=== PATIENT | male | born 1955 | race Caucasian/White ===

== ENCOUNTER → 2017-12-02 14:09 | Outpatient (CLI) | payer SELFPAY | PROVIDERS: Family Provider Family Medicine; PCP Family Medicine; Visit Provider Family Medicine | DX: H10.31 Unspecified acute conjunctivitis, right eye (principal) | CPT/HCPCS: 87070; 87075; 87077; 87186; 87205 ==

== ENCOUNTER → 2018-03-02 08:31 | Outpatient (CLI) | payer OTHER, SELFPAY ==
[2018-03-02 13:03] LABS: Hemoglobin A1c 7.6 % (4.2-6.3)
[2018-03-02 13:14] LABS: ALB/GLOB Ratio 0.9 RATIO (0.9-2.4); AST(SGOT) 28 U/L (15-37); Alanine Aminotransfer ALT/SGPT 57 U/L (16-61); Albumin, Serum 3.5 g/dL (3.2-5.0); Alkaline Phosphatase 54 U/L (45-117); Anion Gap 9 (5-15); BUN 15 mg/dL (7-18); BUN/Creat Ratio 19.5 RATIO (10-20); Calcium,Total 8.4 mg/dL (8.5-10.1); Chloride 105 mmol/L (98-107); Cholesterol 150 mg/dL (200); Creatinine, Serum 0.77 mg/dL (0.70-1.30); EST Glomerular Filtration Rate 109 mL/min (>60); Est Glom Filt Rate - Afr Amer 131 mL/min (>60); Globulin 3.9 g/dL (2.2-4.2); Glucose 115 mg/dL (74-106); High Density Lipoprotein 72 mg/dL; Potassium 3.6 mmol/L (3.5-5.1); Protein, Total 7.4 g/dL (6.4-8.2); Sodium Level 140 mmol/L (136-145); Thyroid Stim Hormone (TSH) 3.93 uIU/mL (0.358-3.74); Triglycerides 74 mg/dL; Very Low Density Lipoprotein 15 mg/dL (5-40)
== END ==
PROVIDERS: Family Provider Family Medicine; PCP Family Medicine; Visit Provider Family Medicine
DX: E11.9 Type 2 diabetes mellitus without complications (principal)
CPT/HCPCS: 36415; 80053; 80061; 83036; 84443

== ENCOUNTER 2018-09-21 21:45 | Observation (INO) | payer OTHER, SELFPAY ==
[2018-08-31 15:58] VITALS: BMI 32.8
[2018-09-21 21:46] VITALS: BP 177/93; PULSE 61; RESP 9; TEMP 36.4; O2SAT 95; BMI 34.0
--- NOTE | 2018-09-21 21:50 | ED.RN ---
RN CALLED FOR EKG, PULLED OLD EKGS FOR
--- NOTE | 2018-09-21 22:14 | EKG12_ITS ---
Test Reason : CP Blood Pressure : / mmHG Vent. Rate : 058 BPM Atrial Rate : 058 BPM P-R Int : 138 ms QRS Dur : 104 ms QT Int : 428 ms P-R-T Axes : 064 093 085 degrees QTc Int : 420 ms Sinus bradycardia Rightward axis Borderline ECG Confirmed by ANTHONY PERALTA, VIJAYA ([id number]), order editor BERE FALL ([id number] on 09/24/2018 1:47:01 PM Referred By: MARIBETH Confirmed By:VIJAYA CRUZ MD
--- NOTE | 2018-09-21 22:20 | RAD_ITS ---
STUDY: X-RAY CHEST REASON FOR EXAM: Male, 63 years old. Chest pain. TECHNIQUE: Portable chest. COMPARISON: 01/04/2017. FINDINGS: Sternotomy wires and surgical clips are compatible with prior CABG. The lungs are clear and expanded. There is no demonstrated pleural abnormality. Normal size heart. Normal mediastinum and sanam. Normal visualized pulmonary arteries. Normal visualized aortic arch and descending thoracic aorta. Normal visualized thoracic spine. Normal visualized ribs, clavicles, and shoulders. There is no demonstrated abnormality of the visualized soft tissue structures of the upper abdomen. RAD/Chest 1 View (Portable) IMPRESSION: No acute process. Electronically Signed: Aurelia Villatoro MD at 23:06 EST Tel , Service support ,
[2018-09-21 22:22] VITALS: O2SAT 98
[2018-09-21] MEDS: 0.9% Normal Saline 1,000 ML 150 ML IV (22:27)
[2018-09-21] MEDS: Aspirin 81 MG TAB.CHEW 324 MG PO (22:28)
[2018-09-21 22:56] LABS: Anion Gap 5 (5-15); BUN 17 mg/dL (7-18); BUN/Creat Ratio 15.5 RATIO (10-20); Calcium,Total 9.1 mg/dL (8.5-10.1); Chloride 104 mmol/L (98-107); EST Glomerular Filtration Rate 72 mL/min (>60); Est Glom Filt Rate - Afr Amer 87 mL/min (>60); Estimated Creatinine Clearance 68.74 ml/min; Glucose 144 mg/dL (74-106); Sodium Level 137 mmol/L (136-145)
[2018-09-21 23:03] LABS: Absolute Lymphocyte Count 4.69 X10^3/ul (0.83-4.51); Basophil# 0.05 X10^3/uL; Basophil% 0.4 % (0-1); Eosinophil# 0.32 X10^3/uL; Eosinophils% 2.8 % (0-5); Hematocrit 40.5 % (40-54); Hemoglobin 13.6 g/dl (13.0-16.5); Lymphocyte # 4.69 X10^3/ul (4.0); Lymphocyte % 40.9 % (19-41); Mean Corp Hgb Conc 33.6 g/gl (32-36); Mean Corpuscular Hgb 31.1 pg (27.0-32.0); Mean Corpuscular Volume 92.5 fL (80-94); Mean Platelet Vol. 9.4 fl (6.2-12.0); Monocyte# 1.42 X10^3/uL; Monocyte% 12.4 % (0-10); Neutrophil # 4.97 X10^3/uL (2.7-7.7); Neutrophil % 43.2 % (47-70); POSITIVE COUNT NO; POSITIVE DIFFERENTIAL NO; POSITIVE MORPHOLOGY NO; Platelet Count 318 K/mm3 (150-450); RBC Distribution Width CV 13.3 % (11.6-14.6); RBC Distribution Width SD 44.1 fl (35.1-43.9); Red Blood Count 4.38 M/mm3 (4.6-6.2); White Blood Count 11.5 K/mm3 (4.4-11.0)
[2018-09-21 23:11] VITALS: BP 139/78; PULSE 60; RESP 18; O2SAT 97
--- NOTE | 2018-09-21 23:37 | ED.DCSUM_ITS ---
- ER Visit Summary Date of Service: 09/21/18 Chief Complaint: Chest pain History of Present Illness: The patient is a 63 M who presents for chest pain. Patient states about an hour and a half ago he started developing some tightness and prickling sensation in his left chest. He did not noted any shortness of breath. He went to bed but pain seemed to worsen. Patient does have a history of coronary disease with prior HI. He had a four-way bypass in 2012. Physical Examination: Vital signs on arrival include a blood pressure of 177/93, temp 97.5, heart rate 61, respiratory rate 9, pulse ox 95% on room air. Patient sitting upright in bed in no acute distress. He is alert and talkative. Heart is regular rate and rhythm. Lungs sounds are clear. There is no reproducible chest tenderness. Abdomen is soft nontender. Extremity examination was no calf tenderness or edema. Test Results: Portable chest x-ray shows no acute process. EKG is sinus at 58 with no sign of acute ischemia. CBC was white count 11.5 with normal differential. Chemistry studies reveal glucose of 144. Troponin is negative. Emergency Department Course and Treatment: Patient received aspirin on arrival here. On repeat evaluation patient denies pain at present but has had a few twinges of pain intermittently. Blood pressure is 139/78. Patient will be admitted for further workup and evaluation. Treatment Plan: [] Disposition: Admit Impression: Chest pain This note was generated with [employer] dictation software. It may contain incorrect words, spelling, and punctuation that were not noted in review of the chart prior to signing ED Disposition - Plan for ED Patient: Chief Complaint: Chest Pain Referrals: Keshav Edwards MD [Primary Care Provider] -
--- NOTE | 2018-09-21 23:38 | PCM.HP.STD ---
History of Present Illness Date of Admission: 09/21/18 Chief Complaint: chest pain The patient is a 63 year old M with a PMH of CAD s/p CABG x 4, hypertension and diabetes. He was admitted to the ED on 09/21/2018 with complaint of chest pain which started around 9 PM on day of admission. Pain was retrosternal, pressure-like, rated it at about 5 out of 10. No aggravating or relieving factors. Pain had pretty much resolved at time of review. He denied any assisted lightheadedness or dizziness or palpitations and pain was not worsened by exertion and relieved by rest. He denied any fever or chills, any cough, any abdominal pain, any diarrhea vomiting. He did complain of episodic nose bleeds, the last of which occured this morning. In the ED, EKG showed right axis deviation with marked bradycardia with heart rate around 58 and initial troponin was negative. Labs were otherwise unremarkable. He is been admitted to manage for chest pain to rule out ACS. [] Past Medical History Past Medical History (Chronic Problems): Chronic Problems (Last Reviewed 08/31/18 @ 16:14 by Babak Garcia MD) Atherosclerotic heart disease of [place] coronary artery without angina pectoris (Chronic) Aortocoronary bypass status (Chronic) CABG X 3, 02/22/13, HUNT to LAD, SVG to RCA & SVG to 2nd marginal branch of CX (Dr. Marroquin [facility]) History of seasonal allergies (Chronic) HLD (hyperlipidemia) (Chronic) Type II diabetes mellitus (Chronic) History of depression (Chronic) CAD (coronary artery disease) (Chronic) CABG X 3, 02/22/13, HUNT to LAD, SVG to RCA & SVG to 2nd marginal branch of CX (Dr. Marroquin [facility]) Benign hypertension (Chronic) BPH (benign prostatic hyperplasia) (Chronic) Medical History: Medical History (Last Reviewed 08/31/18 @ 16:14 by Babak Garcia MD) Atherosclerotic heart disease of [place] coronary artery without angina pectoris (Chronic) I25.10 HLD (hyperlipidemia) (Chronic) E78.5 CAD (coronary artery disease) (Chronic) I25.10 CABG X 3, 02/22/13, HUNT to LAD, SVG to RCA & SVG to 2nd marginal branch of CX (Dr. Marroquin [facility]) Benign hypertension (Chronic) I10 Shortness of breath R06.02 Allergies No Known Allergies Allergy (Verified 09/21/18 21:48) Home Medications: Ambulatory Orders Medication Instructions Recorded Aspirin 1 tab PO DAILY 01/04/17 Escitalopram Oxalate [Lexapro] 1 tab PO DAILY 01/04/17 Finasteride 1 tab PO DAILY 01/04/17 Metformin HCl [Metformin HCl ER] 1 tab PO BID 01/04/17 Metoprolol Tartrate 1 tab PO BID 01/04/17 Pravastatin [Pravachol] 40 mg PO QHS 01/04/17 Tamsulosin HCl [Flomax] 1 tab PO DAILY 01/04/17 Surgical History: Surgical History (Last Reviewed 08/31/18 @ 16:14 by Babak Garcia MD) Aortocoronary bypass status (Chronic) Z95.1 CABG X 3, 02/22/13, HUNT to LAD, SVG to RCA & SVG to 2nd marginal branch of CX (Dr. Marroquin [facility]) Lives: Spouse/ Significant Other Smoking Status: Never smoker Alcohol: None Review of Systems Constitutional: Denies: Chills, Fever, Weight Change Eyes: Denies: Blurred vision HEENT: Denies: Head Aches, Sinus Congestion, Sinus Drainage Cardiovascular: Reports: Chest Pain. Denies: Chest Pressure, Chest Tightness, Palpitations, Syncope Respiratory: Denies: Cough, Shortness of breath at rest, Sputum production Gastrointestinal: Denies: Abdominal Pain, Nausea, Vomiting Genitourinary: Denies: Dysuria Musculoskeletal: Denies: Joint Pain, Joint Tenderness Skin: Denies: Rash, Wounds Neurological: Denies: Numbness, Tingling, Focal weakness Psychiatric: Denies: Anxiety, Depression, Homicidal Ideations, Suicidal Ideations Hematologic/ Lymphatic: Denies: Easy Bruising, Easy Bleeding VTE Information - Inpt Only VTE Present on Admission: No VTE Mechan Device Prophylaxis: SCD's - Physical Exam General: Alert, Oriented x3, Cooperative, No apparent distress HEENT: Atraumatic, PERRLA, EOMI, Normocephalic Oral: Moist Mucosa Neck: Supple, No JVD, Negative Carotid Bruits Lungs: Normal air movement, - - mild bibasal crackles Cardiovascular: Regular rate, Regular Rhythm, Normal S1, Normal S2, No murmurs Abdomen: Bowel Sounds Present, Soft, Non Tender, Non-Distended, No Hepato-splenomegaly Extremities: No clubbing, No cyanosis, No edema, Capillary Refill Less than 3 Seconds Skin: No rashes, No breakdown Musculoskeletal: No Tenderness to Palpation of Joints or Extremities Lymphatic: No Cervical, Supraclavicular, or Inguinal Adenopathy Neurological: Cranial nerves II-XII grossly intact, Neuro grossly intact, Motor Exam 5/5 strength throughout Psych/Mental Status: Normal Affect, Appropriate, Alert and oriented to time, place, person, mood and affect Vital Signs Temp Pulse Resp BP Pulse Ox 97.5 F L 60 18 139/78 H 97 09/21/18 21:46 09/21/18 23:11 09/21/18 23:11 09/21/18 23:11 09/21/18 23:11 Oxygen Flow Rate (L/min) 2 Oxygen Delivery Method Nasal Cannula Weight: 230 lb 9.656 oz Body Mass Index (BMI) 34.0 Laboratory Tests Past 24 Hrs 09/21/18 09/21/18 21:50 21:50 WBC 11.5 H RBC 4.38 L Hgb 13.6 Hct 40.5 MCV 92.5 MCH 31.1 MCHC 33.6 RDW 13.3 RDW Differential 44.1 H Plt Count 318 MPV 9.4 Immature Gran % (Auto) 0.300 Neut % (Auto) 43.2 L Lymph % (Auto) 40.9 [place] % (Auto) 12.4 H Eos % (Auto) 2.8 Baso % (Auto) 0.4 Absolute Neuts (auto) 5.0 Absolute Lymphs (auto) 4.69 H Total Counted Not Reportable Sodium 137 Potassium 4.0 Chloride 104 Carbon Dioxide 28.0 Anion Gap 5 BUN 17 Creatinine 1.10 Estim Creat Clear Calc 68.74 Est GFR (MDRD) Af Amer 87 Est GFR (MDRD) Non-Af 72 BUN/Creatinine Ratio 15.5 Glucose 144 H Calcium 9.1 Troponin I < 0.015 Diagnostic Data Chest X-Ray 09/21/18 22:20 IMPRESSION: No acute process. Electronically Signed: Aurelia Villatoro MD at 23:06 EST Tel , Service support , Assessment/Plan 61 y/o with a history of CAD s/p CABG x 4 presenting with a history of chest pain for a few hours prior to presentation 1. Chest pain, to rule out ACS initial troponin negative; EKG showed no acute ST changes and showed right axis deviation which is not new, and was present in previous EKGs admit to PCu with telemetry cycle troponins SL nitroglycerin prn; hold off on aspirin for now o/a of complaints about epistaxis continue atorvastatin for stress test tomorrow 2. CAD s/p CABG x 4: continue statin and beta eva 3. Epistaxis; complains of periodic nosebleeds; had one this morning. On aspirin; will hold. Says he hasnt seen an ENT surgeon yet. To consider ENT referral in [place] morning if symptoms persist; otherwise, to follow up with ENT on outpatient basis. 4. Diabetes mellitus type 2: hold metformin o/a of stress test tomorrow. ISS. accuchecks ACHS 5. Asymptomatic bradycardia: HR is ~ 58. Asymptomatic. Will continue to monitor 6. BPh: on finasteride 6. depression: on lexapro DVT prophylaxis; SCDs o/a of episodic nose bleed Code Visit OBSV E&M: [id number] Initial observation care L2
[2018-09-21 23:55] VITALS: BP 156/77; PULSE 59; RESP 18; O2SAT 97
[2018-09-22] VITALS (10 sets, daily range): BP systolic 132–148; BP diastolic 63–74; PULSE 59–72; RESP 16–18; TEMP 36.6–36.8; O2SAT 96–97; BMI 31.1; BMI 31.2
[2018-09-22 00:45] LABS: Bedside Glucose 135 mg/dL (70-110)
[2018-09-22 03:58] LABS: Absolute Lymphocyte Count 3.11 X10^3/ul (0.83-4.51); Absolute Neutrophil Count 3.7 X10^3/uL (2.0-7.7); Basophil# 0.05 X10^3/uL; Basophil% 0.6 % (0-1); Eosinophils% 3.9 % (0-5); Hematocrit 37.1 % (40-54); Hemoglobin 12.4 g/dl (13.0-16.5); Lymphocyte # 3.11 X10^3/ul (4.0); Lymphocyte % 39.9 % (19-41); Mean Corp Hgb Conc 33.4 g/gl (32-36); Mean Corpuscular Hgb 30.9 pg (27.0-32.0); Mean Corpuscular Volume 92.5 fL (80-94); Mean Platelet Vol. 8.9 fl (6.2-12.0); Monocyte# 0.66 X10^3/uL; Monocyte% 8.5 % (0-10); Neutrophil # 3.66 X10^3/uL (2.7-7.7); Platelet Count 280 K/mm3 (150-450); RBC Distribution Width CV 13.2 % (11.6-14.6); Red Blood Count 4.01 M/mm3 (4.6-6.2); White Blood Count 7.8 K/mm3 (4.4-11.0)
[2018-09-22 04:00] LABS: Prothrombin Time (Protime)PT. 13.2 SECONDS (11.7-14.9)
[2018-09-22 04:06] LABS: POSITIVE COUNT NO; POSITIVE DIFFERENTIAL NO; POSITIVE MORPHOLOGY NO
[2018-09-22] MEDS: 0.9% Normal Saline 1,000 ML 150 ML IV (05:02)
--- NOTE | 2018-09-22 05:55 | EKG12_ITS ---
Test Reason : Blood Pressure : / mmHG Vent. Rate : 055 BPM Atrial Rate : 055 BPM P-R Int : 138 ms QRS Dur : 098 ms QT Int : 458 ms P-R-T Axes : 052 091 097 degrees QTc Int : 438 ms Sinus bradycardia Rightward axis Borderline ECG When compared with ECG of 21-SEP-2018 21:48, MANUAL COMPARISON REQUIRED, DATA IS UNCONFIRMED Confirmed by ANTHONY PERALTA, VIJAYA ([id number]), development editor BERE FALL ([id number]) on 09/24/2018 2:10:54 PM Referred By: Confirmed By:VIJAYA CRUZ MD
[2018-09-22 07:01] LABS: Bedside Glucose 138 mg/dL (70-110)
[2018-09-22 07:19] LABS: Anion Gap 11 (5-15); BUN 14 mg/dL (7-18); BUN/Creat Ratio 16.1 RATIO (10-20); Calcium,Total 8.5 mg/dL (8.5-10.1); Chloride 106 mmol/L (98-107); Creatinine, Serum 0.87 mg/dL (0.70-1.30); EST Glomerular Filtration Rate 94 mL/min (>60); Est Glom Filt Rate - Afr Amer 114 mL/min (>60); Estimated Creatinine Clearance 86.91 ml/min; Glucose 142 mg/dL (74-106); Potassium 4.4 mmol/L (3.5-5.1); Sodium Level 141 mmol/L (136-145)
[2018-09-22] MEDS: Finasteride 5 MG Tablet PO (12:06)
[2018-09-22] MEDS: Metoprolol Tartrate 25 MG Tablet PO (12:06)
[2018-09-22] MEDS: Escitalopram Oxalate 10 MG Tablet PO (12:06)
[2018-09-22] MEDS: Tamsulosin HCl 0.4 MG Capsule PO (12:07)
[2018-09-22 12:21] LABS: Bedside Glucose 120 mg/dL (70-110)
--- NOTE | 2018-09-22 12:34 | STRESSREP ---
Stress Test Report Exercise myocardial perfusion stress test. 63-year-old man with a history of chest pain. Medications Lexapro Proscar metoprolol. Stress protocol: Resting EKG demonstrates normal sinus rhythm with a rate of 62 bpm normal intervals are noted resting blood pressure 144/86 mmHg. The patient exercised according to regular Triston protocol for total duration of 7 minutes patient completed 1 minute into stage III of the Triston protocol the maximum heart rate attained was 141 bpm which was 89% of maximum predicted heart rate the maximum workload was 8.5 metabolic equivalents. Patient maintained sinus rhythm throughout the recording. At rest there were no ST or T wave changes noted suggest ischemia at peak exercise upsloping ST changes only were noted with normally the criteria for ischemia. Patient was noted to have a right bundle branch block with occasional premature ventricular complexes. The resting blood pressure 144/86 with a peak blood pressure of 210/80. Myocardial perfusion protocol. 14.9 mCi of technetium 99m sestamibi was injected at rest. Patient exercised according to regular Triston protocol for 7 minutes and at peak exercise 44.6 mCi of technetium 99m sestamibi was injected stress images were obtained stress and rest images were reconstructed and compared in the short axis vertical long horizontal long axis. Gated images were also obtained Perfusion SPECT analysis: Review of the stress images demonstrate normal uptake of tracer noted in all areas of the myocardium. The resting images similarly demonstrate normal uptake of tracer noted in all areas of the myocardium. No areas of reversibility are noted suggest ischemia. Gated SPECT analysis: The gated ejection fraction is noted to be 69%. Conclusion: Normal exercise myocardial perfusion stress test at a moderate workload. Preserved ejection fraction.
--- NOTE | 2018-09-22 12:43 | PCM.DC.SUM ---
Discharge Date and Diagnosis Date of Admission: 09/21/18 Date of Discharge: 09/22/18 - Primary Discharge Diagnosis Acute chest pain - Secondary Discharge Diagnosis Chronic Problems (Last Reviewed 08/31/18 @ 16:14 by Babak Garcia MD) Atherosclerotic heart disease of [place] coronary artery without angina pectoris (Chronic) Aortocoronary bypass status (Chronic) CABG X 3, 02/22/13, HUNT to LAD, SVG to RCA & SVG to 2nd marginal branch of CX (Dr. Marroquin [facility]) History of seasonal allergies (Chronic) HLD (hyperlipidemia) (Chronic) Type II diabetes mellitus (Chronic) History of depression (Chronic) CAD (coronary artery disease) (Chronic) CABG X 3, 02/22/13, HUNT to LAD, SVG to RCA & SVG to 2nd marginal branch of CX (Dr. Marroquin [facility]) Benign hypertension (Chronic) BPH (benign prostatic hyperplasia) (Chronic) Hospital Course and Treatment Imaging Results: 09/22/18 08:00 Nuclear Stress Test - Treadmil [NM] Routine Summary of Care Provided: The patient is a 63 year old M with past medical history cigar for CAD with previous CABG who presented with chest pain 1. Chest pain patient was placed on a monitored bed NV was ruled out with serial cardiac enzymes subsequently underwent a nuclear stress test which was negative for stress-induced ischemia discharge home instructed to follow-up with PCP Dr. Gr for subsequent care 2. CAD with previous CABG 3. Hypertension 4. Diabetes mellitus type 2 - Physical Exam General: Alert HEENT: Atraumatic Neck: Supple Neurological: Neuro grossly intact Psych/Mental Status: Normal Affect Vital Signs Temp Pulse Resp BP Pulse Ox 98.2 F 72 18 143/74 H 97 09/22/18 08:00 09/22/18 12:06 09/22/18 08:00 09/22/18 12:06 09/22/18 08:00 Oxygen Flow Rate (L/min) 2 Oxygen Delivery Method Room Air Weight: 95.8 kg Body Mass Index (BMI) 31.1 Intake and Output for Last 24 Hours 09/20/18 09/21/18 09/22/18 23:59 23:59 23:59 Intake Total 808 / 808 Balance 808 / 808 Laboratory Tests Past 24 Hrs 09/21/18 09/21/18 09/22/18 21:50 21:50 00:55 WBC 11.5 H RBC 4.38 L Hgb 13.6 Hct 40.5 MCV 92.5 MCH 31.1 MCHC 33.6 RDW 13.3 RDW Differential 44.1 H Plt Count 318 MPV 9.4 Immature Gran % (Auto) 0.300 Neut % (Auto) 43.2 L Lymph % (Auto) 40.9 [place] % (Auto) 12.4 H Eos % (Auto) 2.8 Baso % (Auto) 0.4 Absolute Neuts (auto) 5.0 Absolute Lymphs (auto) 4.69 H Total Counted Not Reportable PT INR APTT Sodium 137 Potassium 4.0 Chloride 104 Carbon Dioxide 28.0 Anion Gap 5 BUN 17 Creatinine 1.10 Estim Creat Clear Calc 68.74 Est GFR (MDRD) Af Amer 87 Est GFR (MDRD) Non-Af 72 BUN/Creatinine Ratio 15.5 Glucose 144 H Calcium 9.1 Troponin I < 0.015 < 0.015 09/22/18 09/22/18 09/22/18 03:45 03:45 03:45 WBC 7.8 RBC 4.01 L Hgb 12.4 L Hct 37.1 L MCV 92.5 MCH 30.9 MCHC 33.4 RDW 13.2 RDW Differential 44.0 H Plt Count 280 MPV 8.9 Immature Gran % (Auto) 0.100 Neut % (Auto) 47.0 Lymph % (Auto) 39.9 [place] % (Auto) 8.5 Eos % (Auto) 3.9 Baso % (Auto) 0.6 Absolute Neuts (auto) 3.7 Absolute Lymphs (auto) 3.11 Total Counted Not Reportable PT 13.2 INR 1.0 APTT 28.0 Sodium Potassium Chloride Carbon Dioxide Anion Gap BUN Creatinine Estim Creat Clear Calc Est GFR (MDRD) Af Amer Est GFR (MDRD) Non-Af BUN/Creatinine Ratio Glucose Calcium Troponin I < 0.015 09/22/18 06:45 WBC RBC Hgb Hct MCV MCH MCHC RDW RDW Differential Plt Count MPV Immature Gran % (Auto) Neut % (Auto) Lymph % (Auto) [place] % (Auto) Eos % (Auto) Baso % (Auto) Absolute Neuts (auto) Absolute Lymphs (auto) Total Counted PT INR APTT Sodium 141 Potassium 4.4 Chloride 106 Carbon Dioxide 24.0 Anion Gap 11 BUN 14 Creatinine 0.87 Estim Creat Clear Calc 86.91 Est GFR (MDRD) Af Amer 114 Est GFR (MDRD) Non-Af 94 BUN/Creatinine Ratio 16.1 Glucose 142 H Calcium 8.5 Troponin I < 0.015 POC Glucose 09/22/18 09/22/18 09/22/18 12:02 06:04 00:24 POC Glucose 120 H 138 H 135 H Discharge Diet: Low fat/ Low Cholesterol Home Medications: Medications to take at Discharge Aspirin 1 tab PO DAILY 01/04/17 Escitalopram Oxalate [Lexapro] 1 tab PO DAILY 01/04/17 Finasteride 1 tab PO DAILY 01/04/17 Metformin HCl [Metformin HCl ER] 1 tab PO BID 01/04/17 Metoprolol Tartrate 1 tab PO BID 01/04/17 Pravastatin [Pravachol] 40 mg PO QHS 01/04/17 Tamsulosin HCl [Flomax] 1 tab PO DAILY 01/04/17 Primary Care Physician: Keshav Edwards MD [Primary Care Provider] - Disposition: Home Minutes spent on discharge:: 35 Medical Necessity - Tobacco Use Smoking Status: Never smoker Meaningful Use Info Meaningful Use Diagnoses (Choose all that apply): None applicable Code Visit OBSV E&M: 37198 Observation care discharge
--- NOTE | 2018-09-22 12:44 | DCINST_ITS ---
You will use the following diet at home:: Cardiac Allergies/Adverse Reactions: Allergies No Known Allergies Allergy (Verified 09/21/18 21:48) Medications to take at Discharge Aspirin 1 tab PO DAILY 01/04/17 Escitalopram Oxalate [Lexapro] 1 tab PO DAILY 01/04/17 Finasteride 1 tab PO DAILY 01/04/17 Metformin HCl [Metformin HCl ER] 1 tab PO BID 01/04/17 Metoprolol Tartrate 1 tab PO BID 01/04/17 Pravastatin [Pravachol] 40 mg PO QHS 01/04/17 Tamsulosin HCl [Flomax] 1 tab PO DAILY 01/04/17 Primary Care Physician: Keshav Edwards MD [Primary Care Provider] - Please follow up with your Primary Care Physician in: in 1-2 weeks Test Results: Test results from this visit will be discussed in further detail at your follow- up appointment, if applicable. Proposed Discharge Date: 09/22/18
--- OUTSIDE RECORDS SUMMARY | 2018-12-24 06:31 | XMS RPT_ITS ---
:1955 Author Organization OHIP Support Name Relationship Address Phone SARAY EDWARDS Unavailable [address] + [place] [address] + [place] [address] SARAY EDWARDS Unavailable [address] + [place] [address] + [place] [address] SARAY EDWARDS Unavailable [address] + [place] [address] [address] + [place] [address] SARAY EDWARDS Unavailable [address] + [place] [address] + [place] [address] SARAY EDWARDS Unavailable [address] + [place] [address] [address] + [place] [address] SARAY EDWARDS Unavailable [address] + [place] [address] + [place] [address] SARAY EDWARDS Unavailable [address] + [place] [address] [address] + [place] [address] SARAY EDWARDS Unavailable [address] + [place] [address] [address] + [place] [address] EDWARDSSARAY Unavailable [address] + [place] [address] Un[address] + [place] [address] STEWARTRYAN CARTER Unavailable [address] + [place] [address] SARAY EDWARDS Unavailable [address] + [place] [address] [address] Un[address] + [place] [address] STEWART, RYAN Unavailable [address] + [place] [address] SARAY EDWARDS Unavailable [address] + [place] [address] [address] + [place] [address] Care Team Providers Name Role Phone Edwards, Keshav Primary Care Unavailable Koram, Rachel Verna Admitting Unavailable Andrei Noguera Attending Unavailable Koram, Rachel Verna Admitting Unavailable Koram, Rachel Verna Attending Unavailable Edwards, Keshav Primary Care Unavailable Koram, Rachel Verna Consulting Unavailable Ana Julio Attending Unavailable Koram, Rachel Verna Admitting Unavailable Andrei Noguera Attending Unavailable Edwards, Keshav Primary Care Unavailable Andrei Noguera Consulting Unavailable Jose, Waianae Attending Unavailable Edwards, Keshav Referring Unavailable Edwards, Keshav Attending Unavailable Edwards, Keshav Primary Care Unavailable Levon Davalos Attending Unavailable Edwards, Keshav Referring Unavailable Edwards, Keshav Primary Care Unavailable Jose, Babak Attending Unavailable Edwards, Keshav Referring Unavailable Edwards, Keshav Attending Unavailable Edwards, Keshav Primary Care Unavailable Jose, Waianae Attending Unavailable Koram, Rachel Verna Referring Unavailable Edwards, Keshav Attending Unavailable Edwards, Keshav Primary Care Unavailable PROBLEMS PROBLEMS DATE TYPE CONDITION / CODE ATTENDING STATUS SOURCE 10/14/2018 Unknown R07.9 - Chest pain, Jose, [place] Active [place] unspecified / Community R07.9(ICD-10) Hospital Repository 08/31/2018 Unknown Z95.1 - Presence of Jose, [place] Active [place] aortocoronary Community bypass graft / Hospital Z95.1(ICD-10) Repository 08/31/2018 Unknown E78.00 - Pure Jose, [place] Active [place] hypercholesterolemi Community a, unspecified / Hospital E78.00(ICD-10) Repository 08/31/2018 Unknown I10 - Essential JoseBabak crowe Active [place] (primary) Community hypertension / Hospital I10(ICD-10) Repository 03/02/2018 Unknown E11.9 - Type 2 Keshav Edwards Active [place] diabetes mellitus Community without Hospital complications / Repository E11.9(ICD-10) PROCEDURES PROCEDURES No Procedure Records FoundRESULTS RESULTS BASIC METABOLIC Collected: 09/27/2018 Status: F Source: [place] PROFILE ([place]) 8:[place] [facility] [place] CODE TESTS RESULT OUT OF RANGE REFERENCE UNITS LAB L501.0100 74-106 mg/dL High GLU 139 Result Comment: Fasting Glucose result greater than or equal to 126 mg/dL suggests DIABETES MELLITUS per A.D.A. criteria. Please note revised GLUCOSE reference range effective 2017. LAB L501.1000 7-18 mg/dL Normal BUN 10 LAB L501.1100 0.70-1.30 mg/dL Normal CREAT,SERUM 0.80 Result Comment: The validity of the calculated GFR AND GFRAA in patients over 70 years has not been determined. Clinical correlation is essential. LAB L501.1110 >60 mL/min Normal EST GFR 104 Result Comment: Non- GFR Calc LAB L501.1115 >60 mL/min Normal EST GFR - AA 126 Result Comment: GFR Calc LAB L501.1300 10-20 RATIO Normal BUN/CRE 12.5 LAB L501.2200 8.5-10.1 mg/dL CA Normal 8.9 LAB L501.5300 136-145 mmol/L NA Normal 141 LAB L501.5600 3.5-5.1 mmol/L K Normal 4.4 LAB L501.5900 98-107 mmol/L CL Normal 103 LAB L501.6100 21.0-32.0 mmol/L Normal CO2 29.0 LAB L501.6200 5-15 Normal GAP 9 Performed By: #### L500.2500, L501.9985 #### [facility] [address] [place], [address] HEMOGLOBIN A1C Collected: 09/27/2018 Status: F Source: [place] 8:57 AM [facility] [place] TYPE CODE TESTS RESULT OUT OF RANGE REFERENCE UNITS LAB L501.9985 4.2-6.3 % High HGB A1C 7.6 Performed By: #### L500.2500, L501.9985 #### [facility] [address] [place], [address] 12 LEAD ELECTROCARDIOGRAM Observed: 09/24/2018 Status: F Source: [place] 2:11 PM [facility] [place] [facility] Cardiovascular Services [address] [place] [address] 12 Lead EKG 09/22/18 0029 MR#: [id number] Acct: [id number] Name: ORQUIDEA EDWARDS Jr. Rep #: [id number] : 1955 63 From: Babak Garcia MD Attending Dr: Andrei Noguera MD Status: DIS GLORIA Ordering Dr: Rachel Orozco MD Date: 09/22/18 Location: [facility] Sex: M C Admitted: 09/21/18 Test Reason : Blood Pressure : / mmHG Vent. Rate : 055 BPM Atrial Rate : 055 BPM P-R Int : 138 ms QRS Dur : 098 ms QT Int : 458 ms P-R-T Axes : 052 091 097 degrees QTc Int : 438 ms Sinus bradycardia Rightward axis Borderline ECG When compared with ECG of 21-SEP-2018 21:48, MANUAL COMPARISON REQUIRED, DATA IS UNCONFIRMED Confirmed by JOSE PERALTA, BABAK ([id number]), manuscript editor BERE FALL ([id number]) on 09/24/2018 2:10:54 PM Referred By: Confirmed By:BABAK GARCIA MD 09/24/18 1410 Date Babak Garcia MD CC: Andrei Noguera MD; Keshav Edwards MD; Rachel Orozco MD Signed 12 LEAD ELECTROCARDIOGRAM Observed: 09/24/2018 Status: F Source: [place] 1:47 PM [facility] [place] [facility] Cardiovascular Services [address] [facility] [place] [address] 12 Lead EKG 09/21/18 2148 MR#: [id number] Acct: [id number] Name: ORQUIDEA EDWARDS . Rep #: [id number] : 1955 63 From: Babak Garcia MD Attending Dr: Andrei Noguera MD Status: DIS GLORIA Ordering Dr: Mel Gilbert MD Date: 09/21/18 Location: [facility] Sex: M C Admitted: 09/21/18 Test Reason : CP Blood Pressure : / mmHG Vent. Rate : 058 BPM Atrial Rate : 058 BPM P-R Int : 138 ms QRS Dur : 104 ms QT Int : 428 ms P-R-T Axes : 064 093 085 degrees QTc Int : 420 ms Sinus bradycardia Rightward axis Borderline ECG Confirmed by JOSE PERALTA, BABAK ([id number]), manuscript editor BERE FALL ([id number]) on 09/24/2018 1:47:01 PM Referred By: MARIBETH Confirmed By:BABAK GARCIA MD 09/24/18 1347 Date Babak Garcia MD CC: Andrei Noguera MD; Keshav Edwards MD; Mel Gilbert MD Signed DISCHARGE SUMMARY Observed: 09/22/2018 Status: F Source: [place] 2:15 PM [facility] [place] 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 Marroquin [facility]) History of seasonal allergies (Chronic) HLD (hyperlipidemia) (Chronic) Type II diabetes mellitus (Chronic) History of depression (Chronic) CAD (coronary artery disease) (Chronic) CABG X 3, 02/22/13, HUNT to LAD, SVG to RCA AND SVG to 2nd marginal branch of CX (Dr. Marroquin [facility]) Benign hypertension (Chronic) BPH (benign prostatic hyperplasia) (Chronic) Hospital Course and Treatment Imaging Results: 09/22/18 08:00 Nuclear Stress Test - Treadmil [NM] Routine Summary of Care Provided: The patient is a 63 year old M with past medical history cigar for CAD with previous CABG who presented with chest pain 1. Chest pain patient was placed on a monitored bed RI was ruled out with serial cardiac enzymes subsequently underwent a nuclear stress test which was negative for stress-induced ischemia discharge home instructed to follow-up with PCP Dr. Gr for subsequent care 2. CAD with previous CABG 3. Hypertension 4. Diabetes mellitus type 2 - Physical Exam General: Alert HEENT: Atraumatic Neck: Supple Neurological: Neuro grossly intact Psych/Mental Status: Normal Affect Vital Signs Temp Pulse Resp BP Pulse Ox 98.2 F 72 18 143/74 H 97 09/22/18 08:00 09/22/18 12:06 09/22/18 08:00 09/22/18 12:06 09/22/18 08:00 Oxygen Flow Rate (L/min) 2 Oxygen Delivery Method Room Air Weight: 95.8 kg Body Mass Index (BMI) 31.1 Intake and Output for Last 24 Hours Intake Total 808 / 808 Balance 808 / 808 Laboratory Tests Past 24 Hrs WBC 7.8 RBC 4.01 L Hgb 12.4 L Hct 37.1 L MCV 92.5 MCH 30.9 MCHC 33.4 RDW 13.2 RDW Differential 44.0 H POC Glucose POC Glucose 120 H 138 H 135 H Discharge Diet: Low fat/ Low Cholesterol Home Medications: Medications to take at Discharge Aspirin 1 tab PO DAILY 01/04/17 Escitalopram Oxalate [Lexapro] 1 tab PO DAILY 01/04/17 Finasteride 1 tab PO DAILY 01/04/17 Metformin HCl [Metformin HCl ER] 1 tab PO BID 01/04/17 Metoprolol Tartrate 1 tab PO BID 01/04/17 Pravastatin [Pravachol] 40 mg PO QHS 01/04/17 Tamsulosin HCl [Flomax] 1 tab PO DAILY 01/04/17 Primary Care Physician: Keshav Edwards MD [Primary Care Provider] - Disposition: Home Minutes spent on discharge:: 35 Medical Necessity - Tobacco Use Smoking Status: Never smoker Meaningful Use Info Meaningful Use Diagnoses (Choose all that apply): None applicable Code Visit OBSV E AND M: 38996 Observation care discharge 09/22/18 1415 <Electronically signed by Andrei Noguera MD> Date Andrei Noguera MD Cosigner Signature (if applicable): Date CC: Andrei Noguera MD; Keshav Edwards MD Signed DISCHARGE INSTRUCTION Observed: 09/22/2018 Status: F Source: [place] 12:44 PM [facility] [place] [facility] Medical Records Department [address] [place] [address] Instructions for Home/Discharge Instructions 09/22/18 1244 MR#: [id number] Acct: [id number] Name: ORQUIDEA EDWARDS Rep #: [id number] : 1955 63 From: Andrei Noguera MD PCP: Keshav Edwards MD Status: ADM GLORIA You will use the following diet at home:: Cardiac Allergies/Adverse Reactions: Allergies No Known Allergies Allergy (Verified 09/21/18 21:48) Medications to take at Discharge Aspirin 1 tab PO DAILY 01/04/17 Escitalopram Oxalate [Lexapro] 1 tab PO DAILY 01/04/17 Finasteride 1 tab PO DAILY 01/04/17 Metformin HCl [Metformin HCl ER] 1 tab PO BID 01/04/17 Metoprolol Tartrate 1 tab PO BID 01/04/17 Pravastatin [Pravachol] 40 mg PO QHS 01/04/17 Tamsulosin HCl [Flomax] 1 tab PO DAILY 01/04/17 Primary Care Physician: Keshav Edwards MD [Primary Care Provider] - Please follow up with your Primary Care Physician in: in 1- 2 weeks Test Results: Test results from this visit will be discussed in further detail at your follow-up appointment, if applicable. Proposed Discharge Date: 09/22/18 09/22/18 1244 <Electronically signed by Andrei Noguera MD> Date Andrei Noguera MD CC: Keshav Edwards MD STRESS REPORT Observed: 09/22/2018 Status: F Source: [place] 12:37 PM [facility] [place] [facility] Cardiovascular Services [facility] [place] [address] MR#: [id number] Acct: [id number] Name: ORQUIDEA EDWARDS Rep #: [id number] : 1955 63 From: Babak Garcia MD Primary Care: Keshav Edwards MD Status: ADM GLORIA Ordering Dr: Sex: Christi C Stress Test Report Exercise myocardial perfusion stress test. 63-year-old man with a history of chest pain. Medications Lexapro Proscar metoprolol. Stress protocol: Resting EKG demonstrates normal sinus rhythm with a rate of 62 bpm normal intervals are noted resting blood pressure 144/86 mmHg. The patient exercised according to regular Triston protocol for total duration of 7 minutes patient completed 1 minute into stage III of the Triston protocol the maximum heart rate attained was 141 bpm which was 89% of maximum predicted heart rate the maximum workload was 8.5 metabolic equivalents. Patient maintained sinus rhythm throughout the recording. At rest there were no ST or T wave changes noted suggest ischemia at peak exercise upsloping ST changes only were noted with normally the criteria for ischemia. Patient was noted to have a right bundle branch block with occasional premature ventricular complexes. The resting blood pressure 144/86 with a peak blood pressure of 210/80. Myocardial perfusion protocol. 14.9 mCi of technetium 99m sestamibi was injected at rest. Patient exercised according to regular Triston protocol for 7 minutes and at peak exercise 44.6 mCi of technetium 99m sestamibi was injected stress images were obtained stress and rest images were reconstructed and compared in the short axis vertical long horizontal long axis. Gated images were also obtained Perfusion SPECT analysis: Review of the stress images demonstrate normal uptake of tracer noted in all areas of the myocardium. The resting images similarly demonstrate normal uptake of tracer noted in all areas of the myocardium. No areas of reversibility are noted suggest ischemia. Gated SPECT analysis: The gated ejection fraction is noted to be 69%. Conclusion: Normal exercise myocardial perfusion stress test at a moderate workload. Preserved ejection fraction. 09/22/18 1237 <Electronically signed by Babak Garcia MD> Date Babak Garcia MD CC: Andrei Noguera MD; Keshav Edwards MD Date Dictated: 09/22/18 1234 Date Transcribed: 09/22/181233 Direct Customer Service Representative: [place] Signed BEDSIDE GLUCOSE Collected: 09/22/2018 Status: F Source: [place] 12:02 PM [facility] [place] TYPE CODE TESTS RESULT OUT OF REFERENCE UNITS RANGE LAB L501.080 70-110 mg/dL High BEDSIDE GLU 120 Result Comment: MANAGEMENT OF PATIENT CARE PER NURSING PROTOCOL Performed By: #### L501.080 #### [facility] Point of Care [address] [place], [place] [address] BASIC METABOLIC Collected: 09/22/2018 Status: F Source: [place] PROFILE (BMP) 6:45 AM [facility] [place] Order Comment: 'TROP' Serial specimen #1, #2 or #3: 2 TYPE CODE TESTS RESULT OUT OF RANGE REFERENCE UNITS LAB L501.0100 74-106 mg/dL High GLU 142 Result Comment: Fasting Glucose result greater than or equal to 126 mg/dL suggests DIABETES MELLITUS per A.D.A. criteria. Please note revised GLUCOSE reference range effective 2017. LAB L501.1000 7-18 mg/dL Normal BUN 14 LAB L501.1100 0.70-1.30 mg/dL Normal CREAT,SERUM 0.87 Result Comment: The validity of the calculated GFR AND GFRAA in patients over 70 years has not been determined. Clinical correlation is essential. LAB L501.1110 >60 mL/min Normal EST GFR 94 Result Comment: Non- GFR Calc LAB L501.1115 >60 mL/min Normal EST GFR - AA 114 Result Comment: GFR Calc LAB L501.1255 ml/min Normal Estimated CRCL 86.91 LAB L501.1300 10-20 RATIO Normal BUN/CRE 16.1 LAB L501.2200 8.5-10 mg/dL Normal .1 CA 8.5 LAB L501.5300 136-14 mmol/L Normal 5 NA 141 LAB L501.5600 3.5-5. mmol/L Normal 1 K 4.4 LAB L501.5900 98-107 mmol/L Normal CL 106 LAB L501.6100 21.0-3 mmol/L Normal 2.0 CO2 24.0 LAB L501.6200 5-15 Normal GAP 11 Performed By: #### L500.2500, L501.4010 #### [facility] [address] [facility] [place], [place], [id number] TROPONIN-I Collected: 09/22/2018 Status: F Source: [place] 6:45 AM [facility] [place] Order Comment: 'TROP' Serial specimen #1, #2 or #3: 2 TYPE CODE TESTS RESULT OUT OF RANGE REFERENCE UNITS LAB L501.4010 <0.045 ng/mL Normal < 0.015 TROPONIN-I Result Comment: TROPONIN-I EXPECTED VALUES <0.045 Negative 0.045 - 0.590 Consistent with Cardiac Damage > OR = 0.600 Critical Value Not every elevated troponin is indicative of RI. These values should be used with clinical judgement in examining the patient's clinical picture for diagnosis. To establish a diagnosis of RI versus myocardial injury, there must be a demonstrated rise and/or fall in the troponin values, in addition to ischemic symptoms, EKG changes, new regional wall motion abnormality, and/or angiographical evidence. PLEASE NOTE: REFERENCE RANGES EDITED 18 Performed By: #### L500.2500, L501.4010 #### [facility] [address] [facility]. [place], [place], [id number] BEDSIDE GLUCOSE Collected: 09/22/2018 Status: F Source: [place] 6:04 AM [facility] [place] TYPE CODE TESTS RESULT OUT OF REFERENCE UNITS RANGE LAB L501.080 70-110 mg/dL High BEDSIDE GLU 138 Result Comment: MANAGEMENT OF PATIENT CARE PER NURSING PROTOCOL Performed By: #### L501.080 #### [facility] Point of Care [address] [place] [address] TROPONIN-I Collected: 09/22/2018 Status: F Source: [place] 3:45 AM [facility] [place] Order Comment: 'TROP' Serial specimen #1, #2 or #3: 3 'TROP' Serial specimen #1, #2, #3, or #4: 3 TYPE CODE TESTS RESULT OUT OF RANGE REFERENCE UNITS LAB L501.4010 <0.045 ng/mL Normal < 0.015 TROPONIN-I Result Comment: TROPONIN-I EXPECTED VALUES <0.045 Negative 0.045 - 0.590 Consistent with Cardiac Damage > OR = 0.600 Critical Value Not every elevated troponin is indicative of RI. These values should be used with clinical judgement in examining the patient's clinical picture for diagnosis. To establish a diagnosis of RI versus myocardial injury, there must be a demonstrated rise and/or fall in the troponin values, in addition to ischemic symptoms, EKG changes, new regional wall motion abnormality, and/or angiographical evidence. PLEASE NOTE: REFERENCE RANGES EDITED 18 Performed By: #### L501.4010 #### [facility] [address] [place], [address] CBC W/DIFF, AUTOMATED Collected: 09/22/2018 Status: F Source: [place] 3:45 AM [facility] [place] TYPE CODE TESTS RESULT OUT OF RANGE REFERENCE UNITS LAB L100.1000 4.4-11.0 K/mm3 Normal WBC 7.8 LAB L100.1200 4.6-6.2 M/mm3 Low RBC 4.01 LAB L100.1300 13.0-16.5 g/dl Low HGB 12.4 LAB L100.1400 40-54 % Low HCT 37.1 LAB L100.1500 80-94 fL Normal MCV 92.5 LAB L100.1600 27.0-32.0 pg Normal MCH 30.9 LAB L100.1700 32-36 g/gl Normal MCHC 33.4 LAB L100.1810 11.6-14.6 % Normal RDW CV 13.2 LAB L100.1820 35.1-43.9 fl High RDW SD 44.0 LAB L100.1900 150-450 K/mm3 Normal PLT 280 LAB L100.2000 6.2-12.0 fl Normal MPV 8.9 LAB L100.2100 47-70 % Normal NEUT% 47.0 LAB L100.2200 19-41 % Normal LY% 39.9 LAB L100.2300 0-10 % Normal MONO% 8.5 LAB L100.2400 0-5 % Normal EO% 3.9 LAB L100.2500 0-1 % Normal BASO% 0.6 LAB L100.2550 0.0-0.9 % Normal IM GRAN % 0.100 Result Comment: IG% - Immature Granulocytes (promyelocytes, myelocytes and metamyelocytes) > 1% indicates that a LEFT SHIFT is Present. LAB L100.2620 2.0-7.7 X10 3/uL Normal Absolute Neut 3.7 LAB L100.2720 0.83-4.51 X10 3/ul Normal Absolute Lymph 3.11 Performed By: #### L100.0100 #### [facility] [address] [place], [place], [id number] PROTHROMBIN TIME W/INR Collected: 09/22/2018 Status: F Source: [place] 3:45 AM [facility] [place] TYPE CODE TESTS RESULT OUT OF RANGE REFERENCE UNITS LAB L300.4150 11.7-14.9 SECONDS Normal PROTIME 13.2 LAB L300.4200 Normal INR 1.0 Performed By: #### L300.3900, L300.4310 #### [facility] [address] [place], [address] PARTIAL THROMBOPLAST Collected: 09/22/2018 Status: F Source: [place] TIME 3:45 AM [facility] [place] TYPE CODE TESTS RESULT OUT OF RANGE REFERENCE UNITS LAB L300.4310 24.1-36.2 Seconds Normal PTT 28.0 Performed By: #### L300.3900, L300.4310 #### [facility] [address] [place], [place], [id number] EMERGENCY DEPARTMENT Observed: 09/22/2018 Status: F Source: [place] SUMMARY 1:57 AM [facility] [place] [facility] Medical Records Department [address] [place] [address] Emergency Department Summary 09/21/18 2335 MR#: [id number] Acct: [id number] Name: ORQUIDEA EDWARDS Rep #: [id number] : 1955 63 From: Mel Gilbert MD PCP: Keshav Edwards MD Status: ADM GLORIA - ER Visit Summary Date of Service: 09/21/18 Chief Complaint: Chest pain History of Present Illness: The patient is a 63 M who presents for chest pain. Patient states about an hour and a half ago he started developing some tightness and prickling sensation in his left chest. He did not noted any shortness of breath. He went to bed but pain seemed to worsen. Patient does have a history of coronary disease with prior RI. He had a four-way bypass in 2012. Physical Examination: Vital signs on arrival include a blood pressure of 177/93, temp 97.5, heart rate 61, respiratory rate 9, pulse ox 95% on room air. Patient sitting upright in bed in no acute distress. He is alert and talkative. Heart is regular rate and rhythm. Lungs sounds are clear. There is no reproducible chest tenderness. Abdomen is soft nontender. Extremity examination was no calf tenderness or edema. Test Results: Portable chest x-ray shows no acute process. EKG is sinus at 58 with no sign of acute ischemia. CBC was white count 11.5 with normal differential. Chemistry studies reveal glucose of 144. Troponin is negative. Emergency Department Course and Treatment: Patient received aspirin on arrival here. On repeat evaluation patient denies pain at present but has had a few twinges of pain intermittently. Blood pressure is 139/78. Patient will be admitted for further workup and evaluation. Treatment Plan: [] Disposition: Admit Impression: Chest pain This note was generated with [employer] dictation software. It may contain incorrect words, spelling, and punctuation that were not noted in review of the chart prior to signing ED Disposition - Plan for ED Patient: Chief Complaint: Chest Pain Referrals: Keshav Edwards MD [Primary Care Provider] - What to do if you have Problems For any increased pain, shortness of breath, bleeding, nausea or vomiting, chest pain, or any unexpected problems, contact your Primary Care Provider. Call [facility] ([phone]) or report to the closest Emergency Room. Call 911 if necessary. 09/22/18 0157 <Electronically signed by Mel Gilbert MD> Date Mel Gilbert MD Cosigner Signature (If Indicated): Date CC: Keshav Edwards MD HISTORY AND PHYSICAL Observed: 09/22/2018 Status: F Source: [place] EXAM 1:50 AM [facility] [place] [facility] Medical Records Department [address] [place] [address] History and Physical 09/21/18 2338 MR#: [id number] Acct: [id number] Name: ORQUIDEA DEWARDS Rep #: [id number] : 1955 63 From: Rachel Orozco MD PCP: Keshav Edwards MD Status: ADM GLORIA Y Location: [place] [address] History of Present Illness Date of Admission: 09/21/18 Chief Complaint: chest pain The patient is a 63 year old M with a PMH of CAD s/p CABG x 4, hypertension and diabetes. He was admitted to the ED on 09/21/2018 with complaint of chest pain which started around 9 PM on day of admission. Pain was retrosternal, pressure-like, rated it at about 5 out of 10. No aggravating or relieving factors. Pain had pretty much resolved at time of review. He denied any assisted lightheadedness or dizziness or palpitations and pain was not worsened by exertion and relieved by rest. He denied any fever or chills, any cough, any abdominal pain, any diarrhea vomiting. He did complain of episodic nose bleeds, the last of which occured this morning. In the ED, EKG showed right axis deviation with marked bradycardia with heart rate around 58 and initial troponin was negative. Labs were otherwise unremarkable. He is been admitted to manage for chest pain to rule out ACS. 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 Marroquin [facility]) History of seasonal allergies (Chronic) HLD (hyperlipidemia) (Chronic) Type II diabetes mellitus (Chronic) History of depression (Chronic) CAD (coronary artery disease) (Chronic) CABG X 3, 02/22/13, HUNT to LAD, SVG to RCA AND SVG to 2nd marginal branch of CX (Dr. 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 Marroquin [facility]) Benign hypertension (Chronic) I10 Shortness of breath R06.02 Allergies No Known Allergies Allergy (Verified 09/21/18 21:48) Home Medications: Ambulatory Orders Medication Instructions Recorded Aspirin 1 tab PO DAILY 01/04/17 Escitalopram Oxalate [Lexapro] 1 tab PO DAILY 01/04/17 Finasteride 1 tab PO DAILY 01/04/17 Surgical History: Surgical History (Last Reviewed 08/31/18 @ 16:14 by Babak Garcia MD) Aortocoronary bypass status (Chronic) Z95.1 CABG X 3, 02/22/13, HUNT to LAD, SVG to RCA AND SVG to 2nd marginal branch of CX (Dr. Marroquin [facility]) Lives: Spouse/ Significant Other Smoking Status: Never smoker Alcohol: None Review of Systems Constitutional: Denies: Chills, Fever, Weight Change Eyes: Denies: Blurred vision HEENT: Denies: Head Aches, Sinus Congestion, Sinus Drainage Cardiovascular: Reports: Chest Pain. Denies: Chest Pressure, Chest Tightness, Palpitations, Syncope Respiratory: Denies: Cough, Shortness of breath at rest, Sputum production Gastrointestinal: Denies: Abdominal Pain, Nausea, Vomiting Genitourinary: Denies: Dysuria Musculoskeletal: Denies: Joint Pain, Joint Tenderness Skin: Denies: Rash, Wounds Neurological: Denies: Numbness, Tingling, Focal weakness Psychiatric: Denies: Anxiety, Depression, Homicidal Ideations, Suicidal Ideations Hematologic/ Lymphatic: Denies: Easy Bruising, Easy Bleeding VTE Information - Inpt Only VTE Present on Admission: No VTE Mechan Device Prophylaxis: SCD's - Physical Exam General: Alert, Oriented x3, Cooperative, No apparent distress HEENT: Atraumatic, PERRLA, EOMI, Normocephalic Oral: Moist Mucosa Neck: Supple, No JVD, Negative Carotid Bruits Lungs: Normal air movement, - - mild bibasal crackles Cardiovascular: Regular rate, Regular Rhythm, Normal S1, Normal S2, No murmurs Abdomen: Bowel Sounds Present, Soft, Non Tender, Non-Distended, No Hepato-splenomegaly Extremities: No clubbing, No cyanosis, No edema, Capillary Refill Less than 3 Seconds Skin: No rashes, No breakdown Musculoskeletal: No Tenderness to Palpation of Joints or Extremities Lymphatic: No Cervical, Supraclavicular, or Inguinal Adenopathy Neurological: Cranial nerves II-XII grossly intact, Neuro grossly intact, Motor Exam 5/5 strength throughout Psych/Mental Status: Normal Affect, Appropriate, Alert and oriented to time, place, person, mood and affect Vital Signs Temp Pulse Resp BP Pulse Ox 97.5 F L 60 18 139/78 H 97 09/21/18 21:46 09/21/18 23:11 09/21/18 23:11 09/21/18 23:11 09/21/18 23:11 Oxygen Flow Rate (L/min) 2 Oxygen Delivery Method Nasal Cannula Weight: 230 lb 9.656 oz Body Mass Index (BMI) 34.0 Laboratory Tests Past 24 Hrs WBC 11.5 H RBC 4.38 L Hgb 13.6 Hct 40.5 MCV 92.5 MCH 31.1 MCHC 33.6 RDW 13.3 RDW Differential 44.1 H Diagnostic Data Chest X-Ray 09/21/18 22:20 IMPRESSION: No acute process. Electronically Signed: Aurelia Villatoro MD at 23:06 EST Tel , Service support , Assessment/Plan 61 y/o with a history of CAD s/p CABG x 4 presenting with a history of chest pain for a few hours prior to presentation 1. Chest pain, to rule out ACS * initial troponin negative; EKG showed no acute ST changes and showed right axis deviation which is not new, and was present in previous EKGs * admit to PCu with telemetry * cycle troponins * SL nitroglycerin prn; hold off on aspirin for now o/a of complaints about epistaxis * continue atorvastatin * for stress test tomorrow * 2. CAD s/p CABG x 4: continue statin and beta eva 3. Epistaxis; complains of periodic nosebleeds; * had one this morning. On aspirin; will hold. * Says he hasnt seen an ENT surgeon yet. * To consider ENT referral in [place] morning if symptoms persist; otherwise, to follow up with ENT on outpatient basis. * 4. Diabetes mellitus type 2: hold metformin o/a of stress test tomorrow. ISS. accuchecks ACHS 5. Asymptomatic bradycardia: HR is 58. Asymptomatic. Will continue to monitor 6. BPh: on finasteride 6. depression: on lexapro DVT prophylaxis; SCDs o/a of episodic nose bleed Code Visit OBSV E AND M: [id number] Initial observation care L2 09/22/18 0150 <Electronically signed by Rachel Orozco MD> Date Rachel Orozco MD Cosigner Signature: Date (if applicable) CC: Keshav Edwards MD; Rachel Orozco MD Signed BEDSIDE GLUCOSE Collected: 09/22/2018 Status: F Source: [place] 12[place] [facility] [place] CODE TESTS RESULT OUT OF REFERENCE UNITS RANGE LAB L501.080 70-110 mg/dL High BEDSIDE GLU 135 Result Comment: MANAGEMENT OF PATIENT CARE PER NURSING PROTOCOL Performed By: #### L501.080 #### [facility] Point of Care [address] [place] [address] CHEST 1 VIEW Observed: 09/21/2018 Status: F Source: [place] (PORTABLE) 10:15 PM [facility] [place] [facility] Imaging Services [address] [place] [address] Chest 1 View (Portable) MR#: [id number] Acct: [id number] Name: ORQUIDEA EDWARDS Rep #: [id number] : 1955 63 From: Aurelia Villatoro MD PCP: Keshav Edwards MD Status: REG ER Study: Chest 1 View (Portable) Date of Exam: 09/21/18 Exam# [id number] Ordering Dr: Mel Gilbert MD STUDY: X-RAY CHEST REASON FOR EXAM: Male, 63 years old. Chest pain. TECHNIQUE: Portable chest. COMPARISON: 01/04/2017. FINDINGS: Sternotomy wires and surgical clips are compatible with prior CABG. The lungs are clear and expanded. There is no demonstrated pleural abnormality. Normal size heart. Normal mediastinum and sanam. Normal visualized pulmonary arteries. Normal visualized aortic arch and descending thoracic aorta. Normal visualized thoracic spine. Normal visualized ribs, clavicles, and shoulders. There is no demonstrated abnormality of the visualized soft tissue structures of the upper abdomen. RAD/Chest 1 View (Portable) IMPRESSION: No acute process. Electronically Signed: Aurelia Villatoro MD at 23:06 EST Tel , Service support , CC: Keshav Edwards MD; Mel Gilbert MD Direct Customer Service Representative: Signed BASIC METABOLIC Collected: 09/21/2018 Status: F Source: [place] PROFILE (BMP) 9:50 PM [facility] [place] TYPE CODE TESTS RESULT OUT OF RANGE REFERENCE UNITS LAB L501.0100 74-106 mg/dL High GLU 144 Result Comment: Fasting Glucose result greater than or equal to 126 mg/dL suggests DIABETES MELLITUS per A.D.A. criteria. Please note revised GLUCOSE reference range effective 2017. LAB L501.1000 7-18 mg/dL Normal BUN 17 LAB L501.1100 0.70-1.30 mg/dL Normal CREAT,SERUM 1.10 Result Comment: The validity of the calculated GFR AND GFRAA in patients over 70 years has not been determined. Clinical correlation is essential. LAB L501.1110 >60 mL/min Normal EST GFR 72 Result Comment: Non- GFR Calc LAB L501.1115 >60 mL/min Normal EST GFR - AA 87 Result Comment: GFR Calc LAB L501.1255 ml/min Normal Estimated CRCL 68.74 LAB L501.1300 10-20 RATIO Normal BUN/CRE 15.5 LAB L501.2200 8.5-10 mg/dL Normal .1 CA 9.1 LAB L501.5300 136-14 mmol/L Normal 5 NA 137 LAB L501.5600 3.5-5. mmol/L Normal 1 K 4.0 LAB L501.5900 98-107 mmol/L Normal CL 104 LAB L501.6100 21.0-3 mmol/L Normal 2.0 CO2 28.0 LAB L501.6200 5-15 Normal GAP 5 Performed By: #### L500.2500, L501.4010 #### [facility] [address] [place], [place], [address] TROPONIN-I Collected: 09/21/2018 Status: F Source: [place] 9:50 PM [facility] [place] TYPE CODE TESTS RESULT OUT OF RANGE REFERENCE UNITS LAB L501.4010 <0.045 ng/mL Normal < 0.015 TROPONIN-I Result Comment: TROPONIN-I EXPECTED VALUES <0.045 Negative 0.045 - 0.590 Consistent with Cardiac Damage > OR = 0.600 Critical Value Not every elevated troponin is indicative of RI. These values should be used with clinical judgement in examining the patient's clinical picture for diagnosis. To establish a diagnosis of RI versus myocardial injury, there must be a demonstrated rise and/or fall in the troponin values, in addition to ischemic symptoms, EKG changes, new regional wall motion abnormality, and/or angiographical evidence. PLEASE NOTE: REFERENCE RANGES EDITED 18 Performed By: #### L500.2500, L501.4010 #### [facility] [place], [address] CBC W/DIFF, AUTOMATED Collected: 09/21/2018 Status: F Source: [place] 9:50 PM [facility] [place] TYPE CODE TESTS RESULT OUT OF RANGE REFERENCE UNITS LAB L100.1000 4.4-11.0 K/mm3 High WBC 11.5 LAB L100.1200 4.6-6.2 M/mm3 Low RBC 4.38 LAB L100.1300 13.0-16.5 g/dl Normal HGB 13.6 LAB L100.1400 40-54 % Normal HCT 40.5 LAB L100.1500 80-94 fL Normal MCV 92.5 LAB L100.1600 27.0-32.0 pg Normal MCH 31.1 LAB L100.1700 32-36 g/gl Normal MCHC 33.6 LAB L100.1810 11.6-14.6 % Normal RDW CV 13.3 LAB L100.1820 35.1-43.9 fl High RDW SD 44.1 LAB L100.1900 150-450 K/mm3 Normal PLT 318 LAB L100.2000 6.2-12.0 fl Normal MPV 9.4 LAB L100.2100 47-70 % Low NEUT% 43.2 LAB L100.2200 19-41 % Normal LY% 40.9 LAB L100.2300 0-10 % High MONO% 12.4 LAB L100.2400 0-5 % Normal EO% 2.8 LAB L100.2500 0-1 % Normal BASO% 0.4 LAB L100.2550 0.0-0.9 % Normal IM GRAN % 0.300 Result Comment: IG% - Immature Granulocytes (promyelocytes, myelocytes and metamyelocytes) > 1% indicates that a LEFT SHIFT is Present. LAB L100.2620 2.0-7.7 X10 3/uL Normal Absolute Neut 5.0 LAB L100.2720 0.83-4.51 X10 3/ul High Absolute Lymph 4.69 Performed By: #### L100.0100 #### [facility] [address] [place], [address] CARDIOLOGY VISIT Observed: 08/31/2018 Status: F Source: [place] RE[place] 4:17 PM [facility] [place] [facility] [address] [place] [address] OFFICE VISIT Date of Service: 08/31/18 MR#: [id number] Acct: [id number] Name: ORQUIDEA EDWARDS Rep #: [id number] : 1955 Provider: Babak Garcia MD Age/Sex: 63/M Location[place] [facility] Status: Signed HPI HPI Chief Complaint: Follow-up visit Details: ORQUIDEA EDWARDS, is a 63 M who presents to the office today for a follow-up visit. He is a gentleman with a history of coronary artery disease status post coronary bypass surgery in 2012. He had a left internal mammary artery to the left anterior descending artery, saphenous vein graft to right coronary artery, saphenous vein graft to obtuse marginal branch of the circumflex artery system. He also has a history of hypertension hyperlipidemia and diabetes mellitus. He says that he has been free of any symptomatology. He denies any chest pain or shortness of breath or paroxysmal nocturnal dyspnea or pedal edema he has had no neck arm or jaw discomfort to suggest angina. His been compliant with all his medications. His physical exam here today demonstrates clear lung yeager regular rate and rhythm and no pedal edema his blood pressure is under excellent control. Intake Vital Signs08/31/18 Height 5 ft 9 in 08/31/18 Weight: 222 lb 08/31/18 Body Mass Index (BMI) 32.8 08/31/18 Blood Pressure 132/68 H 08/31/18 Blood Pressure Location Lt brachial Intake Visit Reasons: 6 M Visual And Stock Associate Required: No Accompanied by: none Is patient in pain?: No Allergies No Known Allergies Allergy (Verified 08/31/18 15:59) Medications Aspirin 1 tab PO DAILY 01/04/17 [History Confirmed 08/31/18] Escitalopram Oxalate [Lexapro] 1 tab PO DAILY 01/04/17 [History Confirmed 08/31/18] Finasteride 1 tab PO DAILY 01/04/17 [History Confirmed 08/31/18] Metformin HCl [Metformin HCl ER] 1 tab PO BID 01/04/17 [History Confirmed 08/31/18] Metoprolol Tartrate 1 tab PO BID 01/04/17 [History Confirmed 08/31/18] Pravastatin [Pravachol] 40 mg PO QHS 01/04/17 [History Confirmed 08/31/18] Tamsulosin HCl [Flomax] 1 tab PO DAILY 01/04/17 [History Confirmed 08/31/18] PFSH Medical History Atherosclerotic heart disease of sun'aq coronary artery without angina pectoris (Chronic) HLD (hyperlipidemia) (Chronic) CAD (coronary artery disease) (Chronic) Benign hypertension (Chronic) Shortness of breath (Acute) Surgical History Aortocoronary bypass status (Chronic) Family History Mother CAD (coronary artery disease) Hx CABG Myocardial infarction Diabetes Sister CAD (coronary artery disease) Hx PTCA Grandfather Cancer Prostate cancer Uncle Cancer Prostate cancer Social History Smoking Status: Never smoker alcohol intake: never substance use type: does not use caffeine: Yes Type: coffee Number of servings: 1 what type of physical activity do you participate in: none seatbelt use: always do you feel safe at home: Yes ROS Const Const: Negative for fatigue, weakness, night sweats, excessive sweating, frequent falls, headache(s) or daytime sleepiness Eyes Eyes: Negative for loss of peripheral vision, transient loss of vision, blind spots, double vision or blurry vision ENT ENT: Negative for headache(s), dizziness, balance problems, Nosebleed/epistaxis, tongue swelling or lip swelling Cardio Chest Pain: No Palpitations: No Edema: None Muscle aches with walking: None Resp Respiratory: Negative for SOB at rest, SOB orthopnea\SOB lying down, Cough, paroxysmal nocturnal dyspnea or SOB with activity GI GI: Negative nausea, vomiting, heartburn, black,tarry stools or bright, red blood in stools : Negative for hematuria Musc Musc: Negative for balance problems, muscle aches/ myalgia, muscle weakness or joint pain Skin Skin: Negative non-healing lesions, unusual bruising or rash Neuro Neuro: Negative for weakness, frequent falls, headache(s), double vision, dizziness, lightheadedness, orthostatic symptoms, blurry vision or lack of coordination Amadou Hematologic/Lymphatic: Negative for easy bruising or easy bleeding Endo Endo: Negative for fatigue, excessive sweating, cold intolerance, heat intolerance, increased thirst/drinking or hair loss Psych Psych: Negative for anxiety or depression Allergy Allergy/Immunology: Negative for throat swelling, Negative for tongue swelling, Negative for hives, Negative for rash, Negative for lip swelling Cardiology Exam Const Appearance: cooperative, healthy appearing, well developed, well groomed and no acute distress Nutritional Appearance: well nourished and average body habitus Orientation: alert, awake and oriented x3 Head Head: normal to inspection, normocephalic and atraumatic Ears: hearing grossly normal bilaterally and external ears normal Nose: external nose normal, nasal mucous membranes and turbinates normal, nares normal, septum normal, no nasal discharge Face and Sinus: face symmetric Mouth: oral mucosae normal, tongue normal, oropharynx normal and moist mucous membranes Teeth and gingiva: dentition normal Throat: posterior oropharynx normal, tonsils normal and uvula midline Eyes General: appearance normal, both eyes and all related structures Eyelids: eyelids normal Conjunctivae: conjunctivae normal Pupils: PERRL, normal by confrontation and accommodation normal EOM: EOM intact bilaterally Neck Neck: normal visual inspection, trachea midline and no JVD JVD: +5 Carotids: normal carotid upstroke and bounding pulses Chest Chest inspection: normal inspection of the chest, symmetric chest movement and normal respiratory effort Auscultation: Bilateral: Clear to Auscultation Cardio Palpation: normal PMI Rate: regular rate Rhythm: regular rhythm Heart sounds: S1 normal, S2 normal and normal, physiologic split S2; negative rub, gallop or murmur GI GI: normal to inspection, soft, no hepatosplenomegaly and bowel sounds present Neuro General: alert, awake, oriented x3, no focal sensory deficit, gait normal and moves all extremities Skin Skin: no rashes or lesions noted Extremities Pulses: Normal: Right Femoral Pulse, Left Femoral Pulse, Right Dorsalis Pedis Pulse, Left Dorsalis Pedis Pulse, Right Posterior Tibial Pulse, Left Posterior Tibial Pulse, Right Radial Pulse, Left Radial Pulse Lower Extremity Edema: None: Bilateral Musculoskel Musculoskeletal: No joint tenderness Psych Psychological: normal affect Assessment AND Plan 1. Aortocoronary bypass status Z95.1 CABG X 3, 02/22/13, HUNT to LAD, SVG to RCA AND SVG to 2nd marginal branch of CX (Dr. Marroquin [facility]) Plan He continues to do quite well status post bypass surgery his stress test in December 2015 was negative for ischemia at a high workload. We will continue to keep him on the same medications with no changes. 2. Pure hypercholesterolemia E78.00 Plan He does have a history of hyperlipidemia. He tells me that he will be seeing you shortly and a repeat lipid profile be performed. His last profile from February of this year demonstrated a total cholesterol 150, LDL of 63, HDL of 72. These numbers are excellent and no changes will be made. 3. HTN (hypertension), benign I10 Plan He does have a history of hypertension which is well controlled on the current medical therapy we will continue him on the same medications with no changes. His last echocardiogram also done in December 2015 demonstrated preserved ejection fraction. Thank you for allowing me to participate in the care of your patient. 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) Coding Level of Care Code Off vis,est,level 3 Diagnoses Aortocoronary bypass status Z95.1 Pure hypercholesterolemia E78.00 Hyperlipidemia type: pure hypercholesterolemia HTN (hypertension), benign I10 Coding Level of Care Code Off vis,est,level 3 Diagnoses Aortocoronary bypass status Z95.1 Pure hypercholesterolemia E78.00 Hyperlipidemia type: pure hypercholesterolemia HTN (hypertension), benign I10 08/31/18 1617 <Electronically signed by Babak Garcia MD> Date Babak Garcia MD Cosigner Signature: Date (if applicable) CC: Keshav Edwarsd MD HEMOGLOBIN A1C Collected: 03/02/2018 Status: F Source: [place] 8:34 [place] [facility] [place] Order Comment: Order Date: 09/02/17 Order Info: [id number] - A1C TYPE CODE TESTS RESULT OUT OF RANGE REFERENCE UNITS LAB L501.9985 4.2-6.3 % High HGB A1C 7.6 Performed By: #### L501.9985, L500.4050, L500.4100 #### [facility] [address] [place], [address] COMPREHENSIVE METABOLIC Collected: 03/02/2018 Status: F Source: [place] [facility] 8:34 AM [facility] [place] Order Comment: Order Date: 09/02/17 Order Info: [id number] - CMP Order Info: [id number] - LIPID Order Info: [id number] - TSH TYPE CODE TESTS RESULT OUT OF RANGE REFERENCE UNITS LAB L501.0100 74-106 mg/dL High GLU 115 Result Comment: Fasting Glucose result from 100 to 125 mg/dL suggests IMPAIRED HOMEOSTASIS per A.D.A. criteria. Please note revised GLUCOSE reference range effective 2017. LAB L501.1000 7-18 mg/dL Normal BUN 15 LAB L501.1100 0.70-1.30 mg/dL Normal CREAT,SERUM 0.77 Result Comment: The validity of the calculated GFR AND GFRAA in patients over 70 years has not been determined. Clinical correlation is essential. LAB L501.1110 >60 mL/min Normal EST GFR 109 Result Comment: Non- GFR Calc LAB L501.1115 >60 mL/min Normal EST GFR - AA 131 Result Comment: GFR Calc LAB L501.1300 10-20 RATIO Normal BUN/CRE 19.5 LAB L501.1500 6.4-8.2 g/dL T Normal PROT 7.4 LAB L501.1800 3.2-5.0 g/dL Normal ALB 3.5 LAB L501.1950 2.2-4.2 g/dL Normal GLOB 3.9 LAB L501.2000 0.9-2.4 RATIO Normal A/G 0.9 LAB L501.2200 8.5-10.1 mg/dL Low CA 8.4 LAB L501.4100 15-37 U/L Normal AST 28 LAB L501.4305 45-117 U/L Normal ALK P 54 LAB L501.4405 16-61 U/L Normal ALT 57 LAB L501.4600 0.20-1.00 mg/dL T Normal BILI 0.30 LAB L501.5300 136-145 mmol/L NA Normal 140 LAB L501.5600 3.5-5.1 mmol/L K Normal 3.6 LAB L501.5900 98-107 mmol/L CL Normal 105 LAB L501.6100 21.0-32.0 mmol/L Normal CO2 26.0 LAB L501.6200 5-15 Normal GAP 9 Performed By: #### L501.9985, L500.4050, L500.4100 #### [facility] [address] [facility] [place], [place], [id number] LIPID PROFILE Collected: 03/02/2018 Status: F Source: [place] 8:34 AM [facility] [place] Order Comment: Order Date: 09/02/17 Order Info: [id number] - CMP Order Info: [id number] - LIPID Order Info: [id number] - TSH TYPE CODE TESTS RESULT OUT OF RANGE REFERENCE UNITS LAB L501.4900 200 mg/dL Normal CHOL 150 Result Comment: <200 mg/dL Desirable 200-240 mg/dL Borderline >240 mg/dL High Risk LAB L501.5000 mg/dL Normal TRIG 74 Result Comment: The drugs N-Acetylcysteine and Metamizole may falsely depress this assay. Serum Triglycerides Reference Interval Normal <150 mg/dL Borderline high 150 - 199 mg/dL High 200 - 499 mg/dL Very High > or = 500 mg/dL LAB L501.6400 mg/dL Normal HDL 72 Result Comment: The drugs N-Acetylcysteine and Metamizole may falsely depress this assay. Reference Range HDL <40 mg/dL Low HDL Cholesterol HDL >or= 60 mg/dL High HDL Cholesterol LAB L501.6500 0-130 mg/dL Normal LDL 63 LAB L501.6600 5-40 mg/dL Normal VLDL 15 Performed By: #### L501.9985, L500.4050, L500.4100 #### [facility] [address] [place], [address] THYROID STIM HORMONE Collected: 03/02/2018 Status: F Source: [place] ([facility]) 8:34 AM [facility] [place] Order Comment: Order Date: 09/02/17 Order Info: [id number] - CMP Order Info: [id number] - LIPID Order Info: [id number] - TSH TYPE CODE TESTS RESULT OUT OF RANGE REFERENCE UNITS LAB L501.9520 0.358-3.74 uIU/mL High TSH 3.93 Performed By: #### L501.9520 #### [facility] [address] [place], [address] CARDIOLOGY VISIT Observed: 01/03/2018 Status: F Source: [place] RE[place] 10:45 AM [facility] [place] [facility] [address] [place] [address] OFFICE VISIT Date of Service: 01/01/18 MR#: [id number] Acct: [id number] Name: ORQUIDEA EDWARDS Rep #: [id number] : 1955 Provider: MICHELLE Davalos Age/Sex: 62/M Location: [facility] [place] Status: Signed HPI HPI Details: ORQUIDEA EDWARDS, is a 62 M who presents to the office today for a cardiovascular outpatient follow-up. He has a history of coronary artery disease status post bypass surgery in February 2013 with HUNT to LAD, SVG to RCA, SVG to obtuse marginal of the circumflex system, hypertension, hyperlipidemia, and diabetes mellitus. Pt. denies chest, arm, jaw, or neck discomfort. His exercise tolerance is stable via work. Pt. denies symptoms of CHF, palpitations, dizziness, near syncope, or syncopal episodes. Pt. denies edema or claudication issues. Pt. denies orthopnea, PND, fever, chills, blood in urine, blood in stool, myalgia, or unexplainable fatigue. 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) Visual And Stock Associate Required: No Accompanied by: None Is patient in pain?: No Allergies No Known Allergies Allergy (Verified 01/01/18 14:29) Medications Albuterol Sulfate [Proventil Hfa] 6.7 gm IH Q2H PRN PRN #1 [id number].[email or web address] 01/04/17 [Rx] Aspirin 1 tab PO DAILY 01/04/17 [History Confirmed 12/29/17] Escitalopram Oxalate [Lexapro] 1 tab PO DAILY 01/04/17 [History Confirmed 12/29/17] Finasteride [Finasteride] 1 tab PO DAILY 01/04/17 [History Confirmed 12/29/17] Metformin HCl [Metformin HCl ER] 1 tab PO BID 01/04/17 [History Confirmed 12/29/17] Metoprolol Tartrate [Metoprolol Tartrate] 1 tab PO BID 01/04/17 [History Confirmed 12/29/17] Pravastatin [Pravachol] 40 mg PO QHS 01/04/17 [History Confirmed 12/29/17] Tamsulosin HCl [Flomax] 1 tab PO DAILY 01/04/17 [History Confirmed 12/29/17] predniSONE tablet 40 mg PO DAILY@0800 7 Days tab 01/04/17 [Rx] Ejection fraction %: 65 to 70 PFSH Medical History Atherosclerotic heart disease of sun'aq coronary artery without angina pectoris (Chronic) HLD (hyperlipidemia) (Chronic) CAD (coronary artery disease) (Chronic) Benign hypertension (Chronic) Shortness of breath (Acute) Surgical History Aortocoronary bypass status (Chronic) Family History Mother CAD (coronary artery disease) Hx CABG Myocardial infarction Diabetes Sister CAD (coronary artery disease) Hx PTCA Grandfather Cancer Prostate cancer Uncle Cancer Prostate cancer Social History Smoking Status: Never smoker alcohol intake: never substance use type: does not use caffeine: Yes Type: coffee Number of servings: 1 what type of physical activity do you participate in: none seatbelt use: always do you feel safe at home: Yes ROS Const Const: Negative for fatigue, weakness, body ache, fever(s) or chills ENT ENT: Negative for dizziness Cardio Chest Pain: No Palpitations: No Edema: None Muscle aches with walking: None Resp Respiratory: Negative for SOB with activity, SOB at rest, SOB orthopnea\SOB lying down or paroxysmal nocturnal dyspnea GI GI: Negative nausea, black,tarry stools, bright, red blood in stools or vomiting blood/hematemesis : Negative for hematuria or frequent nighttime urination/ nocturia Musc Musc: Negative for muscle aches/ myalgia Neuro Neuro: Positive for lightheadedness (rarely with position changes); negative for weakness, dizziness, near syncope, syncope or orthostatic symptoms Endo Endo: Negative for fatigue Cardiology Exam Const Appearance: cooperative, healthy appearing, comfortable and no acute distress Orientation: alert, awake and oriented x3 Head Head: normal to inspection Mouth: oral mucosae normal Neck Neck: no JVD and normal visual inspection Carotids: normal carotid upstroke Chest Chest inspection: normal inspection of the chest and normal respiratory effort Auscultation: Bilateral: Clear to Auscultation Cardio Rate: regular rate Rhythm: regular rhythm Heart sounds: S1 normal and S2 normal; negative rub or gallop GI GI: normal to inspection Neuro General: alert, awake, oriented x3 and CN's II-XI intact bilaterally Skin Skin: no rashes or lesions noted Extremities Pulses: Normal: Right Posterior Tibial Pulse, Left Posterior Tibial Pulse, Right Radial Pulse, Left Radial Pulse Lower Extremity Edema: None: Bilateral Psych Psychological: normal affect Supplemental Info Stress test from December 2015 was negative for stress-induced myocardial ischemia at a high workload. Shortness of breath was present. Patient's ejection fraction was preserved. Echocardiogram from December 2015 showed an ejection fraction of 65% and mild tricuspid valve insufficiency. Assessment AND Plan 1. Atherosclerosis of sun'aq coronary artery of sun'aq heart without angina pectoris I25.10 ERMELINDA Vang Patient denies any chest pain, arm pain, jaw pain, neck pain, shortness of breath, or fatigue suggestive of angina at this time. We will continue to monitor this. We will not make any medication regimen changes and will continue risk factor modification. 2. Benign hypertension I10 ERMELINDA Vang Patient's blood pressure is well-controlled today in the office. We will continue to monitor this. We will not make any medication regimen changes. 3. Pure hypercholesterolemia E78.00; E78.0 ERMELINDA Vang Patient states this is being monitored by primary care physician. Patient continue with current cholesterol lowering medication. 4. Type 2 diabetes mellitus without complication, without long-term current use of insulin E11.9 ERMELINDA Vang Patient continue to follow-up with primary care physician for treatment/management of this. Plan Detail Additional Comments - ERMELINDA Kruse Discussed the above patient with Dr. Garcia, he agrees with the plan of care. Thank you for allowing us to participate in the patients plan of care, if you have any questions please do not hesitate to call. This note was generated using a voice recognition system and there may be incorrect words, spelling or punctuation that were not noted when reviewing the office note prior to saving. Follow Up 6 Months (CIVIL DRAFTER) Coding Level of Care Code Off vis,est,level 3 Diagnoses Atherosclerosis of sun'aq coronary artery of sun'aq heart without angina pectoris I25.10 [place] vs. 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 transplanted heart: sun'aq heart Benign hypertension I10 Pure hypercholesterolemia E78.00; E78.0 Hyperlipidemia type: pure hypercholesterolemia Type 2 diabetes mellitus without complication, without long- term current use of insulin E11.9 Diabetes mellitus intermediate insulin use: without poker dealer use Diabetes mellitus complication status: without complication 01/01/18 1620 <Electronically signed by Levon Davalos NP-C> Date Levon Davalos REAL ESTATE MANAGER-C 01/03/18 1045<Electronically signed by Babak Garcia MD> Cosigner Signature: Date (if applicable) Babak Garcia MD CC: Keshav Edwards MD Observed: 12/02/2017 Status: F Source: [place] 11:12 [place] [facility] [place] Gram Stain Gram Stain No White Blood Cells No organisms seen Eye Culture ORGANISM 1: Staphylococcus epidermidis Amount Growth Rare Staphylococcus epidermidis: REACTION Benzylpenicillin NF 0.12 R Cefoxitin *NF - Clindamycin $$ >=8 R Inducable Clindamycin [place] - Erythromycin $ >=8 R Gentamicin $ <=0.5 S Levofloxacin $ <=0.12 S Linezolid $$$$ 1 S Oxacillin NF <=0.25 S Tigecycline $$$$ <=0.12 S Rifampin $$ <=0.5 S Tetracycline NF >=16 R Vancomycin $ 1 S (NF) indicates non-formulary drug at [facility]. Approval by Infectious Disease Specialist required before non-formulary drugs may be ordered and/or dispensed. * CLSI guidelines does not recommend testing of cephalosporins. This interpretation is deduced from Beta-lactam/penicillin results. Cult, Anaerobic No anaerobic bacteria isolated. Performed By: #### M100.1200 #### [facility] [address] [place], [address] ALLERGIES ALLERGIES DATE TYPE / CODE NAME / CODE REACTION SEVERITY SOURCE 09/21/2018 Drug No Known Unknown [facility] Allergy/4160 Allergies/F00 Hospital 66412(SNOMED 3616849(RXNOR Repository CT) M) ENCOUNTERS ENCOUNTERS ADMIT/DISCHARGE ACCOUNT ADMITTING ENCOUNTER LOCATION SOURCE NUMBER CLASS 10/04/2018 [id number] Ambulatory BMSBuilding:B [place] 0 [place] Repository 09/27/2018 [id number] Ambulatory [place] Ever 9 [facility] ing:MFPLAB Repository 09/22/2018 [id number] Ambulatory BMSBuilding:W [place] 6 [facility] Repository 09/21/2018/ [id number] Rachel Orozco Ambulatory [place] Ever 8 5 [place] [facility] ing:PCURoom: Repository [id number]: 1 09/21/2018 [id number] Rachel Orozco Ambulatory BMSBuilding:B [place] 8 [place] [facility] Repository 09/21/2018 [id number] Rachel Orozco Ambulatory BMSBuilding:B [place] 1 [place] [facility] Repository 08/31/2018/ [id number] Ambulatory BMSBuilding:B [place] 8 7 [facility] Repository 03/02/2018 [id number] Ambulatory [place] 5 [facility] ing:MFPLAB Repository 01/01/2018/ [id number] Ambulatory BMSBuilding:B [place] 8 3 [facility] Repository 12/31/2017 [id number] Ambulatory BMSBuilding:B [place] 4 [facility] Repository 12/02/2017 [id number] Ambulatory [place] Ever 8 [facility] ing:LABSPEC Repository PAYERS PAYERS ENCOUNTER GUARANTOR PAYER SUBSCRIBER SOURCE 10/04/2018 ORQUIDEA EDWARDS Primary Insurance:UMR ORQUIDEA Curtis Jr.[address] [id number] Jr.: [place], [place] Number: [id number] Hospital [address]Dtp: 330 [id number] Repository [phone] () Date:[id number] [address]YZ: 10/04/2018 Secondary NOT GIVENUNK Ever Insurance:SELF PAY [facility] Number: Effective Repository Date:2018-10-04 09/27/2018 ORQUIDEA EDWARDS Primary Insurance:UMR ORQUIDEA EDWARDS Ever Jr.[address] [id number] Jr.: [place] Number: [id number] Hospital [address]Gtt: 330 [id number] Repository [phone] () Date:[id number] [address]EF: 09/27/2018 Secondary NOT GIVENUNK Ever Insurance:SELF PAY [facility] Number: Effective Repository Date:2018-09-27 09/22/2018 ORQUIDEA EDWARDS Primary Insurance:UMR ORQUIDEA EDWARDS [place] Jr.[address] [id number] Jr.: [place] Number: [id number] Hospital [address]Lcn: 330 [id number] Repository [phone] (HP) Date:[id number] [address] [address]AM: 09/22/2018 Secondary NOT GIVENUNK Ever Insurance:SELF PAY [facility] Number: Effective Repository Date:2018-09-22 09/21/2018 ORQUIDEA EDWARDS Primary Insurance:UMR ORQUIDEA Curtis Jr.[address] [id number] Jr.: [facility] [place] Number: [id number] Hospital [address]Dlw: (330 [id number] Repository [phone] (HP) Date:[id number] [address] [address]OP: 09/21/2018 Secondary NOT GIVENUNK Ever Insurance:SELF PAY [facility] Number: Effective Repository Date:2018-09-21 09/21/2018 ORQUIDEA Singh Primary Insurance:UMR ORQUIDEA EDWARDS[address] [id number] SMITHDOB: [facility] [place] Number: [id number] Hospital [address]Egg: (330) [id number] Repository [phone] () Date:[id number] [address] [address]TV: 09/21/2018 Secondary NOT GIVENUNK Ever Insurance:SELF PAY [facility] Number: Effective Repository Date:2018-09-21 09/21/2018 ORQUIDEA Singh Primary Insurance:UMR ORQUIDEA EDWARDS[address] [id number] AFTABDOB: [facility] [place] Number: [id number] Hospital [address]Qlr: (330) [id number] Repository [phone] (HP) Date:2378-35-52QT [address] [address]PD: 09/21/2018 Secondary NOT GIVENUNK Ever Insurance:SELF PAY [facility] Number: Effective Repository Date:2018-09-21 08/31/2018 ORQUIDEA Singh Primary Insurance:UMR ORQUIDEA EDWARDS[address] [id number] SMITHDOB: [facility] [place] Number: [id number] Hospital [address]Fvr: (330) [id number] Repository [phone] () Date:[id number] [address] [address]US: 08/31/2018 Secondary NOT GIVENUNK [place] Insurance:SELF PAY [facility] Number: Effective Repository Date:2018-08-31 03/02/2018 ORQUIDEA Singh Primary Insurance:UMR ORQUIDEA EDWARDS[address] [id number] SMITHDOB: [facility] [place] Number: [id number] Hospital [address]Hgv: (330) [id number] Repository [phone] () Date:1222-28-18BJ [address]WP: 03/02/2018 Secondary NOT GIVENUNK Ever Insurance:SELF PAY [facility] Number: Effective Repository Date:2018-03-02 01/01/2018 ORQUIDEA Singh Primary Insurance:UMR ORQUIDEA EDWARDS[address] [id number] AFTABDOB: [facility] [place] Number: [id number] Hospital [address]Ryb: (330) [id number] Repository [phone] () Date:[id number] [address] [address]YG: 01/01/2018 Secondary NOT GIVENUNK [place] Insurance:SELF PAY [facility] Number: Effective Repository Date:2018-01-01 12/31/2017 Orquidea Edwards Primary NOT GIVENUNK [place] [id number] [address] Insurance:SELF PAY [facility] [address]Tma: (330) Number: Effective Repository [phone] () Date:2017-09-13 12/02/2017 Orquidea Edwards Primary NOT GIVENUNK [place] [id number] [address] Insurance:SELF PAY [facility] chrystal Rae [facility] [address]Ggq: (065) Number: [facility] [phone] () Date:2017-12-02
== END 2018-09-22 12:44 | disposition home or self-care (01) ==
LOC: ED 22:26 → PCU 23:48
PROVIDERS: Admitting Provider Student in an Organized Health Care Education/Training Program; Emergency Provider Emergency Medicine; Family Provider Family Medicine; PCP Family Medicine; Visit Provider Internal Medicine
DX: R07.89 Other chest pain (principal); I25.2 Old myocardial infarction; I25.10 Atherosclerotic heart disease of native coronary artery without angina pectoris; Z95.1 Presence of aortocoronary bypass graft; I10 Essential (primary) hypertension; E11.9 Type 2 diabetes mellitus without complications; R00.1 Bradycardia, unspecified; E78.5 Hyperlipidemia, unspecified; N40.0 Benign prostatic hyperplasia without lower urinary tract symptoms; Z79.899 Other long term (current) drug therapy; Z79.82 Long term (current) use of aspirin; R04.0 Epistaxis; F32.9 Major depressive disorder, single episode, unspecified
CPT/HCPCS: 36415; 71045; 78452; 80048; 82962; 84484; 85025; 85610; 85730; 93005; 93017; 96360; 96361; 99218; 99285; A9500; J7030; A4216; G0378

== ENCOUNTER → 2018-09-27 08:56 | Outpatient (CLI) | payer OTHER, SELFPAY ==
[2018-09-22 00:29] VITALS: BMI 31.1
[2018-09-27 11:09] LABS: Anion Gap 9 (5-15); BUN 10 mg/dL (7-18); BUN/Creat Ratio 12.5 RATIO (10-20); Calcium,Total 8.9 mg/dL (8.5-10.1); Chloride 103 mmol/L (98-107); EST Glomerular Filtration Rate 104 mL/min (>60); Est Glom Filt Rate - Afr Amer 126 mL/min (>60); Glucose 139 mg/dL (74-106); Potassium 4.4 mmol/L (3.5-5.1); Sodium Level 141 mmol/L (136-145)
[2018-09-27 11:12] LABS: Hemoglobin A1c 7.6 % (4.2-6.3)
== END ==
PROVIDERS: Family Provider Family Medicine; PCP Family Medicine; Visit Provider Family Medicine
DX: E11.9 Type 2 diabetes mellitus without complications (principal)
CPT/HCPCS: 36415; 80048; 83036

== ENCOUNTER → 2018-12-04 | Outpatient (CLI) | payer OTHER, SELFPAY ==
[2018-11-03 15:57] VITALS: BMI 32.5
[2018-12-04 09:02] LABS: Hemoglobin A1c 7.7 % (4.2-6.3)
[2018-12-04 09:05] LABS: AST(SGOT) 26 U/L (15-37); Alanine Aminotransfer ALT/SGPT 35 U/L (16-61); Albumin, Serum 3.8 g/dL (3.2-5.0); Alkaline Phosphatase 56 U/L (45-117); Anion Gap 9 (5-15); BUN 14 mg/dL (7-18); BUN/Creat Ratio 17.9 RATIO (10-20); Calcium,Total 8.7 mg/dL (8.5-10.1); Chloride 105 mmol/L (98-107); Cholesterol 179 mg/dL (200); Creatinine, Serum 0.78 mg/dL (0.70-1.30); EST Glomerular Filtration Rate 106 mL/min (>60); Est Glom Filt Rate - Afr Amer 129 mL/min (>60); Glucose 126 mg/dL (74-106); High Density Lipoprotein 66 mg/dL; Potassium 4.6 mmol/L (3.5-5.1); Protein, Total 7.8 g/dL (6.4-8.2); Sodium Level 141 mmol/L (136-145); Triglycerides 125 mg/dL; Very Low Density Lipoprotein 25 mg/dL (5-40)
[2018-12-04 09:35] LABS: Microalbumin,Random Urine 23.3 mg/L (NO RANGE EST.); Microalbumin:Creatinine Ratio 28.7 mg/g CRE (<30 mg/g CRE)
== END | disposition home or self-care (01) ==
LOC: LAB.FUTURE 07:37
PROVIDERS: Family Provider Family Medicine; PCP Family Medicine; Referring Provider Family Medicine; Visit Provider Family Medicine
DX: Z00.00 Encounter for general adult medical examination without abnormal findings (principal); E11.9 Type 2 diabetes mellitus without complications; I25.10 Atherosclerotic heart disease of native coronary artery without angina pectoris
CPT/HCPCS: 36415; 80053; 80061; 82043; 82570; 83036; 84153; G0103

== ENCOUNTER → 2019-02-15 | Outpatient (CLI) | payer OTHER, SELFPAY ==
[2018-11-03 15:57] VITALS: BMI 32.5
--- NOTE | 2019-02-15 11:09 | RAD_ITS ---
STUDY: X-RAY CHEST REASON FOR EXAM: Male, 63 years old. Decreased breath sounds TECHNIQUE: Frontal and lateral views of the chest COMPARISON: 09/21/2018 FINDINGS: The lungs are clear. There are no pleural effusions. There is no pneumothorax. The heart is stable in size. Again noted are sternotomy wires. The visualized osseous structures are within normal limits. RAD/Chest PA and Lateral IMPRESSION: No acute thoracic pathology. Electronically Signed: Bryon Perez, at 17:22 EDT Tel , Service support ,
== END | disposition home or self-care (01) ==
LOC: MTRAD 11:09
PROVIDERS: Family Provider Family Medicine; PCP Family Medicine; Referring Provider Family Medicine; Visit Provider Family Medicine
DX: R06.89 Other abnormalities of breathing (principal)
CPT/HCPCS: 71046

== ENCOUNTER → 2020-03-14 | Outpatient (CLI) | payer OTHER, SELFPAY ==
[2018-11-03 15:57] VITALS: BMI 32.5
[2020-03-14 18:46] LABS: AST(SGOT) 43 U/L (15-37); Alanine Aminotransfer ALT/SGPT 70 U/L (16-61); Albumin, Serum 4.2 g/dL (3.2-5.0); Alkaline Phosphatase 67 U/L (45-117); Anion Gap 10 (5-15); BUN 17 mg/dL (7-18); BUN/Creat Ratio 21.2 RATIO (10-20); Calcium,Total 9.6 mg/dL (8.5-10.1); Chloride 100 mmol/L (98-107); Cholesterol 215 mg/dL (200); EST Glomerular Filtration Rate 103 mL/min (>60); Est Glom Filt Rate - Afr Amer 124 mL/min (>60); Globulin 4.1 g/dL (2.2-4.2); Glucose 127 mg/dL (74-106); High Density Lipoprotein 63 mg/dL; Potassium 4.4 mmol/L (3.5-5.1); Protein, Total 8.3 g/dL (6.4-8.2); Sodium Level 136 mmol/L (136-145)
[2020-03-14 19:45] LABS: Microalbumin,Random Urine 59.9 mg/L (NO RANGE EST.); Microalbumin:Creatinine Ratio 40.2 mg/g CRE (<30 mg/g CRE)
== END | disposition home or self-care (01) ==
PROVIDERS: PCP Family Medicine; Referring Provider Family Medicine; Visit Provider Family Medicine
DX: E11.65 Type 2 diabetes mellitus with hyperglycemia (principal)
CPT/HCPCS: 36415; 80053; 82043; 82465; 82570; 83718

== ENCOUNTER → 2020-06-23 08:33 | Outpatient (CLI) | payer MEDICARE, OTHER, SELFPAY ==
[2018-11-03 15:57] VITALS: BMI 32.5
[2020-06-23 09:29] LABS: Absolute Neutrophil Count 3.6 X10^3/uL (2.0-7.7); Basophil# 0.05 X10^3/uL; Basophil% 0.7 % (0-1); Eosinophil# 0.43 X10^3/uL; Eosinophils% 5.9 % (0-5); Hematocrit 43.4 % (40-54); Hemoglobin 13.9 g/dL (13.0-16.5); Lymphocyte % 34.3 % (19-41); Mean Corpuscular Hgb 30.2 pg (27.0-32.0); Mean Corpuscular Volume 94.3 fL (80-94); Mean Platelet Vol. 9.2 fl (6.2-12.0); Monocyte# 0.72 X10^3/uL; Monocyte% 9.9 % (0-10); NRBC Flagged by Analyzer 0 % (0-5); Neutrophil # 3.57 X10^3/uL (2.7-7.7); Neutrophil % 49.1 % (47-70); Platelet Count 271 K/mm3 (150-450); RBC Distribution Width CV 12.8 % (11.6-14.6); RBC Distribution Width SD 44.6 fl (35.1-43.9); White Blood Count 7.3 K/mm3 (4.4-11.0)
[2020-06-23 09:44] LABS: Hemoglobin A1c 7.3 % (3.8-5.6)
[2020-06-23 09:59] LABS: AST(SGOT) 23 U/L (15-37); Alanine Aminotransfer ALT/SGPT 39 U/L (16-61); Albumin, Serum 3.9 g/dL (3.2-5.0); Alkaline Phosphatase 63 U/L (45-117); Anion Gap 6 (5-15); BUN 14 mg/dL (7-18); BUN/Creat Ratio 17.5 RATIO (10-20); Calcium,Total 9.1 mg/dL (8.5-10.1); Chloride 106 mmol/L (98-107); EST Glomerular Filtration Rate 103 mL/min (>60); Est Glom Filt Rate - Afr Amer 125 mL/min (>60); Globulin 4.1 g/dL (2.2-4.2); Glucose 142 mg/dL (74-106); Potassium 4.2 mmol/L (3.5-5.1); Sodium Level 139 mmol/L (136-145)
== END ==
PROVIDERS: PCP Family Medicine; Referring Provider Family Medicine; Visit Provider Family Medicine
DX: E11.65 Type 2 diabetes mellitus with hyperglycemia (principal)
CPT/HCPCS: 36415; 80053; 83036; 85025

== ENCOUNTER → 2020-08-31 09:47 | Outpatient (CLI) | payer MEDICARE, OTHER, SELFPAY ==
[2018-11-03 15:57] VITALS: BMI 32.5
--- NOTE | 2020-08-31 10:40 | RAD_ITS ---
STUDY: X-RAY - UNILATERAL RIBS ( LEFT ) REASON FOR EXAM: Male, 65 years old. Rib contusion. Pain. TECHNIQUE: 4 view(s) of the ribs. COMPARISON: Chest x-ray dated 2018 FINDINGS: Generalized osteopenia of all of the osseous structures visualized. No displaced rib fracture present. Stable hyperexpansion with cardiomegaly and changes of coronary artery bypass grafting. RAD/Ribs Unil 2V No CXR IMPRESSION: Osteopenia with no displaced rib fracture identified. Electronically Signed: Marcos Baker MD at 13:15 EST , Service support ,
== END ==
PROVIDERS: PCP Family Medicine; Referring Provider Family Medicine; Visit Provider Family Medicine
DX: S20.212A Contusion of left front wall of thorax, initial encounter (principal); X58.XXXA Exposure to other specified factors, initial encounter; Y93.9 Activity, unspecified; Y92.9 Unspecified place or not applicable; Y99.9 Unspecified external cause status
CPT/HCPCS: 71100

== ENCOUNTER → 2020-10-03 10:39 | Outpatient (CLI) | payer MEDICARE, OTHER, SELFPAY ==
[2020-09-13 08:30] VITALS: BMI 30.5
== END ==
PROVIDERS: PCP Family Medicine; Visit Provider Family Medicine
DX: B34.9 Viral infection, unspecified (principal)
CPT/HCPCS: 87635; U0003

== ENCOUNTER 2020-12-11 16:10 | Outpatient (RCR) | payer MEDICARE, OTHER, SELFPAY ==
[2020-09-13 08:30] VITALS: BMI 30.5
[2020-12-11] MEDS: COVID-19 VACC, MRNA(PFIZER)/PF 30 MCG/0.3 ML SYRINGE IM (15:33)
[2021-01-01] MEDS: COVID-19 VACC, MRNA(PFIZER)/PF 30 MCG/0.3 ML SYRINGE IM (15:12)
== END 2021-03-12 23:59 ==
LOC: IMMUN 16:10
PROVIDERS: PCP Family Medicine; Visit Provider Family Medicine
DX: Z23 Encounter for immunization (principal)
CPT/HCPCS: 0001A; 0002A; 91300

== ENCOUNTER → 2021-03-25 08:06 | Outpatient (CLI) | payer MEDICARE, OTHER, SELFPAY ==
[2020-09-13 08:30] VITALS: BMI 30.5
[2021-03-25 12:28] LABS: Absolute Lymphocyte Count 2.39 X10^3/uL (0.83-4.51); Absolute Neutrophil Count 3.6 X10^3/uL (2.0-7.7); Basophil# 0.03 X10^3/uL; Basophil% 0.4 % (0-1); Eosinophil# 0.42 X10^3/uL; Eosinophils% 5.9 % (0-5); Hematocrit 42.2 % (40-54); Hemoglobin 13.8 g/dL (13.0-16.5); Lymphocyte # 2.39 X10^3/ul (0.83-4.51); Lymphocyte % 33.8 % (19-41); Mean Corp Hgb Conc 32.7 g/dL (32-36); Mean Corpuscular Hgb 30.6 pg (27.0-32.0); Mean Corpuscular Volume 93.6 fL (80-94); Mean Platelet Vol. 9.6 fl (6.2-12.0); Monocyte# 0.64 X10^3/uL; Monocyte% 9.1 % (0-10); NRBC Flagged by Analyzer 0 % (0-5); Neutrophil # 3.57 X10^3/uL (2.7-7.7); Neutrophil % 50.5 % (47-70); Platelet Count 295 K/mm3 (150-450); RBC Distribution Width CV 13.3 % (11.6-14.6); RBC Distribution Width SD 45.3 fl (35.1-43.9); Red Blood Count 4.51 M/mm3 (4.6-6.2); White Blood Count 7.1 K/mm3 (4.4-11.0)
[2021-03-25 13:04] LABS: Hemoglobin A1c 7.4 % (3.8-5.6)
[2021-03-25 13:08] LABS: AST(SGOT) 22 U/L (15-37); Alanine Aminotransfer ALT/SGPT 33 U/L (16-61); Albumin, Serum 3.8 g/dL (3.2-5.0); Alkaline Phosphatase 59 U/L (45-117); Anion Gap 9 (5-15); BUN 10 mg/dL (7-18); BUN/Creat Ratio 11.5 RATIO (10-20); Chloride 102 mmol/L (98-107); Cholesterol 209 mg/dL (200); Creatinine, Serum 0.87 mg/dL (0.70-1.30); EST Glomerular Filtration Rate 93 mL/min (>60); Est Glom Filt Rate - Afr Amer 113 mL/min (>60); Globulin 3.8 g/dL (2.2-4.2); Glucose 147 mg/dL (74-106); High Density Lipoprotein 71 mg/dL; Potassium 4.3 mmol/L (3.5-5.1); Protein, Total 7.6 g/dL (6.4-8.2); Sodium Level 138 mmol/L (136-145); Triglycerides 191 mg/dL; Very Low Density Lipoprotein 38 mg/dL (5-40)
== END ==
PROVIDERS: PCP Family Medicine; Visit Provider Family Medicine
DX: E11.9 Type 2 diabetes mellitus without complications (principal); I25.10 Atherosclerotic heart disease of native coronary artery without angina pectoris
CPT/HCPCS: 36415; 80053; 80061; 83036; 85025

== ENCOUNTER → 2021-03-28 15:41 | Outpatient (CLI) | payer MEDICARE, OTHER, SELFPAY ==
[2020-09-13 08:30] VITALS: BMI 30.5
[2021-03-28 18:10] LABS: PSA,Total - Annual Screen 0.58 ng/mL (0.00-4.00)
== END ==
PROVIDERS: PCP Family Medicine; Referring Provider Family Medicine; Visit Provider Nurse Practitioner Family
DX: Z12.5 Encounter for screening for malignant neoplasm of prostate (principal)
CPT/HCPCS: 36415; 84153; G0103

== ENCOUNTER → 2021-06-11 15:27 | Outpatient (CLI) | payer MEDICARE, OTHER, SELFPAY ==
[2021-06-11 18:10] LABS: Hemoglobin A1c 7.4 % (3.8-5.6)
[2021-06-11 18:20] LABS: ALB/GLOB Ratio 0.9 RATIO (0.9-2.4); AST(SGOT) 24 U/L (15-37); Alanine Aminotransfer ALT/SGPT 39 U/L (16-61); Albumin, Serum 3.9 g/dL (3.2-5.0); Alkaline Phosphatase 57 U/L (45-117); Anion Gap 12 (5-15); BUN 16 mg/dL (7-18); Calcium,Total 9.3 mg/dL (8.5-10.1); Chloride 102 mmol/L (98-107); Cholesterol 231 mg/dL (200); Creatinine, Serum 1.14 mg/dL (0.70-1.30); EST Glomerular Filtration Rate 68 mL/min (>60); Est Glom Filt Rate - Afr Amer 83 mL/min (>60); Globulin 4.2 g/dL (2.2-4.2); Glucose 198 mg/dL (74-106); High Density Lipoprotein 64 mg/dL; Potassium 4.3 mmol/L (3.5-5.1); Protein, Total 8.1 g/dL (6.4-8.2); Sodium Level 137 mmol/L (136-145)
[2021-06-11 18:25] LABS: Microalbumin,Random Urine 21.7 mg/L (NO RANGE EST.); Microalbumin:Creatinine Ratio 24.9 mg/g CRE (<30 mg/g CRE)
== END ==
PROVIDERS: PCP Family Medicine; Visit Provider Family Medicine
DX: I10 Essential (primary) hypertension (principal); E11.9 Type 2 diabetes mellitus without complications
CPT/HCPCS: 36415; 80053; 82043; 82465; 82570; 83036; 83718

== ENCOUNTER → 2022-03-22 | Outpatient (CLI) | payer MEDICARE, OTHER, SELFPAY ==
[2022-03-22 09:17] LABS: Absolute Lymphocyte Count 2.87 X10^3/uL (0.83-4.51); Absolute Neutrophil Count 3.3 X10^3/uL (2.0-7.7); Basophil# 0.06 X10^3/uL; Basophil% 0.8 % (0-1); Eosinophils% 6.7 % (0-5); Hematocrit 42.6 % (40-54); Hemoglobin 13.9 g/dL (13.0-16.5); Lymphocyte # 2.87 X10^3/ul (0.83-4.51); Lymphocyte % 38.7 % (19-41); Mean Corp Hgb Conc 32.6 g/dL (32-36); Mean Corpuscular Hgb 30.6 pg (27.0-32.0); Mean Corpuscular Volume 93.8 fL (80-94); Mean Platelet Vol. 9.3 fl (6.2-12.0); Monocyte# 0.73 X10^3/uL; Monocyte% 9.8 % (0-10); NRBC Flagged by Analyzer 0 % (0-5); Neutrophil # 3.25 X10^3/uL (2.7-7.7); Neutrophil % 43.9 % (47-70); Platelet Count 293 K/mm3 (150-450); RBC Distribution Width CV 13.2 % (11.6-14.6); RBC Distribution Width SD 45.7 fl (35.1-43.9); Red Blood Count 4.54 M/mm3 (4.6-6.2); White Blood Count 7.4 K/mm3 (4.4-11.0)
[2022-03-22 09:56] LABS: Hemoglobin A1c 7.5 % (3.8-5.6)
[2022-03-22 10:07] LABS: Cholesterol 192 mg/dL (200); High Density Lipoprotein 71 mg/dL; Triglycerides 222 mg/dL; Very Low Density Lipoprotein 44 mg/dL (5-40)
== END | disposition home or self-care (01) ==
LOC: LAB 07:51
PROVIDERS: PCP Family Medicine; Referring Provider Family Medicine; Visit Provider Family Medicine
DX: I25.10 Atherosclerotic heart disease of native coronary artery without angina pectoris (principal); E11.9 Type 2 diabetes mellitus without complications; I10 Essential (primary) hypertension; D64.9 Anemia, unspecified
CPT/HCPCS: 36415; 80061; 83036; 85025

== ENCOUNTER → 2022-04-03 | Outpatient (CLI) | payer MEDICARE, OTHER, SELFPAY ==
[2022-04-03 18:16] LABS: Microalbumin,Random Urine 10.7 mg/L (NO RANGE EST.); Microalbumin:Creatinine Ratio 22.3 mg/g CRE (<30 mg/g CRE)
== END | disposition home or self-care (01) ==
LOC: MFPLAB 15:21
PROVIDERS: PCP Family Medicine; Visit Provider Family Medicine
DX: E11.9 Type 2 diabetes mellitus without complications (principal)
CPT/HCPCS: 82043; 82570

== ENCOUNTER → 2022-06-24 | Outpatient (CLI) | payer MEDICARE, OTHER, SELFPAY ==
[2022-06-24 10:40] LABS: AST(SGOT) 19 U/L (15-37); Alanine Aminotransfer ALT/SGPT 36 U/L (16-61); Albumin, Serum 3.8 g/dL (3.2-5.0); Alkaline Phosphatase 60 U/L (45-117); Anion Gap 9 (5-15); BUN 17 mg/dL (7-18); Calcium,Total 9.5 mg/dL (8.5-10.1); Chloride 101 mmol/L (98-107); EST Glomerular Filtration Rate 90 mL/min (>60); Est Glom Filt Rate - Afr Amer 109 mL/min (>60); Globulin 3.9 g/dL (2.2-4.2); Glucose 153 mg/dL (74-106); Potassium 4.5 mmol/L (3.5-5.1); Protein, Total 7.7 g/dL (6.4-8.2); Sodium Level 137 mmol/L (136-145)
== END | disposition home or self-care (01) ==
LOC: MFPLAB 08:18
PROVIDERS: PCP Family Medicine; Referring Provider Family Medicine; Visit Provider Family Medicine
DX: E11.9 Type 2 diabetes mellitus without complications (principal)
CPT/HCPCS: 36415; 80053

== ENCOUNTER → 2022-07-25 | Outpatient (CLI) | payer MEDICARE, OTHER, SELFPAY ==
[2022-07-25 12:18] LABS: Absolute Lymphocyte Count 2.56 X10^3/uL (0.83-4.51); Absolute Neutrophil Count 3.6 X10^3/uL (2.0-7.7); Basophil# 0.06 X10^3/uL; Basophil% 0.8 % (0-1); Eosinophil# 0.44 X10^3/uL; Hemoglobin 14.1 g/dL (13.0-16.5); Lymphocyte # 2.56 X10^3/ul (0.83-4.51); Lymphocyte % 35.2 % (19-41); Mean Corpuscular Hgb 30.5 pg (27.0-32.0); Mean Platelet Vol. 9.6 fl (6.2-12.0); Monocyte# 0.65 X10^3/uL; Monocyte% 8.9 % (0-10); NRBC Flagged by Analyzer 0 % (0-5); Neutrophil # 3.55 X10^3/uL (2.7-7.7); Neutrophil % 48.8 % (47-70); Platelet Count 281 K/mm3 (150-450); Red Blood Count 4.63 M/mm3 (4.6-6.2); White Blood Count 7.3 K/mm3 (4.4-11.0)
[2022-07-25 12:58] LABS: AST(SGOT) 20 U/L (15-37); Alanine Aminotransfer ALT/SGPT 34 U/L (16-61); Albumin, Serum 4.1 g/dL (3.2-5.0); Alkaline Phosphatase 64 U/L (45-117); Anion Gap 9 (5-15); BUN 15 mg/dL (7-18); BUN/Creat Ratio 17.5 RATIO (10-20); Calcium,Total 9.6 mg/dL (8.5-10.1); Chloride 103 mmol/L (98-107); Creatinine, Serum 0.86 mg/dL (0.70-1.30); EST Glomerular Filtration Rate 95 mL/min (>60); Est Glom Filt Rate - Afr Amer 115 mL/min (>60); Glucose 149 mg/dL (74-106); Potassium 4.4 mmol/L (3.5-5.1); Protein, Total 8.1 g/dL (6.4-8.2); Sodium Level 137 mmol/L (136-145); T4 Free Direct 0.92 ng/dL (0.76-1.46); Thyroid Stim Hormone (TSH) 2.22 uIU/mL (0.358-3.74)
== END | disposition home or self-care (01) ==
LOC: MFPLAB 09:59
PROVIDERS: PCP Family Medicine; Referring Provider Family Medicine; Visit Provider Nurse Practitioner Family
DX: R42 Dizziness and giddiness (principal)
CPT/HCPCS: 36415; 80053; 84439; 84443; 85025

== ENCOUNTER → 2022-08-05 | Outpatient (CLI) | payer MEDICARE, OTHER, SELFPAY ==
--- NOTE | 2022-08-05 17:53 | STRESSREP ---
Stress Test Report Exercise cardial perfusion stress test. 67-year-old gentleman with a history of coronary disease status post coronary bypass surgery. Stress protocol: Resting EKG demonstrates normal sinus rhythm with a rate of 65 bpm normal intervals are noted resting blood pressure is 132/80 mmHg. The patient exercised according to regular Triston protocol for total duration of 6 minutes. The maximum heart rate attained was 144 bpm which was 94% of max impacted heart rate the maximum workload was 7 metabolic equivalents. At rest there were no ST or T wave changes noted to suggest ischemia and at peak exercise upsloping ST changes were noted with did not meet the criteria for ischemia. No clinical angina was noted. The peak blood pressure was 190/80 mmHg with a rate-pressure product of 24,140. Myocardial perfusion protocol. 14.3 mCi of technetium 99m sestamibi was injected at rest. The patient exercised according to regular Triston protocol for 6 minutes and at peak exercise 44.4 mCi of technetium 99m sestamibi was injected stress images were obtained stress and rest images were reconstructed and compared in the short axis vertical long horizontal long axis. Gated images were also obtained to Perfusion SPECT analysis. Review of the stress images demonstrate normal uptake of tracer noted in all areas of the myocardium. The resting images similarly demonstrate normal uptake of tracer noted in all areas of the myocardium. No reversibility is noted to suggest ischemia and no previous infarct is noted. Gated SPECT analysis: The gated ejection fraction is 61%. Conclusion: Normal exercise myocardial perfusion stress test at a moderate workload. Preserved ejection fraction.
== END | disposition home or self-care (01) ==
LOC: CVS 06:25
PROVIDERS: PCP Family Medicine; Referring Provider Nurse Practitioner Family; Visit Provider Nurse Practitioner Family
DX: I25.10 Atherosclerotic heart disease of native coronary artery without angina pectoris (principal); Z95.1 Presence of aortocoronary bypass graft
CPT/HCPCS: 78452; 93017; A9500; A4216

== ENCOUNTER → 2022-10-22 | Outpatient (CLI) | payer MEDICARE, OTHER, SELFPAY ==
--- NOTE | 2022-10-22 14:50 | CDU_ITS ---
Reason For Study: Dizziness Rt. Velocities/BP Lt. Velocities/BP Prox CCA 90.0/15.4 cm/sec. Prox CCA 87.9/21.6 cm/sec. Mid CCA 104.7/20.1 cm/sec. Mid CCA 79.3/14.2 cm/sec. Dist CCA 61.1/12.7 cm/sec. Dist CCA 86.7/20.4 cm/sec. Prox ICA 86.9/12.1 cm/sec. Prox ICA 80.6/14.2 cm/sec. Mid ICA 73.3/23.2 cm/sec. Mid ICA 74.4/24.1 cm/sec. Dist ICA 82.8/26.1 cm/sec. Dist ICA 72.0/24.1 cm/sec. Lt. ICA/CCA = 0.8. Lt. ICA/CCA = 1.0. Prox ECA 121.6/4.7 cm/sec. Prox ECA 101.4/9.3 cm/sec. Lt. Vert. 21.5/7.4 cm/sec. Lt. Vert. 96.3/12.7 cm/sec. Right Extracranial There is intimal thickening but no significant atherosclerotic plaque noted in the right common carotid artery. There is heterogeneous, irregular atherosclerotic plaque noted in the right internal carotid artery. There is intimal thickening but no significant atherosclerotic plaque noted in the right external carotid artery. Antegrade flow is noted in the right vertebral artery. Left Extracranial There is heterogeneous, smooth atherosclerotic plaque noted in the left common carotid artery. There is heterogeneous, irregular atherosclerotic plaque noted in the left internal carotid artery. There is heterogeneous, irregular atherosclerotic plaque noted in the left external carotid artery. Antegrade flow is noted in the left vertebral artery. Procedure Carotid Duplex 49510. This is a Carotid Duplex examination using B-mode, color flow and specral Doppler. The exam was diagnostic. Exam performed in department. VL/Carotid Duplex Ultrasound Interpretation Summary Mild (<50%) stenosis right extracranial internal carotid. Mild (<50%) stenosis left extracranial internal carotid. Patent and antegrade vertebrals bilaterally. Ordering Physician: Levon Davalos Referring Physician: Keshav Edwards MD Performed By: Peter Arreaga RVT
== END | disposition home or self-care (01) ==
PROVIDERS: PCP Family Medicine; Referring Provider Nurse Practitioner Family; Visit Provider Nurse Practitioner Family
DX: I65.22 Occlusion and stenosis of left carotid artery (principal); R42 Dizziness and giddiness; I25.10 Atherosclerotic heart disease of native coronary artery without angina pectoris; I10 Essential (primary) hypertension; E78.5 Hyperlipidemia, unspecified
CPT/HCPCS: 93880

== ENCOUNTER → 2023-04-03 | Outpatient (CLI) | payer MEDICARE, OTHER, SELFPAY ==
[2023-04-03 11:03] LABS: AST(SGOT) 24 U/L (15-37); Alanine Aminotransfer ALT/SGPT 43 U/L (16-61); Albumin, Serum 3.8 g/dL (3.2-5.0); Alkaline Phosphatase 55 U/L (45-117); Anion Gap 7 (5-15); BUN 18 mg/dL (7-18); Calcium,Total 9.1 mg/dL (8.5-10.1); Chloride 104 mmol/L (98-107); Creatinine, Serum 0.82 mg/dL (0.70-1.30); EST Glomerular Filtration Rate 100 mL/min (>60); Est Glom Filt Rate - Afr Amer 121 mL/min (>60); Globulin 3.7 g/dL (2.2-4.2); Glucose 144 mg/dL (74-106); PSA,Total - Annual Screen 0.48 ng/mL (0.00-4.00); Potassium 4.4 mmol/L (3.5-5.1); Protein, Total 7.5 g/dL (6.4-8.2); Sodium Level 137 mmol/L (136-145)
[2023-04-03 11:19] LABS: Absolute Lymphocyte Count 2.59 X10^3/uL (0.83-4.51); Absolute Neutrophil Count 3.3 X10^3/uL (2.0-7.7); Basophil# 0.05 X10^3/uL; Basophil% 0.7 % (0-1); Eosinophil# 0.42 X10^3/uL; Hematocrit 43.2 % (40-54); Hemoglobin 14.2 g/dL (13.0-16.5); Lymphocyte # 2.59 X10^3/ul (0.83-4.51); Lymphocyte % 36.8 % (19-41); Mean Corp Hgb Conc 32.9 g/dL (32-36); Mean Corpuscular Hgb 30.5 pg (27.0-32.0); Mean Corpuscular Volume 92.7 fL (80-94); Mean Platelet Vol. 9.2 fl (6.2-12.0); Monocyte# 0.64 X10^3/uL; Monocyte% 9.1 % (0-10); NRBC Flagged by Analyzer 0 % (0-5); Neutrophil # 3.33 X10^3/uL (2.7-7.7); Neutrophil % 47.3 % (47-70); Platelet Count 270 K/mm3 (150-450); RBC Distribution Width CV 13.5 % (11.6-14.6); RBC Distribution Width SD 46.3 fl (35.1-43.9); Red Blood Count 4.66 M/mm3 (4.6-6.2)
== END | disposition home or self-care (01) ==
LOC: MFPLAB 08:40
PROVIDERS: PCP Family Medicine; Visit Provider Family Medicine
DX: E11.9 Type 2 diabetes mellitus without complications (principal); Z12.5 Encounter for screening for malignant neoplasm of prostate; I25.10 Atherosclerotic heart disease of native coronary artery without angina pectoris
CPT/HCPCS: 36415; 80053; 84153; 85025; G0103

== ENCOUNTER 2023-04-24 17:04 | Inpatient (IN) | payer MEDICARE, OTHER, SELFPAY ==
[2023-04-24] VITALS (8 sets, daily range): BP systolic 125–150; BP diastolic 71–97; PULSE 65–70; RESP 14–17; TEMP 36.4–36.8; O2SAT 97–98; BMI 29.7; BMI 29.5
--- NOTE | 2023-04-24 17:24 | CT_ITS ---
STUDY: CTA Chest WO/W Contrast Injection 04/24/2023 6:01 PM REASON FOR EXAM: Male, 67 years old. concern for PE TECHNIQUE: The examination was performed with the intravenous administration of IV 100mL Isovue-370 contrast material. Post-processing of the angiographic images was performed, with axial imaging and 3D reconstruction. MIPS images were obtained. Individualized dose optimization techniques were used for this CT. COMPARISON: None. FINDINGS: There are degenerative changes of the shoulders. There is no pneumothorax. There is no demonstrated pleural abnormality. Right lower lobe atelectasis. There are calcifications of the coronary arteries. Normal mediastinum. Normal hilar regions. Normal pulmonary arteries. There is atherosclerotic calcification of the aortic arch with tortuosity and elongation of the aortic arch and descending thoracic aorta. There are multi-level degenerative changes of the thoracic spine. There are no acute findings of the upper abdomen. CT/CTA Chest W/WO Contrast IMPRESSION: There are no acute findings. Electronically Signed: Kendrick Parra MD at 18:02 EDT ,
--- NOTE | 2023-04-24 17:41 | EDS_ITS ---
HPI History of Present Illness Chief Complaint: Chest Pain Narrative Narrative: Patient is a 67-year-old male with history of CAD, NH, CABG who presents to the emergency department for 2 to 3 weeks of worsening chest pain, shortness of breath on exertion. Patient has seen his PCP as well as cardiology twice. They did order some labs. Patient was given inhalers, steroids x2. Patient states that he is still coughing however the chest pain is upper worse with exertion and when he rests it goes away. Patient did have blood work completed today, he had an elevated D-dimer and he is here to rule out possible pulmonary embolus. Patient when at rest is in no distress. [facility] Medical History (Updated 04/24/23 @ 20:47 by ERMELINDA Rizzo) Atherosclerotic heart disease of [place] coronary artery without angina pectoris BPH (benign prostatic hyperplasia) Depression Essential (primary) hypertension HLD (hyperlipidemia) Obesity Shortness of breath Type 2 diabetes mellitus Home Medications aspirin 81 mg chewable tablet 1 tab PO DAILY Heart Health 01/04/17 [History Last Taken 09/21/18 08:00] escitalopram oxalate 10 mg tablet 1 tab PO DAILY Depression/ anxiety 01/04/17 [History Last Taken 09/21/18 18:00] finasteride 5 mg tablet 1 tab PO DAILY Prostate 01/04/17 [History Last Taken 09/21/18 08:00] metformin 500 mg tablet,extended release 24 hr 1 tab PO BID Diabetes 01/04/17 [History Last Taken 09/21/18 18:00] pravastatin 40 mg tablet 40 mg PO QHS Cholesterol 01/04/17 [History Last Taken 09/21/18 18:00] tamsulosin 0.4 mg capsule 1 tab PO DAILY Prostate 01/04/17 [History Last Taken 09/21/18 08:00] empagliflozin 25 mg tablet 25 mg PO DAILY 09/13/20 [History Last Taken Unknown] fexofenadine 180 mg tablet 180 mg PO DAILY 09/12/21 [History Last Taken Unknown] montelukast 10 mg tablet 10 mg PO DAILY 09/12/21 [History Last Taken Unknown] metoprolol tartrate 25 mg tablet 25 mg PO BID BP 10/10/22 [History Last Taken Unknown] nitroglycerin 0.4 mg sublingual tablet 0.4 mg sublingual Q5-15M PRN chest pain #25 tabs 04/14/23 [Rx Last Taken Unknown] Allergy/AdvReac Type Severity Reaction Status Date / Time No Known Allergies Allergy Verified 04/24/23 17:10 Family History Mother CAD (coronary artery disease) Hx CABG Myocardial infarction Diabetes Sister CAD (coronary artery disease) Hx PTCA Grandfather Cancer Prostate cancer Uncle Cancer Prostate cancer Surgical History H/O coronary artery bypass surgery (02/24/13) Social History Smoking Status: Never smoker alcohol intake: never substance use type: does not use caffeine: Yes Type: coffee Number of servings: 1 what type of physical activity do you participate in: none seatbelt use: always do you feel safe at home: Yes ROS ROS ED ROS Narrative Constitutional: Negative for fever, chills, weight loss, weakness Eyes: Negative for vision loss, vision change, double vision ENT: Negative for any sore throat, ear pain, congestion Cardiovascular: Negative for any tightness, palpitations. Positive for chest pain Respiratory: Negative for any sputum production, hemoptysis.positive for dyspnea, dyspnea on exertion, orthopnea, positive for cough Gastrointestinal: Negative for any abdominal pain, nausea, vomiting, diarrhea, constipation, blood in stool, blood in vomit : Negative for any urinary frequency, dysuria, retention, blood in urine Muscle skeletal: Negative for any muscle joint pain, stiffness, myalgias, arthralgias, neck pain, back pain Neurological: Negative for any headache, syncope, numbness or tingling, dizziness Skin: Negative for any rashes, lumps, itching, abrasions, lacerations Psychiatric: Negative for any depression, anxiety, stress, suicidal ideation, homicidal ideation Hematologic: Negative for any easy bruising, excessive bruising, easy bleeding Allergies: Negative for any eczema, hives, rash EXAM Physical Exam Narrative Exam Narrative: Vital signs reviewed. HEET: Head normocephalic atraumatic, TMs clear bilaterally. Posterior pharynx is clear, moist mucous membranes. Nares clear bilaterally. Neck: Supple with no lymphadenopathy or tenderness. No signs of meningismus, negative jolt sign. Cardiac: Regular rate and rhythm no murmurs gallops or rubs, equal peripheral pulses bilaterally. Respiratory: Lungs clear to auscultation bilaterally. No chest tenderness. Abdomen: Soft, nontender, nondistended. No abdominal bruit or pulsatile masses. No hepatosplenomegaly Extremities: No peripheral edema, no signs of gross trauma or deformity. Active full range of motion of all extremities. Neuro: Cranial nerves II through XII intact, no focal neurological deficits. Skin: Clean dry and intact with no rash, purpura, petechiae, vesicles or pustules. Backs/flank: No CVA tenderness, no midline spinal tenderness, no deformity. Psych: Normal mood and affect. No SI, HI or acute psychosis. Const Vital Signs: 04/24/23 17:05 04/24/23 17:08 04/24/23 17:24 Temperature 98.1 F Temperature Source Oral Pulse Rate 69 Respiratory Rate 16 Respiratory Effort Normal Non-Labored Blood Pressure 150/97 H Blood Pressure Mean 114 Pulse Ox 98 97 Oxygen Delivery Method Room Air Room Air 04/24/23 18:04 04/24/23 19:04 Temperature Temperature Source Pulse Rate 70 66 Respiratory Rate 14 14 Respiratory Effort Blood Pressure 125/71 H 129/73 H Blood Pressure Mean 89 91 Pulse Ox 97 98 Oxygen Delivery Method Room Air Room Air Positive well nourished and obese Nutritional Appearance: obese MDM MDM Lab Data Labs: Laboratory Results - last 24 hr 04/24/23 04/24/23 17:05 19:56 WBC 10.6 RBC 4.17 L Hgb 12.6 L Hct 39.7 L MCV 95.2 H MCH 30.2 MCHC 31.7 L RDW Std Deviation 47.7 H RDW Coeff of Hannah 13.6 Plt Count 318 MPV 9.6 Immature Gran % (Auto) 0.400 Neut % (Auto) 51.4 Lymph % (Auto) 30.8 [place] % (Auto) 11.1 H Eos % (Auto) 5.8 H Baso % (Auto) 0.5 Absolute Neuts (auto) 5.5 Absolute Lymphs (auto) 3.28 Nucleated RBC % 0 PT 12.2 INR 0.9 APTT 29.0 Sodium 138 Potassium 4.1 Chloride 104 Carbon Dioxide 26.0 Anion Gap 8 BUN 19 H Creatinine 0.93 Estim Creat Clear Calc 77.08 Est GFR (MDRD) Af Amer 105 Est GFR (MDRD) Non-Af 86 BUN/Creatinine Ratio 20.5 H Glucose 113 H Calcium 9.7 Phosphorus 4.6 Magnesium 2.3 Troponin I High Sens 1511 H* 1597 H* B-Natriuretic Peptide 491.4 H Radiography Diagnostic Testing: Clinical Impression(s) from Imaging Studies Chest CTA 04/24/23 17:24 IMPRESSION: There are no acute findings. Electronically Signed: Kendrick Parra MD at 18:02 EDT Reading Location ID and State: [facility] / [place] , Service support , Treatment and Re-Evaluation :: Patient appears generally well at rest, patient is in no distress. Patient presents to the emergency department with complaints of chest pain, shortness of breath on exertion for last 2 to 3 weeks. Did have an elevated D-dimer today. Patient will receive a CTA of the chest to rule out a blood clot, inflammatory, infectious changes. Patient at rest is in no distress. All radiologic examinations were read, reviewed by the emergency department attending. From these reads, a plan of care will be put in place. Patient will also have a cardiac work-up. Patient CT scan of the chest to rule out a pulmonary embolus showed no pneumothorax, no pleural abnormality. No evidence of pulmonary embolus.. Ray maddox's laboratory values. Show a normal CBC which is baseline for the patient.. Patient's chemistries. Was unremarkable, patient's troponin was greatly elevated at 1511, this is likely related to a cardiac injury. Patient is asymptomatic when sitting still. Patient likely had some cardiac injury during his periods of exertion. Patient will need to be admitted to the hospital. Patient be given 3 baby aspirin, admitted to the hospital. Patient was started on heparin drip. Patient's Repeat troponin was 1597 slightly elevated. Patient still asymptomatic while resting. I spoke with Dr. Moreno, he recommended heparin. Patient is already on Plavix. Patient stable for admission Discharge Plan Triage Chief Complaint: Chest Pain ED Midlevel Provider: Blanco Moore ED Provider: Mel Gilbert Dx/Rx/DC Orders Clinical Impression: Elevated troponin, Acute non-ST elevation myocardial infarction (NSTEMI), Chest pain Prescriptions: No Action empagliflozin 25 mg tablet 25 mg PO DAILY montelukast 10 mg tablet 10 mg PO DAILY fexofenadine 180 mg tablet 180 mg PO DAILY metoprolol tartrate 25 mg tablet 25 mg PO BID Patient Comments: nitroglycerin 0.4 mg tablet, sublingual 0.4 mg sublingual Q5-15M PRN (Reason: chest pain) Qty: 25 3RF Rx Instructions: do not exceed 3 doses per episode pravastatin 40 MG tablet 40 mg PO QHS tamsulosin 0.4 MG capsule 1 tab PO DAILY Patient Comments: metformin 500 MG tablet extended release 24 hr 1 tab PO BID Patient Comments: finasteride 5 MG tablet 1 tab PO DAILY Patient Comments: take 1 tablet by mouth once daily escitalopram oxalate 10 MG tablet 1 tab PO DAILY aspirin 81 MG tablet,chewable 1 tab PO DAILY Primary Care Provider: Keshav Edwards Referrals: Keshav Edwards MD [Primary Care Provider] - Disposition Disposition: Acute Care Hospital [facility]
[2023-04-24 17:56] LABS: Absolute Lymphocyte Count 3.28 X10^3/uL (0.83-4.51); Absolute Neutrophil Count 5.5 X10^3/uL (2.0-7.7); Basophil# 0.05 X10^3/uL; Basophil% 0.5 % (0-1); Eosinophil# 0.62 X10^3/uL; Eosinophils% 5.8 % (0-5); Hematocrit 39.7 % (40-54); Hemoglobin 12.6 g/dL (13.0-16.5); Lymphocyte # 3.28 X10^3/ul (0.83-4.51); Lymphocyte % 30.8 % (19-41); Mean Corp Hgb Conc 31.7 g/dL (32-36); Mean Corpuscular Hgb 30.2 pg (27.0-32.0); Mean Corpuscular Volume 95.2 fL (80-94); Mean Platelet Vol. 9.6 fl (6.2-12.0); Monocyte# 1.18 X10^3/uL; Monocyte% 11.1 % (0-10); NRBC Flagged by Analyzer 0 % (0-5); Neutrophil # 5.47 X10^3/uL (2.7-7.7); Neutrophil % 51.4 % (47-70); Platelet Count 318 K/mm3 (150-450); RBC Distribution Width CV 13.6 % (11.6-14.6); RBC Distribution Width SD 47.7 fl (35.1-43.9); Red Blood Count 4.17 M/mm3 (4.6-6.2); White Blood Count 10.6 K/mm3 (4.4-11.0)
[2023-04-24 18:14] LABS: BNP,B-Type NATRIURETIC PEPTIDE 491.4 pg/mL (0-100)
[2023-04-24 18:22] LABS: Anion Gap 8 (5-15); BUN 19 mg/dL (7-18); BUN/Creat Ratio 20.5 RATIO (10-20); Calcium,Total 9.7 mg/dL (8.5-10.1); Chloride 104 mmol/L (98-107); Creatinine, Serum 0.93 mg/dL (0.70-1.30); EST Glomerular Filtration Rate 86 mL/min (>60); Est Glom Filt Rate - Afr Amer 105 mL/min (>60); Estimated Creatinine Clearance 77.08 ml/min; Glucose 113 mg/dL (74-106); Potassium 4.1 mmol/L (3.5-5.1); Sodium Level 138 mmol/L (136-145); Troponin-I HS (w/2H Reflex) 1511 pg/mL (3.0-78.0)
[2023-04-24] MEDS: Aspirin 81 MG TAB.CHEW 243 MG PO (19:18)
--- NOTE | 2023-04-24 19:32 | PCM.HP.STD ---
[facility] - General General Date of Admission: 04/24/23 Date of Service: 04/24/23 Chief Complaint: Intermittent chest pain anginal quality for 3 weeks. HPI Narrative ORQUIDEA UGALDE, is a 67 M with history of coronary artery status post CABG about [address] Garcia/Samantha Kulkarni was sent to ED by PCP. He went to see PCP for chest pain and shortness of breath on exertion. He had elevated D-dimer ordered by PCP therefore sent to ED. In ED patient had chest CTA which did not show acute PE. Prior to that patient has anginal quality chest pain feels like tightness on left-sided anterior chest without radiation to neck arm or back as very mild shortness of breath for 3 weeks. Mild exertion brings the chest pain and it goes away on resting. Patient recently was walking in afternoon and he had chest pain about 2 to 3 weeks ago. He also saw Levon bran NP on 04/14/2023 and was thought noncardiac chest pain. In ER, patient had twelve-lead EKG shows normal sinus rhythm, RAD, QRS 100 ms QTc 450 ms.Previous EKG on 04/14/2023 was also showed similar incomplete right bundle branch block with nonspecific ST-T changes. [facility] Medical History Atherosclerotic heart disease of [place] coronary artery without angina pectoris BPH (benign prostatic hyperplasia) Depression Essential (primary) hypertension HLD (hyperlipidemia) Obesity Shortness of breath Type 2 diabetes mellitus Home Medications aspirin 81 mg chewable tablet 1 tab PO DAILY Heart Health 01/04/17 [History Last Taken 09/21/18 08:00] escitalopram oxalate 10 mg tablet 1 tab PO DAILY Depression/ anxiety 01/04/17 [History Last Taken 09/21/18 18:00] finasteride 5 mg tablet 1 tab PO DAILY Prostate 01/04/17 [History Last Taken 09/21/18 08:00] metformin 500 mg tablet,extended release 24 hr 1 tab PO BID Diabetes 01/04/17 [History Last Taken 09/21/18 18:00] pravastatin 40 mg tablet 40 mg PO QHS Cholesterol 01/04/17 [History Last Taken 09/21/18 18:00] tamsulosin 0.4 mg capsule 1 tab PO DAILY Prostate 01/04/17 [History Last Taken 12/18/18 08:00] empagliflozin 25 mg tablet 25 mg PO DAILY 09/13/20 [History Last Taken Unknown] fexofenadine 180 mg tablet 180 mg PO DAILY 09/12/21 [History Last Taken Unknown] montelukast 10 mg tablet 10 mg PO DAILY 09/12/21 [History Last Taken Unknown] metoprolol tartrate 25 mg tablet 25 mg PO BID BP 10/10/22 [History Last Taken Unknown] nitroglycerin 0.4 mg sublingual tablet 0.4 mg sublingual Q5-15M PRN chest pain #25 tabs 04/14/23 [Rx Last Taken Unknown] Allergy/AdvReac Type Severity Reaction Status Date / Time No Known Allergies Allergy Verified 04/24/23 17:10 Family History Mother CAD (coronary artery disease) Hx CABG Myocardial infarction Diabetes Sister CAD (coronary artery disease) Hx PTCA Grandfather Cancer Prostate cancer Uncle Cancer Prostate cancer Surgical History H/O coronary artery bypass surgery (02/24/13) Social History Smoking Status: Never smoker alcohol intake: never substance use type: does not use caffeine: Yes Type: coffee Number of servings: 1 what type of physical activity do you participate in: none seatbelt use: always do you feel safe at home: Yes ROS ROS Narrative Constitutional: Reports fatigue and weakness. No fever. HEENT: Reports systems reviewed and no addt'l complaints, except as documented Respiratory/Chest: As described in HPI. No respiratory distress or wheezing or shortness of breath at rest. CVS: As described in HPI. Gastrointestinal: Denies coffee ground emesis, hematemesis or vomiting Genitourinary: Denies burning urination or new urinary tract symptoms Musculoskeletal: Denies acute joint pain or limited range of motion. No acute injury Neurologic: Denies seizure-like symptoms. skin: No ulcer. No rash Endocrinology: Reports systems reviewed and no addt'l complaints, except as documented Hematologic/Lymphatic: Reports systems reviewed and no addt'l complaints, except as documented Rest 14 ROS are negative except as mentioned in HPI Vital Signs Vital Signs Vital Signs: 04/24/23 17:05 04/24/23 17:08 04/24/23 17:24 Temperature 98.1 F Temperature Source Oral Pulse Rate 69 Respiratory Rate 16 Respiratory Effort Normal Non-Labored Blood Pressure 150/97 H Blood Pressure Mean 114 Pulse Ox 98 97 Oxygen Delivery Method Room Air Room Air 04/24/23 18:04 04/24/23 19:04 Temperature Temperature Source Pulse Rate 70 66 Respiratory Rate 14 14 Respiratory Effort Blood Pressure 125/71 H 129/73 H Blood Pressure Mean 89 91 Pulse Ox 97 98 Oxygen Delivery Method Room Air Room Air Weight Weight: 201 lb 4.513 oz Body Mass Index (BMI) 29.7 Physical Exam Narrative General: Alert, Oriented x3, Cooperative HEENT: Atraumatic, PERRLA, EOMI, Normocephalic Oral: Oral mucosa moist. No Gingival or Mucosal Lesions/ Ulcerations Neck: Supple, No JVD, Negative Carotid Bruits Lungs: Air entry diminished in bilateral lung bases. No crepitation/rhonchi Cardiovascular: Regular rate, Regular Rhythm, Normal S1, Normal S2, soft systolic murmur over LLSB. Abdomen: Bowel Sounds Present, Soft, Non Tender, Non-Distended : No renal angle tenderness. No suprapubic tenderness. Extremities: No edema, Capillary Refill Less than 3 Seconds Skin: No rashes, No breakdown Musculoskeletal: No Tenderness to Palpation of Joints or Extremities. ROM full and intact. Neurological: Cranial nerves II-XII grossly intact, DTR 2+/4 and Symmetrical, Neuro grossly intact Psych/Mental Status: Normal Affect, Appropriate. Results Lab / Micro Data 04/24/23 17:05 04/24/23 17:05 Labs: Laboratory Results - last 24 hr 04/24/23 17:05: WBC 10.6, RBC 4.17 L, Hgb 12.6 L, Hct 39.7 L, MCV 95.2 H, MCH 30.2, MCHC 31.7 L, RDW Std Deviation 47.7 H, RDW Coeff of Hannah 13.6, Plt Count 318, MPV 9.6, Immature Gran % (Auto) 0.400, Neut % (Auto) 51.4, Lymph % (Auto) 30.8, [place] % (Auto) 11.1 H, Eos % (Auto) 5.8 H, Baso % (Auto) 0.5, Absolute Neuts (auto) 5.5, Absolute Lymphs (auto) 3.28, Nucleated RBC % 0, Sodium 138, Potassium 4.1, Chloride 104, Carbon Dioxide 26.0, Anion Gap 8, BUN 19 H, Creatinine 0.93, Estim Creat Clear Calc 77.08, Est GFR (MDRD) Af Amer 105, Est GFR (MDRD) Non-Af 86, BUN/Creatinine Ratio 20.5 H, Glucose 113 H, Calcium 9.7, Troponin I High Sens 1511 H*, B-Natriuretic Peptide 491.4 H Radiology Impression Chest CTA 04/24/23 17:24 IMPRESSION: There are no acute findings. Electronically Signed: Kendrick Parra MD at 18:02 EDT , Assessment & Plan Assessment/Plan (1) Acute non-ST elevation myocardial infarction (NSTEMI): PLAN: Plan 1. Acute non-STEMI: Patient has anginal quality chest pain for last 3 weeks and high troponin therefore non-STEMI. First troponin 1511, second troponin 1597. Electrolytes in normal range. Serum magnesium and phosphorus normal range. Patient is being admitted in PCU. Repeat EKG on admission. [employer] Dr. Moreno is consulted. Patient got aspirin in ED. Patient is not on Plavix or Brilinta therefore started on Brilinta loading dose and then 90 mg twice daily. Patient on IV heparin drip. Cycle cardiac enzymes. Patient on metoprolol 25 mg twice daily and empagliflozin 25 mg daily continued. Patient on pravastatin which is held and started on atorvastatin 80 mg daily. TSH and fasting profile tomorrow AM. 2D echo ordered for tomorrow AM. 2. Coronary artery status post three-vessel CABG in 2012: Patient had normal exercise myocardial perfusion stress test at moderate workload with preserved EF in August 2022. His last echo was in December 2015 reported EF 65% with mild TR. Patient also history of hypertension and dyslipidemia. Home medication reconciliation done. 3. BPH on finasteride. 4. Diabetes mellitus type 2: On metformin. Empagliflozin continued. Accu-Chek insulin is covered with Humalog sliding scale. 5. Mild anxiety: Patient on escitalopram continued. 6. VTE prophylaxis: On IV heparin drip. Living will/advanced directive/end of life care: Patient does not have living will or advanced directive. His is next of kin. After discussion of benefits/risks procedures involved with full code, DNR CC arrest and DNR CC, the patient opted for full code. Patient does want artificial life support including intubation, tube feed, ventilator and/chest compression, central venous catheter, vasopressor and DC shock if needed Total time spent in [id number] encounter in discussion of advanced directive 17 minutes. Laboratory Results 04/24/23 17:05: WBC 10.6, RBC 4.17 L, Hgb 12.6 L, Hct 39.7 L, MCV 95.2 H, MCH 30.2, MCHC 31.7 L, RDW Std Deviation 47.7 H, RDW Coeff of Hannah 13.6, Plt Count 318, MPV 9.6, Immature Gran % (Auto) 0.400, Neut % (Auto) 51.4, Lymph % (Auto) 30.8, [place] % (Auto) 11.1 H, Eos % (Auto) 5.8 H, Baso % (Auto) 0.5, Absolute Neuts (auto) 5.5, Absolute Lymphs (auto) 3.28, Nucleated RBC % 0, PT 12.2, INR 0.9, APTT 29.0, Sodium 138, Potassium 4.1, Chloride 104, Carbon Dioxide 26.0, Anion Gap 8, BUN 19 H, Creatinine 0.93, Estim Creat Clear Calc 77.08, Est GFR (MDRD) Af Amer 105, Est GFR (MDRD) Non-Af 86, BUN/Creatinine Ratio 20.5 H, Glucose 113 H, Calcium 9.7, Phosphorus 4.6, Magnesium 2.3, Troponin I High Sens 1511 H*, B-Natriuretic Peptide 491.4 H 04/24/23 19:56: Troponin I High Sens 1597 H* Charges/Coding Visit Charges Inpatient E&M: 56666 Init Hosp L3 Procedures Hospitalists Procedures: 55609 Advncd Care Plan 30 Min
[2023-04-24 19:48] LABS: Reflex Troponin-HS? (from REC) Y
[2023-04-24 20:03] LABS: Magnesium 2.3 mg/dL (1.6-2.6); Phosphorus 4.6 mg/dL (2.5-4.9)
[2023-04-24 20:05] LABS: International Normalized Ratio 0.9; Prothrombin Time (Protime)PT. 12.2 SECONDS (11.7-14.9)
[2023-04-24 20:26] LABS: Troponin-I HS 1597 pg/mL (3.0-78.0)
--- NOTE | 2023-04-24 21:55 | EKG12_ITS ---
Test Reason : AM EKG Blood Pressure : / mmHG Vent. Rate : 064 BPM Atrial Rate : 064 BPM P-R Int : 144 ms QRS Dur : 098 ms QT Int : 448 ms P-R-T Axes : 053 108 137 degrees QTc Int : 462 ms Normal sinus rhythm Incomplete right bundle branch block Possible Right ventricular hypertrophy Inferior infarct , possibly acute Confirmed by ANTHONY PERALTA, VIJAYA ([id number]), map editor CHARLES CARTER ([id number]) on 04/28/2023 7:16:36 AM Referred By: Confirmed By:VIJAYA CRUZ MD
[2023-04-24] MEDS: Heparin Injection (Vial) 5,000 UNIT/ML VIAL 4000 UNIT IV (22:25)
[2023-04-24] MEDS: 0.9% Normal Saline 1,000 ML 75 ML IV (22:25)
[2023-04-24] MEDS: Atorvastatin Calcium 80 MG Tablet PO (22:27)
[2023-04-24] MEDS: TICAGRELOR 90 MG TABLET 180 MG PO (22:27)
[2023-04-24] MEDS: HEPARIN/D5w 25,000 UNITS 25,000 UNITS/250 ML IV.SOLN. 10 UNITS CONT INF (22:28)
[2023-04-25 01:20] LABS: Bedside Glucose 113 mg/dL (74-106)
[2023-04-25 03:07] VITALS: BP 114/56; PULSE 64; RESP 15; TEMP 36.8; O2SAT 97
[2023-04-25 04:06] VITALS: BMI 28.5
[2023-04-25 06:28] LABS: Hematocrit 37.8 % (40-54); Hemoglobin 12.8 g/dL (13.0-16.5); Mean Corp Hgb Conc 33.9 g/dL (32-36); Mean Corpuscular Hgb 31.4 pg (27.0-32.0); Mean Corpuscular Volume 92.9 fL (80-94); Mean Platelet Vol. 9.2 fl (6.2-12.0); Platelet Count 294 K/mm3 (150-450); RBC Distribution Width CV 13.6 % (11.6-14.6); RBC Distribution Width SD 46.3 fl (35.1-43.9); Red Blood Count 4.07 M/mm3 (4.6-6.2); White Blood Count 9.9 K/mm3 (4.4-11.0)
[2023-04-25 06:41] LABS: Partial Thromboplast Time 46.9 Seconds (24.1-36.2)
[2023-04-25 07:00] LABS: Bedside Glucose 130 mg/dL (74-106)
[2023-04-25 07:15] LABS: ALB/GLOB Ratio 0.8 RATIO (0.9-2.4); AST(SGOT) 18 U/L (15-37); Alanine Aminotransfer ALT/SGPT 33 U/L (16-61); Albumin, Serum 3.3 g/dL (3.2-5.0); Alkaline Phosphatase 72 U/L (45-117); Anion Gap 7 (5-15); BUN 14 mg/dL (7-18); BUN/Creat Ratio 18.9 RATIO (10-20); Calcium,Total 9.2 mg/dL (8.5-10.1); Chloride 104 mmol/L (98-107); Cholesterol 177 mg/dL (200); Creatinine, Serum 0.74 mg/dL (0.70-1.30); EST Glomerular Filtration Rate 112 mL/min (>60); Est Glom Filt Rate - Afr Amer 136 mL/min (>60); Estimated Creatinine Clearance 71.68 ml/min; Glucose 123 mg/dL (74-106); High Density Lipoprotein 72 mg/dL; Potassium 4.2 mmol/L (3.5-5.1); Protein, Total 7.3 g/dL (6.4-8.2); Sodium Level 136 mmol/L (136-145); Thyroid Stim Hormone (TSH) 2.66 uIU/mL (0.358-3.74); Triglycerides 139 mg/dL; Very Low Density Lipoprotein 28 mg/dL (5-40)
[2023-04-25 08:11] LABS: Hemoglobin A1c 7.4 % (3.8-5.6)
--- NOTE | 2023-04-25 08:26 | PN.HOSP_ITS ---
Reason for Visit Reason for Visit: Chest pain Subjective Subjective Mr. Edwards is a 67-year-old male with a history of coronary artery bypass surgery about 10 years ago who presented to the emergency department [facility] with intermittent chest pain that was anginal in quality for approximately 3 weeks. He had associated shortness of breath with exertion as well. He had followed with PCP and cardiology and they ordered lab work and he was given inhalers and steroids x2. The patient reports that he has had some coughing but his chest pain is upper chest and worse with exertion and when he rests symptoms resolved. The blood work that was given to him by his primary care physician included a D-dimer and he finally had his lab work completed today. D-dimer was noted to be elevated he was sent to the emergency department to rule out possible pulmonary embolus. CTA performed and negative for PE or any other acute findings. Vital signs on presentation were unremarkable other than hypertension with a blood pressure of 150/97. His CBC showed mild anemia with a hemoglobin of 12.6, he had a monocytosis and eosinophilia which is not new. Coags were normal. Chemistry panel was overall unremarkable other than a elevated glucose at 113. Troponin was obtained as initial troponin was found to be 1511 with a repeat at 1597. EKG did not show any acute ST-T wave changes concerning for acute ischemia. His BNP was elevated at 491.4. He has a known history of hypertension, diabetes, hyperlipidemia. Patient is currently chest pain-free and states he is feeling okay. I discussed the probability of performing a catheterization on Thursday as high and he voiced understanding. I did discuss with him the importance of telling us if he develops any new chest pain while hospitalized. Objective Data Objective Data Vital Signs: Vital Signs Temp Pulse Resp BP Pulse Ox O2 Del Method 98.2 F 64 15 114/56 L 97 Room Air 04/25/23 03:07 04/25/23 03:07 04/25/23 03:07 04/25/23 03:07 04/25/23 03:07 04/25/23 03:29 Oxygen Delivery Method Room Air Weight: 87.7 kg Body Mass Index (BMI) 28.5 Intake & Output: Intake and Output for Last 24 Hours 04/23/23 04/24/23 04/25/23 23:59 23:59 23:59 Intake Total 84.33 / 84.33 Balance 84.33 / 84.33 Lab / Micro Data 04/25/23 05:54 04/25/23 05:54 Labs: Laboratory Results - last 24 hr 04/24/23 17:05: WBC 10.6, RBC 4.17 L, Hgb 12.6 L, Hct 39.7 L, MCV 95.2 H, MCH 30.2, MCHC 31.7 L, RDW Std Deviation 47.7 H, RDW Coeff of Hannah 13.6, Plt Count 318, MPV 9.6, Immature Gran % (Auto) 0.400, Neut % (Auto) 51.4, Lymph % (Auto) 30.8, [place] % (Auto) 11.1 H, Eos % (Auto) 5.8 H, Baso % (Auto) 0.5, Absolute Neuts (auto) 5.5, Absolute Lymphs (auto) 3.28, Nucleated RBC % 0, PT 12.2, INR 0.9, APTT 29.0, Sodium 138, Potassium 4.1, Chloride 104, Carbon Dioxide 26.0, Anion Gap 8, BUN 19 H, Creatinine 0.93, Estim Creat Clear Calc 77.08, Est GFR (MDRD) Af Amer 105, Est GFR (MDRD) Non-Af 86, BUN/Creatinine Ratio 20.5 H, Glucose 113 H, Calcium 9.7, Phosphorus 4.6, Magnesium 2.3, Troponin I High Sens 1511 H*, B-Natriuretic Peptide 491.4 H 04/24/23 19:56: Troponin I High Sens 1597 H* 04/24/23 22:00: POC Glucose 113 H 04/25/23 05:54: WBC 9.9, RBC 4.07 L, Hgb 12.8 L, Hct 37.8 L, MCV 92.9, MCH 31.4, MCHC 33.9 D, RDW Std Deviation 46.3 H, RDW Coeff of Hannah 13.6, Plt Count 294, MPV 9.2, APTT 46.9 H, Sodium 136, Potassium 4.2, Chloride 104, Carbon Dioxide 25.0, Anion Gap 7, BUN 14, Creatinine 0.74, Estim Creat Clear Calc 71.68, Est GFR (MDRD) Af Amer 136, Est GFR (MDRD) Non-Af 112, BUN/Creatinine Ratio 18.9, Glucose 123 H, Hemoglobin A1c 7.4 H, Calcium 9.2, Total Bilirubin 0.50, AST 18, ALT 33, Alkaline Phosphatase 72, Total Protein 7.3, Albumin 3.3, Globulin 4.0, Albumin/Globulin Ratio 0.8 L, Triglycerides 139, Cholesterol 177, LDL Cholesterol 77, VLDL Cholesterol 28, HDL Cholesterol 72, TSH 2.66 04/25/23 06:11: POC Glucose 130 H Radiography Diagnostic Testing: Radiology Impression Chest CTA 04/24/23 17:24 IMPRESSION: There are no acute findings. Electronically Signed: Kendrick Parra MD at 18:02 EDT , Physical Exam Const alert, oriented x3, no apparent distress, average body habitus and well nourished Constitutional Narrative: Very pleasant, upper middle-aged, white male, sitting up in bed watching television, appears comfortable and nontoxic HEENT head/scalp atraumatic and moist oral mucous membranes HEENT Narrative: Mallampati 2-3, no thrush Head and Scalp: normocephalic Resp normal respiratory effort, no retractions, no use of accessory muscles and clear to auscultation bilaterally Auscultation: Negative for rales, rhonchi or wheezes Cardio regular rate, regular rhythm, S1 normal heart sound, S2 normal heart sound, no murmurs, no rub, no gallops and no clicks GI normal to inspection, nondistended, normoactive bowel sounds, soft to palpation and non-tender Extremity no clubbing, cyanosis or edema Extremity Narrative: Pedal pulses are 2+ Neuro oriented x3, moves all extremities and no focal motor deficits Speech: speech normal Psych affect normal Psych Narrative: Eye contact is good, patient is pleasant, interacts normally Assessment & Plan Assessment/Plan (1) Acute non-ST elevation myocardial infarction (NSTEMI): (2) Elevated brain natriuretic peptide (BNP) level: PLAN: Plan NSTEMI -Continue heparin drip -Continue high intensity statin -Continue home beta-eva -Continue aspirin -Patient did receive Brilinta load and Brilinta 90 mg p.o. twice daily-we will continue -Check echocardiogram -Cardiology consultation pending--> anticipate patient will need cardiac catheterization--> timing per cardiology BNP elevation -Likely related to the above -We will give Lasix x1 dose -Echocardiogram is pending -Patient does not show any signs of decompensated heart failure at this time however CAD/HTN/HPL -H/O coronary artery bypass surgery (02/24/13) -Continue aspirin -Continue metoprolol -Continue statin -Cholesterol was obtained and total cholesterol is 177/LDL 77/HDL 72/triglycerides are 139 DM-2 -Hemoglobin A1c is 7.4 showing fairly decent control -Continue home Jardiance -Hold home metformin -SSI -Accu-Cheks -Cardiac/carb controlled diet Allergies -Continue fexofenadine -Continue Singulair BPH -Continue Flomax DVT prophylaxis -Continue heparin drip CODE STATUS -Full code as per documentation on admission Charges/Coding Visit Charges Inpatient E&M: 97336 Subs Hosp L2
--- NOTE | 2023-04-25 08:30 | ECHOCS_ITS ---
Reason For Study: CAD/ASHD Procedure This was a 2D Doppler, Color Flow transthoracic echocardiogram. The study was technically difficult. Contrast injection was performed. Exam performed portable in patient room. Left Ventricle Normal size and thickness. The left ventricular ejection fraction is 50 %. Severe inferior and posterior hypokinesis. Right Ventricle Normal right ventricle. Atria The left and right atria are normal. Mitral Valve Moderately severe (3+) mitral valve insufficiency. Tricuspid Valve The tricuspid valve is not well visualized. Aortic Valve Trisinus/trileaflet aortic valve. There is no aortic stenosis. No aortic valve insufficiency. Pulmonic Valve The pulmonic valve is not well visualized. Great Vessels Normal sized aortic root. Pericardium/Pleural No pericardial effusion. Medication Diluted definity 3ml given slow IV push to enhance endocardial definition. MMode/2D Measurements & Calculations LVIDd: 5.6 cm IVSd: 0.85 cm LVOT diam: 2.2 cm LVIDs: 4.7 cm LVPWd: 0.91 cm FS: 17.1 % LVOT area: 3.8 cm2 Ao root diam: 3.4 cm LAV(MOD-bp): 48.8 ml LVAd ap4: 30.0 cm2 LAV(MOD-bp) Indexed: 24.0 ml/m2 LVLd ap4: 7.8 cm LAV(MOD-sp2): 55.0 ml EDV(MOD-sp4): 99.8 ml LAV(MOD-sp4): 41.3 ml EDV(sp4-el): 98.0 ml LVAs ap4: 20.3 cm2 LVLs ap4: 7.5 cm ESV(MOD-sp4): 46.9 ml ESV(sp4-el): 46.8 ml EF(MOD-sp4): 53.0 % EF(sp4-el): 52.2 % SV(MOD-sp4): 52.8 ml SV(sp4-el): 51.1 ml LA A4 area: 16.5 cm2 LA dimension(2D): 3.4 cm RA A4 area: 10.0 cm2 Time Measurements MV dec time: 0.32 sec Doppler Measurements & Calculations MV E max luke: 35.0 cm/sec Lat Peak E' Luke: 8.4 cm/sec Med Peak E' Luke: 5.0 cm/sec MV A max luke: 83.0 cm/sec E/E' lat: 4.2 E/E' med: 7.1 MV E/A: 0.42 MV V2 max: 85.1 cm/sec MV dec slope: 109.9 cm/sec2 Ao V2 max: 88.1 cm/sec MV max P.9 mmHg Ao max P.1 mmHg MV V2 mean: 34.6 cm/sec Ao V2 mean: 64.7 cm/sec MV mean P.61 mmHg Ao mean P.9 mmHg MV V2 VTI: 23.7 cm Ao V2 VTI: 21.2 cm MVA(VTI): 2.8 cm2 AV (velocity ratio): 0.82 RAMON(I,D): 3.1 cm2 RAMON(V,D): 3.1 cm2 LV V1 max: 73.3 cm/sec MR max luke: 569.3 cm/sec SV(LVOT): 65.6 ml LV V1 max P.1 mmHg MR max P.6 mmHg LV V1 mean P.1 mmHg MR mean luke: 438.3 cm/sec LV V1 mean: 48.6 cm/sec MR mean P.5 mmHg LV V1 VTI: 17.3 cm MR VTI: 196.8 cm PA V2 max: 57.8 cm/sec PA V2 mean: 40.2 cm/sec ECHO/Echo Complete W/ Contrast Interpretation Summary The left ventricular ejection fraction is 50 %. Severe inferior and posterior hypokinesis. Moderately severe (3+) mitral valve insufficiency. The study was technically difficult. Ordering Physician: Kim Lewis Referring Physician: Keshav Edwards MD Performed By: Casi Butler RCS
[2023-04-25 09:07] VITALS: BP 126/78; PULSE 80; RESP 16; TEMP 37; O2SAT 97
[2023-04-25 09:16] VITALS: PULSE 80
[2023-04-25] MEDS: Metoprolol Tartrate 25 MG Tablet PO ×2 (09:16→21:25)
[2023-04-25] MEDS: Pantoprazole Sodium 40 MG Tablet PO (09:16)
[2023-04-25] MEDS: Tamsulosin HCl 0.4 MG Capsule PO (09:16)
[2023-04-25] MEDS: TICAGRELOR 90 MG TABLET PO ×2 (09:16→21:26)
[2023-04-25] MEDS: Aspirin E.C. 81 MG Tablet PO (09:17)
[2023-04-25] MEDS: Escitalopram Oxalate 10 MG Tablet PO (09:17)
[2023-04-25] MEDS: Furosemide 40 MG/4 ML Vial IV (09:17)
[2023-04-25] MEDS: Empagliflozin 25 MG Tablet PO (09:18)
[2023-04-25] MEDS: Finasteride 5 MG Tablet PO (09:20)
[2023-04-25] MEDS: Montelukast 10 MG Tablet PO (09:20)
--- NOTE | 2023-04-25 11:22 | PCM.CONS.C ---
Assessment & Plan Assessment/Plan (1) Acute non-ST elevation myocardial infarction (NSTEMI): PLAN: Presently asymptomatic. Continue aspirin. Started on Brilinta. Continue beta-blockers. Nitrates. DC heparin. Recommend cardiac catheterization with coronary angiography and possible revascularization. Risks benefits and alternatives explained. He understand these and wishes to proceed. We will schedule him for the procedure for Thursday. (2) H/O coronary artery bypass surgery: PLAN: See #1 above. (3) Essential (primary) hypertension: PLAN: Controlled. (4) HLD (hyperlipidemia): QUALIFIERS: Hyperlipidemia type: pure hypercholesterolemia Qualified Code(s): E78.00 - Pure hypercholesterolemia, unspecified; E78.0 - Pure hypercholesterolemia PLAN: On atorvastatin. (5) Type 2 diabetes mellitus: PLAN: As per internal medicine. HPI Consult Data Date of Consult: 04/25/23 HPI Narrative Reason for Consultation: NSTEMI HPI Narrative: PresentedPast medical history significant for quadruple CABG 10 years ago. To the emergency room with complaints of intermittent chest discomfort over the last 1 week. According to the patient, the discomfort was worse few days ago and now has been getting better. Denies any radiation to the arm neck or jaw. No shortness of breath. No diaphoresis. No orthopnea. No PND. [facility] Medical History (Updated 04/25/23 @ 11:[address] Michael Moreno MD) Atherosclerotic heart disease of [place] coronary artery without angina pectoris BPH (benign prostatic hyperplasia) Depression Essential (primary) hypertension HLD (hyperlipidemia) Obesity Shortness of breath Type 2 diabetes mellitus Home Medications aspirin 81 mg chewable tablet 1 tab PO DAILY Heart Health 01/04/17 [History Last Taken 09/21/18 08:00] escitalopram oxalate 10 mg tablet 1 tab PO DAILY Depression/ anxiety 01/04/17 [History Last Taken 09/21/18 18:00] finasteride 5 mg tablet 1 tab PO DAILY Prostate 01/04/17 [History Last Taken 09/21/18 08:00] metformin 500 mg tablet,extended release 24 hr 1 tab PO BID Diabetes 01/04/17 [History Last Taken 09/21/18 18:00] pravastatin 40 mg tablet 40 mg PO QHS Cholesterol 01/04/17 [History Last Taken 09/21/18 18:00] tamsulosin 0.4 mg capsule 1 tab PO DAILY Prostate 01/04/17 [History Last Taken 09/21/18 08:00] empagliflozin 25 mg tablet 25 mg PO DAILY 09/13/20 [History Last Taken Unknown] fexofenadine 180 mg tablet 180 mg PO DAILY 09/12/21 [History Last Taken Unknown] montelukast 10 mg tablet 10 mg PO DAILY 09/12/21 [History Last Taken Unknown] metoprolol tartrate 25 mg tablet 25 mg PO BID BP 10/10/22 [History Last Taken Unknown] nitroglycerin 0.4 mg sublingual tablet 0.4 mg sublingual Q5-15M PRN chest pain #25 tabs 04/14/23 [Rx Last Taken Unknown] Allergy/AdvReac Type Severity Reaction Status Date / Time No Known Allergies Allergy Verified 04/24/23 17:10 Family History Mother CAD (coronary artery disease) Hx CABG Myocardial infarction Diabetes Sister CAD (coronary artery disease) Hx PTCA Grandfather Cancer Prostate cancer Uncle Cancer Prostate cancer Surgical History H/O coronary artery bypass surgery (02/24/13) Social History Smoking Status: Never smoker alcohol intake: never substance use type: does not use caffeine: Yes Type: coffee Number of servings: 1 what type of physical activity do you participate in: none seatbelt use: always do you feel safe at home: Yes Physical Exam Narrative Comfortable. No distress. Heart sounds 1 and 2 are normal. Chest clear to auscultation bilaterally. Abdomen soft. Alert oriented x3. No ankle edema. Risk Stratification Risk Stratification Applicable: No Objective Data Vital Signs: Vital Signs Temp Pulse Resp BP Pulse Ox O2 Del Method 98.6 F 80 16 126/78 H 97 Room Air 04/25/23 09:07 04/25/23 09:16 04/25/23 09:07 04/25/23 09:07 04/25/23 09:07 04/25/23 09:07 Oxygen Delivery Method Room Air Weight: 193 lb 5.526 oz Body Mass Index (BMI) 28.5 Intake & Output: Intake and Output for Last 24 Hours 04/23/23 04/24/2323 23:59 23:59 23:59 Intake Total 84.33 / 84.33 Balance 84.33 / 84.33 Lab / Micro Data Attestation: I reviewed the patient's lab results. 04/25/23 05:54 04/25/23 05:54 Labs: Laboratory Results - last 24 hr 04/24/23 17:05: WBC 10.6, RBC 4.17 L, Hgb 12.6 L, Hct 39.7 L, MCV 95.2 H, MCH 30.2, MCHC 31.7 L, RDW Std Deviation 47.7 H, RDW Coeff of Hannah 13.6, Plt Count 318, MPV 9.6, Immature Gran % (Auto) 0.400, Neut % (Auto) 51.4, Lymph % (Auto) 30.8, [place] % (Auto) 11.1 H, Eos % (Auto) 5.8 H, Baso % (Auto) 0.5, Absolute Neuts (auto) 5.5, Absolute Lymphs (auto) 3.28, Nucleated RBC % 0, PT 12.2, INR 0.9, APTT 29.0, Sodium 138, Potassium 4.1, Chloride 104, Carbon Dioxide 26.0, Anion Gap 8, BUN 19 H, Creatinine 0.93, Estim Creat Clear Calc 77.08, Est GFR (MDRD) Af Amer 105, Est GFR (MDRD) Non-Af 86, BUN/Creatinine Ratio 20.5 H, Glucose 113 H, Calcium 9.7, Phosphorus 4.6, Magnesium 2.3, Troponin I High Sens 1511 H*, B-Natriuretic Peptide 491.4 H 04/24/23 19:56: Troponin I High Sens 1597 H* 04/24/23 22:00: POC Glucose 113 H 04/25/23 05:54: WBC 9.9, RBC 4.07 L, Hgb 12.8 L, Hct 37.8 L, MCV 92.9, MCH 31.4, MCHC 33.9 D, RDW Std Deviation 46.3 H, RDW Coeff of Hannah 13.6, Plt Count 294, MPV 9.2, APTT 46.9 H, Sodium 136, Potassium 4.2, Chloride 104, Carbon Dioxide 25.0, Anion Gap 7, BUN 14, Creatinine 0.74, Estim Creat Clear Calc 71.68, Est GFR (MDRD) Af Amer 136, Est GFR (MDRD) Non-Af 112, BUN/Creatinine Ratio 18.9, Glucose 123 H, Hemoglobin A1c 7.4 H, Calcium 9.2, Total Bilirubin 0.50, AST 18, ALT 33, Alkaline Phosphatase 72, Total Protein 7.3, Albumin 3.3, Globulin 4.0, Albumin/Globulin Ratio 0.8 L, Triglycerides 139, Cholesterol 177, LDL Cholesterol 77, VLDL Cholesterol 28, HDL Cholesterol 72, TSH 2.66 04/25/23 06:11: POC Glucose 130 H Rhythm Strip Rhythm Strip: Sinus Rhythm Cardiology Labs/Tests 04/24/23 17:05: WBC 10.6, RBC 4.17 L, Hgb 12.6 L, Hct 39.7 L, MCV 95.2 H, MCH 30.2, MCHC 31.7 L, Plt Count 318, MPV 9.6, Immature Gran % (Auto) 0.400, Neut % (Auto) 51.4, Lymph % (Auto) 30.8, [place] % (Auto) 11.1 H, Eos % (Auto) 5.8 H, Baso % (Auto) 0.5, Absolute Neuts (auto) 5.5, Nucleated RBC % 0, PT 12.2, INR 0.9, APTT 29.0, Sodium 138, Potassium 4.1, Chloride 104, Carbon Dioxide 26.0, Anion Gap 8, BUN 19 H, Creatinine 0.93, Est GFR (MDRD) Af Amer 105, Est GFR (MDRD) Non-Af 86, BUN/Creatinine Ratio 20.5 H, Glucose 113 H, Calcium 9.7, Phosphorus 4.6, Magnesium 2.3, B-Natriuretic Peptide 491.4 H 04/25/23 05:54: WBC 9.9, RBC 4.07 L, Hgb 12.8 L, Hct 37.8 L, MCV 92.9, MCH 31.4, MCHC 33.9 D, Plt Count 294, MPV 9.2, APTT 46.9 H, Sodium 136, Potassium 4.2, Chloride 104, Carbon Dioxide 25.0, Anion Gap 7, BUN 14, Creatinine 0.74, Est GFR (MDRD) Af Amer 136, Est GFR (MDRD) Non-Af 112, BUN/Creatinine Ratio 18.9, Glucose 123 H, Hemoglobin A1c 7.4 H, Calcium 9.2, Total Bilirubin 0.50, Triglycerides 139, Cholesterol 177, LDL Cholesterol 77, VLDL Cholesterol 28, HDL Cholesterol 72 Rhythm: Sinus EKG: Nonspecific T wave changes ECHO: Stress Test: Cardiac Cath: PCI: CT Surgery: Holter monitor: EPS: PPM: CXR: Chest CT Scan: Radiography Diagnostic Testing: Radiology Impression Chest CTA 04/24/23 17:24 IMPRESSION: There are no acute findings. Electronically Signed: Kendrick Parra MD at 18:02 EDT ,
[2023-04-25] MEDS: Insulin Lispro 100 UNIT/ML INSULN.PEN SC (12:33)
--- NOTE | 2023-04-25 12:55 | CASEMGMT ---
ANDREA MORA Assessment: Face to Face with pt for initial transition planning/care coordination assessment. RN ABBY introduced self and role at [facility], pt voices understanding and consents to assessment. Pt is A/O x4 and answers all questions appropriately at this time. Pt sitting up in bed in no distress. Care providers, pharmacy, and demographics verified/updated. Admitting Dx: unstable angina/NSTEMI PCP:Jerry Specialists:Jose, cardio; becky Ayala Pharmacy: [facility] Insurance: [facility], [employer] Prescription Benefit: yes LNOK: Keysha Darden, fransico Living Arrangements: Pt lives alone, states passed 2 mos ago. Pt reports he is I in ADL's and denies concerns at home. Transportation: Pt drives self and denies concerns with transportation. DME/HHC/SNF: Pt has shower stool, canes, crutches, grab bars in the home, w/c, walkers, BSC and BGM with sufficient supplies. Pt does not use AD at home. Pt denies hx of HHC or SNF stays. Pt states no concerns with going home at time of dc. Pt became tearful when speaking about . Pt denies need to speak to SW. States hospice has reached out to him regarding grief counseling. Pt aware to notify nurse should he change his mind. Pt to have heart cath on Thursday. Pt states no further concerns/needs. CM to follow. Advised pt to ask CM if any further question/concerns/needs arise, voices understanding. Pt Goal: Home Plan: Home
[2023-04-25 13:06] LABS: Partial Thromboplast Time 39.7 Seconds (24.1-36.2)
[2023-04-25 15:00] VITALS: BP 122/81; PULSE 75; RESP 16; TEMP 36.5; O2SAT 98
[2023-04-25 16:56] LABS: Bedside Glucose 149 mg/dL (74-106)
[2023-04-25 17:12] LABS: Bedside Glucose 156 mg/dL (74-106)
[2023-04-25 21:25] VITALS: BP 112/61; PULSE 79
[2023-04-25] MEDS: Atorvastatin Calcium 80 MG Tablet PO (21:25)
[2023-04-25 21:27] VITALS: BP 112/61; PULSE 75; RESP 16; TEMP 37; O2SAT 98
[2023-04-25 22:21] LABS: Bedside Glucose 140 mg/dL (74-106)
[2023-04-26 03:31] VITALS: BP 114/77; PULSE 59; RESP 16; TEMP 36.6; O2SAT 98
[2023-04-26 06:00] VITALS: BMI 28.1
[2023-04-26 06:01] LABS: Absolute Lymphocyte Count 2.85 X10^3/uL (0.83-4.51); Absolute Neutrophil Count 5.2 X10^3/uL (2.0-7.7); Basophil# 0.04 X10^3/uL; Basophil% 0.4 % (0-1); Eosinophil# 0.46 X10^3/uL; Eosinophils% 4.8 % (0-5); Hematocrit 40.4 % (40-54); Hemoglobin 13.6 g/dL (13.0-16.5); Lymphocyte # 2.85 X10^3/ul (0.83-4.51); Lymphocyte % 29.9 % (19-41); Mean Corp Hgb Conc 33.7 g/dL (32-36); Mean Corpuscular Hgb 31.3 pg (27.0-32.0); Mean Corpuscular Volume 93.1 fL (80-94); Mean Platelet Vol. 8.9 fl (6.2-12.0); Monocyte# 0.97 X10^3/uL; Monocyte% 10.2 % (0-10); NRBC Flagged by Analyzer 0 % (0-5); Neutrophil # 5.15 X10^3/uL (2.7-7.7); Neutrophil % 54.1 % (47-70); Platelet Count 331 K/mm3 (150-450); RBC Distribution Width CV 13.4 % (11.6-14.6); Red Blood Count 4.34 M/mm3 (4.6-6.2); White Blood Count 9.5 K/mm3 (4.4-11.0)
[2023-04-26 06:56] LABS: Anion Gap 5 (5-15); BUN 21 mg/dL (7-18); BUN/Creat Ratio 23.1 RATIO (10-20); Calcium,Total 9.4 mg/dL (8.5-10.1); Chloride 104 mmol/L (98-107); Creatinine, Serum 0.91 mg/dL (0.70-1.30); EST Glomerular Filtration Rate 88 mL/min (>60); Est Glom Filt Rate - Afr Amer 107 mL/min (>60); Estimated Creatinine Clearance 78.77 ml/min; Glucose 137 mg/dL (74-106); Potassium 4.5 mmol/L (3.5-5.1); Sodium Level 138 mmol/L (136-145)
[2023-04-26 07:06] LABS: Bedside Glucose 140 mg/dL (74-106)
[2023-04-26 09:00] VITALS: BP 119/68; PULSE 80; RESP 16; TEMP 36.9; O2SAT 97
[2023-04-26 09:14] VITALS: PULSE 80
[2023-04-26] MEDS: Empagliflozin 25 MG Tablet PO (09:14)
[2023-04-26] MEDS: Finasteride 5 MG Tablet PO (09:14)
[2023-04-26] MEDS: Metoprolol Tartrate 25 MG Tablet PO ×2 (09:14→21:08)
[2023-04-26] MEDS: Montelukast 10 MG Tablet PO (09:15)
[2023-04-26] MEDS: Aspirin E.C. 81 MG Tablet PO (09:15)
[2023-04-26] MEDS: TICAGRELOR 90 MG TABLET PO ×2 (09:15→21:08)
[2023-04-26] MEDS: Pantoprazole Sodium 40 MG Tablet PO (09:16)
[2023-04-26] MEDS: Escitalopram Oxalate 10 MG Tablet PO (09:17)
[2023-04-26] MEDS: Tamsulosin HCl 0.4 MG Capsule PO (09:17)
[2023-04-26 12:30] LABS: Bedside Glucose 135 mg/dL (74-106)
--- NOTE | 2023-04-26 12:36 | PN.HOSP_ITS ---
Reason for Visit Reason for Visit: Diagnoses Type 2 diabetes mellitus without complications (04/24/23) Pure hypercholesterolemia (04/24/23) Pure hypercholesterolemia, unspecified (04/24/23) Essential (primary) hypertension (04/24/23) Non-ST elevation (NSTEMI) myocardial infarction (04/24/23) Other specified abnormal findings of blood chemistry (04/24/23) Presence of aortocoronary bypass graft (04/24/23) Objective Data Objective Data Vital Signs: Vital Signs Temp Pulse Resp BP Pulse Ox O2 Del Method 98.5 F 80 16 119/68 97 Room Air 04/26/23 09:00 04/26/23 09:14 04/26/23 09:00 04/26/23 09:00 04/26/23 09:00 04/26/23 09:00 Oxygen Delivery Method Room Air Weight: 190 lb 11.198 oz Body Mass Index (BMI) 28.1 Intake & Output: Intake and Output for Last 24 Hours 04/24/23 04/25/23 04/26/23 23:59 23:59 23:59 Intake Total 1142.26 / 1142.26 Balance 1142.26 / 1142.26 Lab / Micro Data 04/26/23 05:36 04/26/23 05:36 Labs: Laboratory Results - last 24 hr 04/25/23 12:25: APTT 39.7 H 04/25/23 12:28: POC Glucose 156 H 04/25/23 16:28: POC Glucose 149 H 04/25/23 21:23: POC Glucose 140 H 04/26/23 05:36: WBC 9.5, RBC 4.34 L, Hgb 13.6, Hct 40.4, MCV 93.1, MCH 31.3, MCHC 33.7, RDW Std Deviation 46.0 H, RDW Coeff of [place] 13.4, Plt Count 331, MPV 8.9, Immature Gran % (Auto) 0.600, Neut % (Auto) 54.1, Lymph % (Auto) 29.9, [place] % (Auto) 10.2 H, Eos % (Auto) 4.8, Baso % (Auto) 0.4, Absolute Neuts (auto) 5.2, Absolute Lymphs (auto) 2.85, Nucleated RBC % 0, Sodium 138, Potassium 4.5, Chloride 104, Carbon Dioxide 29.0, Anion Gap 5, BUN 21 H, Creatinine 0.91, Estim Creat Clear Calc 78.77, Est GFR (MDRD) Af Amer 107, Est GFR (MDRD) Non-Af 88, BUN/Creatinine Ratio 23.1 H, Glucose 137 H, Calcium 9.4 04/26/23 06:44: POC Glucose 140 H 04/26/23 12:12: POC Glucose 135 H Radiography Diagnostic Testing: Radiology Impression Echocardiogram 04/25/23 08:30 Interpretation Summary The left ventricular ejection fraction is 50 %. Severe inferior and posterior hypokinesis. Moderately severe (3+) mitral valve insufficiency. The study was technically difficult. Ordering Physician: Kim Lewis Referring Physician: Keshav Edwards MD Performed By: Casi Butler RCS Rhythm Strip Rhythm Strip: Sinus Rhythm Physical Exam Narrative General: Alert, Oriented x3, Cooperative HEENT: Atraumatic, PERRLA, EOMI, Normocephalic Oral: Oral mucosa moist. No Gingival or Mucosal Lesions/ Ulcerations Neck: Supple, No JVD, Negative Carotid Bruits Lungs: Air entry diminished in bilateral lung bases. No crepitation/rhonchi Cardiovascular: Regular rate, Regular Rhythm, Normal S1, Normal S2, soft systolic murmur over LLSB and cardiac apex. Abdomen: Bowel Sounds Present, Soft, Non Tender, Non-Distended : No renal angle tenderness. No suprapubic tenderness. Extremities: No edema, Capillary Refill Less than 3 Seconds Skin: No rashes, No breakdown Musculoskeletal: No Tenderness to Palpation of Joints or Extremities. ROM full and intact. Neurological: Cranial nerves II-XII grossly intact, DTR 2+/4 and Symmetrical, Neuro grossly intact Psych/Mental Status: Normal Affect, Appropriate. Assessment & Plan Assessment/Plan (1) Acute non-ST elevation myocardial infarction (NSTEMI): (2) Elevated brain natriuretic peptide (BNP) level: PLAN: Plan 1. NSTEMI: Patient is admitted to PCU. Patient was treated with IV heparin drip but currently discontinued. On aspirin, Brilinta after loading dose 180 mg, nitrates high intensity statin beta-eva. Check echo shows 3+ MR, EF 50% and severe posterior and inferior hypokinesis. Plan for cardiac cath tomorrow a.m. 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 2. CAD/HTN/HPL -H/O coronary artery bypass surgery (02/24/13) -Continue aspirin -Continue metoprolol -Continue statin -Cholesterol was obtained and total cholesterol is 177/LDL 77/HDL 72/triglycerides are 139 3. DM-2 -Hemoglobin A1c is 7.4 showing fairly decent control -Continue home Jardiance -Hold home metformin -SSI -Accu-Cheks before meals and at bedtime and cover with Humalog sliding scale. -Cardiac/carb controlled diet Allergies -Continue fexofenadine -Continue Singulair BPH -Continue Flomax DVT prophylaxis -Continue heparin drip CODE STATUS -Full code as per documentation on admission Charges/Coding Visit Charges Inpatient E&M: 74596 Subs Hosp L2
--- NOTE | 2023-04-26 13:01 | PN.CARD_ITS ---
Subjective Subjective Denies any complaints. Objective Data Vital Signs: Vital Signs Temp Pulse Resp BP Pulse Ox O2 Del Method 98.5 F 80 16 119/68 97 Room Air 04/26/23 09:00 04/26/23 09:14 04/26/23 09:00 04/26/23 09:00 04/26/23 09:00 04/26/23 09:00 Oxygen Delivery Method Room Air Weight: 190 lb 11.198 oz Body Mass Index (BMI) 28.1 Intake & Output: Intake and Output for Last 24 Hours 04/24/23 04/25/23 04/26/23 23:59 23:59 23:59 Intake Total 1142.26 / 1142.26 Balance 1142.26 / 1142.26 Lab / Micro Data 04/26/23 05:36 04/26/23 05:36 Labs: Laboratory Results - last 24 hr 04/25/23 12:25: APTT 39.7 H 04/25/23 12:28: POC Glucose 156 H 04/25/23 16:28: POC Glucose 149 H 04/25/23 21:23: POC Glucose 140 H 04/26/23 05:36: WBC 9.5, RBC 4.34 L, Hgb 13.6, Hct 40.4, MCV 93.1, MCH 31.3, MC HC 33.7, RDW Std Deviation 46.0 H, RDW Coeff of Hannah 13.4, Plt Count 331, MPV 8.9, Immature Gran % (Auto) 0.600, Neut % (Auto) 54.1, Lymph % (Auto) 29.9, [place] % (Auto) 10.2 H, Eos % (Auto) 4.8, Baso % (Auto) 0.4, Absolute Neuts (auto) 5.2, Absolute Lymphs (auto) 2.85, Nucleated RBC % 0, Sodium 138, Potassium 4.5, Chloride 104, Carbon Dioxide 29.0, Anion Gap 5, BUN 21 H, Creatinine 0.91, Estim Creat Clear Calc 78.77, Est GFR (MDRD) Af Amer 107, Est GFR (MDRD) Non-Af 88, BUN/Creatinine Ratio 23.1 H, Glucose 137 H, Calcium 9.4 04/26/23 06:44: POC Glucose 140 H 04/26/23 12:12: POC Glucose 135 H Rhythm Strip Rhythm Strip: Sinus Rhythm Cardiology Labs/Tests 04/25/23 12:25: APTT 39.7 H 04/26/23 05:36: WBC 9.5, RBC 4.34 L, Hgb 13.6, Hct 40.4, MCV 93.1, MCH 31.3, MCHC 33.7, Plt Count 331, MPV 8.9, Immature Gran % (Auto) 0.600, Neut % (Auto) 54.1, Lymph % (Auto) 29.9, [place] % (Auto) 10.2 H, Eos % (Auto) 4.8, Baso % (Auto) 0.4, Absolute Neuts (auto) 5.2, Nucleated RBC % 0, Sodium 138, Potassium 4.5, Chloride 104, Carbon Dioxide 29.0, Anion Gap 5, BUN 21 H, Creatinine 0.91, Est GFR (MDRD) Af Amer 107, Est GFR (MDRD) Non-Af 88, BUN/Creatinine Ratio 23.1 H, Glucose 137 H, Calcium 9.4 Rhythm: EKG: ECHO: Stress Test: Cardiac Cath: PCI: CT Surgery: Holter monitor: EPS: PPM: CXR: Chest CT Scan: Radiography Diagnostic Testing: Radiology Impression Echocardiogram 04/25/23 08:30 Interpretation Summary The left ventricular ejection fraction is 50 %. Severe inferior and posterior hypokinesis. Moderately severe (3+) mitral valve insufficiency. The study was technically difficult. Ordering Physician: Kim Lewis Referring Physician: Keshav Edwards MD Performed By: Casi Butler RCS Physical Exam Narrative Comfortable. No distress. Heart sounds 1 and 2 are normal. Chest clear to auscultation bilaterally. Abdomen soft. Alert oriented x3. No ankle edema. Assessment & Plan Assessment/Plan (1) Acute non-ST elevation myocardial infarction (NSTEMI): PLAN: For coronary angiography and possible revascularization in the morning. (2) H/O coronary artery bypass surgery: PLAN: See #1 above. (3) Essential (primary) hypertension: PLAN: Controlled. (4) HLD (hyperlipidemia): QUALIFIERS: Hyperlipidemia type: pure hypercholesterolemia Qualified Code(s): E78.00 - Pure hypercholesterolemia, unspecified; E78.0 - Pure hypercholesterolemia PLAN: On atorvastatin. (5) Type 2 diabetes mellitus: PLAN: As per internal medicine.
[2023-04-26] MEDS: Isosorbide Mononitrate 30 MG Tablet PO (14:10)
[2023-04-26 14:12] VITALS: BP 123/74; PULSE 78; RESP 18; TEMP 36.9; O2SAT 98
[2023-04-26 17:51] LABS: Bedside Glucose 135 mg/dL (74-106)
[2023-04-26 21:00] VITALS: BP 128/75; PULSE 87; RESP 18; TEMP 36.2; O2SAT 97
[2023-04-26 21:08] VITALS: PULSE 88
[2023-04-26] MEDS: 0.9% Saline Lock 10 ML Syringe IV (21:08)
[2023-04-26] MEDS: Atorvastatin Calcium 80 MG Tablet PO (21:08)
[2023-04-26 22:01] LABS: Bedside Glucose 165 mg/dL (74-106)
[2023-04-27] VITALS (10 sets, daily range): BP systolic 105–139; BP diastolic 55–74; PULSE 63–80; RESP 16–18; TEMP 36.3–36.6; O2SAT 95–98; BMI 28.2
--- NOTE | 2023-04-27 05:00 | EKG12_ITS ---
Test Reason : AM EKG Blood Pressure : / mmHG Vent. Rate : 069 BPM Atrial Rate : 069 BPM P-R Int : 124 ms QRS Dur : 104 ms QT Int : 430 ms P-R-T Axes : 042 111 115 degrees QTc Int : 460 ms Normal sinus rhythm Possible Right ventricular hypertrophy ST elevation consider inferior injury or acute infarct ACUTE [place] / STEMI Consider right ventricular involvement in acute inferior infarct Abnormal ECG Confirmed by ANTHONY PERALTA, VIJAYA ([id number]), senior technical editor CHARLES CARTER ([id number]) on 04/28/2023 7:17:55 AM Referred By: Confirmed By:VIJAYA CRUZ MD
[2023-04-27] MEDS: Metoprolol Tartrate 25 MG Tablet PO (05:03)
[2023-04-27] MEDS: TICAGRELOR 90 MG TABLET PO (05:03)
[2023-04-27] MEDS: 0.9% Normal Saline 1,000 ML 15 ML IV (05:03)
[2023-04-27] MEDS: Isosorbide Mononitrate 30 MG Tablet PO (05:03)
[2023-04-27] MEDS: Aspirin E.C. 81 MG Tablet PO (05:03)
[2023-04-27 05:40] LABS: Bedside Glucose 139 mg/dL (74-106)
--- NOTE | 2023-04-27 09:06 | CASEMGMT ---
Tertiary Facilities in-network: Pt with traditional MCR so can go to any tertiary facility. Deni Osuna RN CM
[2023-04-27] MEDS: 0.9% Saline Lock 10 ML Syringe IV (11:08)
--- NOTE | 2023-04-27 12:56 | PCM.PN.CARD ---
Subjective Subjective Patient seen and evaluated. Appears to be doing better at this time. No chest pain. Objective Data Vital Signs: Vital Signs Temp Pulse Resp BP Pulse Ox O2 Del Method 97.4 F L 75 16 119/74 97 Room Air 04/27/23 11:00 04/27/23 11:00 04/27/23 11:00 04/27/23 11:00 04/27/23 11:00 04/27/23 11:00 Oxygen Delivery Method Room Air Weight: 190 lb 14.725 oz Body Mass Index (BMI) 28.2 Intake & Output: Intake and Output for Last 24 Hours 04/25/23 04/26/23 04/27/23 23:59 23:59 23:59 Intake Total 1142.26 / 1142.26 480 / 480 0.25 / 0.25 Balance 1142.26 / 1142.26 480 / 480 0.25 / 0.25 Lab / Micro Data 04/26/23 05:36 04/26/23 05:36 Labs: Laboratory Results - last 24 hr 04/26/23 17:13: POC Glucose 135 H 04/26/23 21:01: POC Glucose 165 H 04/27/23 05:07: POC Glucose 139 H Rhythm Strip Rhythm Strip: Sinus Rhythm Cardiology Labs/Tests Rhythm: EKG: ECHO: Stress Test: Cardiac Cath: PCI: CT Surgery: Holter monitor: EPS: PPM: CXR: Chest CT Scan: Physical Exam Const alert, oriented x3 and no apparent distress General Appearance: cooperative HEENT hearing grossly normal bilaterally Head and Scalp: atraumatic Eyes EOMs intact bilaterally Neck General: normal visual inspection Chest inspection of chest normal and palpation of chest normal Resp normal respiratory effort Auscultation: clear to auscultation bilaterally Cardio regular rate, regular rhythm, S1 normal heart sound and S2 normal heart sound Jugular Venous Distention: JVD GI normal to inspection, nondistended, normoactive bowel sounds Extremity normal capillary refill and no pedal edema Peripheral Pulses: Yes pulses 2+ throughout and femoral pulses present Skin no rashes or lesions noted Neuro oriented x3 and CN's II-XII intact bilaterally Psych Appearance: grossly normal and appropriate Assessment & Plan Assessment/Plan (1) Acute non-ST elevation myocardial infarction (NSTEMI): PLAN: He is status post non-ST elevation myocardial infarction. He underwent a cardiac catheterization today which demonstrated the following: Occluded left main coronary artery. Left anterior descending artery which is totally occluded. HUNT to the LAD which is patent and retrogradely fills the diagonal vessel. Right coronary artery which is totally occluded. Saphenous vein graft to the right coronary artery which is noted to be patent and fills collateral at the distal circumflex artery and obtuse marginal vessel. Saphenous vein graft to the obtuse marginal branch which is occluded. Left ventriculogram demonstrated ejection fraction of 50% with akinesis of the mid inferior segment and 2-3+ mitral regurgitation. Based on the above angiographic findings I would recommend optimization of medical therapy at this time. (2) H/O coronary artery bypass surgery: PLAN: Patient is status post coronary bypass surgery as noted above and underwent a cardiac catheterization in his graft anatomy as noted above. (3) Essential (primary) hypertension: PLAN: His blood pressure is under good control at this time I would not recommend any changes (4) HLD (hyperlipidemia): QUALIFIERS: Hyperlipidemia type: pure hypercholesterolemia Qualified Code(s): E78.00 - Pure hypercholesterolemia, unspecified; E78.0 - Pure hypercholesterolemia PLAN: Continue with aggressive risk factor modification. Thank you for allowing me to participate in the care of your patient. Please don't hesitate to call if any issues arise.
--- NOTE | 2023-04-27 13:52 | DCINST_ITS ---
Discharge Instructions Diet Discharge Diet: Low fat / Low cholesterol and 2000 mg Sodium Diet Activity Discharge Activity: Return to Normal Activity Weight Bearing Status: Weight bearing as tolerated Dressing / Incision Call your doctor if you observe: Fever of 101 or Higher, Coldness, Increased Pain, Numbness or Tingling, Change in Color, Inability to urinate, Inability to have a bowel movement, Shortness of breath, Dizziness, Fainting spells, Swelling in the ankles, Chest pain, Prolonged hiccupping, Increased palpitations (irregular heartbeat) and Calf discomfort Follow Up Care When: IN 2 WEEKS Test Results: Test results from this visit will be discussed in further detail at your follow- up appointment, if applicable. Discharge Plan Admission Admit Date/Time: 04/24/23 19:23 Attending Provider: Braydon Alonso Primary Care Provider: Keshav Edwards Consulting Providers: Michael Moreno; Braydon Alonso; Kim Lewis Discharge Orders/Prescriptions Prescriptions: New isosorbide mononitrate 30 mg Tablet Extended Release 24 Hr 30 mg PO DAILY Qty: 30 2RF sennosides-docusate sodium [Stool Softener-Stimulant Laxat] 8.6-50 mg Tablet 2 tab PO BID PRN PRN (Reason: Constipation) Qty: 0 0RF atorvastatin 80 mg Tablet 40 mg PO QHS 30 Days Qty: 30 2RF Continued empagliflozin 25 mg tablet 25 mg PO DAILY montelukast 10 mg tablet 10 mg PO DAILY fexofenadine 180 mg tablet 180 mg PO DAILY metoprolol tartrate 25 mg tablet 25 mg PO BID Patient Comments: nitroglycerin 0.4 mg tablet, sublingual 0.4 mg sublingual Q5-15M PRN (Reason: chest pain) Qty: 25 3RF Rx Instructions: do not exceed 3 doses per episode tamsulosin 0.4 MG capsule 1 tab PO DAILY Patient Comments: finasteride 5 MG tablet 1 tab PO DAILY Patient Comments: take 1 tablet by mouth once daily escitalopram oxalate 10 MG tablet 1 tab PO DAILY aspirin 81 MG tablet,chewable 1 tab PO DAILY Held metformin 500 MG tablet extended release 24 hr 1 tab PO BID Hold Instructions: Hold for 5 days. Patient Comments: Discontinued pravastatin 40 MG tablet 40 mg PO QHS Referrals / Follow Up: Babak Garcia MD [Med Staff - Active Staff] - Within 1 Month Keshav Edwards MD [Primary Care Provider] - Within 2 Weeks Levon Davalos NP, [employer] [Med Staff - Adv Practice Prof] - Within 2 Weeks Disposition Disposition (needs filled in before D/C Order can be placed): Home, Self Care
--- NOTE | 2023-04-27 14:04 | PCM.DC.SUM ---
Providers Date of Admission: 04/24/23 Date of Discharge: 04/27/23 Primary Care Physician: Dr. Keshav Edwards MD Consultations 04/24/23 21:55 Consult: Cardiology Routine Consulting Provider: Michael Moreno Reason for Consult: Chest Pain/NSTEMI EMERGENT Consult: No MD Notified: Yes Date Notified: 04/24/23 Time Notified: 19:25 Method of Notification: ED Physician Initiated Reason For Visit: UNSTABLE ANGINA/NSTEMI Diagnosis Discharge Diagnosis (1) Acute non-ST elevation myocardial infarction (NSTEMI): Status: Acute Code(s): I21.4 - Non-ST elevation (NSTEMI) myocardial infarction (2) H/O coronary artery bypass surgery: Status: Resolved Code(s): Z95.1 - Presence of aortocoronary bypass graft (3) Essential (primary) hypertension: Status: Chronic Code(s): I10 - Essential (primary) hypertension (4) HLD (hyperlipidemia): Status: Chronic Code(s): E78.5 - Hyperlipidemia, unspecified Qualifiers: Hyperlipidemia type: pure hypercholesterolemia Qualified Code(s): E78.00 - Pure hypercholesterolemia, unspecified; E78.0 - Pure hypercholesterolemia Plan 1. NSTEMI: Patient is admitted to PCU. Patient was treated with IV heparin drip but currently discontinued. On aspirin, Brilinta after loading dose 180 mg, nitrates high intensity statin beta-ruba. Check echo shows 3+ MR, EF 50% and severe posterior and inferior hypokinesis. Plan for cardiac cath tomorrow a.m. 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 04/27: Patient had cardiac cath. EF 50%. 2-3+ MR. Cardiac cath shows SVG to obtuse marginal occluded. Rest to HUNT to LAD and SVG to RCA are patent which fills collateral at distal circumflex artery and obtuse marginal. Discussed with Dr. Garcia. Cardiac medical treatment was recommended. Discussed with Dr. Garcia. Does not need dual antiplatelet agent as patient did not had a stent. The patient on baby aspirin, metoprolol, atorvastatin. Pravastatin discontinued. Imdur and Brilinta added. Prescriptions for new medications given. 2. CAD/HTN/HPL -H/O coronary artery bypass surgery (02/24/13) -Continue aspirin -Continue metoprolol -Continue statin -Cholesterol was obtained and total cholesterol is 177/LDL 77/HDL 72/triglycerides are 139 04/27: As mentioned above. Blood pressure is in good control. 3. DM-2 -Hemoglobin A1c is 7.4 showing fairly decent control -Continue home Jardiance -Hold home metformin -SSI -Accu-Cheks before meals and at bedtime and cover with Humalog sliding scale. -Cardiac/carb controlled diet 04/27 glucose is well controlled. Patient on metformin hold it for 5 days. Continue empagliflozin. Allergies -Continue fexofenadine -Continue Singulair BPH -Continue Flomax DVT prophylaxis -Continue heparin drip CODE STATUS -Full code as per documentation on admission Medications at Discharge Home Medications aspirin 81 mg chewable tablet 1 tab PO DAILY Heart Health 01/04/17 escitalopram oxalate 10 mg tablet 1 tab PO DAILY Depression/ anxiety 01/04/17 finasteride 5 mg tablet 1 tab PO DAILY Prostate 01/04/17 metformin 500 mg tablet,extended release 24 hr 1 tab PO BID Diabetes 01/04/17 tamsulosin 0.4 mg capsule 1 tab PO DAILY Prostate 01/04/17 empagliflozin 25 mg tablet 25 mg PO DAILY 09/13/20 fexofenadine 180 mg tablet 180 mg PO DAILY 09/12/21 montelukast 10 mg tablet 10 mg PO DAILY 09/12/21 metoprolol tartrate 25 mg tablet 25 mg PO BID BP 10/10/22 nitroglycerin 0.4 mg sublingual tablet 0.4 mg sublingual Q5-15M PRN chest pain #25 tabs 04/14/23 atorvastatin 80 mg tablet 40 mg (1/2 x 80 mg) PO QHS 30 days #30 tabs 04/27/23 isosorbide mononitrate 30 mg tablet,extended release 24 hr 30 mg PO DAILY #30 tabs 04/27/23 sennosides 8.6 mg-docusate sodium 50 mg tablet (Stool Softener-Stimulant Laxative) 2 tab PO BID PRN PRN Constipation #0 tabs 04/27/23 Physical Exam Narrative Seen and examined on the day of discharge. Patient had cardiac cath. No acute symptoms. Medical management recommended. General: Alert, Oriented x3, Cooperative HEENT: Atraumatic, PERRLA, EOMI, Normocephalic Oral: Oral mucosa moist. No Gingival or Mucosal Lesions/ Ulcerations Neck: Supple, No JVD, Negative Carotid Bruits Lungs: Air entry diminished in bilateral lung bases. No crepitation/rhonchi Cardiovascular: Regular rate, Regular Rhythm, Normal S1, Normal S2, soft systolic murmur over LLSB and cardiac apex. Abdomen: Bowel Sounds Present, Soft, Non Tender, Non-Distended : No renal angle tenderness. No suprapubic tenderness. Extremities: No edema, Capillary Refill Less than 3 Seconds Skin: No rashes, No breakdown Musculoskeletal: No Tenderness to Palpation of Joints or Extremities. ROM full and intact. Neurological: Cranial nerves II-XII grossly intact, DTR 2+/4 and Symmetrical, Neuro grossly intact Psych/Mental Status: Normal Affect, Appropriate. Weight / BMI Weight Weight: 190 lb 14.725 oz Body Mass Index (BMI) 28.2 ABG / Lab / Microbiology Data 04/26/23 05:36 04/26/23 05:36 Laboratory: Laboratory Results - last 24 hr 04/26/23 17:13: POC Glucose 135 H 04/26/23 21:01: POC Glucose 165 H 04/27/23 05:07: POC Glucose 139 H D/C Instructions Discharge Diet: Low fat / Low cholesterol and 2000 mg Sodium Diet Weight Bearing Status: Weight bearing as tolerated Call your doctor if you observe: Fever of 101 or Higher, Coldness, Increased Pain, Numbness or Tingling, Change in Color, Inability to urinate, Inability to have a bowel movement, Shortness of breath, Dizziness, Fainting spells, Swelling in the ankles, Chest pain, Prolonged hiccupping, Increased palpitations (irregular heartbeat) and Calf discomfort When: IN 2 WEEKS Meaningful Use Info Meaningful Use Diagnoses (Choose all that apply): AMI AMI/Post PCI/Angioplasty Aspirin given w/in 24hrs of arrival?: Yes ASA at discharge?: Yes Statins at discharge?: Yes Aly/ARB at discharge?: No Reason Aly/ARB not ordered:: Hypotension and Not indicated Beta Ruba at discharge?: Yes Done w/ Acute [place] measure.: Yes Discharge Plan Admission Admit Date/Time: 04/24/23 19:23 Attending Provider: Braydon Alonso Primary Care Provider: Keshav Edwards Consulting Providers: Michael Moreno; Braydon Alonso; Kim Lewis Discharge Orders/Prescriptions Prescriptions: New isosorbide mononitrate 30 mg Tablet Extended Release 24 Hr 30 mg PO DAILY Qty: 30 2RF sennosides-docusate sodium [Stool Softener-Stimulant Laxat] 8.6-50 mg Tablet 2 tab PO BID PRN PRN (Reason: Constipation) Qty: 0 0RF atorvastatin 80 mg Tablet 40 mg PO QHS 30 Days Qty: 30 2RF Continued empagliflozin 25 mg tablet 25 mg PO DAILY montelukast 10 mg tablet 10 mg PO DAILY fexofenadine 180 mg tablet 180 mg PO DAILY metoprolol tartrate 25 mg tablet 25 mg PO BID Patient Comments: nitroglycerin 0.4 mg tablet, sublingual 0.4 mg sublingual Q5-15M PRN (Reason: chest pain) Qty: 25 3RF Rx Instructions: do not exceed 3 doses per episode tamsulosin 0.4 MG capsule 1 tab PO DAILY Patient Comments: finasteride 5 MG tablet 1 tab PO DAILY Patient Comments: take 1 tablet by mouth once daily escitalopram oxalate 10 MG tablet 1 tab PO DAILY aspirin 81 MG tablet,chewable 1 tab PO DAILY Held metformin 500 MG tablet extended release 24 hr 1 tab PO BID Hold Instructions: Hold for 5 days. Patient Comments: Discontinued pravastatin 40 MG tablet 40 mg PO QHS Referrals / Follow Up: Babak Garcia MD [Med Staff - Active Staff] - Within 1 Month Keshav Edwards MD [Primary Care Provider] - Within 2 Weeks Levon Davalos NP, [employer] [Med Staff - Adv Practice Prof] - Within 2 Weeks Disposition Disposition (needs filled in before D/C Order can be placed): Home, Self Care Charges/Coding Visit Charges Inpatient E&M: 86208 Disch Hosp >30min
[2023-04-27 14:13] LABS: Bedside Glucose 120 mg/dL (74-106)
--- NOTE | 2023-04-27 14:20 | CASEMGMT ---
ANDREA MORA Follow-up: This RN CM met with pt face to face at bedside. Discussed discharge planning needs. Pt states he plans to return home and denies any needs at this time. Reviewed pt's discharge medication list and no new anticoagulant noted to be ordered. DC Plan: Return home Deni Osuna RN CM
--- NOTE | 2023-04-27 14:34 | PHA.DC_ITS ---
Pharmacy [facility] has performed discharge medication reconciliation and counseling for this patient. 1. ATORVASTATIN 80MG PO QHS 2. ISOSORBIDE MONONITRATE 30MG PO DAILY 3. SENNA/DOCUSATE 2T PO BID PRN CONSTIPATION The patient's discharge medication list was reviewed for discrepancies and discrepancies were resolved. The patient was counseled on the following discharge medications and changes in medications for homegoing were reviewed. The Reason for Use, instructions for use, and potential side effects were reviewed for all new medications. The patient's questions regarding all of their medications were answered. The patient was able to verbally demonstrate an understanding of their discharge medications. Patient counseled by corporate director of [employer]Ph[employer]. Medications at Discharge Home Medications aspirin 81 mg chewable tablet 1 tab PO DAILY Heart Health 01/04/17 escitalopram oxalate 10 mg tablet 1 tab PO DAILY Depression/ anxiety 01/04/17 finasteride 5 mg tablet 1 tab PO DAILY Prostate 01/04/17 metformin 500 mg tablet,extended release 24 hr 1 tab PO BID Diabetes 01/04/17 tamsulosin 0.4 mg capsule 1 tab PO DAILY Prostate 01/04/17 empagliflozin 25 mg tablet 25 mg PO DAILY 09/13/20 fexofenadine 180 mg tablet 180 mg PO DAILY 09/12/21 montelukast 10 mg tablet 10 mg PO DAILY 09/12/21 metoprolol tartrate 25 mg tablet 25 mg PO BID BP 10/10/22 nitroglycerin 0.4 mg sublingual tablet 0.4 mg sublingual Q5-15M PRN chest pain #25 tabs 04/14/23 atorvastatin 80 mg tablet 40 mg (1/2 x 80 mg) PO QHS 30 days #30 tabs 04/27/23 isosorbide mononitrate 30 mg tablet,extended release 24 hr 30 mg PO DAILY #30 tabs 04/27/23 sennosides 8.6 mg-docusate sodium 50 mg tablet (Stool Softener-Stimulant Laxative) 2 tab PO BID PRN PRN Constipation #0 tabs 04/27/23
[2023-04-27] MEDS: Finasteride 5 MG Tablet PO (14:56)
[2023-04-27] MEDS: Pantoprazole Sodium 40 MG Tablet PO (14:56)
[2023-04-27] MEDS: Empagliflozin 25 MG Tablet PO (14:57)
[2023-04-27] MEDS: Montelukast 10 MG Tablet PO (14:57)
[2023-04-27] MEDS: Tamsulosin HCl 0.4 MG Capsule PO (14:57)
[2023-04-27] MEDS: Escitalopram Oxalate 10 MG Tablet PO (14:57)
--- NOTE | 2023-04-27 15:49 | CASEMGMT ---
Patient has a Healthcare Power of Marketing Operations Assistant and a Healthcare Living Will. Patient is aware they are not on file at [facility]. Fina TANNER
--- NOTE | 2023-05-04 14:18 | CL.D_ITS ---
Patient Name: ORQUIDEA UGALDE Study Date: 04/27/2023 Performing: Babak Garcia MD Ht: 69 inches 175.26 cm : 1955 Wt: 191.2 lbs 86.6 kg Age: 67 Gender: male BSA: 2.03 PROCEDURE(S) PERFORMED [id number])LHC/COR/LV/CABG CLINICAL PROFILE AND INDICATIONS Indications: Suspected CAD Heart Failure: None Stress/Imaging Stress/Image Study Performed: No CAD Presentations: Non-STEMI. 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 RECOMMENDATIONS Medical therapy DESCRIPTION OF PROCEDURE The patient arrived to the procedure lab. The risks and benefits of the procedure as well as a full description of our services here and current unavailability of surgical backup were fully explained to the patient and/or their significant other prior to the catheterization. The Timeout was completed, verifying the correct patient and procedure. The patient's procedural site was prepped and draped in the usual fashion. Local anesthetic was given subcutaneously to right groin region with Lidocaine 2%. Local anesthetic was given subcutaneously to left radial region with Lidocaine 2%. Using a modified Seldinger technique, arterial access was obtained via the left radial artery, a 6Fr sheath was inserted. Left internal mammary artery graft to the LAD selective angiography was performed in multiple views using a 5 Fr. IM catheter. Left Coronary Artery selective angiography was performed in multiple views using a 5 Fr. JL4 catheter. Right Coronary Artery selective angiography was then performed in multiple views using a 5 Fr. 3DRC (Scott) catheter. Saphenous Vein graft to the RCA selective angiography was performed in multiple views using a 5 Fr. AR MOD catheter. Saphenous Vein graft to the OM 1 selective angiography was performed in multiple views using a 5 Fr. AR MOD catheter. Left Ventriculography was performed in CAMPUZANO projection using a 5 Fr. Pigtail catheter. LV to AO pullback pressures were then recorded.The arterial sheath was pulled and a TR Band was applied for hemostasis CORONARY ANGIOGRAPHY DOMINANCE: Right Dominant LEFT HEART ASSESSMENT Left Ventricular Ejection Fraction: by LV Gram 50 % Inferior Mid Akinesis Depressed Left Ventricular systolic function LEFT MAIN: Totally occluded LEFT ANTERIOR DESCENDING ARTERY: OSTIAL LAD: Totally occluded CIRCUMFLEX ARTERY: Totally occluded RIGHT CORONARY ARTERY: PROX RCA: Totally occluded after the conus branch GRAFTS: Saphenous Vein graft to the RPDA This vessel is noted to be patent mildly diffusely diseased and supplies collaterals to the distal circumflex artery and distal obtuse marginal vessel. Saphenous Vein graft to the CIRC is totally occluded HUNT graft to the Mid LAD This vessel is patent and retrogradely fills the diagonal vessel and a septal public safety director and also part of the obtuse marginal vessel VALVE FINDINGS: Mitral Valve Insufficiency - Grade 2 COMPLICATIONS No Complications PROCEDURE MEDICATIONS Versed 1 mg IV Fentanyl 50 mcg IV Oxygen: 2 L/min via nasal cannula Heparin diluted in 23cc Heparinized saline. Patient given 10cc IA of this solution. 04/27/2023 12:27:20 Verapamil 2.5mg, Ntg 100mcgs, 2000 units of Heparin diluted in 23cc Heparinized saline. Patient given 10cc IA of this solution. 04/27/2023 12:27:20 SUMMARY OF HEMODYNAMIC DATA Time AIR REST AO 89/43 (58) SA 12:29:18 AO 89/52 (69) 12:30:44 AO 104/57 (77) 12:35:04 LV 103/2, 8 12:52:01 LV 105/3, 9 12:52:08 LV 111/3, 14 12:53:06 LVp 104/46, 51 12:53:12 AOp 94/-11 (26) 12:53:17 Signed By Babak Garcia MD On 05/04/2023 14:17:59 Babak Garcia MD
== END 2023-04-27 17:00 | disposition home or self-care (01) | DRG 282 ==
LOC: ED 20:47 → PCU 21:16
PROVIDERS: Internal Medicine; Nurse Practitioner; Admitting Provider Internal Medicine; Emergency Provider Emergency Medicine; PCP Family Medicine; Visit Provider Internal Medicine
DX: I21.4 Non-ST elevation (NSTEMI) myocardial infarction (principal); E11.65 Type 2 diabetes mellitus with hyperglycemia; D64.9 Anemia, unspecified; E78.00 Pure hypercholesterolemia, unspecified; F41.9 Anxiety disorder, unspecified; Z95.1 Presence of aortocoronary bypass graft; I25.119 Atherosclerotic heart disease of native coronary artery with unspecified angina pectoris; I10 Essential (primary) hypertension; I34.0 Nonrheumatic mitral (valve) insufficiency; I25.2 Old myocardial infarction; N40.0 Benign prostatic hyperplasia without lower urinary tract symptoms; Z79.84 Long term (current) use of oral hypoglycemic drugs; Z79.82 Long term (current) use of aspirin; Z79.899 Other long term (current) drug therapy
CPT/HCPCS: 36415; 71046; 71275; 80048; 80053; 80061; 82962; 83036; 83735; 83880; 84100; 84443; 84484; 85025; 85027; 85379; 85610; 85730; 93005; 93306; 93459; 99152; 99153; 99285; C1894; J7030; Q9957; Q9967; A4216; C1769; C8929; J1940

== ENCOUNTER → 2023-04-24 | Outpatient (CLI) | payer MEDICARE, OTHER, SELFPAY ==
--- NOTE | 2023-04-24 10:27 | RAD_ITS ---
STUDY: X-RAY CHEST REASON FOR EXAM: Male, 67 years old. Shortness of breath. TECHNIQUE: Frontal and lateral views of the chest on 3 images. COMPARISON: Chest dated February 2019. FINDINGS: Mild hyperinflation unchanged. There is no demonstrated pleural abnormality. Stable cardiomegaly with sternotomy wires and changes of coronary artery bypass graft. Normal mediastinum and sanam. Normal visualized pulmonary arteries. Normal visualized aortic arch and descending thoracic aorta. Diffuse thoracic spondylosis. Normal visualized ribs, clavicles, and shoulders. No abnormality of the visualized soft tissue structures of the upper abdomen. RAD/Chest PA and Lateral IMPRESSION: Stable chest with no acute superimposed finding. Electronically Signed: Marcos Baker MD at 12:49 EDT ,
[2023-04-24 15:11] LABS: Absolute Lymphocyte Count 2.65 X10^3/uL (0.83-4.51); Absolute Neutrophil Count 4.6 X10^3/uL (2.0-7.7); Basophil# 0.04 X10^3/uL; Basophil% 0.5 % (0-1); Eosinophil# 0.52 X10^3/uL; Hematocrit 39.1 % (40-54); Hemoglobin 12.5 g/dL (13.0-16.5); Lymphocyte # 2.65 X10^3/ul (0.83-4.51); Lymphocyte % 30.4 % (19-41); Mean Corpuscular Volume 93.8 fL (80-94); Mean Platelet Vol. 9.8 fl (6.2-12.0); Monocyte# 0.92 X10^3/uL; Monocyte% 10.5 % (0-10); NRBC Flagged by Analyzer 0 % (0-5); Neutrophil # 4.58 X10^3/uL (2.7-7.7); Neutrophil % 52.4 % (47-70); Platelet Count 325 K/mm3 (150-450); RBC Distribution Width CV 13.5 % (11.6-14.6); RBC Distribution Width SD 46.4 fl (35.1-43.9); Red Blood Count 4.17 M/mm3 (4.6-6.2); White Blood Count 8.7 K/mm3 (4.4-11.0)
[2023-04-24 15:33] LABS: D-Dimer Quantitative (DVT/PE) 0.51 FEU/ug/m (0.27-0.49)
[2023-04-24 15:39] LABS: ALB/GLOB Ratio 0.9 RATIO (0.9-2.4); AST(SGOT) 20 U/L (15-37); Alanine Aminotransfer ALT/SGPT 38 U/L (16-61); Albumin, Serum 3.7 g/dL (3.2-5.0); Alkaline Phosphatase 82 U/L (45-117); Anion Gap 6 (5-15); BNP,B-Type NATRIURETIC PEPTIDE 513.1 pg/mL (0-100); BUN 16 mg/dL (7-18); BUN/Creat Ratio 19.5 RATIO (10-20); Calcium,Total 9.9 mg/dL (8.5-10.1); Chloride 106 mmol/L (98-107); Creatinine, Serum 0.82 mg/dL (0.70-1.30); EST Glomerular Filtration Rate 99 mL/min (>60); Est Glom Filt Rate - Afr Amer 120 mL/min (>60); Globulin 4.3 g/dL (2.2-4.2); Glucose 159 mg/dL (74-106); Potassium 4.4 mmol/L (3.5-5.1); Sodium Level 140 mmol/L (136-145)
== END | disposition home or self-care (01) ==
PROVIDERS: PCP Family Medicine; Referring Provider Family Medicine; Visit Provider Family Medicine
DX: R06.02 Shortness of breath (principal); R05.9 Cough, unspecified
CPT/HCPCS: 36415; 71046; 80053; 83880; 85025; 85379

== ENCOUNTER → 2023-05-04 | Outpatient (CLI) | payer MEDICARE, OTHER, SELFPAY ==
--- NOTE | 2023-05-04 12:54 | CR.HP_ITS ---
CR - History & Physical General Arrival date:: 05/04/23 Arrival time:: 12:54 Date of Referral:: 04/26/23 Date of CR Evaluation:: 05/04/23 Referring Physician: Dr. Babak Garcia Primary Diagnosis: NSTEMI History of Present Cardiac Event Onset Date Acute Myocardial Infarction within 12 months:: Yes Medications Ambulatory Orders Medication Instructions Recorded aspirin 81 mg chewable tablet 1 tab PO DAILY Heart Health 01/04/17 escitalopram oxalate 10 mg tablet 1 tab PO DAILY Depression/ anxiety 01/04/17 finasteride 5 mg tablet 1 tab PO DAILY Prostate 01/04/17 metformin 500 mg tablet,extended 1 tab PO BID Diabetes 01/04/17 release 24 hr tamsulosin 0.4 mg capsule 1 tab PO DAILY Prostate 01/04/17 empagliflozin 25 mg tablet 25 mg PO DAILY 09/13/20 fexofenadine 180 mg tablet 180 mg PO DAILY 09/12/21 montelukast 10 mg tablet 10 mg PO DAILY 09/12/21 metoprolol tartrate 25 mg tablet 25 mg PO BID BP 10/10/22 nitroglycerin 0.4 mg sublingual 0.4 mg sublingual Q5-15M PRN chest 04/14/23 tablet pain #25 tabs atorvastatin 80 mg tablet 40 mg (1/2 x 80 mg) PO QHS 30 days 04/27/23 #30 tabs isosorbide mononitrate 30 mg 30 mg PO DAILY #30 tabs 04/27/23 tablet,extended release 24 hr sennosides 8.6 mg-docusate sodium 2 tab PO BID PRN PRN Constipation 04/27/23 50 mg tablet (Stool #0 tabs Softener-Stimulant Laxative) Allergies Allergies No Known Allergies Allergy (Verified 04/24/23 17:10) Sleep Disorder Evaluation Hx of Sleep Apnea: No Do you snore loudly (louder than talking or can be heard through closed doors)?: No Do you often feel tired/ fatigued/ sleepy during daytime?: No Has anyone observed you stop breathing during sleep?: No History of Hypertension (for STOP score): Yes STOP Results: Negative Advanced Directives Advanced Directives Power of Web Content & Social Media Manager: Yes Living Will: Yes Advance Directives Information Provided: Yes Advance Directives on File: No DNR Order?:: No Past Medical History Covid-19 Screening Physicial Symptoms Other Clinical Concerns Exposure Risk Pertinent Comorbidities Has a serious heart condition:: Yes Diabetic:: Yes Past Medical Illness Past Medical History (Updated 05/02/23 @ 00:04 by Background Daemon) Acute non-ST elevation myocardial infarction (NSTEMI) I21.4 Atherosclerotic heart disease of [place] coronary artery without angina pectoris I25.10 BPH (benign prostatic hyperplasia) N40.0 Depression F32.9 Essential (primary) hypertension I10 HLD (hyperlipidemia) E78.5 Obesity E66.9 Shortness of breath R06.02 Type 2 diabetes mellitus E11.9 Past Surgical History Past Surgical History (Updated 05/02/23 @ 00:04 by Background Daemon) H/O coronary artery bypass surgery (02/24/13) Z95.1 CABG X 3 HUNT to LAD, SVG to RCA & SVG-OM 2 02/22/13 Family History Summary Family History Mother CAD (coronary artery disease) Hx CABG Myocardial infarction Diabetes Sister CAD (coronary artery disease) Hx PTCA Grandfather Cancer Prostate cancer Uncle Cancer Prostate cancer Social History Smoking History Smoking Status: Never smoker Alcohol Use Alcohol Usage: No Substance Abuse Hx Substance Use: No Occupation Occupation (List type of work in comments):: Retired Hobbies, Recreation, Social Activities Hobbies: None Social Environment Status Marital Status: Current Living Arrangements Living Environment:: Alone Children How many children do you have?: 2 Do any of your children live nearby?: Yes Safety Do you feel safe in your surroundings?: Yes Assistance Do you need any assistance at home?: none Review of Systems Review of Systems Hints Review of Present Symptoms: Reports Shortness of Breath with Exertion, Dizziness/Lightheadedness, Appetite - Normal, Appetite - Special Diet and Sleep - Normal; Denies Shortness of Breath at Rest, PVD, Operative Discomfort, Angina, Wound Healing, Fatigue, Heart Arrhythmia/Irregularities or Sexual Changes Pain Is Patient Pain Free?: Yes Risk Factor Assessment Chief Complaint Chief Complaint: NSTEMI Vital Signs Pulse Ox: 97 Blood Pressure: 119/74 Pulse Pulse Rate: 75 Hypertension How long have you been treated?: 10 years Stress Stress: Home/Family (recent deaths in the family) Diabetes Diabetic History: Type II Obesity Height: 5 ft 9 in Weight:: 190 lb Weight in Pounds: 190.0 lbs Body Mass Index (BMI): 28.0 Nutritional Referral for Obesity: No Physical Inactivity Physical Inactivity: Recreational activity Risk Stratification Risk Guidelines: Lowest Risk: Risk Factor for Smoking, Moderate Risk: Risk Factor for Obesity, Risk Factor for Sedentary Lifestyle and Risk Factor for Depression and Highest Risk: Risk Factor for Dyslipidemia, Risk Factor for Diabetes and Risk Factor for Hypertension For Smoking Smoking Risk Guidelines For Dyslipidemia Dyslipidemia Risk Guidelines For Diabetes Mellitus Diabetes Risk Guidelines For Obesity/Overweight Obesity/Overweight Risk Guidelines For Hypertension Hypertension Risk Guidelines For Sedentary Lifestyle Sedentary Lifestyle Risk Guidelines For Depression Depression Risk Guidelines Family History Family History Mother CAD (coronary artery disease) Myocardial infarction Diabetes Sister CAD (coronary artery disease) Grandfather Cancer Uncle Cancer Motivation Motivation to Participate On a scale of 1 to 10, how prepared are you to commit to attending program?: 8 What do you see as barriers to successfully being able to complete the program?: nothing What do you see as the benefits of succesfully completing the program? In other words, what do you hope to get out of participating in the program?: more energy Are there issues you are dealing with that will interfere with completing the program?: no Do you have a spouse or signficant other, family or friends who will help support you to complete the program?: yes
[2023-05-04 13:01] VITALS: BP 119/74; PULSE 75; O2SAT 97
--- NOTE | 2023-05-04 13:01 | CR.ITP_ITS ---
Diagnosis General Information Admitting Diagnosis: NSTEMI Personal Learning Style:: Audio/Visual Barriers to Learning: No Barriers Stage of change r/t lifestyle modifications:: Contemplation Gave educational material for:: Treating Heart Disease, How The Heart Works, What it means to have Heart Disease, How Coronary Artery Disease is Diagnosed, Heart Procedures, What Heart Medications Do, Risk Factors & Modifications, Living an Active Life, Nutrition, Emotions & Heart Disease, Stress Management & Relaxation and Sleep Disorders & Heart Disease Education/Goals Cardiac Rehabilitation Goals Personal Goals: Initial Assessment: Improve management of stress and emotions, Improve muscle strength and endurance and Control risk factors (learn risk factor modification) Scale for measuring improvement of personal goals Diagnosis & Disease Process Outcomes/Goals: Pt IDs own risk factors & lifestyle modifications by Session 10, Verbalizes symptoms of angina & response by session 3., Pt independently manages and Other Additional Outcomes/Goals: Plan/Interventions: Assist Pt to ID & engage in lifestyle modification to reduce CVD risk, Instruct on individual risk factors, Review symptoms of angina & emergency actions, Review secondary diagnosis & identify educational needs. and Other see comment 30 day Reassessments:: Not Met 30 day Reassessments:: Not Met 30 day Reassessments:: Not Met 30 day Reassessments:: Not Met Final Reassessments:: Not Met Safety Referral to Physical Therapy: No Referral to [facility] Case Management: No Fall Risk Assessed:: Yes Assistive Devices:: None Exercise - Initial Assessment Visit Date of Eval: 05/04/23 (initial eval ) Mets: Pre-: >3 METS for 30 minutes by discharge, >5 METS for 30 minutes by discharge, >7 METS for 30 minutes by discharge and Unable to meet goal due to: (see comment below) Physician Prescribed Exercise Modalities: Treadmill, Rower, Airdyne, NuStep, SciFit and Lateral [place] Frequency: 2x/week for 18 weeks [36 sessions] and 3x/week for 12 weeks [36 sessions] Intensity: 60-80% of age predicted maximum heart rate reserve Duration: 30 - 45 minutes Current METSs:: 3 Target Heart Rate:: 100-115 Resting Blood Pressure: 119/74 EKG Type: NSR Outcomes & Goals Goals:: Verbalizes understanding of THR, RPE & goal METS by session 6, Documents in home exercise log/reports 30 min aerobic 5 day/wk by DC, Demonstrates accurate pulse taking by DC and Other additional outcome/goals: see below Intervention & Plan Exercise Program Goals: Instruct on personal THR & RPE, Instruct on MET level & personal MET goal, Show patient to take own pulse /validate performance until accurate, Instruct on home exercise and Other additional plan/int Physical Activity Home Exercise Physical Activity - Home Exercise: Safe Exercise, Warm-up, Self-monitoring, Cool-Down, Home Exercise > 30 min Daily and Sitting Time <3 hours/daily Outcomes & Goals Outcomes/Goals: Demonstrates correct Warm-up/exercise Cool-Down (S3) if = 2.5 METs, Verbalizes symptoms of exercise intolerance by Session 3 (S3), Demonstrate safe equipment use (S3) & follows exercise prescrition (6) and Other: See below Intervention & Plan Plan/Intervention: Instruct warm-up & cool-down if exercising at > 2 METs, Instruct on symptoms of exercise intolerance & actions to take, Instruct & monitor on saf, Assess intial functional capacity & safety risk and Other See below Nutrition - Initial Assessment Program Goals Nutrition Program Goals Patient has diagnosis of Hyperlipidemia (ICD E78)?: Yes Visit Date of Eval: 05/04/23 (initial eval) Cholesterol/Lipids (Other Core Measures) Determine presence & major risk factors that modify LDL goal: Hypertension or hypertensive medication, Low HDL cholesterol <40 mg/dL*, Family history of premature CHD in Male < 55 years: female <65 yearsFa and Age men > 45 years; women >/= 55 years Outcomes/Goals: Pt IDs own risk factors & lifestyle modifications by Session 10, Verbalizes symptoms of angina & response by session 3., Pt independently manages and Other Additional Outcomes/Goals: Intervention/Plan: Advocate for lipid panel cholesterol medication if applicable, Instruct on personal lipid levels & lipid goals/NCEP guidelines, Instruct on cholesterol and Other additional plan/int Referral to dietitian:: Yes Diabetes (Other Core Measures) Diabetes Type: Diagnosis Type II ICD-10 E11 Insulin dependent injection/pump?: No Non-Insulin Dependent?: Yes Do you monitor your blood sugar at home?: Yes Referral to Diabetic Clinic:: Yes Outcomes/Goals:: Able to state symptoms of, Able to state, Able to state and Other additional Intervention/Plan:: Instruct on, Refer to, Instruct on and Other Weight Mgt (Other Care) Height: 5 ft 9 in Weight:: 190 lb BMI: 28.0 Diagnosis High BMI/Morbid Obesity BMI> 35% ICD-10 Z68: No Outcomes/Goals: Pt sets, maintains & shows weight loss goal & trend during rehab and Other additional outcomes/goals Intervention/Plan: Instruct on ideal BMI & set weight loss goal w/patient, Assist pt to ID & incorporate diet changes for weight loss by S9, Refer to Structured Weight Loss program as appropriate, Encourage goal of using 250- 300dcal per session for weight loss and Other additional plan/interventions Healthy Eating Habits Will attend diet classes:: Yes Outcomes/Goals:: Consume diet rich in vegs,fruits,whole grain/high fiber,fish,lean meat, Limit sat/trans fats,cholesterol & added salts & sugars and Other additional outcome/goals: Intervention/Plan:: Assess current eating habits and Other Additional plan/interventions Education Gave educational materials for:: Signs & symptoms of hypoglycemia, Signs & symptoms of hyperglycemia, Relate diabetes to coronary artery disease and Healthy eating Core - Initial Assessment Visit Date of Eval: 05/04/23 (initial eval) Medication Compliance Preventative Medication(s):: Aspirin, Statin/lipid and Beta eva Doesn?t believe in the benefits of treatment?: No Believes medications are unnecessary or harmful?: No Has a concern about medication side effects?: No Expresses concern over the cost of medications?: No Outcomes/Goals: Verbalizes medications,desired effect & common side effects @ DC, Pt self-reports following medication regimen, Keeps card in wallet w/medications listed by DC and Other additional outcome/goals: Interventions/plans: Instruct on medication effects & side effects, Review medication list w/patient every two weeks, Instruct importance of taking meds as ordered & assist problem solving and Other additional Tobacco Use Tobacco Use: Non-smoker Hypertension Hypertension Diagnosis:: Hypertension ICD-10 I10 Resting Blood Pressure:: 119/74 [place] [employer] Hypertension Guidelines Outcomes/Goals: Able to verbalize/achieve optimal blood pressure <130/80, Incorporates diet changes & exercise for blood pressure control by DC and Other additional outcomes/goals Interventions/plan: Instruct on optimal blood pressure, hypertension & medications, Instruct on effects of sodium, alcohol, stress, exercise &hypertension and Other additional plan/interventions Tobacco Cessation Referral Smoking Cessation Referral:: No Individual Education/Counseling:: No Education Schedule Given:: Yes Psychosocial - Initial Assess VIsit Date of Eval: 05/04/23 (initial eval) History of previous Mental disease:: No Target Goals Target Goals Patient Health Questionnaire PHQ-9 Screening Initial Assessment: 1. Little interest or pleasure in doing things: Not at all 2. Feeling down, depressed, or hopeless: Not at all 3. Trouble falling or staying asleep, or sleeping too much: Several days 4. Feeling tired or having little energy: Not at all 5. Poor appetite or overeating: Not at all 6. Feeling bad about yourself -- or that you are a failure or have let yourself or your family down: Not at all 7. Trouble concentrating on things, such as reading the newspaper or watching television: Not at all 8. Moving or speaking so slowly that other people could have noticed. Or the opposite - being so fidgety or restless that you have been moving around a lot more than usual: Not at all 9. Thoughts that you would be better off , or of hurting yourself in some way: Not at all How difficult have these problems made it for you to do your work, take care of things at home, or get along with other people?: Not difficult at all Total Score: 1 MARILYN-Q SV Test Statements CAD is a disease of the arteries in the heart: False Examples of risk factors for heart disease: True Angina is chest pain or discomfort: True The benefits of resistance training include: True Eating more meat and dairy products: False Anti-platelet medications such as aspirin are important: True The only effective way to manage stress: False An exercise warm-up slowly increases heart rate: True Prepared, processed foods usually have high sodium: True Depression is common after a heart attack: False The statin medications lower cholesterol: True To control blood pressure, lower the amount of sodium: True If someone gets chest discomfort during walking: False Transfats are partially hydrogenated vegetable oils: True Sleep apnea that is not treated increases the risk: I Don't Know To control cholesterol, one should become a vegetarian: False Someone knows if he/she is exercising at the right level: True Diabetes cannot be prevented with exercise & health eating: False Stress is a large risk for heart attack: True A diet that can help lower blood pressure is rich in: True Total Score Total Correct Responses: 18 Self-Efficacy 6-Item Scale Initial Assessment: We would like to know how confident you are in doing certain activities. Please select your confidence level for: Fatigue Select Number: 10 Physical Discomfort or Pain Select Number: 8 Emotional Distress Select Number: 10 Other Symptoms or Health Problems Select Number: 9 Different Tasks and Activities Select Number: 8 Medication Select Number: 9 Total Score:: 9 Nutrition Survey Nutrition Survey Instructions Scoring Instructions Nutrition Survey Initial: Have you lost >10 lbs over the past 2 months without trying?: No Are you interested in meeting with a dietitian for help understanding your diet?: No Do you eat less than 3 meals a day?: No Do you eat fatty meats (hercules, sausage, ribs, etc), fried foods, desserts, large amounts of salad dressings, margarine, butter, or cheese most days?: No Do you have food allergies? [Enter types in comment field]: No Do you eat in restaurants more than 3 times a week?: No Do you season food with salt, seasoning salt, or garlic salt?: No Do you used canned, boxed, frozen meals, or soups, seasoning packets?: Yes Exercise - Final/Discharge Physician Prescribed Exercise Modalities: Treadmill, Rower, Airdyne, NuStep, SciFit and Lateral [place] Frequency: 2x/week for 18 weeks [36 sessions] and 3x/week for 12 weeks [36 sessions] Intensity: 60-80% of age predicted maximum heart rate reserve Current METSs:: 3 Target Heart Rate:: 100-115 Nutrition - 30-Day Assessment Weight Mgt (Other Care) Height: 5 ft 9 in Weight:: 190 lb BMI: 28.0 Nutrition - 60-Day Assessment Weight Mgt (Other Care) Height: 5 ft 9 in Weight:: 190 lb BMI: 28.0 Core - Final Assessment Hypertension Resting Blood Pressure:: 119/74 [place] [employer] Hypertension Guidelines Core - 60-Day Assessment Hypertension Resting Blood Pressure:: 119/74 [place] [employer] Hypertension Guidelines Psychosocial - 30-Day Assess Target Goals Target Goals Psychosocial - 60-Day Assess Target Goals Target Goals Psychosocial - 90-Day Assess Target Goals Target Goals Psychosocial - Final Assessmen Target Goals Target Goals Nutrition - 90-Day Assessment Weight Mgt (Other Care) Height: 5 ft 9 in Weight:: 190 lb BMI: 28.0 Nutrition - Final Assessment Program Goals Patient has diagnosis of Hyperlipidemia (ICD E78)?: Yes Weight Mgt (Other Care) Height: 5 ft 9 in Weight:: 190 lb BMI: 28.0
[2023-05-04 13:10] VITALS: BP 119/74
[2023-05-04 13:15] VITALS: BP 119/74
[2023-05-04 13:30] VITALS: BMI 28.0
[2023-05-04 13:58] VITALS: BMI 28.0
== END | disposition home or self-care (01) ==
LOC: CR 12:46
PROVIDERS: PCP Family Medicine; Referring Provider Internal Medicine Cardiovascular Disease; Visit Provider Internal Medicine Cardiovascular Disease
DX: I25.2 Old myocardial infarction (principal)

== ENCOUNTER 2023-06-03 08:00 | Outpatient (RCR) | payer MEDICARE, OTHER, SELFPAY ==
[2023-05-04 13:58] VITALS: BMI 28.0
== END 2023-06-04 23:59 ==
LOC: CR 08:00
PROVIDERS: PCP Family Medicine; Referring Provider Internal Medicine Cardiovascular Disease; Visit Provider Internal Medicine Cardiovascular Disease
DX: I21.4 Non-ST elevation (NSTEMI) myocardial infarction (principal); R07.9 Chest pain, unspecified; R77.8 Other specified abnormalities of plasma proteins
CPT/HCPCS: 93798

== ENCOUNTER 2023-06-26 15:03 | Emergency (ER) | payer MEDICARE, OTHER, SELFPAY ==
[2023-05-04 13:58] VITALS: BMI 28.0
[2023-06-26 15:06] VITALS: BP 152/86; PULSE 91; RESP 18; TEMP 36.3; O2SAT 95; BMI 28.8
--- NOTE | 2023-06-26 16:10 | EDS_ITS ---
HPI HPI - URI History of Present Illness Chief Complaint: Cough Informant: patient and family Onset/Context/Timing Onset: Weeks Context: Gradual Onset Timing: Continuous Current Severity: Mild Maximum Severity: Mild Associated Symptoms Associated Symptoms: Positive for Productive Cough (Green sputum.) Narrative Narrative: 68-year-old male history of prior GA with CAD and hypertension and diabetes. He had a 3-week history of a cough. He has been seen in the physicians office by Dr. Fernando Briggs. He has been on recent antibiotics for a week. He states just cannot shake the cough. Productive of green sputum. Denies chest pain. Denies hemoptysis. Denies shortness of breath. Prior similar symptoms: Yes Recent Illness/Hospitalization: No ROS ROS ED ROS Narrative Cough. No chest pain. No shortness of breath. No hemoptysis. Review of Systems ROS Unobtainable: Denies due to encephalopathy Constitutional Constitutional ED: Denies chills or fever(s) Eyes Eyes: Denies blurry vision ENT ENT ED: Denies ear pain, rhinorrhea or sore throat Cardiovascular Cardiovascular: Denies chest pain, palpitations or racing heartbeat Respiratory/Chest Respiratory/Chest: Reports cough; Denies dyspnea or dyspnea on exertion Gastrointestinal Gastrointestinal: Denies abdominal pain, constipation, diarrhea, melena, nausea or vomiting Genitourinary Genitourinary ED: Denies dysuria or hematuria Musculoskeletal Musculoskeletal: Denies arthralgias Integumentary Denies abscess Neurologic Neurologic: Denies headache(s) Psychiatric Psychiatric: Denies anxiety Endocrine Endocrinology: Denies cold intolerance Hematologic/Lymphatic Hematologic/Lymphatic: Denies easy bleeding or easy bruising Allergic/Immunologic Allergic/Immunologic ED: Denies mouth swelling or tongue swelling PFSH PFS Medical History Acute non-ST elevation myocardial infarction (NSTEMI) Atherosclerotic heart disease of [place] coronary artery without angina pectoris BPH (benign prostatic hyperplasia) Depression Essential (primary) hypertension HLD (hyperlipidemia) Nonrheumatic mitral (valve) insufficiency Obesity Shortness of breath Type 2 diabetes mellitus Home Medications aspirin 81 mg chewable tablet 1 tab PO DAILY Heart Health 01/04/17 [History Last Taken 09/21/18 08:00] escitalopram oxalate 10 mg tablet 1 tab PO DAILY Depression/ anxiety 01/04/17 [History Last Taken 09/21/18 18:00] finasteride 5 mg tablet 1 tab PO DAILY Prostate 01/04/17 [History Last Taken 09/21/18 08:00] metformin 500 mg tablet,extended release 24 hr 1 tab PO BID Diabetes 01/04/17 [History Last Taken 09/21/18 18:00] tamsulosin 0.4 mg capsule 1 tab PO DAILY Prostate 01/04/17 [History Last Taken 09/21/18 08:00] empagliflozin 25 mg tablet 25 mg PO DAILY 09/13/20 [History Last Taken Unknown] fexofenadine 180 mg tablet 180 mg PO DAILY 09/12/21 [History Last Taken Unknown] montelukast 10 mg tablet 10 mg PO DAILY 09/12/21 [History Last Taken Unknown] metoprolol tartrate 25 mg tablet 25 mg PO BID BP 10/10/22 [History Last Taken Unknown] nitroglycerin 0.4 mg sublingual tablet 0.4 mg sublingual Q5-15M PRN chest pain #25 tabs 04/14/23 [Rx Last Taken Unknown] atorvastatin 80 mg tablet 40 mg (1/2 x 80 mg) PO QHS 30 days #30 tabs 04/27/23 [Rx Last Taken Unknown] sennosides 8.6 mg-docusate sodium 50 mg tablet (Stool Softener-Stimulant Laxative) 2 tab PO BID PRN PRN Constipation #0 tabs 04/27/23 [Rx Last Taken Unknown] isosorbide mononitrate 30 mg tablet,extended release 24 hr 30 mg PO DAILY #90 tabs 06/16/23 [Rx Last Taken Unknown] fluticasone propionate 50 mcg/actuation nasal spray,suspension 2 spray intranasal 06/26/23 [History Last Taken Unknown] prednisone 20 mg tablet 40 mg (2 x 20 mg) PO DAILY 7 days #14 tabs 06/26/23 [Rx Last Taken Unknown] Allergy/AdvReac Type Severity Reaction Status Date / Time No Known Allergies Allergy Verified 06/26/23 15:06 Family History Mother CAD (coronary artery disease) Hx CABG Myocardial infarction Diabetes Sister CAD (coronary artery disease) Hx PTCA Grandfather Cancer Prostate cancer Uncle Cancer Prostate cancer Surgical History H/O coronary artery bypass surgery (02/24/13) Social History Smoking Status: Never smoker alcohol intake: never substance use type: does not use caffeine: Yes Type: coffee Number of servings: 1 what type of physical activity do you participate in: none seatbelt use: always do you feel safe at home: Yes EXAM Physical Exam Narrative Exam Narrative: 68-year-old male no acute distress. Vital signs stable afebrile. Pulse ox 95% on room air no signs of hypoxia. HEENT exam unremarkable. Neck nontender no JVD. Lungs clear to auscultation bilaterally. Heart regular rhythm no murmur. Abdomen soft nontender normal bowel sounds no peritoneal signs. Moving all 4 extremities. Calves are nontender without edema or cords. Neurologically is awake and alert with no focal motor deficits. Const Vital Signs: 06/26/23 15:06 06/26/23 16:18 Temperature 97.3 F L Temperature Source Temporal Pulse Rate 91 Respiratory Rate 18 Respiratory Effort Normal Respiratory Depth Normal Respiratory Pattern Normal Blood Pressure 152/86 H Blood Pressure Mean 108 Pulse Ox 95 Oxygen Delivery Method Room Air Room Air Positive well nourished and well developed; Negative for obese, cachectic or contractures General Appearance ED: well developed and NAD; Negative for cachectic, contractures, cyanotic, diaphoretic or pallor Nutritional Appearance: Negative for cachectic or obese HEENT Reports moist mucous membranes; Denies dry mucous membranes atraumatic; Negative for scalp tenderness Face and Sinus: Negative for sinus tenderness or maxillary instability Mouth ED: No dry mucous membranes Mouth: No dry mucous membranes Teeth and Gingiva: Negative for caries Throat: posterior oropharynx normal Eyes PERRL and EOMs intact bilaterally General Eye ED: Negative for pale conjunctiva or scleral icterus Neck no lymphadenopathy, supple, no meningeal signs and no JVD General: Negative for anterior neck swelling, lymphadenopathy or other Resp normal respiratory effort and clear to auscultation bilaterally Effort and Inspection: Negative for retractions or pain with movement Auscultation: Negative for rales, rhonchi, wheezes or diminished lung sounds Cardio S1 normal heart sound, S2 normal heart sound and no murmurs Rate: regular rate Rhythm: regular rhythm GI non-tender, non-distended and no masses Inspection: Negative for abdominal distention Auscultation: normoactive bowel sounds Palpation: soft; Negative for tender or guarding Back/Spine no CVA tenderness and normal ROM General Back: Negative for CVA tenderness Cervical Spine: Negative for cervical spine tenderness Thoracic Spine / Upper Back: Negative for thoracic spinal tenderness Lumbar Spine / Lower Back: Negative for lumbar spinal tenderness Sacrum: Negative for tenderness Extremity normal to inspection and full ROM General Extremety ED: Negative for cyanosis, tenderness or other findings General Extremity: Negative for cyanosis or other findings Neuro oriented x3 and CN's II-XII intact bilaterally Sensorium / Orientation: alert, oriented to person, oriented to place and oriented to time; Negative for orientation impaired, lethargic or stuporous Motor Exam: strength 5/5 throughout Psych mental status grossly normal Appearance: Negative for other Attitude: No agitated Mood & Affect: Negative for depressed, anxious or tearful Skin General Skin Exam: Negative for jaundice or pallor Lesions: no lesions Rashes: no rashes Trauma: Negative for abrasion MDM MDM MDM Narrative Medical decision making narrative: 60-year-old male with a chronic cough for 3 weeks. He is already been on a week antibiotics. Denies any nausea vomiting diarrhea. No fever. He is having no chest pain or dyspnea. This is not a cardiac event. Sounds like either URI or seasonal allergies. Chest x-ray being obtained. Clinically I do not think he is can have a pneumonia. Repeat exam patient doing well at 4:40 PM. I went over his chest x-ray results with him. Chest x-ray is unremarkable. We placed on prednisone 40 mg a day. Given first dose here. Follow-up with primary care physician is not improving. He is already on been on antibiotics I do not think he needs any more antibiotics. History & Record Review Discussion w/independent historian: Patient and Family Additional record(s) reviewed:: Prior inpatient record, Prior outpatient record, Prior ED visit and Prior labs Radiography Chest X-Ray - ED: 1 View, Read by ED Physician, Heart, Lungs, Bony Structures, No Acute Disease and Chronic Changes Diagnostic Testing: Chest x-ray, portable, single view shows no acute abnormality. Interpreted by myself. Normal cardiac silhouette. No infiltrate. Prior sternotomy. Discharge Plan Triage Chief Complaint: Cough ED Provider: Frederic Jaiem Dx/Rx/DC Orders Clinical Impression: Cough Instructions: ED Cough Chronic Uncertain Cause Adult Prescriptions: New prednisone 20 mg tablet 40 mg PO DAILY 7 Days Qty: 14 0RF No Action empagliflozin 25 mg tablet 25 mg PO DAILY montelukast 10 mg tablet 10 mg PO DAILY fexofenadine 180 mg tablet 180 mg PO DAILY metoprolol tartrate 25 mg tablet 25 mg PO BID Patient Comments: nitroglycerin 0.4 mg tablet, sublingual 0.4 mg sublingual Q5-15M PRN (Reason: chest pain) Qty: 25 3RF Rx Instructions: do not exceed 3 doses per episode isosorbide mononitrate 30 mg tablet extended release 24 hr 30 mg PO DAILY Qty: 90 3RF tamsulosin 0.4 MG capsule 1 tab PO DAILY Patient Comments: metformin 500 MG tablet extended release 24 hr 1 tab PO BID Hold Instructions: Hold for 5 days. Patient Comments: finasteride 5 MG tablet 1 tab PO DAILY Patient Comments: take 1 tablet by mouth once daily escitalopram oxalate 10 MG tablet 1 tab PO DAILY aspirin 81 MG tablet,chewable 1 tab PO DAILY sennosides-docusate sodium [Stool Softener-Stimulant Laxat] 8.6-50 mg Tablet 2 tab PO BID PRN PRN (Reason: Constipation) Qty: 0 0RF atorvastatin 80 mg Tablet 40 mg PO QHS 30 Days Qty: 30 2RF fluticasone propionate 50 mcg/actuation spray,suspension 2 spray INTRANASAL Patient Comments: USE 2 SPRAYS IN EACH NOSTRIL ONCE DAILY TO PREVENT SWELLING & REDUCE DRAINAGE. Primary Care Provider: Keshav Edwards Referrals: Keshav Edwards MD [Primary Care Provider] - 1 Week if not improving Activity Restrictions/Additional Instructions: Prednisone 40 mg a day for the next 7 days starting tomorrow. Follow-up with your doctor if not improving. The prednisone should help with any inflammation in your lungs or if you are having symptoms from seasonal allergies. The prednisone which is a steroid will most likely increase your blood sugars watch sugars closely. Disposition Disposition: Home, Self Care
--- NOTE | 2023-06-26 16:13 | RAD_ITS ---
INDICATION: cough EXAMINATION/TECHNIQUE: X-RAY - XR Chest 1 View COMPARISON: 04/24/2023. FINDINGS: The lungs are clear. Sternal cerclage wires and vascular clips are present from a prior sternotomy and coronary artery bypass graft procedure (CABG). Tortuous and calcified thoracic aorta. The heart is mildly enlarged. No pleural effusion or pneumothorax. Degenerative changes of the thoracic spine. RAD/Chest 1 View (Portable) IMPRESSION: No acute radiographic abnormalities. Electronically Signed: Fernando Fitch MD at 16:53 EDT ,
[2023-06-26] MEDS: predniSONE 20 MG Tablet 40 MG PO (16:49)
[2023-06-26 16:52] VITALS: RESP 20
== END 2023-06-26 16:53 | disposition home or self-care (01) ==
PROVIDERS: Emergency Provider Emergency Medicine; PCP Family Medicine; Visit Provider Emergency Medicine
DX: R05.3 Chronic cough (principal); E11.9 Type 2 diabetes mellitus without complications; I25.10 Atherosclerotic heart disease of native coronary artery without angina pectoris; I10 Essential (primary) hypertension; E78.5 Hyperlipidemia, unspecified; I25.2 Old myocardial infarction; N40.0 Benign prostatic hyperplasia without lower urinary tract symptoms; Z79.82 Long term (current) use of aspirin; Z79.899 Other long term (current) drug therapy
CPT/HCPCS: 71045; 99283

== ENCOUNTER 2023-07-03 08:00 | Outpatient (RCR) | payer MEDICARE, OTHER, SELFPAY ==
[2023-05-04 13:58] VITALS: BMI 28.0
--- NOTE | 2023-07-03 11:45 | PCM.CR.ITP ---
Nutrition - Initial Assessment Weight Mgt (Other Care) Height: 5 ft 9 in Weight:: 194 lb 8 oz BMI: 28.7 Psychosocial - Initial Assess Target Goals Target Goals Referral to Behavioral Health PS - Interventions: Yes: Attend Stress Management Classes and No: Referral to Behavioral Health if PHQ-9 score >9:, No: Referral to [facility] and No: Referral to Physician if PHQ-9 if score is 5-9: Patient Health Questionnaire PHQ-9 Screening 60-Day Re-eval Assessment: 1. Little interest or pleasure in doing things: Not at all 2. Feeling down, depressed, or hopeless: Not at all 3. Trouble falling or staying asleep, or sleeping too much: Not at all 4. Feeling tired or having little energy: Not at all 5. Poor appetite or overeating: Not at all 6. Feeling bad about yourself -- or that you are a failure or have let yourself or your family down: Not at all 7. Trouble concentrating on things, such as reading the newspaper or watching television: Not at all 8. Moving or speaking so slowly that other people could have noticed. Or the opposite - being so fidgety or restless that you have been moving around a lot more than usual: Not at all 9. Thoughts that you would be better off , or of hurting yourself in some way: Not at all How difficult have these problems made it for you to do your work, take care of things at home, or get along with other people?: Not difficult at all Total Score: 0 Self-Efficacy 6-Item Scale 60-Day Re-eval Assessment: We would like to know how confident you are in doing certain activities. Please select your confidence level for: Fatigue Select Number: 10 Physical Discomfort or Pain Select Number: 9 Emotional Distress Select Number: 10 Other Symptoms or Health Problems Select Number: 10 Different Tasks and Activities Select Number: 9 Medication Select Number: 10 Total Score:: 9 Nutrition Survey Nutrition Survey Instructions Scoring Instructions Exercise - 60-day Assessment Visit Date of Eval: 07/03/23 Session #:: 20 Physician Prescribed Exercise Modalities: Treadmill and NuStep Frequency: 3x/week for 12 weeks [36 sessions] Intensity: 60-80% of age predicted maximum heart rate reserve Duration: 30 - 45 minutes Current METSs:: 5.5 Target Heart Rate:: 100-115 Current RPE:: 12-13 Maximum Excercise HR:: 107 Resting Blood Pressure: 118/56 Maximum Exercise Blood Pressure: 132/70 EKG Type: NSR with inverted T wave occasional PAC rare PVC Current Physical Activity or Exercising minutes: 43 Outcomes & Goals Goals:: Verbalizes understanding of THR, RPE & goal METS by session 6 and Demonstrates accurate pulse taking by DC Intervention & Plan Exercise Program Goals: Instruct on personal THR & RPE, Instruct on MET level & personal MET goal, Show patient to take own pulse /validate performance until accurate and Instruct on home exercise 30-day Reassessments 30 day Reassessments:: Met Physical Activity Home Exercise Physical Activity - Home Exercise: Safe Exercise, Warm-up, Self-monitoring, Cool-Down, Home Exercise > 30 min Daily and Sitting Time <3 hours/daily Outcomes & Goals Outcomes/Goals: Demonstrates correct Warm-up/exercise Cool-Down (S3) if = 2.5 METs, Verbalizes symptoms of exercise intolerance by Session 3 (S3) and Demonstrate safe equipment use (S3) & follows exercise prescrition (6) Intervention & Plan Plan/Intervention: Instruct warm-up & cool-down if exercising at > 2 METs, Instruct on symptoms of exercise intolerance & actions to take, Instruct & monitor on saf and Assess intial functional capacity & safety risk 30-day Reassessments 30 day Reassessments:: Met Nutrition - 30-Day Assessment Weight Mgt (Other Care) Height: 5 ft 9 in Weight:: 194 lb 8 oz BMI: 28.7 Nutrition - 60-Day Assessment Program Goals Nutrition Program Goals Patient has diagnosis of Hyperlipidemia (ICD E78)?: Yes Visit Date of Eval: 07/03/23 Session #:: 20 Cholesterol/Lipids (Other Core Measures) Determine presence & major risk factors that modify LDL goal: Hypertension or hypertensive medication Outcomes/Goals: Pt IDs own risk factors & lifestyle modifications by Session 10, Verbalizes symptoms of angina & response by session 3. and Pt independently manages Intervention/Plan: Instruct on personal lipid levels & lipid goals/NCEP guidelines and Instruct on cholesterol Referral to dietitian:: Yes 30-day Reassessments:: Progressing Diabetes (Other Core Measures) Diabetes Type: Diagnosis Type II ICD-10 E11 Non-Insulin Dependent?: Yes Do you monitor your blood sugar at home?: No Outcomes/Goals:: Able to state symptoms of, Able to state and Able to state Intervention/Plan:: Instruct on and Refer to 30-day Reassessments:: Progressing Weight Mgt (Other Care) Height: 5 ft 9 in Weight:: 194 lb 8 oz BMI: 28.7 Diagnosis Overweight/Obesity BMI> 30% ICD-10 E66: No Diagnosis High BMI/Morbid Obesity BMI> 35% ICD-10 Z68: No Outcomes/Goals: Pt sets, maintains & shows weight loss goal & trend during rehab Intervention/Plan: Instruct on ideal BMI & set weight loss goal w/patient 30 day Reassessments:: Met Healthy Eating Habits Will attend diet classes:: Yes Outcomes/Goals:: Consume diet rich in vegs,fruits,whole grain/high fiber,fish,lean meat and Limit sat/trans fats,cholesterol & added salts & sugars Intervention/Plan:: Assess current eating habits 30-day Reassessments:: Progressing Education Gave educational materials for:: Signs & symptoms of hypoglycemia, Signs & symptoms of hyperglycemia, Relate diabetes to coronary artery disease and Healthy eating Core - 60-Day Assessment Visit Date of Eval: 07/03/23 Session #:: 20 Medication Compliance Preventative Medication(s):: Aspirin, Statin/lipid and Beta eva H/O mental health issues: depression, anxiety, or addiction?: No Doesn?t believe in the benefits of treatment?: No Believes medications are unnecessary or harmful?: No Has a concern about medication side effects?: No Expresses concern over the cost of medications?: No Outcomes/Goals: Verbalizes medications,desired effect & common side effects @ DC, Pt self-reports following medication regimen and Keeps card in wallet w/medications listed by DC Interventions/plans: Instruct on medication effects & side effects, Review medication list w/patient every two weeks and Instruct importance of taking meds as ordered & assist problem solving 30-day Reassessments:: Met Tobacco Use Tobacco Use: Non-smoker Hypertension Hypertension Diagnosis:: Hypertension ICD-10 I10 Resting Blood Pressure:: 118/56 [place] [employer] Hypertension Guidelines Peak Exercise Blood Pressure:: 132/70 Outcomes/Goals: Able to verbalize/achieve optimal blood pressure <130/80 and Incorporates diet changes & exercise for blood pressure control by DC Interventions/plan: Instruct on optimal blood pressure, hypertension & medications and Instruct on effects of sodium, alcohol, stress, exercise &hypertension 30 day Reassessments:: Met Tobacco Cessation Referral Smoking Cessation Referral:: No Individual Education/Counseling:: No Education Schedule Given:: Yes Psychosocial - 30-Day Assess Target Goals Target Goals Referral to Behavioral Health PS - Interventions: Yes: Attend Stress Management Classes and No: Referral to Behavioral Health if PHQ-9 score >9:, No: Referral to [facility] and No: Referral to Physician if PHQ-9 if score is 5-9: Outcomes/Goals: See list Psychosocial Outcomes/Goals:: ID's personal stressors & 2 strategies to manage stress by discharge Psychosocial - 60-Day Assess VIsit Date of Eval: 07/03/23 Session #:: 20 Not Applicable: Yes History of previous Mental disease:: No Target Goals Target Goals Psychosocial Test Tool Used:: PHQ-9 Questionnaire phq-9 Severity Referral to Behavioral Health PS - Interventions: Yes: Attend Stress Management Classes and No: Referral to Behavioral Health if PHQ-9 score >9:, No: Referral to [facility] and No: Referral to Physician if PHQ-9 if score is 5-9: Outcomes/Goals: See list Psychosocial Outcomes/Goals:: ID's personal stressors & 2 strategies to manage stress by discharge Intervention/Plan: See List Interventions/Plan:: Assess stressors,coping strategies & signs of derpression on admission, Instruct/assist pt to develop coping & personal stress Mgt strategies, Instruct patient to recognize signs & symptoms of depression and Instruct patient to recog 30-day Reassessments: 30 day Reassessments:: Met Psychosocial - 90-Day Assess Target Goals Target Goals Referral to Behavioral Health PS - Interventions: Yes: Attend Stress Management Classes and No: Referral to Behavioral Health if PHQ-9 score >9:, No: Referral to [facility] and No: Referral to Physician if PHQ-9 if score is 5-9: Psychosocial - Final Assessmen Target Goals Target Goals Referral to Behavioral Health PS - Interventions: Yes: Attend Stress Management Classes and No: Referral to Behavioral Health if PHQ-9 score >9:, No: Referral to [facility] and No: Referral to Physician if PHQ-9 if score is 5-9: Nutrition - 90-Day Assessment Weight Mgt (Other Care) Height: 5 ft 9 in Weight:: 194 lb 8 oz BMI: 28.7 Nutrition - Final Assessment Weight Mgt (Other Care) Height: 5 ft 9 in Weight:: 194 lb 8 oz BMI: 28.7
[2023-07-03 11:54] VITALS: BP 118/56; BMI 28.7
== END 2023-07-04 23:59 ==
LOC: CR 08:00
PROVIDERS: PCP Family Medicine; Referring Provider Internal Medicine Cardiovascular Disease; Visit Provider Internal Medicine Cardiovascular Disease
DX: I21.4 Non-ST elevation (NSTEMI) myocardial infarction (principal); R07.9 Chest pain, unspecified; R77.8 Other specified abnormalities of plasma proteins
CPT/HCPCS: 93798

== ENCOUNTER → 2023-07-14 | Outpatient (CLI) | payer MEDICARE, OTHER, SELFPAY ==
[2023-07-03 11:54] VITALS: BMI 28.7
--- NOTE | 2023-07-14 09:52 | RAD_ITS ---
INDICATION: L posterior rales EXAMINATION/TECHNIQUE: X-RAY - XR Chest 2 Views FINDINGS: LINES/DEVICES: None. LUNGS: No consolidation, edema or effusion. No pneumothorax. MEDIASTINUM AND CARDIOVASCULAR STRUCTURES: Cardiac silhouette not enlarged. Central airways and mediastinal contour are unremarkable. BONES AND SOFT TISSUES: Unremarkable. RAD/Chest PA and Lateral IMPRESSION: No radiographic evidence of acute cardiopulmonary disease. Electronically Signed: Byron Holt MD at 10:45 EDT ,
[2023-07-14 12:18] LABS: Absolute Lymphocyte Count 2.43 X10^3/uL (0.83-4.51); Absolute Neutrophil Count 3.8 X10^3/uL (2.0-7.7); Basophil# 0.05 X10^3/uL; Basophil% 0.6 % (0-1); Eosinophil# 0.87 X10^3/uL; Hematocrit 42.9 % (40-54); Hemoglobin 13.9 g/dL (13.0-16.5); Lymphocyte # 2.43 X10^3/ul (0.83-4.51); Lymphocyte % 30.7 % (19-41); Mean Corp Hgb Conc 32.4 g/dL (32-36); Mean Corpuscular Hgb 30.1 pg (27.0-32.0); Mean Corpuscular Volume 92.9 fL (80-94); Mean Platelet Vol. 9.3 fl (6.2-12.0); Monocyte# 0.71 X10^3/uL; NRBC Flagged by Analyzer 0 % (0-5); Neutrophil # 3.83 X10^3/uL (2.7-7.7); Neutrophil % 48.3 % (47-70); Platelet Count 243 K/mm3 (150-450); RBC Distribution Width CV 13.8 % (11.6-14.6); RBC Distribution Width SD 46.7 fl (35.1-43.9); Red Blood Count 4.62 M/mm3 (4.6-6.2); White Blood Count 7.9 K/mm3 (4.4-11.0)
[2023-07-14 12:50] LABS: BNP,B-Type NATRIURETIC PEPTIDE 85.1 pg/mL (0-100)
[2023-07-14 12:53] LABS: AST(SGOT) 17 U/L (15-37); Alanine Aminotransfer ALT/SGPT 35 U/L (16-61); Albumin, Serum 3.8 g/dL (3.2-5.0); Alkaline Phosphatase 68 U/L (45-117); Anion Gap 6 (5-15); BUN 14 mg/dL (7-18); BUN/Creat Ratio 16.1 RATIO (10-20); CRP, High Sensitivity Cardiac 1.89 mg/L; Calcium,Total 9.5 mg/dL (8.5-10.1); Chloride 104 mmol/L (98-107); Creatinine, Serum 0.87 mg/dL (0.70-1.30); EST Glomerular Filtration Rate 93 mL/min (>60); Est Glom Filt Rate - Afr Amer 112 mL/min (>60); Globulin 3.7 g/dL (2.2-4.2); Glucose 156 mg/dL (74-106); Potassium 4.4 mmol/L (3.5-5.1); Protein, Total 7.5 g/dL (6.4-8.2); Sodium Level 138 mmol/L (136-145)
[2023-07-14 13:01] LABS: Procalcitonin < 0.04 ng/mL (0.00-0.09)
== END | disposition home or self-care (01) ==
LOC: MTLAB 09:50
PROVIDERS: PCP Family Medicine; Referring Provider Family Medicine; Visit Provider Family Medicine
DX: R09.89 Other specified symptoms and signs involving the circulatory and respiratory systems (principal)
CPT/HCPCS: 36415; 71046; 80053; 83880; 84145; 85025; 86141

== ENCOUNTER 2023-07-16 20:59 | Emergency (ER) | payer MEDICARE, OTHER, SELFPAY ==
[2023-07-16 21:00] VITALS: BP 137/81; PULSE 92; RESP 18; TEMP 36.5; O2SAT 93; BMI 29.1
--- NOTE | 2023-07-16 21:24 | EKG12_ITS ---
Test Reason : SOB Blood Pressure : / mmHG Vent. Rate : 081 BPM Atrial Rate : 081 BPM P-R Int : 138 ms QRS Dur : 100 ms QT Int : 402 ms P-R-T Axes : 060 083 082 degrees QTc Int : 466 ms Normal sinus rhythm Incomplete right bundle branch block Possible Inferior infarct (cited on or before 25-APR-2023) Abnormal ECG Confirmed by ANTHONY PERALTA, VIJAYA ([id number]), photographic editor NAHED MIRANDA ([id number]) on 07/21/2023 7:59:02 AM Referred By: Confirmed By:VIJAYA CRUZ MD
--- NOTE | 2023-07-16 21:30 | ED.VIS.DYS ---
HPI History of Present Illness Chief Complaint: Shortness of Breath Informant: patient and family Narrative Narrative: Patient presents with dyspnea. Patient has been having episodes of dyspnea for the last couple months. He states he saw his private physician was put on antibiotics and seemed to clear up but then came back after a week. He was then seen here a few weeks ago. He was placed on steroids which helped and it cleared up. He states now the last 4 to 5 days he has been getting a little bit of coughing throughout the day but has not been a big deal. This evening he had a coughing episode that made it hard to catch his breath. This morning he had a mild coughing episode but it went away with albuterol. He tried albuterol this evening but it really just did not work right away. He got a nebulizer by the squad and his symptoms are resolved. Patient denies a history of COPD or asthma. But he has been treated for suspected asthma for the last month. He is on meds for blood pressure. I looked over his med list that he brought in and he is not on any RIC inhibitors though. He has never had chest pain with this. He is coughed up some mucus but it is clear. No blood. Reviewing the past history I find out the patient has never been a smoker. 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 No known asbestos exposure [facility] Medical History Acute non-ST elevation myocardial infarction (NSTEMI) Atherosclerotic heart disease of [place] coronary artery without angina pectoris BPH (benign prostatic hyperplasia) Depression Essential (primary) hypertension HLD (hyperlipidemia) Nonrheumatic mitral (valve) insufficiency Obesity Shortness of breath Type 2 diabetes mellitus Home Medications aspirin 81 mg chewable tablet 1 tab PO DAILY Heart Health 01/04/17 [History Last Taken 09/21/18 08:00] escitalopram oxalate 10 mg tablet 1 tab PO DAILY Depression/ anxiety 01/04/17 [History Last Taken 09/21/18 18:00] finasteride 5 mg tablet 1 tab PO DAILY Prostate 01/04/17 [History Last Taken 09/21/18 08:00] metformin 500 mg tablet,extended release 24 hr 1 tab PO BID Diabetes 01/04/17 [History Last Taken 09/21/18 18:00] tamsulosin 0.4 mg capsule 1 tab PO DAILY Prostate 01/04/17 [History Last Taken 09/21/18 08:00] empagliflozin 25 mg tablet 25 mg PO DAILY 09/13/20 [History Last Taken Unknown] fexofenadine 180 mg tablet 180 mg PO DAILY 09/12/21 [History Last Taken Unknown] montelukast 10 mg tablet 10 mg PO DAILY 09/12/21 [History Last Taken Unknown] metoprolol tartrate 25 mg tablet 25 mg PO BID BP 10/10/22 [History Last Taken Unknown] nitroglycerin 0.4 mg sublingual tablet 0.4 mg sublingual Q5-15M PRN chest pain #25 tabs 04/14/23 [Rx Last Taken Unknown] atorvastatin 80 mg tablet 40 mg (1/2 x 80 mg) PO QHS 30 days #30 tabs 04/27/23 [Rx Last Taken Unknown] sennosides 8.6 mg-docusate sodium 50 mg tablet (Stool Softener-Stimulant Laxative) 2 tab PO BID PRN PRN Constipation #0 tabs 04/27/23 [Rx Last Taken Unknown] isosorbide mononitrate 30 mg tablet,extended release 24 hr 30 mg PO DAILY #90 tabs 06/16/23 [Rx Last Taken Unknown] fluticasone propionate 50 mcg/actuation nasal spray,suspension 2 spray intranasal 06/26/23 [History Last Taken Unknown] prednisone 20 mg tablet 40 mg (2 x 20 mg) PO DAILY 7 days #14 tabs 06/26/23 [Rx Last Taken Unknown] prednisone 20 mg tablet 60 mg (3 x 20 mg) PO DAILY #15 TABLETS 07/16/23 [Rx Last Taken Unknown] Allergy/AdvReac Type Severity Reaction Status Date / Time No Known Allergies Allergy Verified 06/26/23 15:06 Family History Mother CAD (coronary artery disease) Hx CABG Myocardial infarction Diabetes Sister CAD (coronary artery disease) Hx PTCA Grandfather Cancer Prostate cancer Uncle Cancer Prostate cancer Surgical History H/O coronary artery bypass surgery (02/24/13) Social History Smoking Status: Never smoker alcohol intake: never substance use type: does not use caffeine: Yes Type: coffee Number of servings: 1 what type of physical activity do you participate in: none seatbelt use: always do you feel safe at home: Yes ROS ROS ED ROS Narrative A complete review of systems was performed and is negative except as documented in the history of present illness. Some specific details below. Constitutional: No recent fevers or chills. EYE: No discharge, visual complaints, or pain. ENT: No difficulty swallowing. No swelling. No pain. No reflux symptoms. CV: No chest pain or palpitations. Respiratory: See history of present illness. GI: No abdominal pain. No nausea vomiting diarrhea. No blood in stool. : No frequency dysuria or hematuria. Musculoskeletal: No recent trauma. No pains. No swelling. No history of DVT or PE. No recent travel or immobilization. Skin: No rash. Nondiaphoretic. Neuro: No weakness or numbness. Endocrine: No polyuria or polydipsia. EXAM Physical Exam Narrative Exam Narrative: CONSTITUTIONAL: Patient is nontoxic in appearance. The patient looks comfortable. Work of breathing looks normal. He carries on a normal conversation at this time. HEENT: No notable trauma. Mucous membranes moist. No sinus tenderness. No indication of pain with swallowing. EYES: No conjunctival injection. No proptosis. NECK:No JVD. No stridor. CARDIOVASCULAR: Regular rate. Regular rhythm. No notable murmur. No JVD. RESPIRATORY: No respiratory distress. Breathing is unlabored. His saturations are normal at 93% on room air. However, he does have some diffuse wheezes. Slightly decreased air motion. No pain with a deep breath. No chest wall tenderness. No subcu air. GASTROINTESTINAL: Not distended. Bowel sounds are normal. No tenderness. No guarding. No rebound. No palpable mass. No bruit is heard. GENITOURINARY: No tenderness over the bladder. No CVA tenderness. MUSCULOSKELETAL: Atraumatic. No peripheral edema. No cord. No tenderness along the deep venous system. No asymmetry. No distended veins. NEUROLOGICAL: Patient is alert and appropriate. No focal deficit noted. SKIN: No noted rashes. No diaphoresis. PSYCHIATRIC: Patient is calm. Mood is appropriate. Const Vital Signs: 07/16/23 21:00 07/16/23 21:03 07/16/23 21:33 Temperature 97.7 F L Temperature Source Temporal Pulse Rate 92 98 Respiratory Rate 18 18 Respiratory Effort Short of Breath Blood Pressure 137/81 H Blood Pressure Mean 99 Pulse Ox 93 Oxygen Delivery Method Room Air Room Air 07/16/23 21:44 Temperature Temperature Source Pulse Rate Respiratory Rate Respiratory Effort Blood Pressure Blood Pressure Mean Pulse Ox 92 Oxygen Delivery Method Room Air MDM MDM MDM Narrative Medical decision making narrative: My independent interpretation of the patient's two-view chest x-ray shows no acute process. It is similar to a prior that I compared from 07/14/2023. Patient's CBC is normal. Patient's electrolytes are overall normal. Patient was rechecked. He states he feels fine. Saturations are about 94% on room air on the monitor. When I listen to his lungs he does have a slight wheeze. I do not hear rales. There is no JVD. No peripheral edema. We walked the patient. He actually walked all the way to the end of the emergency department on the opposite side. He walked back. He had no difficulties. He momentarily had a 91% saturation but he then rebounded to 93% or more. He felt well. I think this patient likely has bronchospastic disease. We will get him started on steroids. He would like to go home. I do want a walk-in to make sure he does not have problems or desaturations. He has not had any chest pain syncope hemoptysis history of DVT or PE or known risk factors. I think a lot of his symptoms come from a combination of exposure to the chicken farm and a lot of chemicals and dust. He tries to use a mask when he can. 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 I think follow-up with [facility]low machine operator would be appropriate. Lab Data Attestation: I reviewed the patient's lab results. Labs: Laboratory Results - last 24 hr 07/16/23 21:25 WBC 9.9 RBC 4.50 L Hgb 13.4 Hct 40.8 MCV 90.7 MCH 29.8 MCHC 32.8 RDW Std Deviation 45.3 H RDW Coeff of Hannah 13.7 Plt Count 228 MPV 9.3 Immature Gran % (Auto) 0.300 Neut % (Auto) 59.3 Lymph % (Auto) 22.9 [place] % (Auto) 9.1 Eos % (Auto) 8.0 H Baso % (Auto) 0.4 Absolute Neuts (auto) 5.8 Absolute Lymphs (auto) 2.26 Nucleated RBC % 0 Sodium 140 Potassium 3.6 Chloride 107 Carbon Dioxide 26.0 Anion Gap 7 BUN 18 Creatinine 0.98 Estim Creat Clear Calc 72.14 Est GFR (MDRD) Af Amer 98 Est GFR (MDRD) Non-Af 81 BUN/Creatinine Ratio 18.4 Glucose 159 H Calcium 9.3 Radiography Diagnostic Testing: Clinical Impression(s) from Imaging Studies Chest X-Ray 07/16/23 21:50 IMPRESSION: Previous CABG. No significant interval change. No radiographic evidence of acute cardiopulmonary disease. Electronically Signed: Dk Breaux MD at 22:36 EDT , EKG Initial EKG: Comments: My independent interpretation of the patient's EKG done for dyspnea shows normal sinus rhythm with overall rate of 81. No ectopy. He does have a right bundle branch block. Nonspecific ST and T wave change but no sign of acute infarct or ischemia. PA interval, QRS duration and QTc are all normal. Discharge Plan Triage Chief Complaint: Shortness of Breath ED Provider: Skinny Villavicencio Dx/Rx/DC Orders Clinical Impression: Acute bronchospasm Instructions: ED Bronchospasm (Adult) Prescriptions: New prednisone 20 mg tablet 60 mg PO DAILY Qty: 15 0RF No Action empagliflozin 25 mg tablet 25 mg PO DAILY montelukast 10 mg tablet 10 mg PO DAILY fexofenadine 180 mg tablet 180 mg PO DAILY metoprolol tartrate 25 mg tablet 25 mg PO BID Patient Comments: nitroglycerin 0.4 mg tablet, sublingual 0.4 mg sublingual Q5-15M PRN (Reason: chest pain) Qty: 25 3RF Rx Instructions: do not exceed 3 doses per episode isosorbide mononitrate 30 mg tablet extended release 24 hr 30 mg PO DAILY Qty: 90 3RF tamsulosin 0.4 MG capsule 1 tab PO DAILY Patient Comments: metformin 500 MG tablet extended release 24 hr 1 tab PO BID Hold Instructions: Hold for 5 days. Patient Comments: finasteride 5 MG tablet 1 tab PO DAILY Patient Comments: take 1 tablet by mouth once daily escitalopram oxalate 10 MG tablet 1 tab PO DAILY aspirin 81 MG tablet,chewable 1 tab PO DAILY sennosides-docusate sodium [Stool Softener-Stimulant Laxat] 8.6-50 mg Tablet 2 tab PO BID PRN PRN (Reason: Constipation) Qty: 0 0RF atorvastatin 80 mg Tablet 40 mg PO QHS 30 Days Qty: 30 2RF fluticasone propionate 50 mcg/actuation spray,suspension 2 spray INTRANASAL Patient Comments: USE 2 SPRAYS IN EACH NOSTRIL ONCE DAILY TO PREVENT SWELLING & REDUCE DRAINAGE. prednisone 20 mg tablet 40 mg PO DAILY 7 Days Qty: 14 0RF Primary Care Provider: Keshav Edwards Referrals: Triston Lopez MD [Med Staff - Active Staff] - As soon as possible Keshav Edwards MD [Primary Care Provider] - Disposition Disposition: Home, Self Care Discharge Date/Time: 07/16/23 23:11
[2023-07-16] MEDS: Ipratropium/Albuterol Sulfate 3 ML AMPUL.NEB INHALATION (21:31)
[2023-07-16 21:33] VITALS: PULSE 98; RESP 18
[2023-07-16] MEDS: MethylPREDNISolone 125 MG/2 ML Vial IV (21:41)
[2023-07-16 21:44] VITALS: O2SAT 92
--- NOTE | 2023-07-16 21:50 | RAD_ITS ---
EXAM: XR CHEST, 2 VIEWS CLINICAL INDICATION: cough TECHNIQUE: Frontal and lateral views of the chest. COMPARISON: Previous chest radiographs of 07/14/2023 and 04/24/2023. FINDINGS: LUNGS AND PLEURAL SPACES: Unremarkable. No consolidation or edema. No pneumothorax. No effusion. HEART: Heart size is upper normal with normal pulmonary vasculature. Previous CABG. MEDIASTINUM: Stable mediastinal contour. Thoracic aorta remains minimally elongated. No mediastinal widening. BONES/JOINTS: Previous sternotomy. Lower cervical degenerative changes. Syndesmophytes fusing the visualized thoracic and upper lumbar disc spaces, suggestive of ankylosing spondylitis. SOFT TISSUES: Unremarkable. RAD/Chest PA and Lateral IMPRESSION: Previous CABG. No significant interval change. No radiographic evidence of acute cardiopulmonary disease. Electronically Signed: Dk Breaux MD at 22:36 EDT ,
[2023-07-16 22:03] LABS: Absolute Lymphocyte Count 2.26 X10^3/uL (0.83-4.51); Absolute Neutrophil Count 5.8 X10^3/uL (2.0-7.7); Basophil# 0.04 X10^3/uL; Basophil% 0.4 % (0-1); Eosinophil# 0.79 X10^3/uL; Hematocrit 40.8 % (40-54); Hemoglobin 13.4 g/dL (13.0-16.5); Lymphocyte # 2.26 X10^3/ul (0.83-4.51); Lymphocyte % 22.9 % (19-41); Mean Corp Hgb Conc 32.8 g/dL (32-36); Mean Corpuscular Hgb 29.8 pg (27.0-32.0); Mean Corpuscular Volume 90.7 fL (80-94); Mean Platelet Vol. 9.3 fl (6.2-12.0); Monocyte% 9.1 % (0-10); NRBC Flagged by Analyzer 0 % (0-5); Neutrophil # 5.84 X10^3/uL (2.7-7.7); Neutrophil % 59.3 % (47-70); Platelet Count 228 K/mm3 (150-450); RBC Distribution Width CV 13.7 % (11.6-14.6); RBC Distribution Width SD 45.3 fl (35.1-43.9); White Blood Count 9.9 K/mm3 (4.4-11.0)
[2023-07-16 22:17] LABS: Anion Gap 7 (5-15); BUN 18 mg/dL (7-18); BUN/Creat Ratio 18.4 RATIO (10-20); Calcium,Total 9.3 mg/dL (8.5-10.1); Chloride 107 mmol/L (98-107); Creatinine, Serum 0.98 mg/dL (0.70-1.30); EST Glomerular Filtration Rate 81 mL/min (>60); Est Glom Filt Rate - Afr Amer 98 mL/min (>60); Estimated Creatinine Clearance 72.14 ml/min; Glucose 159 mg/dL (74-106); Potassium 3.6 mmol/L (3.5-5.1); Sodium Level 140 mmol/L (136-145)
[2023-07-16 22:57] VITALS: BP 118/66; PULSE 72; RESP 18; O2SAT 93
[2023-07-16] MEDS: predniSONE 20 MG Tablet 60 MG PO (23:03)
== END 2023-07-16 23:11 | disposition home or self-care (01) ==
PROVIDERS: Emergency Provider Emergency Medicine; PCP Family Medicine; Visit Provider Emergency Medicine
DX: J98.01 Acute bronchospasm (principal); E11.9 Type 2 diabetes mellitus without complications; I10 Essential (primary) hypertension; E78.5 Hyperlipidemia, unspecified; I25.10 Atherosclerotic heart disease of native coronary artery without angina pectoris; I25.2 Old myocardial infarction; Z79.82 Long term (current) use of aspirin; Z79.84 Long term (current) use of oral hypoglycemic drugs; Z79.52 Long term (current) use of systemic steroids; Z79.899 Other long term (current) drug therapy
CPT/HCPCS: 71046; 80048; 85025; 93005; 94640; 96374; 99285; A4216

== ENCOUNTER → 2023-07-30 | Outpatient (CLI) | payer MEDICARE, OTHER, SELFPAY ==
[2023-07-03 11:54] VITALS: BMI 28.7
--- NOTE | 2023-07-31 05:54 | PFTCOMP ---
COMPLETE PULMONARY FUNCTION TEST INTERPRETATION Brief HPI: Patient is a 68-year-old male, currently under the care of Dr. Verma, who presents to [facility] for complete pulmonary function tests secondary to diagnosis of dyspnea. Respiratory therapist reports good effort and reproducible results. Interpretation: Forced expiration spirometry shows moderately severe large airways obstructive ventilatory defect with an FEV1 of 52% predicted. There is no significant bronchodilator response by strict ATS criteria. Spirograms are of good quality and plateau slowly, indicating slowly emptying areas of the lungs. The respiratory flow volume loop shows decreased expiratory flow rates at all lung volumes consistent with airway obstruction. Lung volumes by body plethysmography show a decreased total lung capacity at 5.52 L, 80% predicted. FRC and RV are elevated out of proportion. Lung volume measurements are consistent with air-trapping. Diffusion capacity by carbon monoxide is normal at 76% predicted. The airway resistance is slightly elevated. Compared to previous pulmonary function tests from 2014, there has been significant worsening in spirometric values. Impression: Irreversible moderately severe mixed ventilatory defect with relatively preserved diffusion capacity
== END | disposition home or self-care (01) ==
LOC: PSN 10:38
PROVIDERS: PCP Family Medicine; Referring Provider Internal Medicine Critical Care Medicine; Visit Provider Internal Medicine Critical Care Medicine
DX: J45.909 Unspecified asthma, uncomplicated (principal)
CPT/HCPCS: 94060; 94726; 94729

== ENCOUNTER 2023-08-03 08:00 | Outpatient (RCR) | payer MEDICARE, OTHER, SELFPAY ==
[2023-07-05 00:19] VITALS: BP 118/56
--- NOTE | 2023-08-03 10:16 | PCM.CR.ITP ---
Nutrition - Initial Assessment Weight Mgt (Other Care) Height: 5 ft 9 in Weight:: 192 lb BMI: 28.3 Psychosocial - Initial Assess Target Goals Target Goals Patient Health Questionnaire PHQ-9 Screening 90-Day Re-eval Assessment: 1. Little interest or pleasure in doing things: Not at all 2. Feeling down, depressed, or hopeless: Not at all 3. Trouble falling or staying asleep, or sleeping too much: Not at all 4. Feeling tired or having little energy: Not at all 5. Poor appetite or overeating: Not at all 6. Feeling bad about yourself -- or that you are a failure or have let yourself or your family down: Not at all 7. Trouble concentrating on things, such as reading the newspaper or watching television: Not at all 8. Moving or speaking so slowly that other people could have noticed. Or the opposite - being so fidgety or restless that you have been moving around a lot more than usual: Not at all 9. Thoughts that you would be better off , or of hurting yourself in some way: Not at all How difficult have these problems made it for you to do your work, take care of things at home, or get along with other people?: Not difficult at all Total Score: 0 Self-Efficacy 6-Item Scale 90-Day Re-eval Assessment: We would like to know how confident you are in doing certain activities. Please select your confidence level for: Fatigue Select Number: 10 Physical Discomfort or Pain Select Number: 9 Emotional Distress Select Number: 10 Other Symptoms or Health Problems Select Number: 10 Different Tasks and Activities Select Number: 9 Medication Select Number: 10 Total Score:: 9 Nutrition Survey Nutrition Survey Instructions Scoring Instructions Exercise - 90-day Assessment Visit Date of Eval: 08/03/23 Session #:: 32 Physician Prescribed Exercise Modalities: Treadmill and NuStep Frequency: 3x/week for 12 weeks [36 sessions] Intensity: 60-80% of age predicted maximum heart rate reserve Duration: 30 - 45 minutes Current METSs:: 7 Target Heart Rate:: 100-115 Current RPE:: 11.5-12 Maximum Excercise HR:: 116 Resting Blood Pressure: 140/60 Maximum Exercise Blood Pressure: 142/60 EKG Type: NSR inverted t wave with rare PAC and PVC Outcomes & Goals Goals:: Verbalizes understanding of THR, RPE & goal METS by session 6, Documents in home exercise log/reports 30 min aerobic 5 day/wk by DC, Demonstrates accurate pulse taking by DC and Other additional outcome/goals: see below Intervention & Plan Exercise Program Goals: Instruct on personal THR & RPE, Instruct on MET level & personal MET goal, Show patient to take own pulse /validate performance until accurate, Instruct on home exercise and Other additional plan/int 30-day Reassessments 30 day Reassessments:: Met Physical Activity Home Exercise Physical Activity - Home Exercise: Safe Exercise, Warm-up, Self-monitoring, Cool-Down, Home Exercise > 30 min Daily and Sitting Time <3 hours/daily Outcomes & Goals Outcomes/Goals: Demonstrates correct Warm-up/exercise Cool-Down (S3) if = 2.5 METs, Verbalizes symptoms of exercise intolerance by Session 3 (S3), Demonstrate safe equipment use (S3) & follows exercise prescrition (6) and Other: See below Intervention & Plan Plan/Intervention: Instruct warm-up & cool-down if exercising at > 2 METs, Instruct on symptoms of exercise intolerance & actions to take, Instruct & monitor on saf, Assess intial functional capacity & safety risk and Other See below 30-day Reassessments 30 day Reassessments:: Met Nutrition - 30-Day Assessment Weight Mgt (Other Care) Height: 5 ft 9 in Weight:: 192 lb BMI: 28.3 Nutrition - 60-Day Assessment Weight Mgt (Other Care) Height: 5 ft 9 in Weight:: 192 lb BMI: 28.3 Core - 90 Day Assessment Visit Date of Eval: 08/03/23 Session #:: 32 Medication Compliance Preventative Medication(s):: Aspirin, Statin/lipid and Beta eva H/O mental health issues: depression, anxiety, or addiction?: No Doesn?t believe in the benefits of treatment?: No Believes medications are unnecessary or harmful?: No Has a concern about medication side effects?: No Expresses concern over the cost of medications?: No Outcomes/Goals: Verbalizes medications,desired effect & common side effects @ DC, Pt self-reports following medication regimen, Keeps card in wallet w/medications listed by DC and Other additional outcome/goals: Interventions/plans: Instruct on medication effects & side effects, Review medication list w/patient every two weeks, Instruct importance of taking meds as ordered & assist problem solving and Other additional 30-day Reassessments:: Met Tobacco Use Tobacco Use: Non-smoker Hypertension Hypertension Diagnosis:: Hypertension ICD-10 I10 Resting Blood Pressure:: 140/60 [place] [employer] Hypertension Guidelines Peak Exercise Blood Pressure:: 142/60 Outcomes/Goals: Able to verbalize/achieve optimal blood pressure <130/80, Incorporates diet changes & exercise for blood pressure control by DC and Other additional outcomes/goals Interventions/plan: Instruct on optimal blood pressure, hypertension & medications, Instruct on effects of sodium, alcohol, stress, exercise &hypertension and Other additional plan/interventions 30 day Reassessments:: Met Tobacco Cessation Referral Smoking Cessation Referral:: No Individual Education/Counseling:: No Education Schedule Given:: Yes Psychosocial - 30-Day Assess Target Goals Target Goals Psychosocial - 60-Day Assess Target Goals Target Goals Psychosocial - 90-Day Assess VIsit Date of Eval: 08/03/23 Session #:: 32 History of previous Mental disease:: No Target Goals Target Goals Psychosocial - Final Assessmen Target Goals Target Goals Nutrition - 90-Day Assessment Program Goals Nutrition Program Goals Patient has diagnosis of Hyperlipidemia (ICD E78)?: Yes Visit Date of Eval: 08/03/23 Session #:: 32 Cholesterol/Lipids (Other Core Measures) Determine presence & major risk factors that modify LDL goal: Hypertension or hypertensive medication, Low HDL cholesterol <40 mg/dL*, Family history of premature CHD in Male < 55 years: female <65 yearsFa and Age men > 45 years; women >/= 55 years Outcomes/Goals: Pt IDs own risk factors & lifestyle modifications by Session 10, Verbalizes symptoms of angina & response by session 3., Pt independently manages and Other Additional Outcomes/Goals: Intervention/Plan: Advocate for lipid panel cholesterol medication if applicable, Instruct on personal lipid levels & lipid goals/NCEP guidelines, Instruct on cholesterol and Other additional plan/int 30-day Reassessments:: Met Diabetes (Other Core Measures) Diabetes Type: Diagnosis Type II ICD-10 E11 Non-Insulin Dependent?: Yes Do you monitor your blood sugar at home?: No Outcomes/Goals:: Able to state symptoms of, Able to state, Able to state and Other additional Intervention/Plan:: Instruct on, Refer to, Instruct on and Other 30-day Reassessments:: Met Weight Mgt (Other Care) Height: 5 ft 9 in Weight:: 192 lb BMI: 28.3 Diagnosis Overweight/Obesity BMI> 30% ICD-10 E66: No Diagnosis High BMI/Morbid Obesity BMI> 35% ICD-10 Z68: No Outcomes/Goals: Pt sets, maintains & shows weight loss goal & trend during rehab and Other additional outcomes/goals 30 day Reassessments:: Met Healthy Eating Habits Will attend diet classes:: Yes Outcomes/Goals:: Consume diet rich in vegs,fruits,whole grain/high fiber,fish,lean meat, Limit sat/trans fats,cholesterol & added salts & sugars and Other additional outcome/goals: Intervention/Plan:: Assess current eating habits and Other Additional plan/interventions 30-day Reassessments:: Met Education Gave educational materials for:: Signs & symptoms of hypoglycemia, Signs & symptoms of hyperglycemia, Relate diabetes to coronary artery disease and Healthy eating Nutrition - Final Assessment Weight Mgt (Other Care) Height: 5 ft 9 in Weight:: 192 lb BMI: 28.3
[2023-08-03 10:22] VITALS: BP 140/60; BMI 28.3
[2023-08-03 10:26] VITALS: BP 140/60
== END 2023-08-04 23:59 ==
LOC: CR 08:00
PROVIDERS: PCP Family Medicine; Referring Provider Internal Medicine Cardiovascular Disease; Visit Provider Internal Medicine Cardiovascular Disease
DX: I21.4 Non-ST elevation (NSTEMI) myocardial infarction (principal); R07.9 Chest pain, unspecified; R77.8 Other specified abnormalities of plasma proteins
CPT/HCPCS: 93798

== ENCOUNTER → 2023-08-04 | Outpatient (CLI) | payer MEDICARE, OTHER, SELFPAY ==
[2023-08-03 10:22] VITALS: BMI 28.3
[2023-08-04 11:00] VITALS: PULSE 66; PULSE 68; PULSE 90; PULSE 91; PULSE 94; PULSE 96; PULSE 97; PULSE 99; O2SAT 90; O2SAT 91; O2SAT 93; O2SAT 95; O2SAT 97; O2SAT 98
--- NOTE | 2023-08-05 08:05 | WT_ITS ---
PSN 6 Minute Walk Test 6 Minute Walk Test 6 Minute Walk Test: 6 Minute Walk Test PSN:6-Minute Walk Test Start: 08/04/23 11:20 Freq: Status: Active Protocol: [id number] Document 08/04/23 11:00 [facility] (Rec: 08/04/23 11:23 [facility] Desktop) 6 Minute Walk Test Date Performed 08/04/23 Time Performed 11:00 Height 5 ft 9 in Weight: 192 lb Weight in Pounds 192.[address]: Dr Verma Assistive device used: None Pre-test Oxygen Delivery Method Room Air Pulse Ox 98 Pulse Rate (60-100) 66 Dyspnea Elana Scale (0-10) 0 Exertion Elana Scale (6-20) 6 1st minute Oxygen Delivery Method Room Air Pulse Ox 93 Pulse Rate (60-100) 90 2nd minute Oxygen Delivery Method Room Air Pulse Ox 90 Pulse Rate (60-100) 99 3rd minute Oxygen Delivery Method Room Air Pulse Ox 91 Pulse Rate (60-100) 91 4th minute Oxygen Delivery Method Room Air Pulse Ox 90 Pulse Rate (60-100) 97 5th minute Oxygen Delivery Method Room Air Pulse Ox 91 Pulse Rate (60-100) 94 6th minute Oxygen Delivery Method Room Air Pulse Ox 95 Pulse Rate (60-100) 96 Dyspnea Elana Scale (0-10) 0 Exertion Elana Scale (6-20) 11 Post-test Oxygen Delivery Method Room Air Pulse Ox 97 Pulse Rate (60-100) 68 Full Laps Walked 19 Partial Lap, Number of Tiles Walked 5 Total Distance Walked (ft) 1126 Interpretation Interpretation: The patient ambulated 1126 feet over the course of 6 minutes beginning on room air without assistive devices. Pretesting oxygen saturation was noted to be 98% on room air. With ambulation, the alber oxygen saturation was 90%. This repre sents a significant exertional oxygen desaturation, consistent with a pulmonary limitation to exercise tolerance. Recommendations Recommendations: There is no indication for the use of supplemental oxygen at this time. However, close interval follow-up was recommended, given the degree of oxygen desaturation noted during this study.
== END | disposition home or self-care (01) ==
LOC: PSN 11:03
PROVIDERS: PCP Family Medicine; Visit Provider Internal Medicine Critical Care Medicine
DX: J45.909 Unspecified asthma, uncomplicated (principal)
CPT/HCPCS: 94618

== ENCOUNTER → 2023-08-05 | Outpatient (CLI) | payer MEDICARE, OTHER, SELFPAY ==
[2023-08-03 10:22] VITALS: BMI 28.3
[2023-08-05 10:01] LABS: Absolute Lymphocyte Count 2.21 X10^3/uL (0.83-4.51); Absolute Neutrophil Count 5.4 X10^3/uL (2.0-7.7); Basophil# 0.03 X10^3/uL; Basophil% 0.3 % (0-1); Eosinophil# 0.51 X10^3/uL; Eosinophils% 5.6 % (0-5); Hemoglobin 13.7 g/dL (13.0-16.5); Lymphocyte # 2.21 X10^3/ul (0.83-4.51); Lymphocyte % 24.4 % (19-41); Mean Corp Hgb Conc 32.6 g/dL (32-36); Mean Corpuscular Hgb 30.3 pg (27.0-32.0); Mean Corpuscular Volume 92.9 fL (80-94); Mean Platelet Vol. 9.5 fl (6.2-12.0); Monocyte# 0.88 X10^3/uL; Monocyte% 9.7 % (0-10); NRBC Flagged by Analyzer 0 % (0-5); Neutrophil # 5.39 X10^3/uL (2.7-7.7); Neutrophil % 59.8 % (47-70); Platelet Count 256 K/mm3 (150-450); RBC Distribution Width CV 14.6 % (11.6-14.6); Red Blood Count 4.52 M/mm3 (4.6-6.2)
[2023-08-08 22:06] LABS: Alternaria tenuis <0.10 kU/L (Class 0); Ash, White <0.10 kU/L (Class 0); Aspergillus fumigatus <0.10 kU/L (Class 0); Bermuda Grass <0.10 kU/L (Class 0); Birch <0.10 kU/L (Class 0); Black Walnut <0.10 kU/L (Class 0); Cat Hair / Dander,Stand <0.10 kU/L (Class 0); Cladosporium herbarum <0.10 kU/L (Class 0); Cockroach, American <0.10 kU/L (Class 0); Cottonwood 0.12 kU/L (Class 0/I); D farinae Mite <0.10 kU/L (Class 0); D pteronyssinus <0.10 kU/L (Class 0); Dog Epithelia <0.10 kU/L (Class 0); Elm, American White <0.10 kU/L (Class 0); Immunoglobulin E 51 IU/mL (6-495); Maple/Box Elder <0.10 kU/L (Class 0); Mouse Urine <0.10 kU/L (Class 0); Mulberry, White <0.10 kU/L (Class 0); Oak, White <0.10 kU/L (Class 0); Pecan <0.10 kU/L (Class 0); Penicillium Notatum <0.10 kU/L (Class 0); Pigweed, Rough <0.10 kU/L (Class 0); Ragweed, Short/Common <0.10 kU/L (Class 0); Russian Thistle <0.10 kU/L (Class 0); Sheep Sorrel <0.10 kU/L (Class 0); Sycamore, American 0.15 kU/L (Class 0/I); Timothy Grass <0.10 kU/L (Class 0)
[2023-08-09 15:07] LABS: Aspirgillus flavus Negative (Neg:<1:1); Aspirgillus fumigatus Negative (Neg:<1:1); Aspirgillus niger Negative (Neg:<1:1); Cytoplasmic Ab (C-ANCA) <1:20 titer (Neg:<1:20); Immunoglobulin E 50 IU/mL (6-495); Perinuclear Ab (P-ANCA) <1:20 titer (Neg:<1:20)
== END | disposition home or self-care (01) ==
LOC: LAB 09:10
PROVIDERS: PCP Family Medicine; Referring Provider Internal Medicine Critical Care Medicine; Visit Provider Internal Medicine Critical Care Medicine
DX: J45.909 Unspecified asthma, uncomplicated (principal); I25.10 Atherosclerotic heart disease of native coronary artery without angina pectoris
CPT/HCPCS: 36415; 82785; 85025; 86003; 86256; 86606

== ENCOUNTER 2023-08-12 08:00 | Outpatient (RCR) | payer MEDICARE, OTHER, SELFPAY ==
[2023-08-05 00:39] VITALS: BP 118/56; BP 140/60
== END 2023-09-03 23:59 ==
LOC: CR 08:00
PROVIDERS: PCP Family Medicine; Referring Provider Internal Medicine Cardiovascular Disease; Visit Provider Internal Medicine Cardiovascular Disease
DX: I21.4 Non-ST elevation (NSTEMI) myocardial infarction (principal); R07.9 Chest pain, unspecified; R77.8 Other specified abnormalities of plasma proteins
CPT/HCPCS: 93798

== ENCOUNTER → 2023-12-16 | Outpatient (CLI) | payer MEDICARE, OTHER, SELFPAY ==
[2023-12-16 09:49] LABS: Absolute Lymphocyte Count 2.65 X10^3/uL (0.83-4.51); Absolute Neutrophil Count 3.3 X10^3/uL (2.0-7.7); Basophil# 0.05 X10^3/uL; Basophil% 0.7 % (0-1); Eosinophil# 0.29 X10^3/uL; Eosinophils% 4.2 % (0-5); Hematocrit 42.4 % (40-54); Hemoglobin 13.8 g/dL (13.0-16.5); Lymphocyte # 2.65 X10^3/ul (0.83-4.51); Lymphocyte % 38.2 % (19-41); Mean Corp Hgb Conc 32.5 g/dL (32-36); Mean Corpuscular Hgb 29.9 pg (27.0-32.0); Mean Platelet Vol. 9.2 fl (6.2-12.0); Monocyte# 0.65 X10^3/uL; Monocyte% 9.4 % (0-10); NRBC Flagged by Analyzer 0 % (0-5); Neutrophil # 3.27 X10^3/uL (2.7-7.7); Neutrophil % 47.2 % (47-70); Platelet Count 263 K/mm3 (150-450); RBC Distribution Width CV 13.3 % (11.6-14.6); RBC Distribution Width SD 45.1 fl (35.1-43.9); Red Blood Count 4.61 M/mm3 (4.6-6.2); White Blood Count 6.9 K/mm3 (4.4-11.0)
--- OUTSIDE RECORDS SUMMARY | 2023-12-16 10:26 | XMS RPT_ITS | CCD ---
Author Name Unknown Address [address] [place] [address] Organization [facility] Care Team Providers Care Bumper Straightener Name Role Phone Yue Dickinson Unavailable Unavailable Angel Dorman Unavailable Unavailable Alok Yue Unavailable Unavailable Medications Completed/Discontinued Medications Medication Drug Class(es) Dates Sig (Normalized) Sig (Original) aspirin 81 mg oral tablet (9 sources) Nonsteroidal Anti-inflammatory Drug Start: 06-17-2013 take 1 tablet by mouth once daily ASPIRIN 81 MG TABS One tablet by mouth daily ASPIRIN [id number] Samantha Kulkarni PA-C Problems Active Problems Problem Classification Problem Date Documented Da te Episodic/Chronic Coronary atherosclerosis and other heart disease (6 sources) Coronary arteriosclerosis; Translations: [Atherosclerotic heart disease of [place] coronary artery without angina pectoris] Onset: 02-23-2013 02-23-2013 Chronic Diabetes mellitus without complication (3 sources) Diabetes mellitus; Translations: [Type 2 diabetes mellitus without complications] Onset: 05-30-2014 05-30-2014 Chronic Disorders of lipid metabolism (3 sources) Hyperlipidemia; Translations: [Hyperlipidemia, unspecified] Onset: 02-23-2013 02-23-2013 Chronic Essential hypertension (3 sources) Hypertensive disorder; Translations: [Essential (primary) hypertension] Onset: 02-23-2013 02-23-2013 Chronic Mood disorders (6 sources) Depressive disorder; Translations: [Major depressive disorder, single episode, unspecified] Onset: 11-22-2013 Resolved: 12-20-2015 12-20-2015 Chronic Other nutritional; endocrine; and metabolic disorders (5 sources) Body mass index (BMI) 33.0-33.9, adult; Translations: [Body mass index (BMI) 30.0-30.9, adult] Onset: 11-22-2013 12-20-2015 Chronic Other nutritional; endocrine; and metabolic disorders (1 source) Body mass index (BMI) 30.0-30.9, adult; Translations: [Body mass index (BMI) 30.0-30.9, adult] Onset: 11-22-2013 11-22-2013 Chronic Past or Other Problems Problem Classification Problem Date Documented Da te Episodic/Chronic Coronary atherosclerosis and other heart disease (3 sources) Presence of aortocoronary bypass graft; Translations: [Presence of aortocoronary bypass graft] Onset: 02-23-2013 02-23-2013 Episodic Other lower respiratory disease (3 sources) Dyspnea; Translations: [Shortness of breath] Onset: 12-20-2015 12-20-2015 Episodic Results Test Name Value Interpretation Reference Range Facil ity Vital Signs Date Time Vital Sign Value Performing Clinician [place] [facility] 06-23-2017 13:48-0400 BMI (Body Mass Index) 31.89 kg/m2 Yue Curtis [facility] Work Phone: 06-23-2017 13:48-0400 BP Diastolic 70 mm[Hg] Yue Dickinson [facility] Work Phone: 06-23-2017 13:48-0400 BP Systolic 110 mm[Hg] Yue Curtis [facility] Work Phone: 06-23-2017 13:48-0400 Pulse (Heart Rate) 72 /min Yue Dickinson [facility] Work Phone: 06-23-2017 13:48-0400 Weight 97.98 kg Yue Dickinson [facility] Work Phone: 12-25-2016 10:20-0400 BMI (Body Mass Index) 31.94 kg/m2 [facility] Work Phone: 12-25-2016 10:20-0400 BP Diastolic 70 mm[Hg] [facility] Work Phone: 12-25-2016 10:20-0400 BP Systolic 110 mm[Hg] [facility] Work Phone: 12-25-2016 10:20-0400 Height 175.26 cm Angel [facility] Work Phone: [phone] 10:20-0400 Pulse (Heart Rate) 72 /min Harumi DeFinis [facility] Work Phone: 12-25-2016 10:20-0400 Respiratory Rate 20 /min Harumi DeFinis [facility] Work Phone: 12-25-2016 10:20-0400 Weight 98.11 kg Harumi DeFinis [facility] Work Phone: 06-26-2016 10:08-0400 BSA (Body Surface Area) 2.15 m2 Harumi DeFinis [facility] Work Phone: 12-20-2015 14:37-0400 Heart rate 71 /min Yue Dickinson [facility] Work Phone: 05-05-2013 09:41-0400 BP Diastolic 64 mm[Hg] Harumi DeFinis [facility] Work Phone: 05-05-2013 09:41-0400 BP Diastolic 78 mm[Hg] Harumi DeFinis [facility] Work Phone: 05-05-2013 09:41-0400 BP Systolic 102 mm[Hg] Harumi DeFinis [facility] Work Phone: 05-05-2013 09:41-0400 BP Systolic 126 mm[Hg] Harumi DeFinis [facility] Work Phone: 03-16-2013 15:53-0400 Body Temperature 98 [degF] Harumi DeFinis [facility] Work Phone: 03-16-2013 15:53-0400 Pulse Oximetry 95 % Harumi DeFinis [facility] Work Phone: Procedures Date Procedure Procedure Detail Performing Clinician Start: 06-23-2017 End: 06-23-2017 FRETTED STRING INSTRUMENT REPAIRER Samantha Kulkarni PA-C Work Phone: Start: 06-23-2017 End: 06-23-2017 Follow Up Appt 6 months Samantha zapata PA-C Work Phone: Start: 06-23-2017 End: 06-23-2017 Dietary management education, guidance, and counseling Yue Dickinson Start: 06-23-2017 End: 06-23-2017 FRETTED STRING INSTRUMENT REPAIRER Samantha Kulkarni PA-C Work Phone: Start: 06-23-2017 End: 06-23-2017 Follow Up Appt 6 months Samantha zapata PA-C Work Phone: Start: 12-25-2016 End: 12-25-2016 Follow Up Appt 6 months Christi Sevilla Start: 12-25-2016 End: 12-25-2016 NATALIIA Garcia MD Start: 12-25-2016 End: 12-25-2016 Follow Up Appt 6 months Christi Sevilla Start: 12-25-2016 End: 12-25-2016 NATALIIA Garcia MD Start: 06-26-2016 End: 06-26-2016 FRETTED STRING INSTRUMENT REPAIRER [employer]-C Start: 06-26-2016 End: 06-26-2016 Follow Up Appt 6 months [facility] [employer] [employer] -C Start: 06-26-2016 End: 06-26-2016 FRETTED STRING INSTRUMENT REPAIRER [facility] [employer] [facility]-C Start: 06-26-2016 End: 06-26-2016 Follow Up Appt 6 months [facility] [employer] [employer] -C Start: 12-20-2015 End: 12-24-2015 Chest x-ray Babak Garcia MD Start: 12-20-2015 End: 12-20-2015 Ecg routine ecg w/least 12 lds w/i&r Babak Garcia MD Start: 12-20-2015 End: 12-24-2015 Echocardiography Babak Garcia MD Start: 12-20-2015 End: 12-20-2015 Follow Up Appt 6 months Christi Sevilla Start: 12-20-2015 End: 12-20-2015 MMM Babak Garcia MD Start: 12-20-2015 End: 12-24-2015 Nuclear stress test -exercise Babak Huynh MD Start: 12-20-2015 End: 12-24-2015 Chest x-ray Babak Garcia MD Start: 12-20-2015 End: 12-24-2015 Echocardiography Babak Garcia MD Start: 12-20-2015 End: 12-20-2015 Electrocardiogram, complete Baabk Villarreal i, MD Start: 12-20-2015 End: 12-20-2015 Follow Up Appt 6 months Christi Sevilla Start: 12-20-2015 End: 12-20-2015 MMM Babak Garcia MD Start: 12-20-2015 End: 12-24-2015 Nuclear stress test -exercise Babak Huynh MD Start: 12-21-2014 End: 12-20-2015 DELMER Garcia MD Start: 12-21-2014 End: 12-22-2014 Documentation of current medications Babak Garcia MD Start: 12-21-2014 End: 12-20-2015 Follow Up Appt 1 year Babak Garcia MD Start: 12-21-2014 End: 12-20-2015 DELMER Garcia MD Start: 12-21-2014 End: 12-22-2014 Documentation of current medications Babak Garcia MD Start: 12-21-2014 End: 12-20-2015 Follow Up Appt 1 year Babak Garcia MD Start: 05-30-2014 End: 05-30-2014 DELMER Kulkarni PA-C Work Phone: Start: 05-30-2014 End: 05-30-2014 Follow Up Appt 6 months Samantha zapata PA-C Work Phone: Start: 05-30-2014 End: 05-30-2014 DELMER Kulkarni PA-C Work Phone: Start: 05-30-2014 End: 05-30-2014 Follow Up Appt 6 months Samantha zapata PA-C Work Phone: Start: 11-22-2013 End: 11-22-2013 Follow Up Appt 6 months Christi Sevilla Start: 11-22-2013 End: 11-22-2013 NATALIIA Garcia MD Start: 11-22-2013 End: 11-22-2013 Follow Up Appt 6 months Christi Sevilla Start: 11-22-2013 End: 11-22-2013 NATALIIA Garcia MD Start: 06-17-2013 End: 06-17-2013 DELMER Kulkarni PA-C Work Phone: Start: 06-17-2013 End: 06-17-2013 Follow Up Appt 4 months Samantha zapata PA-C Work Phone: Start: 06-17-2013 End: 06-17-2013 Follow Up Appt Other Samantha garsia PA-C Work Phone: Start: 06-17-2013 End: 06-17-2013 DELMER Kulkarni PA-C Work Phone: Start: 06-17-2013 End: 06-17-2013 Follow Up Appt 4 months Samantha zapata PA-C Work Phone: Start: 06-17-2013 End: 06-17-2013 Follow Up Appt Other Samantha garsia PA-C Work Phone: Start: 05-05-2013 End: 05-05-2013 *RABIA Kulkarni PA-C Work Phone: Start: 05-05-2013 End: 05-05-2013 CBC W Auto Differential panel - Blood Samantha Kulkarni PA-C Work Phone: Start: 05-05-2013 End: 05-05-2013 Ecg routine ecg w/least 12 lds w/i&r Samantha Kulkarni PA-C Work Phone: Start: 05-05-2013 End: 05-05-2013 Follow Up Appt Other Samantha garsia PA-C Work Phone: Start: 05-05-2013 End: 05-05-2013 *RABIA Kulkarni PA-C Work Phone: Start: 05-05-2013 End: 05-05-2013 CBC W Auto Differential panel - Blood Samantha Kulkarni PA-C Work Phone: Start: 05-05-2013 End: 05-05-2013 Electrocardiogram, complete Samantha Hernandes PA-C Work Phone: Start: 05-05-2013 End: 05-05-2013 Follow Up Appt Other Samantha garsia PA-C Work Phone: Start: 03-16-2013 End: 06-07-2013 *Hepatic Function Panel Christi Sevilla Start: 03-16-2013 End: 06-08-2013 Cardiac Rehab Babak Garcia MD Start: 03-16-2013 End: 06-07-2013 Chest x-ray Babak Garcia MD Start: 03-16-2013 End: 06-07-2013 Ecg routine ecg w/least 12 lds w/i&r Babak Garcia MD Start: 03-16-2013 End: 03-16-2013 Follow Up Appt 3 months Christi Sevilla Start: 03-16-2013 End: 06-07-2013 Lipid 1996 panel - Serum or Plasma Babak Garcai MD Start: 03-16-2013 End: 03-16-2013 MMM Babak Garcia MD Start: 03-16-2013 End: 06-07-2013 *Hepatic Function Panel Christi Sevilla Start: 03-16-2013 End: 06-08-2013 Cardiac Rehab Babak Garcia MD Start: 03-16-2013 End: 06-07-2013 Chest x-ray Babak Garcia MD Start: 03-16-2013 End: 06-07-2013 Electrocardiogram, complete Babak Villarreal i, MD Start: 03-16-2013 End: 03-16-2013 Follow Up Appt 3 months Christi Sevilla Start: 03-16-2013 End: 06-07-2013 Lipid panel [AGGREGATE] Christi Sevilla Start: 03-16-2013 End: 03-16-2013 MMM Babak Garcia MD Plan of Treatment Date Care Activity Detail Author Start: 12-31-2017 End: 12-31-2017 Appointment Appointment [facility] Work Phone: Start: 06-23-2017 End: 06-23-2017 Appointment Appointment [facility] Work Phone: Start: 06-23-2017 End: 06-23-2017 FRETTED STRING INSTRUMENT REPAIRER FRETTED STRING INSTRUMENT REPAIRER [facility] Work Phone: Start: 06-23-2017 End: 06-23-2017 Follow Up Appt 6 months Follow Up Appt 6 months [facility] Work Phone: Start: 06-23-2017 End: 06-23-2017 FRETTED STRING INSTRUMENT REPAIRER FRETTED STRING INSTRUMENT REPAIRER [facility] Work Phone: Start: 06-23-2017 End: 06-23-2017 Follow Up Appt 6 months Follow Up Appt 6 months [facility] Work Phone: Start: 12-25-2016 End: 12-25-2016 Follow Up Appt 6 months Follow Up Appt 6 months [facility] Work Phone: Start: 12-25-2016 End: 12-25-2016 MMM MMM [facility] Work Phone: Start: 12-25-2016 End: 12-25-2016 Follow Up Appt 6 months Follow Up Appt 6 months [facility] Work Phone: Start: 12-25-2016 End: 12-25-2016 MMM MMM [facility] Work Phone: Start: 06-26-2016 End: 06-26-2016 FRETTED STRING INSTRUMENT REPAIRERBg DOWELL [facility] Work Phone: Start: 06-26-2016 End: 06-26-2016 Follow Up Appt 6 months Follow Up Appt 6 months [facility] Work Phone: Start: 06-26-2016 End: 06-26-2016 FRETTED STRING INSTRUMENT REPAIRER FRETTED STRING INSTRUMENT REPAIRER [facility] Work Phone: Start: 06-26-2016 End: 06-26-2016 Follow Up Appt 6 months Follow Up Appt 6 months [facility] Work Phone: Start: 12-20-2015 End: 12-24-2015 Chest x-ray X-Ray, Chest, PA & Lateral [facility] Work Phone: Start: 12-20-2015 End: 12-20-2015 Ecg routine ecg w/least 12 lds w/i&r EKG (In office) [facility] Work Phone: Start: 12-20-2015 End: 12-20-2015 Echocardiography Echocardiogram (complete) [facility] Work Phone: Start: 12-20-2015 End: 12-20-2015 Follow Up Appt 6 months Follow Up Appt 6 months [facility] Work Phone: Start: 12-20-2015 End: 12-20-2015 MMM MMM [facility] Work Phone: Start: 12-20-2015 End: 12-20-2015 Nuclear stress test -exercise Nuclear stress test -exercise [facility] Work Phone: Start: 12-20-2015 End: 12-24-2015 Chest x-ray X-Ray, Chest, PA & Lateral [facility] Work Phone: Start: 12-20-2015 End: 12-20-2015 Echocardiography Echocardiogram (complete) [facility] Work Phone: Start: 12-20-2015 End: 12-20-2015 Electrocardiogram, complete EKG (In office) [facility] Work Phone: Start: 12-20-2015 End: 12-20-2015 Follow Up Appt 6 months Follow Up Appt 6 months [facility] Work Phone: Start: 12-20-2015 End: 12-20-2015 MMM MMM [facility] Work Phone: Start: 12-20-2015 End: 12-20-2015 Nuclear stress test -exercise Nuclear stress test -exercise [facility] Work Phone: Start: 12-21-2014 End: 12-20-2015 FRETTED STRING INSTRUMENT REPAIRER FRETTED STRING INSTRUMENT REPAIRER [facility] Work Phone: Start: 12-21-2014 End: 12-20-2015 Follow Up Appt 1 year Follow Up Appt 1 year [facility] Work Phone: Start: 12-21-2014 End: 12-20-2015 FRETTED STRING INSTRUMENT REPAIRER FRETTED STRING INSTRUMENT REPAIRER [facility] Work Phone: Start: 12-21-2014 End: 12-20-2015 Follow Up Appt 1 year Follow Up Appt 1 year [facility] Work Phone: Start: 05-30-2014 End: 05-30-2014 FRETTED STRING INSTRUMENT REPAIRER FRETTED STRING INSTRUMENT REPAIRER [facility] Work Phone: Start: 05-30-2014 End: 05-30-2014 Follow Up Appt 6 months Follow Up Appt 6 months [facility] Work Phone: Start: 05-30-2014 End: 05-30-2014 FRETTED STRING INSTRUMENT REPAIRER FRETTED STRING INSTRUMENT REPAIRER [facility] Work Phone: Start: 05-30-2014 End: 05-30-2014 Follow Up Appt 6 months Follow Up Appt 6 months [facility] Work Phone: Start: 11-22-2013 End: 11-22-2013 Follow Up Appt 6 months Follow Up Appt 6 months [facility] Work Phone: Start: 11-22-2013 End: 11-22-2013 MMM MMM [facility] Work Phone: Start: 11-22-2013 End: 11-22-2013 Follow Up Appt 6 months Follow Up Appt 6 months [facility] Work Phone: Start: 11-22-2013 End: 11-22-2013 MMM MMM [facility] Work Phone: Start: 06-17-2013 End: 06-17-2013 FRETTED STRING INSTRUMENT REPAIRER FRETTED STRING INSTRUMENT REPAIRER [facility] Work Phone: Start: 06-17-2013 End: 06-17-2013 Follow Up Appt 4 months Follow Up Appt 4 months [facility] Work Phone: Start: 06-17-2013 End: 06-17-2013 Follow Up Appt Other Follow Up Appt Other [facility] Work Phone: Start: 06-17-2013 End: 06-17-2013 FRETTED STRING INSTRUMENT REPAIRER FRETTED STRING INSTRUMENT REPAIRER [facility] Work Phone: Start: 06-17-2013 End: 06-17-2013 Follow Up Appt 4 months Follow Up Appt 4 months [facility] Work Phone: Start: 06-17-2013 End: 06-17-2013 Follow Up Appt Other Follow Up Appt Other [facility] Work Phone: Start: 05-05-2013 End: 05-05-2013 *BMP *BMP [facility] Work Phone: Start: 05-05-2013 End: 05-05-2013 CBC W Auto Differential panel - Blood *CBC without Diff [facility] Work Phone: Start: 05-05-2013 End: 05-05-2013 Ecg routine ecg w/least 12 lds w/i&r EKG (In office) [facility] Work Phone: Start: 05-05-2013 End: 05-05-2013 Follow Up Appt Other Follow Up Appt Other [facility] Work Phone: Start: 05-05-2013 End: 05-05-2013 *BMP *BMP [facility] Work Phone: Start: 05-05-2013 End: 05-05-2013 CBC W Auto Differential panel - Blood *CBC without Diff [facility] Work Phone: Start: 05-05-2013 End: 05-05-2013 Electrocardiogram, complete EKG (In office) [facility] Work Phone: Start: 05-05-2013 End: 05-05-2013 Follow Up Appt Other Follow Up Appt Other [facility] Work Phone: Start: 03-16-2013 End: 06-07-2013 *Hepatic Function Panel *Hepatic Function Panel [facility] Work Phone: Start: 03-16-2013 End: 06-07-2013 Cardiac Rehab Cardiac Rehab [facility] Work Phone: Start: 03-16-2013 End: 06-07-2013 Chest x-ray X-Ray, Chest, PA & Lateral [facility] Work Phone: Start: 03-16-2013 End: 06-07-2013 Ecg routine ecg w/least 12 lds w/i&r EKG (In office) [facility] Phone: Start: 03-16-2013 End: 03-16-2013 Follow Up Appt 3 months Follow Up Appt 3 months [facility] Phone: Start: 03-16-2013 End: 06-07-2013 Lipid 1996 panel *Lipid Profile CC PCP [facility] Work Phone: Start: 03-16-2013 End: 03-16-2013 MMM MM [facility] Phone: Start: 03-16-2013 End: 06-07-2013 *Hepatic Function Panel *Hepatic Function Panel [facility] Phone: Start: 03-16-2013 End: 06-07-2013 Cardiac Rehab Cardiac Rehab [facility] Phone: Start: 03-16-2013 End: 06-07-2013 Chest x-ray X-Ray, Chest, PA & Lateral [facility] Phone: Start: 03-16-2013 End: 06-07-2013 Electrocardiogram, complete EKG (In office) [facility] Phone: Start: 03-16-2013 End: 03-16-2013 Follow Up Appt 3 months Follow Up Appt 3 months [facility] Phone: Start: 03-16-2013 End: 06-07-2013 Lipid panel [AGGREGATE] *Lipid Profile CC PCP [facility] Work Phone: Start: 03-16-2013 End: 03-16-2013 MMM MMM [facility] Work Phone: Additional Source Comments FOR RECORDS PERTAINING TO PATIENTS WHO ARE OR HAVE BEEN ENROLLED IN A CHEMICAL DEPENDENCY/SUBSTANCEABUSE PROGRAM, SOME INFORMATION MAY BE OMITTED. This clinical summary was aggregated from multiple sources. Caution should be exercised in using it in the provision of clinical care. This summary normalizes information from multiple sources, and as a consequence, information in this document may materially change the coding, format and clinical context of patient data. In addition, data may be omitted in some cases. CLINICAL DECISIONS SHOULD BE BASED ON THE PRIMARY CLINICAL RECORDS. [facility] [employer] [facility]. provides no warranty or guarantee of the accuracy or completeness of information in this document.
[2023-12-16 10:44] LABS: ALB/GLOB Ratio 1.1 RATIO (0.9-2.4); AST(SGOT) 21 U/L (15-37); Alanine Aminotransfer ALT/SGPT 39 U/L (16-61); Albumin, Serum 3.8 g/dL (3.2-5.0); Alkaline Phosphatase 58 U/L (45-117); Anion Gap 7 (5-15); BUN 18 mg/dL (7-18); BUN/Creat Ratio 22.4 RATIO (10-20); Calcium,Total 9.3 mg/dL (8.5-10.1); Chloride 103 mmol/L (98-107); Cholesterol 169 mg/dL (200); EST Glomerular Filtration Rate 101 mL/min (>60); Est Glom Filt Rate - Afr Amer 123 mL/min (>60); Globulin 3.5 g/dL (2.2-4.2); Glucose 124 mg/dL (74-106); High Density Lipoprotein 68 mg/dL; Potassium 4.4 mmol/L (3.5-5.1); Protein, Total 7.3 g/dL (6.4-8.2); Sodium Level 138 mmol/L (136-145); Triglycerides 119 mg/dL; Very Low Density Lipoprotein 24 mg/dL (5-40)
== END | disposition home or self-care (01) ==
LOC: MFPLAB 09:18
PROVIDERS: PCP Family Medicine; Visit Provider Family Medicine
DX: J45.909 Unspecified asthma, uncomplicated (principal); I25.10 Atherosclerotic heart disease of native coronary artery without angina pectoris
CPT/HCPCS: 36415; 80053; 80061; 85025

== ENCOUNTER 2024-02-07 22:23 | Inpatient (IN) | payer MEDICARE, OTHER, SELFPAY ==
[2024-02-07 22:23] VITALS: BP 128/76; PULSE 73; RESP 18; TEMP 36.5; O2SAT 97; BMI 30.7
--- NOTE | 2024-02-07 22:30 | EDS_ITS ---
HPI History of Present Illness Chief Complaint: Chest Pain Narrative Narrative: 68-year-old male past medical history of quadruple bypass/coronary artery disease presents with chest pain that began 2 hours ago. He states he was getting ready for bed and started feeling pain and pressure on the right side of his chest. He denies any nausea or vomiting, no shortness of breath or diaphoresis. He denies any leg swelling. No exacerbating or alleviating factors. He took 3 nitroglycerin and 4 baby aspirin at home without relief of his symptoms. Additionally, he states that back in April of last year he had cardiac catheterization, and one of his arteries was scarred shut, but the other 2 were patent, and he states that he was told that his body was making his own bypass. [facility] Medical History Acute non-ST elevation myocardial infarction (NSTEMI) Atherosclerotic heart disease of [place] coronary artery without angina pectoris BPH (benign prostatic hyperplasia) Depression Essential (primary) hypertension HLD (hyperlipidemia) Nonrheumatic mitral (valve) insufficiency Obesity Shortness of breath Type 2 diabetes mellitus Home Medications aspirin 81 mg chewable tablet 1 tab PO DAILY Heart Health 01/04/17 [History Last Taken 09/21/18 08:00] escitalopram oxalate 10 mg tablet 1 tab PO DAILY Depression/ anxiety 01/04/17 [History Last Taken 09/21/18 18:00] finasteride 5 mg tablet 1 tab PO DAILY Prostate 01/04/17 [History Last Taken 09/21/18 08:00] metformin 500 mg tablet,extended release 24 hr 1 tab PO BID Diabetes 01/04/17 [History Last Taken 09/21/18 18:00] tamsulosin 0.4 mg capsule 1 tab PO DAILY Prostate 01/04/17 [History Last Taken 09/21/18 08:00] empagliflozin 25 mg tablet 25 mg PO DAILY 09/13/20 [History Last Taken Unknown] fexofenadine 180 mg tablet 180 mg PO DAILY 09/12/21 [History Last Taken Unknown] montelukast 10 mg tablet 10 mg PO DAILY 09/12/21 [History Last Taken Unknown] metoprolol tartrate 25 mg tablet 25 mg PO BID BP 10/10/22 [History Last Taken Unknown] isosorbide mononitrate 30 mg tablet,extended release 24 hr 30 mg PO DAILY #90 tabs 06/16/23 [Rx Last Taken Unknown] fluticasone propionate 50 mcg/actuation nasal spray,suspension 2 spray intranasal Q12H 06/26/23 [History Last Taken Unknown] albuterol sulfate 90 mcg/actuation aerosol inhaler (Ventolin HFA) 2 inh inhalation PRN PRN sob 09/08/23 [History Last Taken Unknown] [id number]-dj-pruab 300 mcg-K 60 mcg-lycop 600 mcg-lutein 300 mcg tablet (Centrum Silver Men) 1 tab PO DAILY 09/08/23 [History Last Taken Unknown] nitroglycerin 0.4 mg sublingual tablet 0.4 mg sublingual ONCE 09/08/23 [History Last Taken Unknown] atorvastatin 40 mg tablet 40 mg PO QHS #90 tabs 10/26/23 [Rx Last Taken Unknown] fluticasone 232 mcg-salmeterol 14 mcg/actuation breath activated powdr (AirDuo RespiClick) 1 inh inhalation BID #1 ea 11/30/23 [Rx Last Taken Unknown] Allergy/AdvReac Type Severity Reaction Status Date / Time No Known Allergies Allergy Verified 12/26/23 08:43 Family History (Updated 02/08/24 @ 02:24 by Hawa Rodriguez) Mother Diabetes CAD (coronary artery disease) Hx CABG Myocardial infarction Sister CAD (coronary artery disease) Hx PTCA Grandfather Cancer Prostate cancer Uncle Cancer Prostate cancer Father Diabetes Surgical History H/O coronary artery bypass surgery (02/24/13) History of umbilical hernia repair Hx of inguinal hernia repair Social History Smoking Status: Never smoker alcohol intake: never substance use type: does not use caffeine: Yes Type: coffee Number of servings: 1 what type of physical activity do you participate in: none seatbelt use: always do you feel safe at home: Yes ROS ROS ED ROS Narrative Constitutional: No fever, no chills. HEENT: No sore throat. No neck pain. No loss of vision. No rhinorrhea. Cardiovascular: Right-sided chest pain and pressure. No palpitations. No pedal edema. Respiratory: No cough, no shortness of breath. Abdominal: No abdominal pain. No nausea. No vomiting. Genitourinary: No dysuria. No hematuria. Musculoskeletal: No myalgias. No arthralgias. Neurologic: No headaches. No dizziness. No lightheadedness. Skin: No rash. No change in color. Psychiatric: No depression. No anxiety. EXAM Physical Exam Narrative Exam Narrative: Afebrile. Vital signs noted. HEENT: Normocephalic. Atraumatic. PERRL, EOMI. Neck soft and supple. No point tenderness or step off. Cardiovascular: Regular rate and rhythm. No murmurs, rubs, or gallops appreciated. Respiratory: No tachypnea. Lungs clear to auscultation bilaterally. Gastrointestinal: Abdomen soft, nontender, with normoactive bowel sounds. No rebound or guarding. Neurological: Awake. Alert. Nonfocal, nonlateralizing. Skin: No rash. Normal color. No pallor. Musculoskeletal: No pedal edema. Full range of motion extremities. Const Vital Signs: 02/07/24 22:23 02/07/24 22:31 02/07/24 23:33 Temperature 97.7 F L Temperature Source Temporal Pulse Rate 73 89 Respiratory Rate 18 15 Blood Pressure 128/76 H 135/70 H Blood Pressure Mean 93 91 Pulse Ox 97 97 Oxygen Delivery Method Room Air Room Air Room Air 02/07/24 23:43 02/08/24 01:00 Temperature Temperature Source Pulse Rate 65 74 Respiratory Rate 25 H 16 Blood Pressure 135/70 H 124/66 H Blood Pressure Mean 91 85 Pulse Ox 94 96 Oxygen Delivery Method Room Air Room Air MDM MDM MDM Narrative Medical decision making narrative: In the differential diagnosis is acute coronary syndrome versus pneumothorax versus pulmonary embolism. I have low suspicion for the latter 2 because the history and physical does not support this. Additionally, he is not tachycardic, and his pulse ox is 97% on room air without hypoxia. Hence I doubt pulmonary embolism. His history and physical does not support aortic dissection either as he has no back pain or tearing pain. EKG was obtained and interpreted by myself independently as normal sinus rhythm at 69 bpm without ectopy or acute ST changes. No STEMI. He does have Q waves inferiorly indicating previous inferior infarct. I reviewed his laboratory work and he has normal white count of 9.7, hemoglobin 14.3, hematocrit normal at 42.7, platelet count normal at 290. Review of his electrolyte panel is consistent with acute kidney injury with a BUN of 26 and creatinine elevated at 1.57 above baseline. He was bolused normal saline 1 L intravenously. Glucose slightly elevated at 201 but anion gap normal at 7 so have low concern for diabetic ketoacidosis. Chest x-ray in 1 view obtained and interpreted by myself independently which shows no evidence of CHF, pneumothorax, or pneumonia. I reviewed the radiology report which confirms my independent interpretation. Patient has already taken aspirin and nitroglycerin. Of significance is his troponin which is elevated at 80. While this may be elevated secondary to an acute coronary syndrome/NSTEMI, he may also have an elevation secondary to his acute kidney injury. However, when his repeat troponin returned at 351, I feel that he has ruled in for NSTEMI. I reviewed his prior catheterization report and he had one of his grafts totally occluded and another which had mild disease. Medical management was suggested by Dr. Ankur Gonzalez with cardiology at that time. Given that he is having elevation of his enzymes again, I discussed the patient with Dr. Garcia who suggested Lovenox as an anticoagulant cognizant that he has acute kidney injury of 1.57. I then discussed patient with Dr. Shantel Wilson for admission. Patient is in stable condition. History & Record Review Discussion w/independent historian: Patient Lab Data Attestation: I reviewed the patient's lab results. Labs: Laboratory Results - last 24 hr 02/07/24 02/08/24 22:32 00:33 WBC 9.7 RBC 4.64 Hgb 14.3 Hct 42.7 MCV 92.0 MCH 30.8 MCHC 33.5 RDW Std Deviation 46.9 H RDW Coeff of Hannah 13.8 Plt Count 290 MPV 9.4 Immature Gran % (Auto) 0.300 Neut % (Auto) 47.5 Lymph % (Auto) 37.6 Love % (Auto) 11.1 H Eos % (Auto) 3.1 Baso % (Auto) 0.4 Absolute Neuts (auto) 4.6 Absolute Lymphs (auto) 3.65 Nucleated RBC % 0 Sodium 137 Potassium 4.2 Chloride 103 Carbon Dioxide 27.0 Anion Gap 7 BUN 26 H Creatinine 1.57 H Estim Creat Clear Calc 51.04 Est GFR (MDRD) Af Amer 57 L Est GFR (MDRD) Non-Af 47 L BUN/Creatinine Ratio 16.6 Glucose 201 H Calcium 9.4 Troponin I High Sens 80 H 351 H* Radiography Diagnostic Testing: Clinical Impression(s) from Imaging Studies Chest X-Ray 02/07/24 22:48 IMPRESSION: No active disease. Electronically Signed: Vitaliy August MD at 23:31 EDT , Management Discussion w/another healthcare provider: Hospitalist and [employer] Discharge Plan Dx/Rx/DC Orders Clinical Impression: Acute kidney injury, Non-ST elevation MS (NSTEMI), Chest pain Disposition Disposition: Acute Care Hospital [facility] Discharge Date/Time: 02/08/24 02:08
--- NOTE | 2024-02-07 22:30 | EKG12_ITS ---
Test Reason : CP Blood Pressure : / mmHG Vent. Rate : 069 BPM Atrial Rate : 069 BPM P-R Int : 132 ms QRS Dur : 102 ms QT Int : 408 ms P-R-T Axes : 040 072 115 degrees QTc Int : 437 ms Normal sinus rhythm Inferior infarct (cited on or before 27-APR-2023) Abnormal ECG Confirmed by Hakeem Ulrich ([id number]), news editor ALEJANDRO CATALAN ([id number]) on 02/08/2024 10:03:00 AM Referred By: AR Confirmed By:Hakeem Ulrich
[2024-02-07 22:38] LABS: Absolute Lymphocyte Count 3.65 X10^3/uL (0.83-4.51); Absolute Neutrophil Count 4.6 X10^3/uL (2.0-7.7); Basophil# 0.04 X10^3/uL; Basophil% 0.4 % (0-1); Eosinophils% 3.1 % (0-5); Hematocrit 42.7 % (40-54); Hemoglobin 14.3 g/dL (13.0-16.5); Lymphocyte # 3.65 X10^3/ul (0.83-4.51); Lymphocyte % 37.6 % (19-41); Mean Corp Hgb Conc 33.5 g/dL (32-36); Mean Corpuscular Hgb 30.8 pg (27.0-32.0); Mean Platelet Vol. 9.4 fl (6.2-12.0); Monocyte# 1.08 X10^3/uL; Monocyte% 11.1 % (0-10); NRBC Flagged by Analyzer 0 % (0-5); Neutrophil # 4.61 X10^3/uL (2.7-7.7); Neutrophil % 47.5 % (47-70); Platelet Count 290 K/mm3 (150-450); RBC Distribution Width CV 13.8 % (11.6-14.6); RBC Distribution Width SD 46.9 fl (35.1-43.9); Red Blood Count 4.64 M/mm3 (4.6-6.2); White Blood Count 9.7 K/mm3 (4.4-11.0)
--- NOTE | 2024-02-07 22:48 | RAD_ITS ---
STUDY: X-RAY CHEST REASON FOR EXAM: Male, 68 years old. chest pain TECHNIQUE: Single AP portable view of the chest. COMPARISON: 07/16/2023 FINDINGS: Status post median sternotomy. The lungs are clear and expanded. There is no demonstrated pleural abnormality. Normal size heart. Normal mediastinum and sanam. Normal visualized pulmonary arteries. Normal visualized aortic arch and descending thoracic aorta. Normal visualized thoracic spine. Normal visualized ribs, clavicles, and shoulders. There is no demonstrated abnormality of the visualized soft tissue structures of the upper abdomen. RAD/Chest 1 View (Portable) IMPRESSION: No active disease. Electronically Signed: Vitaliy August MD at 23:31 EDT ,
[2024-02-07 22:56] LABS: Anion Gap 7 (5-15); BUN 26 mg/dL (7-18); BUN/Creat Ratio 16.6 RATIO (10-20); Calcium,Total 9.4 mg/dL (8.5-10.1); Chloride 103 mmol/L (98-107); Creatinine, Serum 1.57 mg/dL (0.70-1.30); EST Glomerular Filtration Rate 47 mL/min (>60); Est Glom Filt Rate - Afr Amer 57 mL/min (>60); Estimated Creatinine Clearance 51.04 ml/min; Glucose 201 mg/dL (74-106); Potassium 4.2 mmol/L (3.5-5.1); Sodium Level 137 mmol/L (136-145); Troponin-I HS (w/2H Reflex) 80 pg/mL (3.0-78.0)
[2024-02-07 23:33] VITALS: BP 135/70; PULSE 89; RESP 15; O2SAT 97
[2024-02-07 23:43] VITALS: BP 135/70; PULSE 65; RESP 25; O2SAT 94
[2024-02-08] VITALS (12 sets, daily range): BP systolic 109–152; BP diastolic 59–77; PULSE 57–74; RESP 14–18; TEMP 36.2–36.9; O2SAT 95–99; BMI 29.9
[2024-02-08] MEDS: 0.9% Normal Saline (1000mL) 1,000 ML 999 ML IV (00:17)
[2024-02-08 00:36] LABS: Reflex Troponin-HS? (from REC) Y
--- NOTE | 2024-02-08 00:41 | HP.PCM.HOS_ITS ---
HPI - General General Date of Admission: 02/08/24 Date of Service: 02/08/24 Chief Complaint: Chest pain. HPI Narrative The patient is a 68 y/o M w/ PMHx: Obesity, CAD s/p CABG, HTN, HLD, Depression and Anxiety, BPH, Asthma with Allergic rhinitis, Diabetes melllitus type II who presents to the [facility] ED on 02/07/24 with history of chest discomfort starting approximately 2 hours prior to ED arrival starting we will try to get ready for bed with right-sided chest discomfort described as sharp pain and pressure-like in sensation with eventual radiation across the chest in the lower portion with no nausea, emesis, diaphoresis or dyspnea associated with self administration of 4 baby aspirin and 3 nitroglycerin total without any symptom relief prompting eventual ED evaluation. He eventually had the pain across the chest receded but he still had mild discomfort on the right side however this eventually resolved at 2230 while in the ED. He notes when he was having the discomfort at its worst it was 2-3 in severity, currently 0. He reports that in April 2023 he did have a cardiac catheterization and one of his arteries was scarred shut however there reportedly were collaterals but the other 2 were patent with decision for ongoing medical therapy. Did discuss patient's acute kidney injury and he notes that unfortunately probably over the last day or 2 he is only drinking coffee and black tea and had no appropriate water oral intake but does also report that he did have some mild dyspepsia earlier in the day and did take Pepto for this and had 3 bouts of more soft stools which is abnormal for him as he usually only has 1 daily but has had none since. Workup in the ED included T97.7, heart rate 73, BP 120/76, respiratory rate 18, 97% on room air, CBC with WBC 9.7, hemoglobin 14.3, platelet 290 without marked shift, BMP with BUN/creatinine 26/1.57, GFR 47, glucose 201, troponin initial ED, chest x-ray no acute cardiopulmonary findings, EKG with sinus rhythm with no acute evidence of ischemia with Q waves inferiorly consistent with previous infarct. In the ED patient administered IVF 1L bolus. Pending delta troponin upon evaluation and ED physician notes intent to contact patient [employer]k Att[employer] Dr. Garcia once this resul ts to review case. [facility] Medical History Acute non-ST elevation myocardial infarction (NSTEMI) Atherosclerotic heart disease of [place] coronary artery without angina pectoris BPH (benign prostatic hyperplasia) Depression Essential (primary) hypertension HLD (hyperlipidemia) Nonrheumatic mitral (valve) insufficiency Obesity Shortness of breath Type 2 diabetes mellitus Home Medications aspirin 81 mg chewable tablet 1 tab PO DAILY Heart Health 01/04/17 [History Last Taken 09/21/18 08:00] escitalopram oxalate 10 mg tablet 1 tab PO DAILY Depression/ anxiety 01/04/17 [History Last Taken 09/21/18 18:00] finasteride 5 mg tablet 1 tab PO DAILY Prostate 01/04/17 [History Last Taken 09/21/18 08:00] metformin 500 mg tablet,extended release 24 hr 1 tab PO BID Diabetes 01/04/17 [History Last Taken 09/21/18 18:00] tamsulosin 0.4 mg capsule 1 tab PO DAILY Prostate 01/04/17 [History Last Taken 09/21/18 08:00] empagliflozin 25 mg tablet 25 mg PO DAILY 09/13/20 [History Last Taken Unknown] fexofenadine 180 mg tablet 180 mg PO DAILY 09/12/21 [History Last Taken Unknown] montelukast 10 mg tablet 10 mg PO DAILY 09/12/21 [History Last Taken Unknown] metoprolol tartrate 25 mg tablet 25 mg PO BID BP 10/10/22 [History Last Taken Unknown] isosorbide mononitrate 30 mg tablet,extended release 24 hr 30 mg PO DAILY #90 tabs 06/16/23 [Rx Last Taken Unknown] fluticasone propionate 50 mcg/actuation nasal spray,suspension 2 spray intranasal Q12H 06/26/23 [History Last Taken Unknown] albuterol sulfate 90 mcg/actuation aerosol inhaler (Ventolin HFA) 2 inh inhalation PRN PRN sob 09/08/23 [History Last Taken Unknown] gmtqsnbz-br-bewlj 300 mcg-K 60 mcg-lycop 600 mcg-lutein 300 mcg tablet (Centrum Silver Men) 1 tab PO DAILY 09/08/23 [History Last Taken Unknown] nitroglycerin 0.4 mg sublingual tablet 0.4 mg sublingual ONCE 09/08/23 [History Last Taken Unknown] atorvastatin 40 mg tablet 40 mg PO QHS #90 tabs 10/26/23 [Rx Last Taken Unknown] fluticasone 232 mcg-salmeterol 14 mcg/actuation breath activated powdr (AirDuo RespiClick) 1 inh inhalation BID #1 ea 11/30/23 [Rx Last Taken Unknown] Allergy/AdvReac Type Severity Reaction Status Date / Time No Known Allergies Allergy Verified 12/26/23 08:43 Family History Mother CAD (coronary artery disease) Hx CABG Myocardial infarction Diabetes Sister CAD (coronary artery disease) Hx PTCA Grandfather Cancer Prostate cancer Uncle Cancer Prostate cancer Surgical History H/O coronary artery bypass surgery (02/24/13) History of umbilical hernia repair Hx of inguinal hernia repair Social History Smoking Status: Never smoker alcohol intake: never substance use type: does not use caffeine: Yes Type: coffee Number of servings: 1 what type of physical activity do you participate in: none seatbelt use: always do you feel safe at home: Yes ROS ROS Narrative Admission Review of Systems: CONSTITUTIONAL: No weight loss, fever, chills, + weakness or fatigue. HEENT: Eyes: No visual loss, blurred vision, double vision or yellow sclerae. Ears, Nose, Throat: No hearing loss, sneezing, congestion, runny nose or sore throat. SKIN: No rash or itching, lesions, wounds. CARDIOVASCULAR: + Chest pain. No palpitations, edema, orthopnea, syncopal events. RESPIRATORY: No shortness of breath, cough or sputum, wheezing, hemoptysis. GASTROINTESTINAL: + Mild dyspepsia early in the day since resolved, 3 loose stools but is since resolved. No anorexia, nausea, vomiting, abdominal pain, melena, BRBPR. GENITOURINARY: + History of BPH with frequency. No dysuria, urgency or retention. NEUROLOGICAL: No headache, dizziness, syncope, paralysis, ataxia, numbness or tingling in the extremities, focal weakness, change in bowel or bladder control, seizure. MUSCULOSKELETAL: + muscle, back pain, joint pain or stiffness. HEMATOLOGIC: No anemia, bleeding or bruising. LYMPHATICS: No enlarged nodes. No history of splenectomy. PSYCHIATRIC: + History of anxiety and depression.. ENDOCRINOLOGIC: No reports of sweating, cold or heat intolerance. No polyuria or polydipsia. ALLERGIES: + History of asthma and allergic rhinitis. Vital Signs Vital Signs Vital Signs: 02/07/24 22:23 02/07/24 22:31 02/07/24 23:33 Temperature 97.7 F L Temperature Source Temporal Pulse Rate 73 89 Respiratory Rate 18 15 Blood Pressure 128/76 H 135/70 H Blood Pressure Mean 93 91 Pulse Ox 97 97 Oxygen Delivery Method Room Air Room Air Room Air 02/07/24 23:43 Temperature Temperature Source Pulse Rate 65 Respiratory Rate 25 H Blood Pressure 135/70 H Blood Pressure Mean 91 Pulse Ox 94 Oxygen Delivery Method Room Air Weight Weight: 207 lb 14.334 oz Body Mass Index (BMI) 30.7 Physical Exam Narrative Physical Examination: General: Awake, alert, oriented x 3 and cooperative, seated upright in the ED bed, denies any current chest discomfort, notes resolved. Skin: Normal color, normal turgor, no icterus, no cyanosis except occasional staged ecchymoses, abrasion. HEENT: AT/NC, EOMI, PERRLA, MMM, no carotid bruits or JVD noted. Lungs: Mildly diminished, greater bases, appropriate effort, no rales, ronchi or wheezing. Heart: Regular rate and rhythm; no gallop, rub audible. Abdomen: Soft, obese, NTTP, ND, mildly hyperactive BS, no appreciated HSM. Extremities: No cyanosis, no clubbing, mild ankle not markedly pitting edema present Neurological: Patient awake, alert, oriented as noted, cognitive function intact; pupils equally reactive to light and accommodation, cranial nerves grossly normal, moving all 4 extremities, no focal deficits, strength preserved. Psychiatric: Affect appears mildly fatigued otherwise normal, no acute evidence of depressive or anxiety feelings but does have underlying history. Results Lab / Micro Data 02/07/24 22:32 02/07/24 22:32 Labs: Laboratory Results - last 24 hr 02/07/24 22:32: WBC 9.7, RBC 4.64, Hgb 14.3, Hct 42.7, MCV 92.0, MCH 30.8, MCHC 33.5, RDW Std Deviation 46.9 H, RDW Coeff of Hannah 13.8, Plt Count 290, MPV 9.4, Immature Gran % (Auto) 0.300, Neut % (Auto) 47.5, Lymph % (Auto) 37.6, [place] % (Auto) 11.1 H, Eos % (Auto) 3.1, Baso % (Auto) 0.4, Absolute Neuts (auto) 4.6, Absolute Lymphs (auto) 3.65, Nucleated RBC % 0, Sodium 137, Potassium 4.2, Chlo ride 103, Carbon Dioxide 27.0, Anion Gap 7, BUN 26 H, Creatinine 1.57 H, Estim Creat Clear Calc 51.04, Est GFR (MDRD) Af Amer 57 L, Est GFR (MDRD) Non-Af 47 L, BUN/Creatinine Ratio 16.6, Glucose 201 H, Calcium 9.4, Troponin I High Sens 80 H Imaging Radiology Impression Chest X-Ray 02/07/24 22:48 IMPRESSION: No active disease. Electronically Signed: Vitaliy August MD at 23:31 EDT , Assessment & Plan Assessment/Plan (1) Chest pain: (2) Elevated troponin: PLAN: Plan The patient is a 68 y/o M w/ PMHx: Obesity, CAD s/p CABG, HTN, HLD, Depression and Anxiety, BPH, Asthma with Allergic rhinitis, Diabetes melllitus type II who presents to the [facility] ED on 02/07/24 with history of chest discomfort starting approximately 2 hours prior to ED arrival starting we will try to get ready for bed with right-sided chest discomfort described as sharp pain and pressure-like in sensation with eventual radiation across the chest in the lower portion with no nausea, emesis, diaphoresis or dyspnea associated with self administration of 4 baby aspirin and 3 nitroglycerin total without any symptom relief prompting eventual ED evaluation. #1. Chest Pain with indeterminate cardiac enzyme: EKG in ED sinus rhythm with no acute evidence of ischemia with evidence of previous infarct, CXR w/ no acute cardiopulmonary findings, initial trop 80. Will admit to PCU, place on a monitored bed to assure no acute myocardial infarction with serial cardiac enzymes and EKGs. If repeat serial cardiac enzyme similar and unchanged may be able to pursue a.m. cardiac stress testing however if that rises may require transition to heparin drip and intervention but will await delta troponin and per discussion with ED physician he notes intention to contact patient c ardiologist Dr. Garcia to discuss plan of care pending delta troponin level. Discussed these potential pathways/options with the patient and he understands. FLP in AM. Magnesium level requested. ASA, NG, morphine. #2. Acute kidney injury: From discussions likely poor oral hydration with water with notable diuretic intake with black tea and coffee only but could also be a component of GI losses given 3 more loose stools but they seem to of resolved however if they are recurrent we will need to obtain C. difficile and enteric to be cautious. Admission BUN/Cr 26/1.57, GFR 47, prior baseline creatinine noted to be 0.7-0.9 primarily however most recently 12/16/2023 creatinine 0.80. Will hydrate, hold nephrotoxic medications and repeat chemistry in AM. If no improvement would plan FeNa and ultrasound assessment. UA requested. #3. CAD: Status post CABG (HUNT to LAD, SVG to RCA & SVG-OM 2 02/22/13), most recent cardiac catheterization 04/2023 as noted in HPI, continue aspirin, statin, metoprolol, not on RIC inhibitor/ARB. #4. Diabetes mellitus type II: Hold oral home regimen, ADA diet, accu checks w/ ISS. #5. Hypertension: Continue home regimen including metoprolol, isosorbide, PRN hydralazine. #6. Hyperlipidemia: Continue home statin regimen. AM FLP. #7. Anxiety and depression: We will continue patient home escitalopram regimen. #8. Asthma with Allergic rhinitis: We will temporally hold home inhaler in the interim transition to ATC budesonide therapy, PRN albuterol, continue patient home fexofenadine hydrochloride montelukast and fluticasone home regimen. #9. BPH: We will continue patient home Flomax and finasteride home regimen. #10. Obesity: Weight loss and lifestyle changes encouraged. #11. DVT prophylaxis: Lovenox however as noted above if troponin rises will instead pursue heparin drip but will defer to cardiology discretion. #12. CODE status: Patient WANG is his daughter and living will is currently in place. Discussed CODE status at length including difference between FULL code, DNR-CCA and DNR-CC status. Following discussions about the differences in these status, requested Full Code status. Advanced Care Planning Face to Face Time: 16 minutes. Charges/Coding Visit Charges Inpatient E&M: 33988 Init Hosp L2 Procedures Hospitalists Procedures: [id number] Advncd Care Plan 30 Min
[2024-02-08 01:00] LABS: Troponin-I HS 351 pg/mL (3.0-78.0)
[2024-02-08 01:33] LABS: Magnesium 2.1 mg/dL (1.6-2.6)
[2024-02-08] MEDS: Enoxaparin 100 MG/ML Syringe 95 MG SC (01:35)
[2024-02-08 01:39] LABS: International Normalized Ratio 0.9; Partial Thromboplast Time 27.7 Seconds (24.1-36.2); Prothrombin Time (Protime)PT. 11.8 SECONDS (11.7-14.9)
--- NOTE | 2024-02-08 02:15 | EKG12_ITS ---
Test Reason : ADMISSION EKG Blood Pressure : / mmHG Vent. Rate : 063 BPM Atrial Rate : 063 BPM P-R Int : 140 ms QRS Dur : 102 ms QT Int : 438 ms P-R-T Axes : 081 070 107 degrees QTc Int : 448 ms Normal sinus rhythm Incomplete right bundle branch block Inferior infarct , age undetermined Abnormal ECG When compared with ECG of 07-FEB-2024 22:21, MANUAL COMPARISON REQUIRED, DATA IS UNCONFIRMED Confirmed by ANTHONY PERALTA, VIJAYA ([id number]), scientific editor ALEJANDRO CATALAN ([id number]) on 02/08/2024 9:35:00 AM Referred By: Confirmed By:VIJAYA CRUZ MD
--- NOTE | 2024-02-08 02:15 | ECHOCS_ITS ---
Reason For Study: NSTEMI Procedure This was a 2D Doppler, Color Flow transthoracic echocardiogram. The study was technically difficult. Contrast injection was performed. Exam performed portable in patient room. Left Ventricle Normal LV size. Left ventricular systolic function is normal. The estimated ejection fraction is 55 %. Stage 1 diastolic dysfunction. No regional wall motion abnormalities noted. Right Ventricle Normal RV size. Normal systolic function. Atria Normal left atrium. Normal right atrium. Mitral Valve Normal mitral valve. Mild (1+) eccentric mitral valve insufficiency. Tricuspid Valve Normal tricuspid valve. Mild (1+) tricuspid valve insufficiency. Pulmonary artery systolic pressure is 34 mmHg. Aortic Valve Trisinus/trileaflet aortic valve. Pulmonic Valve Normal pulmonic valve. Great Vessels Normal aortic root. The pulmonary artery is normal size. Inferior vena cava collapse with respiration. Pericardium/Pleural No pericardial effusion. Medication Diluted definity 1.5ml given slow IV push to enhance endocardial definition. MMode/2D Measurements & Calculations LVIDd: 5.4 cm IVSd: 0.73 cm Ao root diam: 3.1 cm LVIDs: 4.0 cm LVPWd: 0.66 cm LA dimension: 3.8 cm FS: 25.6 % LAV(MOD-bp): 55.9 ml LVAd ap4: 37.4 cm2 SV(MOD-sp4): 77.5 ml LAV(MOD-bp) Indexed: 26.7 ml/m2 LVLd ap4: 8.5 cm LAV(MOD-sp2): 44.9 ml EDV(MOD-sp4): 140.3 ml LAV(MOD-sp4): 62.8 ml EDV(sp4-el): 140.6 ml LVAs ap4: 22.9 cm2 LVLs ap4: 6.9 cm ESV(MOD-sp4): 62.8 ml ESV(sp4-el): 64.2 ml EF(MOD-sp4): 55.3 % EF(sp4-el): 54.3 % SV([facility]-): 76.4 ml LA A4 area: 18.7 cm2 Time Measurements MV dec time: 0.18 sec Doppler Measurements & Calculations MV E max luke: 78.5 cm/sec Lat Peak E' Luke: 11.1 cm/sec Med Peak E' Luke: 5.2 cm/sec MV A max luke: 93.5 cm/sec E/E' lat: 7.1 E/E' med: 15.1 MV E/A: 0.84 MV V2 max: 110.2 cm/sec MV P1/2t max luke: 94.9 cm/sec Ao V2 max: 127.1 cm/sec MV max P.9 mmHg MV P1/2t: 57.6 msec Ao max P.5 mmHg MV V2 mean: 53.5 cm/sec Ao V2 mean: 85.2 cm/sec MV mean P.4 mmHg MV dec slope: 482.8 cm/sec2 Ao mean P.4 mmHg MV V2 VTI: 31.2 cm MVA(P1/2t): 3.8 cm2 Ao V2 VTI: 27.7 cm AV (velocity ratio): 0.91 LV V1 max: 110.2 cm/sec MR max luke: 514.2 cm/sec PA V2 max: 89.2 cm/sec LV V1 max P.9 mmHg MR max P.8 mmHg LV V1 mean P.7 mmHg LV V1 mean: 77.0 cm/sec LV V1 VTI: 25.2 cm TR max luke: 276.5 cm/sec PI dec slope: 269.6 cm/sec2 TR max P.6 mmHg ECHO/Echo Complete W/ Contrast Interpretation Summary Normal LV size. Left ventricular systolic function is normal. The estimated ejection fraction is 55 %. Stage 1 diastolic dysfunction. Mild (1+) eccentric mitral valve insufficiency. Ordering Physician: Shantel Wilson Performed By: Luigi Hogan RCS
[2024-02-08] MEDS: 0.9% Normal Saline (1000mL) 1,000 ML 100 ML IV ×2 (03:26→12:11)
[2024-02-08 04:38] LABS: Absolute Lymphocyte Count 2.52 X10^3/uL (0.83-4.51); Absolute Neutrophil Count 4.7 X10^3/uL (2.0-7.7); Basophil# 0.04 X10^3/uL; Basophil% 0.5 % (0-1); Eosinophil# 0.23 X10^3/uL; Eosinophils% 2.8 % (0-5); Hemoglobin 13.3 g/dL (13.0-16.5); Lymphocyte # 2.52 X10^3/ul (0.83-4.51); Lymphocyte % 30.4 % (19-41); Mean Corp Hgb Conc 33.3 g/dL (32-36); Mean Corpuscular Hgb 30.6 pg (27.0-32.0); Mean Corpuscular Volume 92.2 fL (80-94); Mean Platelet Vol. 9.2 fl (6.2-12.0); Monocyte# 0.74 X10^3/uL; Monocyte% 8.9 % (0-10); NRBC Flagged by Analyzer 0 % (0-5); Neutrophil # 4.73 X10^3/uL (2.7-7.7); Neutrophil % 57.2 % (47-70); Platelet Count 244 K/mm3 (150-450); RBC Distribution Width CV 14.1 % (11.6-14.6); RBC Distribution Width SD 47.8 fl (35.1-43.9); Red Blood Count 4.34 M/mm3 (4.6-6.2); White Blood Count 8.3 K/mm3 (4.4-11.0)
[2024-02-08 05:14] LABS: ALB/GLOB Ratio 1.4 RATIO (0.9-2.4); AST(SGOT) 23 U/L (15-37); Alanine Aminotransfer ALT/SGPT 29 U/L (16-61); Albumin, Serum 3.7 g/dL (3.2-5.0); Alkaline Phosphatase 54 U/L (45-117); Anion Gap 6 (5-15); BUN 22 mg/dL (7-18); BUN/Creat Ratio 21.6 RATIO (10-20); Calcium,Total 8.8 mg/dL (8.5-10.1); Chloride 108 mmol/L (98-107); Creatinine, Serum 1.02 mg/dL (0.70-1.30); EST Glomerular Filtration Rate 77 mL/min (>60); Est Glom Filt Rate - Afr Amer 93 mL/min (>60); Estimated Creatinine Clearance 77.63 ml/min; Globulin 2.7 g/dL (2.2-4.2); Glucose 160 mg/dL (74-106); Potassium 4.4 mmol/L (3.5-5.1); Protein, Total 6.4 g/dL (6.4-8.2); Sodium Level 139 mmol/L (136-145)
[2024-02-08 05:45] LABS: Troponin-I HS 940 pg/mL (3.0-78.0)
--- NOTE | 2024-02-08 06:23 | PCM.CONS.C ---
Assessment & Plan Assessment/Plan (1) Non-ST elevation [place] (NSTEMI): PLAN: Patient presents with a non-ST elevation myocardial infarction. I did review his previous cardiac catheterization films from less than a year ago. He has a patent HUNT to the LAD and a saphenous vein graft to the right which is collateralized. It appears that medical therapy was the most is apparently at his last visit. My recommendation will be to obtain an echocardiogram to assess ventricular function I would likely recommend aggressive medical therapy by increasing his isosorbide Optimize beta-eva Consider adding ranolazine Ideally should be a candidate for colchicine but not immediately available in the [place] at this time. High intensity statin (2) H/O coronary artery bypass surgery: PLAN: He has a history of coronary bypass surgery. The above would not be reevaluated. His coronary anatomy is as detailed above. (3) Essential (primary) hypertension: PLAN: His blood pressure appears to be under fair control. I would not recommend that we make any major changes at this time other than optimizing his beta-blockade. (4) HLD (hyperlipidemia): QUALIFIERS: Hyperlipidemia type: pure hypercholesterolemia Qualified Code(s): E78.00 - Pure hypercholesterolemia, unspecified; E78.0 - Pure hypercholesterolemia PLAN: Will recommend high intensity statin at this time. (5) Nonrheumatic mitral (valve) insufficiency: PLAN: He had previously been felt to have 3+ mitral regurgitation. This will be reevaluated with a echocardiogram. Depending on the findings further recommendations will be made. Thank you for allowing me to participate in the care of your patient. Please don't hesitate to call if any issues arise. HPI Consult Data Date of Consult: 02/08/24 HPI Narrative HPI Narrative: ORQUIDEA UGALDE, is a 68 M who presents to the emergency room with complaints of chest discomfort. He describes it as right-sided and it started as he was getting ready for bed. He presented to the emergency room was evaluated and cardiac enzymes were noted to be abnormal. EKG demonstrated T wave inversion in lead V2. As you know, He is a gentleman with a history of coronary artery disease status post coronary bypass surgery in 2012. He had a left internal mammary artery to the left anterior descending artery, saphenous vein graft to right coronary artery, saphenous vein graft to obtuse marginal branch of the circumflex artery system. He also has a history of hypertension, hyperlipidemia and diabetes mellitus. He was admitted to [facility] in April 2023 for non-ST elevated myocardial infarction. He underwent a heart catheterization that showed patent HUNT to LAD, patent SVG to RCA that was collateralizing to circumflex, and occluded SVG to circumflex. He was started on isosorbide therapy. Echocardiogram showed ejection fraction of 50% and 3+ mitral valve insufficiency. He had apparently done quite well. This morning he does not appear to have any significant chest discomfort. His cardiac enzymes were abnormal. [facility]LY [facility] Medical History Acute non-ST elevation myocardial infarction (NSTEMI) Atherosclerotic heart disease of [place] coronary artery without angina pectoris BPH (benign prostatic hyperplasia) Depression Essential (primary) hypertension HLD (hyperlipidemia) Nonrheumatic mitral (valve) insufficiency Obesity Shortness of breath Type 2 diabetes mellitus Home Medications aspirin 81 mg chewable tablet 1 tab PO DAILY Heart Health 01/04/17 [History Last Taken 09/21/18 08:00] escitalopram oxalate 10 mg tablet 1 tab PO DAILY Depression/ anxiety 01/04/17 [History Last Taken 09/21/18 18:00] finasteride 5 mg tablet 1 tab PO DAILY Prostate 01/04/17 [History Last Taken 09/21/18 08:00] metformin 500 mg tablet,extended release 24 hr 1 tab PO BID Diabetes 01/04/17 [History Last Taken 09/21/18 18:00] tamsulosin 0.4 mg capsule 1 tab PO DAILY Prostate 01/04/17 [History Last Taken 09/21/18 08:00] empagliflozin 25 mg tablet 25 mg PO DAILY 09/13/20 [History Last Taken Unknown] fexofenadine 180 mg tablet 180 mg PO DAILY 09/12/21 [History Last Taken Unknown] montelukast 10 mg tablet 10 mg PO DAILY 09/12/21 [History Last Taken Unknown] metoprolol tartrate 25 mg tablet 25 mg PO BID BP 10/10/22 [History Last Taken Unknown] isosorbide mononitrate 30 mg tablet,extended release 24 hr 30 mg PO DAILY #90 tabs 06/16/23 [Rx Last Taken Unknown] fluticasone propionate 50 mcg/actuation nasal spray,suspension 2 spray intranasal Q12H 06/26/23 [History Last Taken Unknown] albuterol sulfate 90 mcg/actuation aerosol inhaler (Ventolin HFA) 2 inh inhalation PRN PRN sob 09/08/23 [History Last Taken Unknown] rknaibnw-se-gtqrq 300 mcg-K 60 mcg-lycop 600 mcg-lutein 300 mcg tablet (Centrum Silver Men) 1 tab PO DAILY 09/08/23 [History Last Taken Unknown] nitroglycerin 0.4 mg sublingual tablet 0.4 mg sublingual ONCE 09/08/23 [History Last Taken Unknown] atorvastatin 40 mg tablet 40 mg PO QHS #90 tabs 10/26/23 [Rx Last Taken Unknown] fluticasone 232 mcg-salmeterol 14 mcg/actuation breath activated powdr (AirDuo RespiClick) 1 inh inhalation BID #1 ea 11/30/23 [Rx Last Taken Unknown] Allergy/AdvReac Type Severity Reaction Status Date / Time No Known Allergies Allergy Verified 12/26/23 08:43 Family History Mother Diabetes CAD (coronary artery disease) Hx CABG Myocardial infarction Sister CAD (coronary artery disease) Hx PTCA Grandfather Cancer Prostate cancer Uncle Cancer Prostate cancer Father Diabetes Surgical History H/O coronary artery bypass surgery (02/24/13) History of umbilical hernia repair Hx of inguinal hernia repair Social History Smoking Status: Never smoker alcohol intake: never substance use type: does not use caffeine: Yes Type: coffee Number of servings: 1 what type of physical activity do you participate in: none seatbelt use: always do you feel safe at home: Yes ROS Constitutional Constitutional: Denies fever(s) or weight loss Eyes Eyes: Reports systems reviewed and no addt'l complaints, except as documented ENT HEENT: Reports systems reviewed and no addt'l complaints, except as documented Cardiovascular Cardiovascular: Reports chest pain at rest; Denies chest pain with activity, dyspnea at rest, dyspnea on exertion, edema, palpitations or paroxysmal nocturnal dyspnea Respiratory/Chest Respiratory/Chest: Denies dyspnea on exertion, productive cough, shortness of breath at rest or shortness of breath with exertion Gastrointestinal Gastrointestinal: Denies change in bowel habits, nausea, vomiting or weight changes Genitourinary Genitourinary: Denies difficulty urinating Musculoskeletal Musculoskeletal: Denies joint stiffness or muscle weakness Integumentary Integumentary: Denies lesions Neurologic Neurologic: Denies dizziness or syncope Psychiatric Psychiatric: Denies anxiety Endocrine Endocrinology: Denies excessive sweating or fatigue Hematologic/Lymphatic Hematologic/Lymphatic: Denies anemia Allergic/Immunologic Allergic/Immunologic: Denies seasonal rhinorrhea Physical Exam Const alert, oriented x3 and no apparent distress General Appearance: cooperative HEENT hearing grossly normal bilaterally Head and Scalp: atraumatic Eyes EOMs intact bilaterally Neck General: normal visual inspection Chest inspection of chest normal and palpation of chest normal Resp normal respiratory effort Auscultation: clear to auscultation bilaterally Cardio regular rate, regular rhythm, S1 normal heart sound and S2 normal heart sound Jugular Venous Distention: JVD GI normal to inspection, nondistended, normoactive bowel sounds Extremity normal capillary refill and no pedal edema Peripheral Pulses: Yes pulses 2+ throughout and femoral pulses present Skin no rashes or lesions noted Neuro oriented x3 and CN's II-XII intact bilaterally Psych Appearance: grossly normal and appropriate Risk Stratification Risk Stratification Applicable: Yes Age >/= 65: Yes >/= 3 CAD Risk Factors (HTN, HLD, DM, family hx of CAD, or current smoker): Yes Aspirin Use in the Past 7 Days: Yes Severe Angina (>/= episodes in 24 hours): No EKG ST Changes >/= 0.5mm: No Positive Cardiac Marker: Yes ZULEIKA Risk Stratification Score: 4 ZULEIKA % Risk: 20% Risk Objective Data Vital Signs: Vital Signs Temp Pulse Resp BP Pulse Ox O2 Del Method 97.8 F 61 18 152/75 H 99 Room Air 02/08/24 06:15 02/08/24 06:15 02/08/24 06:15 02/08/24 06:15 02/08/24 06:15 02/08/24 06:15 Oxygen Delivery Method Room Air Weight: 203 lb 0.732 oz Body Mass Index (BMI) 29.9 Intake & Output: Intake and Output for Last 24 Hours 02/06/24 02/07/24 02/08/24 23:59 23:59 23:59 Intake Total 0 / 0 1000 / 1000 Balance 0 / 0 1000 / 1000 Lab / Micro Data 02/08/24 04:24 02/08/24 04:24 Labs: Laboratory Results - last 24 hr 02/07/24 22:32: WBC 9.7, RBC 4.64, Hgb 14.3, Hct 42.7, MCV 92.0, MCH 30.8, MCHC 33.5, RDW Std Deviation 46.9 H, RDW Coeff of Hannah 13.8, Plt Count 290, MPV 9.4, Immature Gran % (Auto) 0.300, Neut % (Auto) 47.5, Lymph % (Auto) 37.6, [place] % (Auto) 11.1 H, Eos % (Auto) 3.1, Baso % (Auto) 0.4, Absolute Neuts (auto) 4.6, Absolute Lymphs (auto) 3.65, Nucleated RBC % 0, Sodium 137, Potassium 4.2, Chloride 103, Carbon Dioxide 27.0, Anion Gap 7, BUN 26 H, Creatinine 1.57 H, Estim Creat Clear Calc 51.04, Est GFR (MDRD) Af Amer 57 L, Est GFR (MDRD) Non-Af 47 L, BUN/Creatinine Ratio 16.6, Glucose 201 H, Calcium 9.4, Troponin I High Sens 80 H 02/08/24 00:33: Troponin I High Sens 351 H* 02/08/24 01:21: PT 11.8, INR 0.9, APTT 27.7, Magnesium 2.1 02/08/24 04:24: WBC 8.3, RBC 4.34 L, Hgb 13.3, Hct 40.0, MCV 92.2, MCH 30.6, MCHC 33.3, RDW Std Deviation 47.8 H, RDW Coeff of Hannah 14.1, Plt Count 244, MPV 9.2, Immature Gran % (Auto) 0.200, Neut % (Auto) 57.2, Lymph % (Auto) 30.4, [place] % (Auto) 8.9, Eos % (Auto) 2.8, Baso % (Auto) 0.5, Absolute Neuts (auto) 4.7, Absolute Lymphs (auto) 2.52, Nucleated RBC % 0, Sodium 139, Potassium 4.4, Chloride 108 H, Carbon Dioxide 25.0, Anion Gap 6, BUN 22 H, Creatinine 1.02, Estim Creat Clear Calc 77.63, Est GFR (MDRD) Af Amer 93, Est GFR (MDRD) Non-Af 77, BUN/Creatinine Ratio 21.6 H, Glucose 160 H, Calcium 8.8, Total Bilirubin 0.40, AST 23, ALT 29, Alkaline Phosphatase 54, Troponin I High Sens 940 H*, Total Protein 6.4, Albumin 3.7, Globulin 2.7, Albumin/Globulin Ratio 1.4 Rhythm Strip Rhythm Strip: Sinus Rhythm Cardiology Labs/Tests 02/07/24 22:32: WBC 9.7, RBC 4.64, Hgb 14.3, Hct 42.7, MCV 92.0, MCH 30.8, MCHC 33.5, Plt Count 290, MPV 9.4, Immature Gran % (Auto) 0.300, Neut % (Auto) 47.5, Lymph % (Auto) 37.6, [place] % (Auto) 11.1 H, Eos % (Auto) 3.1, Baso % (Auto) 0.4, Absolute Neuts (auto) 4.6, Nucleated RBC % 0, Sodium 137, Potassium 4.2, Chloride 103, Carbon Dioxide 27.0, Anion Gap 7, BUN 26 H, Creatinine 1.57 H, Est GFR (MDRD) Af Amer 57 L, Est GFR (MDRD) Non-Af 47 L, BUN/Creatinine Ratio 16.6, Glucose 201 H, Calcium 9.4 02/08/24 01:21: PT 11.8, INR 0.9, APTT 27.7, Magnesium 2.1 02/08/24 04:24: WBC 8.3, RBC 4.34 L, Hgb 13.3, Hct 40.0, MCV 92.2, MCH 30.6, MCHC 33.3, Plt Count 244, MPV 9.2, Immature Gran % (Auto) 0.200, Neut % (Auto) 57.2, Lymph % (Auto) 30.4, [place] % (Auto) 8.9, Eos % (Auto) 2.8, Baso % (Auto) 0.5, Absolute Neuts (auto) 4.7, Nucleated RBC % 0, Sodium 139, Potassium 4.4, Chloride 108 H, Carbon Dioxide 25.0, Anion Gap 6, BUN 22 H, Creatinine 1.02, Est GFR (MDRD) Af Amer 93, Est GFR (MDRD) Non-Af 77, BUN/Creatinine Ratio 21.6 H, Glucose 160 H, Calcium 8.8, Total Bilirubin 0.40 Rhythm: EKG: ECHO: Stress Test: Cardiac Cath: PCI: CT Surgery: Holter monitor: EPS: PPM: CXR: Chest CT Scan: Radiography Diagnostic Testing: Radiology Impression Chest X-Ray 02/07/24 22:48 IMPRESSION: No active disease. Electronically Signed: Vitaliy August MD at 23:31 EDT ,
[2024-02-08] MEDS: Budesonide Respules 0.5 MG/2 ML AMPUL.NEB. INHALATION ×2 (07:01→19:37)
[2024-02-08 07:04] LABS: Bedside Glucose 149 mg/dL (74-106)
[2024-02-08] MEDS: Aspirin 81 MG TAB.CHEW PO (08:29)
[2024-02-08] MEDS: Tamsulosin HCl 0.4 MG Capsule PO (08:29)
[2024-02-08] MEDS: Montelukast 10 MG Tablet PO (08:29)
[2024-02-08] MEDS: Finasteride 5 MG Tablet PO (08:29)
[2024-02-08] MEDS: Loratadine 10 MG Tablet PO (08:29)
[2024-02-08] MEDS: Ranolazine 500 MG Tablet PO ×2 (08:30→21:57)
[2024-02-08] MEDS: Metoprolol Tartrate 25 MG Tablet PO ×2 (08:30→21:56)
[2024-02-08] MEDS: Escitalopram Oxalate 10 MG Tablet PO (08:30)
[2024-02-08] MEDS: Isosorbide Mononitrate 60 MG Tablet PO (08:31)
[2024-02-08] MEDS: Enoxaparin 40 MG/0.4 ML Syringe SC (08:31)
[2024-02-08] MEDS: Fluticasone 0.05% 1 SPRAY NASAL.SRY 2 SPRAY NASAL (08:32)
--- NOTE | 2024-02-08 09:26 | PN.HOSP_ITS ---
Reason for Visit Reason for Visit: Diagnoses Chest pain, unspecified (02/08/24) Other specified abnormalities of plasma proteins (02/08/24) Subjective Subjective Feeling well. No chest pain. Objective Data Objective Data Vital Signs: Vital Signs Temp Pulse Resp BP Pulse Ox O2 Del Method 36.9 C 70 14 135/72 H 98 Room Air 02/08/24 08:17 02/08/24 08:30 02/08/24 08:17 02/08/24 08:30 02/08/24 08:17 02/08/24 08:36 Oxygen Delivery Method Room Air Weight: 92.1 kg Body Mass Index (BMI) 29.9 Intake & Output: Intake and Output for Last 24 Hours 02/06/24 02/07/24 02/08/24 23:59 23:59 23:59 Intake Total 0 / 0 1000 / 1000 Balance 0 / 0 1000 / 1000 Lab / Micro Data 02/08/24 04:24 02/08/24 04:24 Labs: Laboratory Results - last 24 hr 02/07/24 22:32: WBC 9.7, RBC 4.64, Hgb 14.3, Hct 42.7, MCV 92.0, MCH 30.8, MCHC 33.5, RDW Std Deviation 46.9 H, RDW Coeff of [place] 13.8, Plt Count 290, MPV 9.4, Immature Gran % (Auto) 0.300, Neut % (Auto) 47.5, Lymph % (Auto) 37.6, [place] % (Auto) 11.1 H, Eos % (Auto) 3.1, Baso % (Auto) 0.4, Absolute Neuts (auto) 4.6, Absolute Lymphs (auto) 3.65, Nucleated RBC % 0, Sodium 137, Potassium 4.2, Ch loride 103, Carbon Dioxide 27.0, Anion Gap 7, BUN 26 H, Creatinine 1.57 H, Estim Creat Clear Calc 51.04, Est GFR (MDRD) Af Amer 57 L, Est GFR (MDRD) Non-Af 47 L, BUN/Creatinine Ratio 16.6, Glucose 201 H, Calcium 9.4, Troponin I High Sens 80 H 02/08/24 00:33: Troponin I High Sens 351 H* 02/08/24 01:21: PT 11.8, INR 0.9, APTT 27.7, Magnesium 2.1 02/08/24 04:24: WBC 8.3, RBC 4.34 L, Hgb 13.3, Hct 40.0, MCV 92.2, MCH 30.6, MCHC 33.3, RDW Std Deviation 47.8 H, RDW Coeff of Hannah 14.1, Plt Count 244, MPV 9.2, Immature Gran % (Auto) 0.200, Neut % (Auto) 57.2, Lymph % (Auto) 30.4, [place] % (Auto) 8.9, Eos % (Auto) 2.8, Baso % (Auto) 0.5, Absolute Neuts (auto) 4.7, Absolute Lymphs (auto) 2.52, Nucleated RBC % 0, Sodium 139, Potassium 4.4, Chloride 108 H, Carbon Dioxide 25.0, Anion Gap 6, BUN 22 H, Creatinine 1.02, Estim Creat Clear Calc 77.63, Est GFR (MDRD) Af Amer 93, Est GFR (MDRD) Non-Af 77, BUN/Creatinine Ratio 21.6 H, Glucose 160 H, Calcium 8.8, Total Bilirubin 0.40, AST 23, ALT 29, Alkaline Phosphatase 54, Troponin I High Sens 940 H*, Total Protein 6.4, Albumin 3.7, Globulin 2.7, Albumin/Globulin Ratio 1.4 02/08/24 06:07: POC Glucose 149 H Radiography Diagnostic Testing: Radiology Impression Chest X-Ray 02/07/24 22:48 IMPRESSION: No active disease. Electronically Signed: Vitaliy August MD at 23:31 EDT , Rhythm Strip Rhythm Strip: Sinus Rhythm Physical Exam Const alert and no apparent distress Resp normal respiratory effort and no retractions GI normal to inspection, nondistended, normoactive bowel sounds and soft to palpation Extremity normal to inspection Neuro Sensorium / Orientation: awake and alert Psych affect normal Assessment & Plan Assessment/Plan (1) Chest pain: (2) Elevated troponin: PLAN: Plan NSTEMI * Troponins up to 940 * Cardiology consulted * Received a 1x dose of 95mg of enoxaparin. * Check echo. * Plan: med mgmt for now. Acute kidney injury: * resolved. Chronic conditions: * CAD: Status post CABG (HUNT to LAD, SVG to RCA & SVG-OM 2 02/22/13), most recent cardiac catheterization 04/2023 as noted in HPI, continue aspirin, stati n, metoprolol, not on RIC inhibitor/ARB. * Diabetes mellitus type II: Hold oral home regimen, ADA diet, accu checks w/ ISS. * Hypertension: Continue home regimen including metoprolol, isosorbide, PRN hy dralazine. * Hyperlipidemia: Continue home statin regimen. AM FLP. * Anxiety and depression: We will continue patient home escitalopram regimen. * Asthma with Allergic rhinitis: We will temporally hold home inhaler in the interim transition to ATC budesonide therapy, PRN albuterol, continue patient home fexofenadine hydrochloride montelukast and fluticasone home regimen. * BPH: We will continue patient home Flomax and finasteride home regimen. * Obesity: Weight loss and lifestyle changes encouraged. DVT prophylaxis: Lovenox however as noted above if troponin rises will instead pursue heparin drip but will defer to cardiology discretion. CODE status: Full code Charges/Coding Visit Charges Inpatient E&M: 87085 Subs Hosp L2
--- NOTE | 2024-02-08 09:35 | CASEMGMT ---
ANDREA MORA Face to Face with patient for initial transition planning/care coordination assessment. RN CM introduced self and role at [facility]. Patient lying in bed, alert and oriented. Patient willing to participate in assessment and is able to answer all questions appropriately. Care providers, pharmacy, and demographics verified. PCP: Jerry Specialists: Daria Verma, sand blaster; Jose, line lead; Pancho, system technologist Preferred Pharmacy: [facility] Insurance: MCR, [employer] Prescription Benefit: yes Living Will/HPOA: yes, was but she has passed, believes it is his daughter. RN ABBY asked if he would like to update advanced directives and he states he will think about it. SW updated. LNOK: daughter Living Arrangements: Patient lives alone in a single story home with 2 steps and grab bar to enter. Patient states he is independent at home. Transportation: self, brother in law DME/HHC: Patient has shower chair, cane, crutches, hospital bed, lift chair, grab bars, walker, wheelchair, nebulizer, pulse ox. No previous HHC or SNF. Patient wishes to discharge home, denies need for home health at this time. Patient states he has no further needs or concerns at this time. CM to follow for discharge planning needs that may arise. Disposition Plan: Patient to discharge home with family support and follow-up plans in place. Vicky MARTINEZ, RN, CM
[2024-02-08] MEDS: Insulin Lispro 100 UNIT/ML INSULN.PEN SC (11:34)
[2024-02-08 12:06] LABS: Bedside Glucose 188 mg/dL (74-106)
--- NOTE | 2024-02-08 14:23 | CHAPLAIN ---
Type of Pastoral Visit _x__ Initial Visit ___ Follow-up Visit ___ On-call Visit ___ General Patient Visit ___ Spiritual Assessment ___ Family Conference ___ Bereavement ___ Rapid Response ___ Code Blue ___ Other (describe below) Pastoral Care Referral From _x__ Patient ___ Family ___ Nurse ___ Physician ___ Mathematical Physicist ___ Overlock Hemmer ___ Other (describe below) Sacrament/Intervention _x__ Active listening ___ Anointing ___ Presybeterian ___ Bereavement ___ Communion _x__ Desiree exploration ___ _x__ Life review _x__ Prayer ___ Reconciliation ___ Sacrament of Sick _x__ Supportive presence ___ Wedding ___ Other (describe below) Pastoral Comments patient is having heart tests and reveals in conversation about his heart health history; pt is also and speaks to this issue in his life too; pt has been going to catholic since of his and finds this helpful for his life; interest shown in these topics by this director of culture leads to further conversation and supportive interaction on his future; prayer given; daughter came into room during this visit
[2024-02-08 17:28] LABS: Bedside Glucose 117 mg/dL (74-106)
[2024-02-08] MEDS: Atorvastatin Calcium 80 MG Tablet PO (21:56)
[2024-02-08 22:16] LABS: Bedside Glucose 114 mg/dL (74-106)
[2024-02-09 02:33] VITALS: BP 124/55; PULSE 60; RESP 16; TEMP 36.7; O2SAT 97
[2024-02-09 06:00] VITALS: BMI 29.8
[2024-02-09 07:09] LABS: Bedside Glucose 140 mg/dL (74-106)
--- NOTE | 2024-02-09 07:19 | PN.CARD_ITS ---
Subjective Subjective Patient seen and evaluated. Appears to be doing well. No complaints. Walked around with no chest pain. Objective Data Vital Signs: Vital Signs Temp Pulse Resp BP Pulse Ox O2 Del Method 98.1 F 60 16 124/55 H 97 Room Air 02/09/24 02:33 02/09/24 02:33 02/09/24 02:33 02/09/24 02:33 02/09/24 02:33 02/09/24 03:04 Oxygen Delivery Method Room Air Weight: 202 lb 2.622 oz Body Mass Index (BMI) 29.8 Intake & Output: Intake and Output for Last 24 Hours 02/07/24 02/08/24 02/09/24 23:59 23:59 23:59 Intake Total 0 / 0 4045 / 4045 Balance 0 / 0 4045 / 4045 Lab / Micro Data 02/08/24 04:24 02/08/24 04:24 Labs: Laboratory Results - last 24 hr 02/08/24 11:26: POC Glucose 188 H 02/08/24 17:05: POC Glucose 117 H 02/08/24 21:54: POC Glucose 114 H 02/09/24 06:49: POC Glucose 140 H Rhythm Strip Rhythm Strip: Sinus Rhythm Cardiology Labs/Tests Rhythm: EKG: ECHO: Stress Test: Cardiac Cath: PCI: CT Surgery: Holter monitor: EPS: PPM: CXR: Chest CT Scan: Radiography Diagnostic Testing: Radiology Impression Echocardiogram 02/08/24 02:15 Interpretation Summary Normal LV size. Left ventricular systolic function is normal. The estimated ejection fraction is 55 %. Stage 1 diastolic dysfunction. Mild (1+) eccentric mitral valve insufficiency. Ordering Physician: Shantel Wilson Performed By: Luigi Hogan RCS Physical Exam Const alert, oriented x3 and no apparent distress General Appearance: cooperative HEENT hearing grossly normal bilaterally Head and Scalp: atraumatic Eyes EOMs intact bilaterally Neck General: normal visual inspection Chest inspection of chest normal and palpation of chest normal Resp normal respiratory effort Auscultation: clear to auscultation bilaterally Cardio regular rate, regular rhythm, S1 normal heart sound and S2 normal heart sound Jugular Venous Distention: JVD GI normal to inspection, nondistended, normoactive bowel sounds Extremity normal capillary refill and no pedal edema Peripheral Pulses: Yes pulses 2+ throughout and femoral pulses present Skin no rashes or lesions noted Neuro oriented x3 and CN's II-XII intact bilaterally Psych Appearance: grossly normal and appropriate Assessment & Plan Assessment/Plan (1) Non-ST elevation VA (NSTEMI): PLAN: Patient presents with a non-ST elevation myocardial infarction. I did review his previous cardiac catheterization films from less than a year ago. He has a patent HUNT to the LAD and a saphenous vein graft to the right which is collateralized. It appears that medical therapy was the most is apparently at his last visit. * His echocardiogram demonstrated preserved left ventricular function. * I would likely recommend aggressive medical therapy by increasing his isosorbide * Optimize beta-eva * Tolerating ranolazine * Ideally should be a candidate for colchicine but not immediately available in the [place] at this time. * High intensity statin (2) H/O coronary artery bypass surgery: PLAN: He has a history of coronary bypass surgery. The above would not be reevaluated. His coronary anatomy is as detailed above. (3) Essential (primary) hypertension: PLAN: His blood pressure appears to be under fair control. I would not recommend that we make any major changes at this time other than optimizing his beta-blockade. (4) HLD (hyperlipidemia): QUALIFIERS: Hyperlipidemia type: pure hypercholesterolemia Qualified Code(s): E78.00 - Pure hypercholesterolemia, unspecified; E78.0 - Pure hypercholesterolemia PLAN: Will recommend high intensity statin at this time. (5) Nonrheumatic mitral (valve) insufficiency: PLAN: He had previously been felt to have 3+ mitral regurgitation. The repeat echocardiogram did not confirm this. It is at most 1+. He will continue on the current medical therapy. Thank you for allowing me to participate in the care of your patient. Please don't hesitate to call if any issues arise. PLAN: Plan Stable for discharge home for outpatient management.
[2024-02-09 08:41] VITALS: BP 138/73; PULSE 62; RESP 14; TEMP 36.6; O2SAT 97
[2024-02-09] MEDS: Fluticasone 0.05% 1 SPRAY NASAL.SRY 2 SPRAY NASAL (08:43)
[2024-02-09] MEDS: Finasteride 5 MG Tablet PO (08:44)
[2024-02-09] MEDS: Ranolazine 500 MG Tablet PO (08:45)
[2024-02-09] MEDS: Loratadine 10 MG Tablet PO (08:45)
[2024-02-09] MEDS: Aspirin 81 MG TAB.CHEW PO (08:45)
[2024-02-09] MEDS: Escitalopram Oxalate 10 MG Tablet PO (08:45)
[2024-02-09] MEDS: Isosorbide Mononitrate 60 MG Tablet PO (08:45)
[2024-02-09] MEDS: Tamsulosin HCl 0.4 MG Capsule PO (08:45)
[2024-02-09] MEDS: Montelukast 10 MG Tablet PO (08:45)
[2024-02-09 08:46] VITALS: BP 138/73; PULSE 62
[2024-02-09] MEDS: Metoprolol Tartrate 25 MG Tablet PO (08:46)
[2024-02-09 08:59] LABS: Cholesterol 157 mg/dL (200); High Density Lipoprotein 66 mg/dL; Triglycerides 151 mg/dL; Very Low Density Lipoprotein 30 mg/dL (5-40)
--- NOTE | 2024-02-09 09:01 | PCM.PN.HOSP ---
Reason for Visit Reason for Visit: Diagnoses Pure hypercholesterolemia (02/08/24) Pure hypercholesterolemia, unspecified (02/08/24) Essential (primary) hypertension (02/08/24) Non-ST elevation (NSTEMI) myocardial infarction (02/08/24) Nonrheumatic mitral (valve) insufficiency (02/08/24) Chest pain, unspecified (02/08/24) Other specified abnormalities of plasma proteins (02/08/24) Presence of aortocoronary bypass graft (02/08/24) Subjective Subjective No further chest pain. Objective Data Objective Data Vital Signs: Vital Signs Temp Pulse Resp BP Pulse Ox O2 Del Method 36.6 C 62 14 138/73 H 97 Room Air 02/09/24 08:41 02/09/24 08:46 02/09/24 08:41 02/09/24 08:46 02/09/24 08:41 02/09/24 08:41 Oxygen Delivery Method Room Air Weight: 91.7 kg Body Mass Index (BMI) 29.8 Intake & Output: Intake and Output for Last 24 Hours 02/07/24 02/08/24 02/09/24 23:59 23:59 23:59 Intake Total 0 / 0 4045 / 4045 Balance 0 / 0 4045 / 4045 Lab / Micro Data 02/08/24 04:24 02/08/24 04:24 Labs: Laboratory Results - last 24 hr 02/08/24 11:26: POC Glucose 188 H 02/08/24 17:05: POC Glucose 117 H 02/08/24 21:54: POC Glucose 114 H 02/09/24 06:49: POC Glucose 140 H 02/09/24 07:45: Triglycerides 151, Cholesterol 157, LDL Cholesterol 61, VLDL Cholesterol 30, HDL Cholesterol 66 Radiography Diagnostic Testing: Radiology Impression Echocardiogram 02/08/24 02:15 Interpretation Summary Normal LV size. Left ventricular systolic function is normal. The estimated ejection fraction is 55 %. Stage 1 diastolic dysfunction. Mild (1+) eccentric mitral valve insufficiency. Ordering Physician: Shantel Wilson Performed By: Luigi Hogan RCS Rhythm Strip Rhythm Strip: Sinus Rhythm Physical Exam Const alert and no apparent distress HEENT head/scalp atraumatic and moist oral mucous membranes Resp normal respiratory effort, no retractions, no use of accessory muscles and clear to auscultation bilaterally Cardio regular rate, regular rhythm, S1 normal heart sound and S2 normal heart sound Assessment & Plan Assessment/Plan (1) Chest pain: (2) Elevated troponin: PLAN: Plan NSTEMI Troponins up to 940 Cardiology consulted Received a 1x dose of 95mg of enoxaparin. Echo shows an EF 55%. Plan: med mgmt for now. Continue metoprolol 25 BID. Increased isosorbide mononitrate from 30 to 60. Increased atorvastatin from 40 to 80. Started on ranolazine. Acute kidney injury: resolved. Chronic conditions: CAD: Status post CABG (HUNT to LAD, SVG to RCA & SVG-OM 2 02/22/13), most recent cardiac catheterization 04/2023 as noted in HPI, continue aspirin, statin, metoprolol, not on RIC inhibitor/ARB. Diabetes mellitus type II: Hold oral home regimen, ADA diet, accu checks w/ ISS. Hypertension: Continue home regimen including metoprolol, isosorbide, PRN hydralazine. Hyperlipidemia: Continue home statin regimen. AM FLP. Anxiety and depression: We will continue patient home escitalopram regimen. Asthma with Allergic rhinitis: We will temporally hold home inhaler in the interim transition to ATC budesonide therapy, PRN albuterol, continue patient home fexofenadine hydrochloride montelukast and fluticasone home regimen. BPH: We will continue patient home Flomax and finasteride home regimen. Obesity: Weight loss and lifestyle changes encouraged. DVT prophylaxis: Lovenox however as noted above if troponin rises will instead pursue heparin drip but will defer to cardiology discretion. CODE status: Full code
--- NOTE | 2024-02-09 10:15 | DS.PCM_ITS ---
Providers Date of Admission: 02/08/24 Primary Care Physician: Dr. Keshav Edwards MD Consultations 02/08/24 02:15 Consult: Cardiology Routine Consulting Provider: Babak Garcia Reason for Consult: Chest Pain EMERGENT Consult: No MD Notified: Yes Date Notified: 02/08/24 Time Notified: 01:08 Method of Notification: ED Physician Initiated Reason For Visit: CHEST PAIN, NSTEMI Diagnosis Discharge Diagnosis (1) Chest pain: Status: Acute Code(s): R07.9 - Chest pain, unspecified (2) Elevated troponin: Status: Acute Code(s): R77.8 - Other specified abnormalities of plasma proteins Plan NSTEMI * Troponins up to 940 * Cardiology consulted * Received a 1x dose of 95mg of enoxaparin. * Echo shows an EF 55%. * Plan: med mgmt for now. Continue metoprolol 25 BID. Increased isosorbide mononitrate from 30 to 60. Increased atorvastatin from 40 to 80. Started on ranolazine. Acute kidney injury: * resolved. Chronic conditions: * CAD: Status post CABG (HUNT to LAD, SVG to RCA & SVG-OM 2 02/22/13), most rece nt cardiac catheterization 04/2023 as noted in HPI, continue aspirin, statin, metoprolol, not on ALY inhibitor/ARB. * Diabetes mellitus type II: Hold oral home regimen, ADA diet, accu checks w/ ISS. * Hypertension: Continue home regimen including metoprolol, isosorbide, PRN hydralazine. * Hyperlipidemia: Continue home statin regimen. AM FLP. * Anxiety and depression: We will continue patient home escitalopram regimen. * Asthma with Allergic rhinitis: We will temporally hold home inhaler in the interim transition to ATC budesonide therapy, PRN albuterol, continue patient home fexofenadine hydrochloride montelukast and fluticasone home regimen. * BPH: We will continue patient home Flomax and finasteride home regimen. * Obesity: Weight loss and lifestyle changes encouraged. DVT prophylaxis: Lovenox however as noted above if troponin rises will instead pursue heparin drip but will defer to cardiology discretion. CODE status: Full code Medications at Discharge Home Medications aspirin 81 mg chewable tablet 1 tab PO DAILY Heart Health 01/04/17 escitalopram oxalate 10 mg tablet 1 tab PO DAILY Depression/ anxiety 01/04/17 finasteride 5 mg tablet 1 tab PO DAILY Prostate 01/04/17 metformin 500 mg tablet,extended release 24 hr 1 tab PO BID Diabetes 01/04/17 tamsulosin 0.4 mg capsule 1 tab PO DAILY Prostate 01/04/17 empagliflozin 25 mg tablet 25 mg PO DAILY 09/13/20 fexofenadine 180 mg tablet 180 mg PO DAILY 09/12/21 montelukast 10 mg tablet 10 mg PO DAILY 09/12/21 metoprolol tartrate 25 mg tablet 25 mg PO BID BP 10/10/22 fluticasone propionate 50 mcg/actuation nasal spray,suspension 2 spray intranasal Q12H 06/26/23 albuterol sulfate 90 mcg/actuation aerosol inhaler (Ventolin HFA) 2 inh inhalation PRN PRN sob 09/08/23 [id number] 300 mcg-K 60 mcg-lycop 600 mcg-lutein 300 mcg tablet (Centrum Silver Men) 1 tab PO DAILY 09/08/23 nitroglycerin 0.4 mg sublingual tablet 0.4 mg sublingual ONCE 09/08/23 fluticasone 232 mcg-salmeterol 14 mcg/actuation breath activated powdr (AirDuo RespiClick) 1 inh inhalation BID #1 ea 11/30/23 atorvastatin 80 mg tablet 80 mg PO QHS #30 tabs 02/09/24 isosorbide mononitrate 60 mg tablet,extended release 24 hr 60 mg PO DAILY #30 tabs 02/09/24 ranolazine 500 mg tablet,extended release,12 hr 500 mg PO BID #60 tabs 02/09/24 Hospital Course Operations None Procedures 2-D Echocardiogram Summary of Care Provided Minutes Spent on Discharge: 31 Hospital Course: Patient presents with chest pain. Patient did have a non-ST patient myocardial infarction. Troponins peaked at 940. Patient was seen by cardiology and had an echocardiogram. Echocardiogram showed an EF of 55%. Cardiology reviewed prior cardiac cath films and did not feel coronary intervention was necessary rather patient to be treated with more optimize medical management. Patient's course was otherwise uncomplicated patient has remained chest pain-free. Patient will have nitrates from 30-60 and atorvastatin from 40-80. He is also been started on Ranexa. Continue with aspirin. Weight / BMI Weight Weight: 91.7 kg Body Mass Index (BMI) 29.8 ABG / Lab / Microbiology Data 02/08/24 04:24 02/08/24 04:24 Laboratory: Laboratory Results - last 24 hr 02/08/24 11:26: POC Glucose 188 H 02/08/24 17:05: POC Glucose 117 H 02/08/24 21:54: POC Glucose 114 H 02/09/24 06:49: POC Glucose 140 H 02/09/24 07:45: Triglycerides 151, Cholesterol 157, LDL Cholesterol 61, VLDL Cholesterol 30, HDL Cholesterol 66 Radiography Diagnostic Testing: Radiology Impression Echocardiogram 02/08/24 02:15 Interpretation Summary Normal LV size. Left ventricular systolic function is normal. The estimated ejection fraction is 55 %. Stage 1 diastolic dysfunction. Mild (1+) eccentric mitral valve insufficiency. Ordering Physician: Shantel Wilson Performed By: Luigi Hogan RCS D/C Instructions Discharge Diet: Low fat / Low cholesterol Meaningful Use Info Meaningful Use Meaningful Use Diagnoses (Choose all that apply): AMI AMI/Post PCI/Angioplasty Aspirin given w/in 24hrs of arrival?: Yes ASA at discharge?: Yes Antiplatelet Therapy at Discharge:: No Statins at discharge?: Yes Aly/ARB at discharge?: No Reason Ayl/ARB not ordered:: Worsening renal dysfunctn Beta Ruba at discharge?: Yes Done w/ Acute CA measure.: Yes Documented LVEF (%): 55 Ischemic Stroke Statin Dosing Therapy Reference: STATIN DOSE THERAPY REFERENCE: * Patients > 75 years receive moderate or high dose statin therapy. * Patients 75 years or YOUNGER should receive HIGH intensity statin dose unless contraindicated. You will be required to document reason for non-treatment if statin daily dose does not meet guidelines. HIGH DOSE STATIN THERAPY DAILY Atorvastatin > than or = to 40 mg Rosuvastatin > than or = to 20 mg Amlodipine + Atorvastatin > than or = to 2.5/40 mg Ezetimibe + Simvastatin 10/80 mg Simvastatin 80mg Discharge Plan Admission Admit Date/Time: 02/08/24 01:05 Primary Reason for Your Visit: myocardial infarction. Attending Provider: Keshav Mauricio Primary Care Provider: Keshav Edwards Consulting Providers: Babak Garcia; Shantel Wilson Instructions Additional Instructions / Restrictions: You had a myocardial infarction (heart attack). Echocardiogram shows that your heart is beating properly and efficiently. Dr. Garcia, of cardiology, recommends optimizing your medication at this time. Please follow-up with cardiology at your earliest convenience. Discharge Orders/Prescriptions Prescriptions: New atorvastatin 80 mg Tablet 80 mg PO QHS Qty: 30 0RF isosorbide mononitrate 60 mg Tablet Extended Release 24 Hr 60 mg PO DAILY Qty: 30 0RF ranolazine 500 mg Tablet Extended Release 12 Hr 500 mg PO BID Qty: 60 0RF Continued empagliflozin 25 mg tablet 25 mg PO DAILY montelukast 10 mg tablet 10 mg PO DAILY fexofenadine 180 mg tablet 180 mg PO DAILY metoprolol tartrate 25 mg tablet 25 mg PO BID Patient Comments: Centrum Silver Men [phone] mcg tablet 1 tab PO DAILY albuterol sulfate [Ventolin HFA] 90 mcg/actuation HFA aerosol inhaler 2 inh inhalation PRN PRN (Reason: sob) nitroglycerin 0.4 mg tablet, sublingual 0.4 mg sublingual ONCE Rx Instructions: as a single dose; administer 5-10 minutes before situation known to precipitate angina attack tamsulosin 0.4 MG capsule 1 tab PO DAILY Patient Comments: metformin 500 MG tablet extended release 24 hr 1 tab PO BID Hold Instructions: Hold for 5 days. Patient Comments: finasteride 5 MG tablet 1 tab PO DAILY Patient Comments: take 1 tablet by mouth once daily escitalopram oxalate 10 MG tablet 1 tab PO DAILY aspirin 81 MG tablet,chewable 1 tab PO DAILY fluticasone propionate 50 mcg/actuation spray,suspension 2 spray INTRANASAL Q12H Patient Comments: USE 2 SPRAYS IN EACH NOSTRIL ONCE DAILY TO PREVENT SWELLING & REDUCE DRAINAGE. fluticasone propion-salmeterol [AirDuo RespiClick] 232-14 mcg/actuation aerosol powdr breath activated 1 inh inhalation BID Qty: 1 11RF Discontinued isosorbide mononitrate 30 mg tablet extended release 24 hr 30 mg PO DAILY Qty: 90 3RF atorvastatin 40 mg tablet 40 mg PO QHS Qty: 90 3RF Referrals / Follow Up: [facility] [Provider Group] - Within 1 Month Keshav Edwards MD [Primary Care Provider] - Within 2 Weeks Disposition Disposition (needs filled in before D/C Order can be placed): Home, Self Care Charges/Coding Visit Charges Inpatient E&M: 93744 Disch Hosp >30min
--- NOTE | 2024-02-09 11:34 | PHA.DC_ITS ---
Pharmacy [facility] Service has performed discharge medication reconciliation and counseling for this patient. 1. RANOLAZINE 500MG PO BID 2. ATORVASTATIN INCREASED TO 80MG 3. IMDUR INCREASED TO 60MG The patient's discharge medication list was reviewed for discrepancies and discrepancies were resolved. The patient was counseled on the following discharge medications and changes in medications for homegoing were reviewed. The Reason for Use, instructions for use, and potential side effects were reviewed for all new medications. The patient's questions regarding all of their medications were answered. The patient was able to verbally demonstrate an understanding of their discharge medications. Medications at Discharge Home Medications aspirin 81 mg chewable tablet 1 tab PO DAILY Heart Health 01/04/17 escitalopram oxalate 10 mg tablet 1 tab PO DAILY Depression/ anxiety 01/04/17 finasteride 5 mg tablet 1 tab PO DAILY Prostate 01/04/17 metformin 500 mg tablet,extended release 24 hr 1 tab PO BID Diabetes 01/04/17 tamsulosin 0.4 mg capsule 1 tab PO DAILY Prostate 01/04/17 empagliflozin 25 mg tablet 25 mg PO DAILY diabetes 09/13/20 fexofenadine 180 mg tablet 180 mg PO DAILY allergies 09/12/21 montelukast 10 mg tablet 10 mg PO DAILY bronchospasm 09/12/21 metoprolol tartrate 25 mg tablet 25 mg PO BID BP 10/10/22 fluticasone propionate 50 mcg/actuation nasal spray,suspension 2 spray intranasal Q12H sinus 06/26/23 albuterol sulfate 90 mcg/actuation aerosol inhaler (Ventolin HFA) 2 inh inhalation PRN PRN sob 09/08/23 [id number] 300 mcg-K 60 mcg-lycop 600 mcg-lutein 300 mcg tablet (Centrum Silver Men) 1 tab PO DAILY vitamin 09/08/23 nitroglycerin 0.4 mg sublingual tablet 0.4 mg sublingual ONCE chest pain 09/08/23 fluticasone 232 mcg-salmeterol 14 mcg/actuation breath activated powdr (AirDuo RespiClick) 1 inh inhalation BID breathing #1 ea 11/30/23 atorvastatin 80 mg tablet 80 mg PO QHS #30 tabs 02/09/24 isosorbide mononitrate 60 mg tablet,extended release 24 hr 60 mg PO DAILY #30 tabs 02/09/24 ranolazine 500 mg tablet,extended release,12 hr 500 mg PO BID #60 tabs 02/09/24
== END 2024-02-09 11:54 | disposition home or self-care (01) | DRG 281 ==
LOC: ED 02-08 01:12 → PCU 02-08 01:31
PROVIDERS: Admitting Provider Family Medicine; Emergency Provider Emergency Medicine; PCP Family Medicine
DX: I21.4 Non-ST elevation (NSTEMI) myocardial infarction (principal); N17.9 Acute kidney failure, unspecified; E11.65 Type 2 diabetes mellitus with hyperglycemia; Z95.1 Presence of aortocoronary bypass graft; J45.909 Unspecified asthma, uncomplicated; I10 Essential (primary) hypertension; F32.A Depression, unspecified; I34.0 Nonrheumatic mitral (valve) insufficiency; I25.10 Atherosclerotic heart disease of native coronary artery without angina pectoris; E78.00 Pure hypercholesterolemia, unspecified; F41.9 Anxiety disorder, unspecified; I25.2 Old myocardial infarction; E66.9 Obesity, unspecified; Z68.29 Body mass index [BMI] 29.0-29.9, adult; N40.0 Benign prostatic hyperplasia without lower urinary tract symptoms; Z79.82 Long term (current) use of aspirin; Z79.84 Long term (current) use of oral hypoglycemic drugs; Z79.899 Other long term (current) drug therapy
CPT/HCPCS: 36415; 71045; 80048; 80053; 80061; 82962; 83735; 84484; 85025; 85610; 85730; 93005; 93306; 94640; 94668; 99285; J7030; Q9957; A4216; C8929

== ENCOUNTER → 2024-04-05 | Outpatient (CLI) | payer MEDICARE, OTHER, SELFPAY ==
[2024-04-05 10:09] LABS: Absolute Lymphocyte Count 2.31 X10^3/uL (0.83-4.51); Absolute Neutrophil Count 3.5 X10^3/uL (2.0-7.7); Basophil# 0.03 X10^3/uL; Basophil% 0.4 % (0-1); Eosinophil# 0.27 X10^3/uL; Hematocrit 42.5 % (40-54); Hemoglobin 13.9 g/dL (13.0-16.5); Lymphocyte # 2.31 X10^3/ul (0.83-4.51); Lymphocyte % 33.9 % (19-41); Mean Corp Hgb Conc 32.7 g/dL (32-36); Mean Corpuscular Hgb 30.3 pg (27.0-32.0); Mean Corpuscular Volume 92.8 fL (80-94); Mean Platelet Vol. 9.7 fl (6.2-12.0); Monocyte# 0.74 X10^3/uL; Monocyte% 10.9 % (0-10); NRBC Flagged by Analyzer 0 % (0-5); Neutrophil # 3.45 X10^3/uL (2.7-7.7); Neutrophil % 50.5 % (47-70); Platelet Count 258 K/mm3 (150-450); RBC Distribution Width CV 13.7 % (11.6-14.6); RBC Distribution Width SD 46.8 fl (35.1-43.9); Red Blood Count 4.58 M/mm3 (4.6-6.2); White Blood Count 6.8 K/mm3 (4.4-11.0)
[2024-04-05 10:28] LABS: ALB/GLOB Ratio 1.1 RATIO (0.9-2.4); AST(SGOT) 18 U/L (15-37); Alanine Aminotransfer ALT/SGPT 34 U/L (16-61); Albumin, Serum 3.9 g/dL (3.2-5.0); Alkaline Phosphatase 72 U/L (45-117); Anion Gap 5 (5-15); BUN 14 mg/dL (7-18); BUN/Creat Ratio 17.6 RATIO (10-20); Calcium,Total 9.2 mg/dL (8.5-10.1); Chloride 101 mmol/L (98-107); EST Glomerular Filtration Rate 102 mL/min (>60); Est Glom Filt Rate - Afr Amer 124 mL/min (>60); Globulin 3.4 g/dL (2.2-4.2); Glucose 144 mg/dL (74-106); Potassium 4.4 mmol/L (3.5-5.1); Protein, Total 7.3 g/dL (6.4-8.2); Sodium Level 135 mmol/L (136-145)
[2024-04-05 10:50] LABS: Hemoglobin A1c 7.2 % (3.8-5.6)
[2024-04-05 12:20] LABS: Microalbumin:Creatinine Ratio 24.6 mg/g CRE (<30 mg/g CRE)
== END | disposition home or self-care (01) ==
LOC: MFPLAB 08:22
PROVIDERS: PCP Family Medicine; Visit Provider Family Medicine
DX: E11.9 Type 2 diabetes mellitus without complications (principal)
CPT/HCPCS: 36415; 80053; 82043; 82570; 83036; 85025

== ENCOUNTER → 2024-07-19 | Outpatient (CLI) | payer MEDICARE, OTHER, SELFPAY ==
--- NOTE | 2024-07-19 09:48 | RAD_ITS ---
HISTORY: walking pneumonia. TECHNIQUE: XR Chest 2 Views. COMPARISON: 02/07/2024. FINDINGS: CARDIOMEDIASTINAL BORDERS: Cardiac silhouette within normal limits in size. Mediastinal contour also unchanged with midline sternotomy and mediastinal clips. LUNGS: Radiographically clear. PLEURA: No pleural effusion or pneumothorax seen. OSSEOUS STRUCTURES: Degenerative change. RAD/Chest PA and Lateral IMPRESSION: No acute cardiopulmonary process identified. Electronically Signed: Darby Paz MD at 8:33 EDT ,
[2024-07-19 12:59] LABS: Absolute Lymphocyte Count 1.93 X10^3/uL (0.83-4.51); Absolute Neutrophil Count 3.6 X10^3/uL (2.0-7.7); Basophil# 0.02 X10^3/uL; Basophil% 0.3 % (0-1); Eosinophil# 0.08 X10^3/uL; Eosinophils% 1.3 % (0-5); Hematocrit 42.9 % (40-54); Hemoglobin 13.8 g/dL (13.0-16.5); Lymphocyte # 1.93 X10^3/ul (0.83-4.51); Lymphocyte % 30.3 % (19-41); Mean Corp Hgb Conc 32.2 g/dL (32-36); Mean Corpuscular Hgb 29.7 pg (27.0-32.0); Mean Corpuscular Volume 92.3 fL (80-94); Mean Platelet Vol. 9.6 fl (6.2-12.0); Monocyte# 0.74 X10^3/uL; Monocyte% 11.6 % (0-10); NRBC Flagged by Analyzer 0 % (0-5); Neutrophil # 3.59 X10^3/uL (2.7-7.7); Neutrophil % 56.2 % (47-70); Platelet Count 197 K/mm3 (150-450); RBC Distribution Width CV 13.2 % (11.6-14.6); RBC Distribution Width SD 44.8 fl (35.1-43.9); Red Blood Count 4.65 M/mm3 (4.6-6.2); White Blood Count 6.4 K/mm3 (4.4-11.0)
[2024-07-19 13:01] LABS: ALB/GLOB Ratio 1.1 RATIO (0.9-2.4); AST(SGOT) 21 U/L (15-37); Alanine Aminotransfer ALT/SGPT 38 U/L (16-61); Alkaline Phosphatase 70 U/L (45-117); Anion Gap 3 (5-15); BUN 15 mg/dL (7-18); BUN/Creat Ratio 18.8 RATIO (10-20); CRP 3.45 mg/L (0.0-3.0); Calcium,Total 9.3 mg/dL (8.5-10.1); Chloride 104 mmol/L (98-107); EST Glomerular Filtration Rate 102 mL/min (>60); Est Glom Filt Rate - Afr Amer 124 mL/min (>60); Globulin 3.6 g/dL (2.2-4.2); Glucose 150 mg/dL (74-106); Potassium 4.4 mmol/L (3.5-5.1); Protein, Total 7.6 g/dL (6.4-8.2); Sodium Level 138 mmol/L (136-145)
== END | disposition home or self-care (01) ==
LOC: MTLAB 09:46
PROVIDERS: PCP Family Medicine; Referring Provider Family Medicine; Visit Provider Family Medicine
DX: J18.9 Pneumonia, unspecified organism (principal)
CPT/HCPCS: 36415; 71046; 80053; 85025; 86140

== ENCOUNTER 2024-10-27 15:00 | Outpatient (RCR) | payer MEDICARE, OTHER, SELFPAY ==
--- NOTE | 2024-09-29 16:20 | HP.OTEVAL_ITS ---
Patient's Visit Information Visit Information Visit Information: ORQUIDEA EDWARDS Jr. is a 69 year old M, referred to Occupational Therapy by Dr. Keshav Edwards MD, with a diagnosis of L hand parathesias. Date of Evaluation: 09/29/24 Occupational Therapist: Deepthi Huerta Subjective Subjective: Patient arrived for OT evaluation reporting some tingling in the left entire hand. He reports no change in strength, no pain, and it seems tp be affected by position. Patient is right hand dominant. He reports he tends to sleep with his L arm up under his head and wonders if it's related to this. Pt has trialed a carpal tunnel pre-abi wrist splint but reports it did not help. 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 Goal:: Patient will report less parathesias impacting daily function with report of experiencing finger tingling < 1x/week. Goal:: Patient will be independent with HEP for strength and mobility of upper body for participation in ADL's. Rehabilitation General Assessment: Patient arrived for OT evaluation due to experiencing intermittent L hand numbness mostly in his fingers (all 5). He has had multiple cardiac surgeries and history of diabetes, but no injury to the left arm specifically. He presents with full ROM in hands, wrists, and digits although with some stiffness. His left shoulder has decreased ROM compared to his right with stiff movements noted with scapular movement. His upper back and neck muscles appear tight. He denies parathesias this date with intact sensation in left hand per monofilament test. Patient would benefit from skilled OT to work on improving soft tissue mobility in the shoulder, neck, and lower arm. He would benefit from soft tissue mobilization for improved blood flow as well as modalities. Patient likes to exercise at [facility] and would benefit from exercises and stretches to decrease parathesias in L hand and improve mobility in L arm. Rehabilitation Potential: Good Anticipated Interventions Anticipated Interventions: A/AAROM/PROM, Strengthening, Triggerpoint Release, Modalities, Joint Protection/Energy Conservation and Home Program Visit Plan Frequency: 2x /Week Duration: 4 Weeks General Plan: 2x/week for 4 -6 weeks to work on soft tissue mobilization, safe strengthening techniques, ROM, modalities to reduce parasthesias in L hand TEXT: Thank you for the opportunity to evaluate your patient. For Medicare and Medicare HMO plans, please review the plan of care and approve it. It will need to be FAXED BACK to us at [phone] for Medicare purposes. Please let me know if there are questions or concerns regarding this plan of care. Physician Signature: ____Date:
--- NOTE | 2024-10-27 15:25 | HP.OTDCSUM ---
Discharge Summary D/C Summary: It has been my pleasure to treat ORQUIDEA EDWARDS Jr. under orders from Dr. Keshav Ewdards MD, for the diagnosis of L hand parathesias for a total of 8 visit(s). Please see the following information for a summary of their discharge status. 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 (goal met) Goal:: Patient will report less parathesias impacting daily function with report of experiencing finger tingling < 1x/week. Goal:: Patient will be independent with HEP for strength and mobility of upper body for participation in ADL's. ( goal met) Plan Plan: cont 1-2x/week for 4 weeks TRY Shoulder Press or dumb bells next time D/C Information Discharge Comments: pt was seen for OT services for ulnar nerve compression- pt has decreased in his symptoms and has started working in the gym for UB strengthening as he has free time from his new employment. pt is happy for his decrease in symptoms. pt has met OT goals and is d.c pt agree to D/C at this. d/c sentence: If there are questions or concerns regarding this patient's occupational therapy, please fell free to call me at [phone]. Thank you for the referral of this patient. Sincerely, Samantha Sky, OTR/L, CHT
== END 2024-10-27 19:00 | disposition home or self-care (01) ==
LOC: OT 15:00
PROVIDERS: PCP Family Medicine; Referring Provider Family Medicine; Visit Provider Family Medicine
DX: R20.2 Paresthesia of skin (principal)
CPT/HCPCS: 97110; 97140; 97166; 97530

== ENCOUNTER → 2025-03-23 | Outpatient (CLI) | payer MEDICARE, OTHER, SELFPAY ==
[2025-03-23 10:23] LABS: Absolute Lymphocyte Count 2.06 X10^3/uL (0.83-4.51); Basophil# 0.04 X10^3/uL; Basophil% 0.6 % (0-1); Eosinophil# 0.24 X10^3/uL; Eosinophils% 3.4 % (0-5); Hematocrit 41.1 % (40-54); Hemoglobin 13.6 g/dL (13.0-16.5); Lymphocyte # 2.06 X10^3/ul (0.83-4.51); Lymphocyte % 29.5 % (19-41); Mean Corp Hgb Conc 33.1 g/dL (32-36); Mean Corpuscular Volume 90.5 fL (80-94); Mean Platelet Vol. 9.6 fl (6.2-12.0); Monocyte# 0.64 X10^3/uL; Monocyte% 9.2 % (0-10); NRBC Flagged by Analyzer 0 % (0-5); Neutrophil # 3.97 X10^3/uL (2.7-7.7); Neutrophil % 56.7 % (47-70); Platelet Count 258 K/mm3 (150-450); RBC Distribution Width CV 13.5 % (11.6-14.6); Red Blood Count 4.54 M/mm3 (4.6-6.2)
[2025-03-23 10:50] LABS: ALB/GLOB Ratio 1.5 RATIO (0.9-2.4); AST(SGOT) 22 U/L (<=37); Alanine Aminotransfer ALT/SGPT 27 U/L (<=46); Albumin, Serum 4.3 g/dL (3.4-4.8); Alkaline Phosphatase 74 U/L (40-129); Anion Gap 12 (5-15); BUN 21 mg/dL (4-19); BUN/Creat Ratio 25.4 RATIO (10-20); Calcium,Total 9.6 mg/dL (7.6-11.0); Carbon Dioxide 24.4 mmol/L (21.0-32.0); Chloride 100 mmol/L (98-108); Cholesterol 168 mg/dL (<=200); Creatinine, Serum 0.84 mg/dL (0.70-1.20); EST Glomerular Filtration Rate 94 (>60); Globulin 2.9 g/dL (2.2-4.2); Glucose 222 mg/dL (70-99); High Density Lipoprotein 67 mg/dL; PSA,Total - Annual Screen 0.35 ng/mL (0.02-4.00); Potassium 4.4 mmol/L (3.3-5.1); Protein, Total 7.2 g/dL (5.9-8.4); Sodium Level 136 mmol/L (133-145); Total Bilirubin 0.53 mg/dL (0.00-1.30)
[2025-03-23 11:28] LABS: Microalbumin,Random Urine < 12.0 mg/L (NO RANGE EST.); Microalbumin:Creatinine Ratio UNABLE TO CALCULATE mg/g CRE
== END | disposition home or self-care (01) ==
LOC: MFPLAB 08:43
PROVIDERS: PCP Family Medicine; Referring Provider Family Medicine; Visit Provider Family Medicine
DX: E11.9 Type 2 diabetes mellitus without complications (principal); I25.10 Atherosclerotic heart disease of native coronary artery without angina pectoris; J45.909 Unspecified asthma, uncomplicated; Z12.5 Encounter for screening for malignant neoplasm of prostate
CPT/HCPCS: 36415; 80053; 82043; 82465; 82570; 83718; 84153; 85025; G0103

== ENCOUNTER → 2025-09-14 | Outpatient (CLI) | payer MEDICARE, OTHER, SELFPAY ==
[2025-09-14 10:54] LABS: Hematocrit 38.8 % (40-54); Hemoglobin 12.8 g/dL (13.0-16.5); Immature Granulocytes Count 0.030 X10^3/uL (0.0-0.0); Mean Corp Hgb Conc 33.0 g/dL (32-36); Mean Corpuscular Volume 89.6 fL (80-94); Mean Platelet Vol. 9.5 fl (6.2-12.0); NRBC Flagged by Analyzer 0 % (0-5); Platelet Count 255 K/mm3 (150-450); RBC Distribution Width CV 14.2 % (11.6-14.6); RBC Distribution Width SD 46.4 fl (35.1-43.9); Red Blood Count 4.33 M/mm3 (4.6-6.2); White Blood Count 7.4 K/mm3 (4.4-11.0)
[2025-09-14 11:18] LABS: Creatinine, Urine (random) 71.80 mg/dL (39.00-259.00); Microalbumin,Random Urine 16.4 mg/L (<20 mg/L)
[2025-09-14 11:29] LABS: AST(SGOT) 22 U/L (<=37); Alanine Aminotransfer ALT/SGPT 22 U/L (<=46); Albumin, Serum 4.3 g/dL (3.4-4.8); Alkaline Phosphatase 61 U/L (40-129); Anion Gap 11 (5-15); BUN 14 mg/dL (4-19); BUN/Creat Ratio 19.4 RATIO (10-20); Bilirubin, Direct 0.26 mg/dL (0.00-0.30); Calcium,Total 9.3 mg/dL (7.6-11.0); Carbon Dioxide 24.8 mmol/L (21.0-32.0); Chloride 103 mmol/L (98-108); Globulin 2.5 g/dL (2.2-4.2); Glucose 108 mg/dL (70-99); Potassium 4.5 mmol/L (3.3-5.1)
[2025-09-14 11:55] LABS: Cholesterol 139 mg/dL (<=200); Low Density Lipoprotein Calc. 63 mg/dL; Triglycerides 86 mg/dL; Very Low Density Lipoprotein 17 mg/dL (5-40); cholesterol:hdl ratio screen 2.32
== END | disposition home or self-care (01) ==
LOC: LAB 10:14
PROVIDERS: PCP Family Medicine; Referring Provider Nurse Practitioner Family; Visit Provider Nurse Practitioner Family
DX: E11.8 Type 2 diabetes mellitus with unspecified complications (principal); J45.909 Unspecified asthma, uncomplicated; E78.5 Hyperlipidemia, unspecified; I34.0 Nonrheumatic mitral (valve) insufficiency
CPT/HCPCS: 36415; 80053; 80061; 82043; 82248; 82570; 83036; 85025